=== PATIENT | male | born 1975 | race Caucasian/White ===

== ENCOUNTER 2017-01-27 07:01 | Emergency (ER) | payer BC ==
[~2017-01-27] VITALS: Ht 172.7 cm; Wt 94.9 kg
[2017-01-27 07:02] VITALS: Ht 172.7 cm; Wt 94.9 kg
--- NOTE | 2017-01-27 09:20 | ERD ---
ER Documentation Chief Complaint Chief Complaint suture removal on right foot HPI Patient is a 41-year-old male with hypertension and diabetes who presents for removal of sutures in his foot. The patient is also looking for a new doctor because he had cared at [facility] and they were not happy with the care. He had a biopsy done of the right second toe 2 weeks ago and had stitches placed. He is getting antibiotics through a PICC line currently. He does not currently have a primary doctor. He was unable to get an appointment with the line servicer who did the biopsy and therefore the patient came to the ER to have his sutures removed. ROS All systems reviewed and are negative except as per history of present illness. Allergies Allergies: Coded Allergies: No Known Allergy (Unverified , 01/27/17) PMhx/Soc Hx Miscellaneous Medical Probl: Yes (DM, osteomylitis) Hx Alcohol Use: No Hx Substance Use: No Hx Tobacco Use: No FmHx Family History: No diabetes Physical Exam Vitals Vital Signs Date Time Temp Pulse Resp B/P Pulse Ox O2 Delivery O2 Flow Rate FiO2 01/27/17 07:02 98.2 71 18 155/94 99 Physical Exam Const: No acute distress Head: Atraumatic Eyes: Normal Conjunctiva ENT: Normal External Ears, Nose and Mouth. Neck: Full range of motion..~ No meningismus. Resp: Clear to auscultation bilaterally Cardio: Regular rate and rhythm, no murmurs Abd: Soft, non tender, non distended. Normal bowel sounds Skin: Incision and sutures are clean, dry, and intact to the right second toe , there is scab formation around the area but no obvious signs of infection Back: No midline or flank tenderness Ext: No cyanosis, or edema Neur: Awake and alert Psych: Normal Mood and Affect Procedures/MDM Suture Removal by me: Sutures removed with tweezers and scissors without incident. Wound shows no evidence of infection, foreign body, neurologic injury, vascular injury, open joint or tendon laceration. Patient to follow up PRN. I also spoke with the wound care nursing team who came to the bedside to evaluate the patient. They are going to help him get plugged into the amputation prevention center so that he can get follow-up. I do not believe he requires admission to the hospital or further workup at this time. I believe outpatient management is appropriate. Departure Diagnosis: Primary Impression: Encounter for removal of sutures Condition: Fair Patient Instructions: Suture Removal, No Complication Referrals: [facility] Additional Instructions: SPECIALIST: YOU HAVE A MEDICAL CONDITION WHICH REQUIRES YOU TO SEE A SPECIALIST WITHIN THE NEXT 1-2 DAYS. PLEASE FOLLOW UP WITH YOUR PRIMARY PHYSICIAN FOR REFFERAL.IF YOU DO NOT HAVE A PRIMARY CARE PHYSICIAN AND/OR YOU CAN NOT AFFORD TO SEE A PHYSICIAN THE FOLLOWING RESOURCES HAVE BEEN SUPPLIED TO YOU. IT IS YOUR RESPONSIBILITY TO BE SEEN BY THE SPECIALIST WENDY MACARIO MD Jan 27, 2017 09:20
== END 2017-01-27 09:25 | disposition home or self-care (01) ==
LOC: E/R 07:01
DX: Z48.02 Encounter for removal of sutures (principal); I10 Essential (primary) hypertension; E11.9 Type 2 diabetes mellitus without complications
CPT/HCPCS: 99281

== ENCOUNTER 2017-03-28 06:28 | Emergency (ER) | END 2017-03-28 07:09 | disposition home or self-care (01) ==

== ENCOUNTER 2017-11-28 05:37 | Inpatient (IN) | END 2017-11-28 06:00 | disposition home or self-care (01) | DRG 951 ==

== ENCOUNTER 2018-04-19 14:57 | Inpatient (IN) | payer BC, OTHER ==
[~2018-04-19] VITALS: Ht 175.3 cm; Wt 100.2 kg
[2018-04-19] MEDS ORDERED: ACETAMINOPHEN 325 MG TAB PO STA (15:11)
[2018-04-19] MEDS ORDERED: CEFEPIME 2GM/50 ML (PMX) 50 ML IVPB STA (15:11)
[2018-04-19] MEDS ORDERED: SODIUM CHLORIDE 0.9% 1L BAG IV* STA (15:11)
[2018-04-19] MEDS ORDERED: KETOROLAC 15 MG INJ IV STA (15:17)
[2018-04-19] MEDS ORDERED: VANCOMYCIN 1 GM (PMX) 250 ML IVPB ONE (15:30)
--- NOTE | 2018-04-19 15:56 | ERD ---
ER Documentation Chief Complaint Chief Complaint Sent from clinic for eval fever HPI 43M hx of right ankle fusion, DM here with fever. Several days of flu like symptoms including body aches, myalgias and fevers with generalized malaise. Temperature of 103. No other symptoms including no rhinorrhea cough congestion. The patient has had some mild nausea but no diarrhea no abdominal pain. The patient does note some redness and swelling and discomfort to the right lower extremity where he had a ankle fusion fairly recently. Patient was seen by his fender finisher today and sent to the emergency room for further evaluation. ROS All systems reviewed and are negative except as per history of present illness. Allergies Allergies: Coded Allergies: No Known Allergy (Unverified , 01/27/17) PMhx/Soc Hx Miscellaneous Medical Probl: Yes (DM, osteomylitis) Hx Alcohol Use: No Hx Substance Use: No Hx Tobacco Use: No FmHx Family History: diabetes Physical Exam Vitals Vital Signs Date Temp Pulse Resp B/P (MAP) Pulse Ox O2 O2 Flow FiO2 Time Delivery Rate 04/19/18 98.4 78 13 123/80 98 Room Air 19:53 (94) 04/19/18 98.4 79 16 128/74 98 Room Air 18:50 (92) 04/19/18 92 18 126/82 97 Room Air 18:04 (97) 04/19/18 85 18 136/88 97 Room Air 17:20 (104) 04/19/18 90 18 130/85 97 Room Air 17:00 (100) 04/19/18 39.5 15:38 04/19/18 103.1 117 20 140/84 100 15:06 (102) Physical Exam General: Well developed, well nourished, no acute distress Head: Normocephalic, atraumatic. Eyes: Pupils equally reactive, EOM intact ENT: Moist mucous membranes Neck: Supple, no lymphadenopathy Respiratory: Lungs clear bilaterally, no distress Cardiovascular: RRR, no murmurs, rubs, or gallops Abdominal: Soft, non-tender, non-distended, no peritoneal signs : Deferred MSK: Right lower extremity with evidence of granuloma to the anterior christine that is draining, the ankle fusion of the lower extremity is significantly swollen warm and tender. No crepitus. Neurologic: Alert and oriented, moving all extremities, normal speech, no focal weakness, no cerebellar signs Skin: No rash Psych: Normal mood Result Diagram: 04/19/18 1519 04/19/18 1519 Results 24 hrs Laboratory Tests Test 04/19/18 15:19 04/19/18 15:21 04/19/18 17:34 04/19/18 19:53 White Blood Count 11.1 10^3/ul Red Blood Count 4.94 10^6/ul Hemoglobin 13.0 g/dl Hematocrit 39.2 % Mean Corpuscular 79.4 fl Volume Mean Corpuscular 26.3 pg Hemoglobin Mean Corpuscular 33.2 g/dl Hemoglobin Concent Red Cell Distribution 15.5 % Width Platelet Count 382 10^3/UL Mean Platelet Volume 9.4 fl Immature Granulocytes 0.500 % % Neutrophils % 77.6 % Lymphocytes % 13.6 % Monocytes % 7.6 % Eosinophils % 0.3 % Basophils % 0.4 % Nucleated Red Blood 0.0 /100WBC Cells % Immature Granulocytes 0.050 10^3/ul # Neutrophils # 8.6 10^3/ul Lymphocytes # 1.5 10^3/ul Monocytes # 0.8 10^3/ul Eosinophils # 0.0 10^3/ul Basophils # 0.0 10^3/ul Nucleated Red Blood 0.0 10^3/ul Cells # Erythrocyte 95 mm/Hr Sedimentation Rate Prothrombin Time 14.3 Sec Prothrombin Time Ratio 1.1 INR International 1.10 Normalized Ratio Activated 33.3 Sec Partial Thromboplast Time Sodium Level 137 mmol/L Potassium Level 4.3 mmol/L Chloride Level 101 mmol/L Carbon Dioxide Level 25 mmol/L Anion Gap 11 Blood Urea Nitrogen 13 mg/dl Creatinine 0.97 mg/dl Est Glomerular Filtrat > 60 mL/min Rate mL/min Glucose Level 176 mg/dl Calcium Level 9.2 mg/dl Total Bilirubin 0.4 mg/dl Direct Bilirubin 0.00 mg/dl Indirect Bilirubin 0.4 mg/dl Aspartate Amino 19 IU/L Transf (AST/SGOT) Alanine 8 IU/L Aminotransferase (ALT/ SGPT) Alkaline Phosphatase 150 IU/L Troponin I < 0.012 ng/ml C-Reactive Protein 25.1 mg/dl Total Protein 8.1 g/dl Albumin 3.8 g/dl Globulin 4.30 g/dl Albumin/Globulin Ratio 0.88 POC Venous Lactate 1.7 mmol/L 1.2 mmol/L Lactic Acid Level 0.8 mmol/L Current Medications Medications Dose Sig/Mara Start Time Status Last (Trade) Ordered Route PRN Stop Time Admin Dose Reason Admin Sodium 2,950 ml BOLUS OVER 2 04/19/18 DC 04/19/18 Chloride HOURS STAT 15:11 04/19/18 15:39 (NS) IV* 15:13 650 mg ONCE STAT 04/19/18 DC 04/19/18 Acetaminophen PO 15:11 04/19/18 15:38 (Tylenol 15:13 Tab) Cefepime HCl 50 ml @ ONCE STAT 04/19/18 DC 04/19/18 100 mls/hr IVPB 15:11 04/19/18 15:39 15:40 Vancomycin 250 ml @ ONCE ONCE 04/19/18 DC 04/19/18 HCl 125 mls/hr IVPB 15:30 04/19/18 17:08 17:29 Ketorolac 15 mg ONCE STAT 04/19/18 DC 04/19/18 Tromethamine IV 15:17 04/19/18 15:38 (Toradol) 15:19 Ondansetron 4 mg BRIDGE ORDER 04/19/18 HCl (Zofran PRN IV 20:30 04/20/18 Inj) NAUSEA/VOMITI 20:29 NG 650 mg ER BRIDGE 04/19/18 Acetaminophen PRN PO 20:30 04/20/18 (Tylenol .MILD PAIN 20:29 Tab) 1-3 OR TEMP IV Flush 3 ml PER 04/19/18 (NS 3 ml) PROTOCOL IV 20:30 Ondansetron 4 mg Q6H PRN 04/19/18 HCl (Zofran PO 20:30 Tab) NAUSEA/VOMITI NG 650 mg Q6H PRN 04/19/18 Acetaminophen PO .PAIN 1-3 20:30 (Tylenol OR TEMP Tab) 1 tab Q6H PRN 04/19/18 Acetaminophen PO .MOD PAIN 20:30 / 4-6 Hydrocodone Bitart ([place] (5/325)) Docusate 100 mg Q12H PRN 04/19/18 Sodium PO 20:30 (Colace) .CONSTIPATION Zolpidem 5 mg QHS PRN 04/19/18 Tartrate PO .INSOMNIA 20:30 (Ambien) Famotidine 20 mg Q12 PO 04/19/18 (Pepcid) 21:00 Heparin 5,000 unit Q12 SC 04/19/18 Sodium 21:00 (Porcine) (Heparin (5000 Units/1ml)) Vancomycin 1 ea NOTE XX 04/19/18 UNV HCl (Vanco 20:30 Iv Per Pharmacy) Metformin 850 mg BID PO 04/19/18 UNV HCl 21:00 (Glucophage) 40 mg QPM PO 04/19/18 UNV Atorvastatin 21:00 Calcium (Lipitor) Lisinopril 40 mg QAM PO 04/20/18 UNV (Zestril) 09:00 2,000 unit QAM PO 04/20/18 UNV Cholecalcifer 09:00 ol (Vitamin D) Procedures/MDM EKG, MONITORS, & DIAGNOSTIC IMAGING: EKG: I reviewed and interpreted a 12-lead EKG. Rhythm: Normal sinus rhythm ST Changes: No contiguous ST segment elevations T waves: No contiguous T wave inversions Impression: No evidence of acute cardiac ischemia Chest x-ray: I reviewed and interpreted a 1 view of the chest Mediastinum: No enlargement Cardiac silhouette: No cardiomegaly Airspace: Clear lung ortega bilaterally without evidence of pneumothorax Bones: No evidence of fracture X-ray right tib-fib: IMPRESSION: 1. Large soft tissue density in Kager's fat pad/ posterior ankle and leg, increase since the prior exams. This can be further evaluated with cross- sectional imaging. 2. Redemonstration of neuropathic changes in the ankle/hind foot/mid foot status post distal fibular resection and ankle fusion. 3. Diffuse soft tissue swelling in the leg. 4. Evidence of prior external fixation, with increased mature periosteal reaction about the proximal tibia screw tract may represent healing changes. 5. Additional findings as above. 6. Consider MRI or bone scan for further evaluation if there is persistent concern for osteomyelitis. RPTAT: BBDD X-ray right foot: IMPRESSION: Mild right lower lobe atelectatic changes. Low lung volumes. LAB INTERPRETATION: I reviewed the laboratory testing and it shows normal lactic acid, elevated ESR and CRP MEDICAL DECISION MAKING: Patient presents with fever, body aches and influenza-like illness but no focal source other than the right lower extremity. This is concerning for possible osteomyelitis. The patient surgery was in January, unlikely postoperative infection. Patient will benefit from alternative source screening including influenza but the patient has no evidence of pneumonia or acute intraabdominal process. No signs or symptoms concerning for meningitis. Code sepsis was in itiated and the patient was given broad-spectrum antibiotics ER COURSE: * 30/kg bolus of saline, antipyretics, blood cultures and broad-spectrum antibiotics provided. * The patient does not meet criteria for severe sepsis or septic shock. The patient's symptoms and vital signs have improved * No other clear source of infection CONSULTATION: Dr. Moreno, podiatry notified DISPOSITION PLAN: Accepting care team and consultations: I discussed the current laboratory data, diagnostic imaging and emergency care provided. Admitting team: Dr. Contreras, primary care physician sepsis Documentation: Patient's infectious symptoms have not stabilized and the patient is at risk of rapid decompensation. The patient will be admitted for careful hydration, antibiotic therapy, and infectious source control. SEVERE SEPSIS CRITERIA: Infectious source: Right lower extremity cellulitis versus osteomyelitis End organ damage indicated by: no endorgan dysfunction currently SEPSIS MANAGEMENT Time of recognition of sepsis: Upon MD assessment. Time of recognition of severe sepsis: No severe sepsis at this time. Time of recognition of septic shock: No septic shock at this time. 3 HOUR BUNDLE Blood cultures x 2 before broad-spectrum antibiotics: Yes 30 ml/kg NS bolus completed Initial lactate less than 2 Repeat lactate less than 2 SEPTIC SHOCK ASSESSMENT: No lactic acid > 4.0 No persistent hypotension (SBP < 90 or 40 mmHg drop, MAP < 65) despite 30 mL/kg IV fluid bolus VOLUME REASSESSMENT FOR SEPTIC SHOCK: The patient does not meet criteria for septic shock in the emergency department at this time PERSISTENT HYPOTENSION TREATMENT: Comfort care no Central line not Required Vasopressor started not required I considered further perfusion assessment with CVP measurement, SCVO2, bedside ultrasound volume assessment, passive leg raise, trial of further fluid bolus. And proceeded with 30 ml/kg fluid bolus of NSS, broad spectrum antibiotics, and admission. CRITICAL CARE Critical care time 30 minutes Emergent fluid management while maintaining close respiratory support. Provision of immediate and broad-spectrum antibiotic therapy. Simultaneous assessment for possible sources in order to direct targeted therapy. Consideration for invasive and chemical support to prevent cardiopulmonary collapse. Critical care time is independent of procedures performed. Admitting team indication: Insurance directed Departure Diagnosis: Primary Impression: Sepsis Sepsis type: sepsis due to unspecified organism Qualified Codes: A41.9 - Sepsis, unspecified organism Additional Impression: Cellulitis of right lower extremity Condition: Stable FREDERICK SOUTH MD Apr 19, 2018 15:56
[2018-04-19] MEDS ORDERED: ACETAMINOPHEN 325 MG TAB PO PRN ×2 (20:30)
[2018-04-19] MEDS ORDERED: ONDANSETRON 4 MG TAB PO PRN (20:30)
[2018-04-19] MEDS ORDERED: HYDROCODONE/APAP (5/325) TAB PO PRN (20:30)
[2018-04-19] MEDS ORDERED: DOCUSATE SODIUM 100 MG CAP PO PRN (20:30)
[2018-04-19] MEDS ORDERED: ONDANSETRON 4 MG INJ IV PRN (20:30)
[2018-04-19] MEDS ORDERED: VANCOMYCIN IV PER PHARMACY XX SCH (20:30)
[2018-04-19] MEDS ORDERED: ZOLPIDEM 5 MG TAB PO PRN (20:30)
[2018-04-19] MEDS ORDERED: NACL 0.9% 3 ML SYG IV SCH (20:30)
[2018-04-19] MEDS: ATORVASTATIN 40 MG TAB PO SCH (23:12)
[2018-04-19] MEDS: metFORMIN 850 MG TAB PO SCH (23:12)
[2018-04-19] MEDS: FAMOTIDINE 20 MG TAB PO SCH (23:13)
[2018-04-19] MEDS: HEPARIN 5,000 UNIT/1 ML VIAL SC SCH (23:14)
[2018-04-19] MEDS ORDERED: ATOR40TA68 PO (23:21)
[2018-04-19] MEDS ORDERED: ERGO2000 PO (23:21)
[2018-04-19] MEDS ORDERED: METF-480 PO (23:21)
[2018-04-19] MEDS ORDERED: LISI-471 PO (23:21)
[2018-04-19] MEDS ORDERED: SITA25TA3 PO (23:21)
[2018-04-19] MEDS ORDERED: DEXTROSE 50% 50 ML SYRINGE IV PRN ×2 (23:30)
[2018-04-19] MEDS ORDERED: GLUCOSE GEL 15 GRAM TUBE PO PRN ×2 (23:30)
[2018-04-19] MEDS ORDERED: GLUCOSE GEL 15 GRAM TUBE BUCCAL PRN (23:30)
[2018-04-19] MEDS ORDERED: GLUCAGON 1 MG INJ IM PRN (23:30)
[2018-04-19 23:48] VITALS: Ht 175.3 cm; Wt 100.2 kg
[2018-04-20] MEDS: VANCOMYCIN 1 GM 250 ML IVPB SCH ×3 (00:09→16:51)
[2018-04-20 00:29] VITALS: BP 140/73; PULSE 72; RESP 20
[2018-04-20 02:00] VITALS: BP 135/67; PULSE 74; RESP 18
[2018-04-20 08:02] VITALS: BP 159/87; PULSE 83; RESP 18
[2018-04-20] MEDS: metFORMIN 850 MG TAB PO SCH ×2 (08:50→20:40)
[2018-04-20] MEDS: LISINOPRIL 20 MG TAB PO SCH (08:51)
[2018-04-20] MEDS: CHOLECALCIFEROL 2,000 UNIT CAP PO SCH (08:51)
[2018-04-20] MEDS: FAMOTIDINE 20 MG TAB PO SCH ×2 (08:51→20:41)
[2018-04-20] MEDS: HEPARIN 5,000 UNIT/1 ML VIAL SC SCH ×2 (08:51→20:42)
--- NOTE | 2018-04-20 13:02 | HP ---
Date/Time of Note Date/Time of Note DATE: 04/20/18 TIME: 12:53 Assessment/Plan VTE Prophylaxis Risk score (from Ns)>0 risk: 2 SCD applied (from [facility] [place] No SCD contraindicated: other (Right lower extremity cellulitis) Pharmacological prophylaxis: heparin Lines/Catheters IV C[facility]ter Type (from [facility] Saline Lock Assessment/Plan Problems: (1) Cellulitis of right lower extremity Status: Acute Comment: Blood cultures already positive. Patient is on vancomycin which should cover the gram-positive cocci that are identified in the blood cultures. He also clinically is significantly improved both subjectively and objectively. Continue with current treatment. Plan for MRI scan of lower extremity tomorrow and a bit more of the swelling has decreased (2) Sepsis Status: Acute Comment: Responding to treatment fortunately. Qualifiers: Sepsis type: sepsis due to unspecified organism Qualified Codes: A41.9 - Sepsis, unspecified organism (3) Hyperlipidemia Status: Chronic Comment: Maintain statin therapy Qualifiers: Hyperlipidemia type: pure hypercholesterolemia Qualified Codes: E78.00 - Pure hypercholesterolemia, unspecified (4) Essential hypertension Status: Chronic Comment: Continue PACHECO inhibitor treatment (5) Diabetes mellitus type 2 in obese Status: Chronic Comment: Continue with treatment and follow the blood tests (6) Charcot's joint, right ankle and foot Status: Chronic Comment: Noted. Result Diagram: 04/20/18 0622 04/20/18 0622 Results 24hrs Laboratory Tests Test 04/19/18 15:19 04/19/18 15:21 04/19/18 17:34 04/19/18 19:53 White Blood Count 11.1 H Red Blood Count 4.94 Hemoglobin 13.0 L Hematocrit 39.2 L Mean Corpuscular Volume 79.4 L Mean Corpuscular 26.3 L Hemoglobin Mean Corpuscular 33.2 Hemoglobin Concent Red Cell Distribution 15.5 H Width Platelet Count 382 Mean Platelet Volume 9.4 Immature Granulocytes % 0.500 H Neutrophils % 77.6 H Lymphocytes % 13.6 L Monocytes % 7.6 Eosinophils % 0.3 Basophils % 0.4 Nucleated Red Blood 0.0 Cells % Immature Granulocytes # 0.050 H Neutrophils # 8.6 H Lymphocytes # 1.5 Monocytes # 0.8 Eosinophils # 0.0 Basophils # 0.0 Nucleated Red Blood 0.0 Cells # Erythrocyte 95 H Sedimentation Rate Prothrombin Time 14.3 Prothrombin Time Ratio 1.1 INR International 1.10 Normalized Ratio Activated 33.3 Partial Thromboplast Time Sodium Level 137 Potassium Level 4.3 Chloride Level 101 Carbon Dioxide Level 25 Anion Gap 11 Blood Urea Nitrogen 13 Creatinine 0.97 Est Glomerular Filtrat > 60 Rate mL/min Glucose Level 176 Calcium Level 9.2 Total Bilirubin 0.4 Direct Bilirubin 0.00 Indirect Bilirubin 0.4 Aspartate Amino 19 Transf (AST/SGOT) Alanine 8 L Aminotransferase (ALT/SG PT) Alkaline Phosphatase 150 H Troponin I < 0.012 C-Reactive Protein 25.1 H Total Protein 8.1 Albumin 3.8 Globulin 4.30 H Albumin/Globulin Ratio 0.88 POC Venous Lactate 1.7 1.2 Lactic Acid Level 0.8 Test 04/19/18 23:07 04/20/18 06:22 Bedside Glucose 154 White Blood Count 10.3 Red Blood Count 4.20 L Hemoglobin 11.0 L Hematocrit 33.8 L Mean Corpuscular Volume 80.5 L Mean Corpuscular 26.2 L Hemoglobin Mean Corpuscular 32.5 Hemoglobin Concent Red Cell Distribution 15.7 H Width Platelet Count 349 Mean Platelet Volume 10.1 Immature Granulocytes % 0.600 H Neutrophils % 77.8 H Lymphocytes % 12.9 L Monocytes % 7.2 Eosinophils % 1.2 Basophils % 0.3 Nucleated Red Blood 0.0 Cells % Immature Granulocytes # 0.060 H Neutrophils # 8.0 H Lymphocytes # 1.3 Monocytes # 0.7 Eosinophils # 0.1 Basophils # 0.0 Nucleated Red Blood 0.0 Cells # Erythrocyte 97 H Sedimentation Rate Sodium Level 139 Potassium Level 4.4 Chloride Level 107 Carbon Dioxide Level 24 Anion Gap 8 Blood Urea Nitrogen 12 Creatinine 0.75 Est Glomerular Filtrat > 60 Rate mL/min Glucose Level 139 Calcium Level 8.6 Total Bilirubin 0.3 Direct Bilirubin 0.00 Indirect Bilirubin 0.3 Aspartate Amino 17 Transf (AST/SGOT) Alanine 12 L Aminotransferase (ALT/SG PT) Alkaline Phosphatase 122 H Total Protein 6.7 # Albumin 3.1 L Globulin 3.60 H Albumin/Globulin Ratio 0.86 HPI/ROS Admit Date/Time Admit Date/Time Apr 19, 2018 at 20:08 Hx of Present Illness Pleasant 43-year-old gentleman with a history of a Charcot ankle status post rec onstruction several months ago. He did been in his usual state of health and recuperating nicely. Roughly 3-4 days ago he developed the onset of swelling tenderness redness and warmth at the ankle. He subsequently then developed fevers and ultimately was advised to be seen in the emergency room by the foot and ankle surgeon. In the emergency room he had temperature of 103.1 and evidence of cellulitis. He was cultured and placed on IV antibiotics specifically vancomycin admitted. His blood cultures are already positive ROS Constitutional: no complaints (He reports he is feeling better than he was yesterday with fever gone no further shaking chills) Eyes: no complaints ENT: no complaints Respiratory: no complaints Cardiovascular: no complaints Gastrointestinal: no complaints Genitourinary: no complaints Musculoskeletal: other (Right ankle pain swelling warmth) Neurologic: no complaints Endocrine: no complaints Psychological: no complaints, nl mood/affect PMH/Family/Social Past Medical History Medical History: diabetes (Type II), high cholesterol, hypertension, other (Alcohol consumption; childhood asthma; lactose intolerance; usual childhood diseases; history of varicella; right second toe osteomyelitis history; Charcot joint right ankle;) Medications Current Medications IV Flush (NS 3 ml) 3 ml PER PROTOCOL IV ; Start 04/19/18 at 20:30 Ondansetron HCl (Zofran Tab) 4 mg Q6H PRN PO NAUSEA/VOMITING; Start 04/19/18 at 20:30 Acetaminophen (Tylenol Tab) 650 mg Q6H PRN PO .PAIN 1-3 OR TEMP; Start 04/19/18 at 20:30 Acetaminophen/ Hydrocodone Bitart ([place] (5/325)) 1 tab Q6H PRN PO .MOD PAIN 4- 6; Start 04/19/18 at 20:30 Docusate Sodium (Colace) 100 mg Q12H PRN PO .CONSTIPATION; Start 04/19/18 at 20:30 Zolpidem Tartrate (Ambien) 5 mg QHS PRN PO .INSOMNIA; Start 04/19/18 at 20:30 Famotidine (Pepcid) 20 mg Q12 PO Last administered on 04/20/18at 08:51; Admin Dose 20 MG; Start 04/19/18 at 21:00 Heparin Sodium (Porcine) (Heparin (5000 Units/1ml)) 5,000 unit Q12 SC Last administered on 04/20/18at 08:51; Admin Dose 5,000 UNIT; Start 04/19/18 at 21:00 Vancomycin HCl (Vanco Iv Per Pharmacy) 1 ea NOTE XX ; Start 04/19/18 at 20:30 Metformin HCl (Glucophage) 850 mg BID PO Last administered on 04/20/18at 08:50; Admin Dose 850 MG; Start 04/19/18 at 21:00 Atorvastatin Calcium (Lipitor) 40 mg QPM PO Last administered on 04/19/18at 23:12; Admin Dose 40 MG; Start 04/19/18 at 21:00 Lisinopril (Zestril) 40 mg QAM PO Last administered on 04/20/18at 08:51; Admin Dose 40 MG; Start 04/20/18 at 09:00 Cholecalciferol (Vitamin D) 2,000 unit QAM PO Last administered on 04/20/18at 08:51; Admin Dose 2,000 UNIT; Start 04/20/18 at 09:00 Miscellaneous Information 1 ea NOTE XX ; Start 04/19/18 at 23:30 Glucose (Glutose) 15 gm Q15M PRN PO DECREASED GLUCOSE; Start 04/19/18 at 23:30 Glucose (Glutose) 22.5 gm Q15M PRN PO DECREASED GLUCOSE; Start 04/19/18 at 23:30 Dextrose (D50w Syringe) 25 ml Q15M PRN IV DECREASED GLUCOSE; Start 04/19/18 at 23:30 Dextrose (D50w Syringe) 50 ml Q15M PRN IV DECREASED GLUCOSE; Start 04/19/18 at 23:30 Glucagon (Glucagen) 1 mg Q15M PRN IM DECREASED GLUCOSE; Start 04/19/18 at 23:30 Glucose (Glutose) 15 gm Q15M PRN BUCCAL DECREASED GLUCOSE; Start 04/19/18 at 23:30 Vancomycin HCl 250 ml @ 125 mls/hr Q8H IVPB Last administered on 04/20/18at 08:50; Admin Dose 125 MLS/HR; Start 04/20/18 at 00:00 Miscellaneous Information (*Rx Drug Level Order Reminder*) VANCO TROUGH 04/20 @ 2,300 ONCE ONCE XX ; Start 04/20/18 at 23:00; Stop 04/20/18 at 23:01 Coded Allergies: No Known Allergy (Unverified , 04/19/18) Past Surgical History Past Surgical Hx: other (Right ankle arthrodesis) Family History Significant Family History: diabetes, hypertension, lung disease, other Social History Born in [place] and raised. No experience. lives with spouse Alcohol Use: other (Reports recently discontinued) Smoking Status: Never smoker Drug Use: none Exam/Review of Systems Vital Signs Vitals Vital Signs Date Temp Pulse Resp B/P (MAP) Pulse Ox O2 O2 Flow FiO2 Time Delivery Rate 04/20/18 97.7 83 18 159/87 94 Room Air 08:02 (111) Intake and Output 04/19/18 04/19/18 04/20/18 1515:00 23:00 07:00 IntakeIntake Total 3000 ml 500 ml OutputOutput Total 900 ml BalanceBalance 3000 ml -400 ml Exam Constitutional: alert, oriented Head: normocephalic, atraumatic Eyes: nl conjunctiva, EOMI, nl lids ENMT: nl external ears & nose, nl lips & teeth, nl nasal mucosa & septum Neck: supple, non-tender Respiratory: clear to auscultation, normal air movement Cardiovascular: regular rate and rhythm, nl pulses Gastrointestinal: soft, nl liver, spleen, non-tender Extremities: other (Right lower extremity markedly swollen erythematous red with a margination line which is lower than the ink manriquez at the ER and placed yesterday) Neurological: CUPOLA MELTER HELPER II-XII intact, nl mental status, nl speech, nl strength Skin: nl turgor Lymph: nl lymph nodes DEE AGUILAR MD Apr 20, 2018 13:01
[2018-04-20 14:00] VITALS: BP_SYST 101; BP_SYST 153; BP_DIAS 60; BP_DIAS 76; PULSE 62; RESP 18
[2018-04-20] MEDS: ACCU-CHEK XX SCH ×3 (14:00→20:44)
[2018-04-20 20:00] VITALS: BP 172/77; PULSE 77; RESP 19
[2018-04-20] MEDS: ATORVASTATIN 40 MG TAB PO SCH (20:41)
[2018-04-21] MEDS: VANCOMYCIN 1 GM 250 ML IVPB SCH ×4 (00:02→23:44)
[2018-04-21 02:00] VITALS: BP 161/86; PULSE 79; RESP 18
[2018-04-21 08:12] VITALS: BP 161/81; PULSE 78; RESP 18
[2018-04-21] MEDS: metFORMIN 850 MG TAB PO SCH ×2 (08:14→20:08)
[2018-04-21] MEDS: LISINOPRIL 20 MG TAB PO SCH ×2 (08:14→20:09)
[2018-04-21] MEDS: CHOLECALCIFEROL 2,000 UNIT CAP PO SCH (08:14)
[2018-04-21] MEDS: FAMOTIDINE 20 MG TAB PO SCH ×2 (08:14→20:07)
[2018-04-21] MEDS: ACCU-CHEK XX SCH ×6 (08:15→20:15)
[2018-04-21] MEDS: HEPARIN 5,000 UNIT/1 ML VIAL SC SCH ×2 (08:15→20:11)
--- NOTE | 2018-04-21 10:35 | CONS ---
Assessment/Plan Assessment/Plan Problems: (1) Right ankle effusion (2) Sepsis Status: Acute Qualifiers: Qualified Codes: A41.9 - Sepsis, unspecified organism (3) Cellulitis of right lower extremity Status: Acute (4) Diabetes mellitus type 2 in obese Status: Chronic (5) Charcot's joint, right ankle and foot Status: Chronic Assessment/Plan (Daily) Plan: Prognosis is guarded. Patient has possible infection of the right ankle joint. A CT of the right ankle will be ordered. May require incision and drainage. IV antibiotics to continue. Nonweightbearing on the right lower extremity. Patient will be followed in-house. Thank you very much for consultation. Consultation Date/Type/Reason Admit Date/Time Apr 19, 2018 at 20:08 Date of Consultation: Apr 20, 2018 Type of Consult Foot and ankle surgery Reason for Consultation Possible infection in the right lower extremity with bacteremia. Date/Time of Note DATE: 04/20/18 TIME: 17:26 Hx of Present Illness This is a pleasant 43-year-old male patient with history of Charcot ankle changes along with Charcot foot who has recently undergone right ankle fusion and removal of external fixation. He was seen in my clinic but for routine for routine postop checkup. Patient was sent to the emergency room to be admitted to the hospital for possible sepsis. Patient reports that about 3-4 days ago he developed swelling and tenderness at the right ankle. He has had on and off fevers. In the emergency room he had a temperature of 103.1 with swelling of the right ankle and increase in warmth. Patient was found to have positive blood cultures. He was placed on IV vancomycin and was admitted to the hospital. Constitutional: chills, febrile Eyes: no complaints ENT: no complaints Respiratory: no complaints Cardiovascular: no complaints Gastrointestinal: no complaints Past Medical History As per history of present illness. Medical History: diabetes, high cholesterol, hypertension, other Home Meds Reported Medications Sitagliptin* (Januvia*) Unknown Strength Tablet, PO DAILY, #30 TAB 04/19/18 Metformin* (Glucophage*) 850 Mg Tablet, 850 MG PO WITH BREAKFAST DINNE, #60 TAB 04/19/18 Lisinopril* (Lisinopril*) 20 Mg Tablet, 20 MG PO DAILY, #30 TAB 04/19/18 Ergocalciferol (Vitamin D2) (VITAMIN D2) 2,000 Unit Tablet, 2000 UNIT PO QAM, TAB 04/19/18 Atorvastatin* (Atorvastatin*) 40 Mg Tablet, 40 MG PO QHS, #30 TAB 04/19/18 Medications Current Medications IV Flush (NS 3 ml) 3 ml PER PROTOCOL IV ; Start 04/19/18 at 20:30 Ondansetron HCl (Zofran Tab) 4 mg Q6H PRN PO NAUSEA/VOMITING; Start 04/19/18 at 20:30 Acetaminophen (Tylenol Tab) 650 mg Q6H PRN PO .PAIN 1-3 OR TEMP; Start 04/19/18 at 20:30 Acetaminophen/ Hydrocodone Bitart ([place] (5/325)) 1 tab Q6H PRN PO .MOD PAIN 4- 6; Start 04/19/18 at 20:30 Docusate Sodium (Colace) 100 mg Q12H PRN PO .CONSTIPATION; Start 04/19/18 at 20:30 Zolpidem Tartrate (Ambien) 5 mg QHS PRN PO .INSOMNIA; Start 04/19/18 at 20:30 Famotidine (Pepcid) 20 mg Q12 PO Last administered on 04/21/18 08:14; Admin Dose 20 MG; Start 04/19/18 at 21:00 Heparin Sodium (Porcine) (Heparin (5000 Units/1ml)) 5,000 unit Q12 SC Last administered on 04/21/18 08:15; Admin Dose 5,000 UNIT; Start 04/19/18 at 21:00 Vancomycin HCl (Vanco Iv Per Pharmacy) 1 ea NOTE XX ; Start 04/19/18 at 20:30 Metformin HCl (Glucophage) 850 mg BID PO Last administered on 04/21/18 08:14; Admin Dose 850 MG; Start 04/19/18 at 21:00 Atorvastatin Calcium (Lipitor) 40 mg QPM PO Last administered on 04/20/18 20:41; Admin Dose 40 MG; Start 04/19/18 at 21:00 Lisinopril (Zestril) 40 mg QAM PO Last administered on 04/21/18 08:14; Admin Dose 40 MG; Start 04/20/18 at 09:00 Cholecalciferol (Vitamin D) 2,000 unit QAM PO Last administered on 3/6/19at 08:14; Admin Dose 2,000 UNIT; Start 04/20/18 at 09:00 Miscellaneous Information 1 ea NOTE XX ; Start 04/19/18 at 23:30 Glucose (Glutose) 15 gm Q15M PRN PO DECREASED GLUCOSE; Start 04/19/18 at 23:30 Glucose (Glutose) 22.5 gm Q15M PRN PO DECREASED GLUCOSE; Start 04/19/18 at 23:30 Dextrose (D50w Syringe) 25 ml Q15M PRN IV DECREASED GLUCOSE; Start 04/19/18 at 23:30 Dextrose (D50w Syringe) 50 ml Q15M PRN IV DECREASED GLUCOSE; Start 04/19/18 at 23:30 Glucagon (Glucagen) 1 mg Q15M PRN IM DECREASED GLUCOSE; Start 04/19/18 at 23:30 Glucose (Glutose) 15 gm Q15M PRN BUCCAL DECREASED GLUCOSE; Start 04/19/18 at 23:30 Vancomycin HCl 250 ml @ 125 mls/hr Q8H IVPB Last administered on 04/21/18at 08:15; Admin Dose 125 MLS/HR; Start 04/20/18 at 00:00 Diagnostic Test (Pha) (Accu-Chek) 1 ea AC MEALS XX Last administered on 04/21/18at 08:15; Admin Dose 1 EA; Start 04/20/18 at 17:35 Diagnostic Test (Pha) (Accu-Chek) 1 ea 2 HOURS AFTER MEALS XX Last administered on 04/21/18at 10:22; Admin Dose 1 EA; Start 04/20/18 at 14:00 Hydralazine HCl (Apresoline) 50 mg Q8 PRN PO ELEVATED BLOOD PRESSURE Last administered on 04/20/18at 22:35; Admin Dose 50 MG; Start 04/20/18 at 21:00 Allergies: Coded Allergies: No Known Allergy (Unverified , 04/19/18) Past Surgical History Patient has had realignment of right lower extremity with use of external fixation. Patient has undergone removal of external fixation and attempted fusion of the right ankle joint to correct the severe ankle Charcot deformity. Past Surgical Hx: other Social History Alcohol Use: none Smoking Status: Never smoker Drug Use: none Exam/Review of Systems Exam Vitals Vital Signs Date Temp Pulse Resp B/P (MAP) Pulse Ox O2 O2 Flow FiO2 Time Delivery Rate 04/21/18 98.4 78 18 161/81 96 08:12 (107) 04/20/18 Room Air 14:00 Intake and Output 04/20/18 04/20/18 04/21/18 1515:00 23:00 07:00 IntakeIntake Total 250 ml 1350 ml 850 ml OutputOutput Total 600 ml 2400 ml BalanceBalance 250 ml 750 ml -1550 ml Exam GENERAL: Patient is in no acute distress; patient is well-developed and well- nourished; laying supine in bed VASCULAR: Pedal pulses are weakly palpable bilaterally. There is edema of the right ankle with increase in temperature of skin. Capillary filling time is delayed on all toes. No varicose veins noted in the lower extremity. Lower leg hyperpigmentation present NEUROLOGICAL: Protective sensation is diminished to sharp, dull, vibratory and temperature stimuli bilaterally. Deep tendon reflexes are normal in the left; right side is status post ankle fusion SKIN: There is significant hyperpigmentation of skin noted around the lateral right ankle. I do not see much erythema today and there is no open wound MUSCULOSKELETAL: Status post ankle fusion right lower extremity with contracted toes Imaging reviewed. Labs reviewed. Results Result Diagram: 04/21/18 0545 04/21/18 0545 Results 24hrs Laboratory Tests Test 04/20/18 14:35 04/20/18 18:16 04/20/18 20:24 04/20/18 22:45 Bedside Glucose 134 142 124 Vancomycin Level Trough 12.3 Test 04/21/18 05:45 04/21/18 08:12 White Blood Count 9.2 Red Blood Count 4.24 L Hemoglobin 11.1 L Hematocrit 33.9 L Mean Corpuscular Volume 80.0 L Mean Corpuscular 26.2 L Hemoglobin Mean Corpuscular 32.7 Hemoglobin Concent Red Cell Distribution 15.5 H Width Platelet Count 360 Mean Platelet Volume 9.5 Immature Granulocytes % 0.500 H Neutrophils % 69.7 Lymphocytes % 18.9 Monocytes % 8.5 Eosinophils % 2.1 Basophils % 0.3 Nucleated Red Blood 0.0 Cells % Immature Granulocytes # 0.050 H Neutrophils # 6.4 Lymphocytes # 1.7 Monocytes # 0.8 Eosinophils # 0.2 Basophils # 0.0 Nucleated Red Blood 0.0 Cells # Sodium Level 140 Potassium Level 4.2 Chloride Level 105 Carbon Dioxide Level 28 Anion Gap 7 Blood Urea Nitrogen 10 Creatinine 0.88 Est Glomerular Filtrat > 60 Rate mL/min Glucose Level 129 Calcium Level 8.9 Total Bilirubin 0.1 L Direct Bilirubin 0.00 Indirect Bilirubin 0.1 Aspartate Amino 22 Transf (AST/SGOT) Alanine 14 Aminotransferase (ALT/SG PT) Alkaline Phosphatase 132 H Total Protein 6.9 Albumin 3.2 L Globulin 3.70 H Albumin/Globulin Ratio 0.86 Bedside Glucose 139 Medications Medication Current Medications IV Flush (NS 3 ml) 3 ml PER PROTOCOL IV ; Start 04/19/18 at 20:30 Ondansetron HCl (Zofran Tab) 4 mg Q6H PRN PO NAUSEA/VOMITING; Start 04/19/18 at 20:30 Acetaminophen (Tylenol Tab) 650 mg Q6H PRN PO .PAIN 1-3 OR TEMP; Start 04/19/18 at 20:30 Acetaminophen/ Hydrocodone Bitart ([place] (5/325)) 1 tab Q6H PRN PO .MOD PAIN 4- 6; Start 04/19/18 at 20:30 Docusate Sodium (Colace) 100 mg Q12H PRN PO .CONSTIPATION; Start 04/19/18 at 20:30 Zolpidem Tartrate (Ambien) 5 mg QHS PRN PO .INSOMNIA; Start 04/19/18 at 20:30 Famotidine (Pepcid) 20 mg Q12 PO Last administered on 04/21/18 08:14; Admin Dose 20 MG; Start 04/19/18 at 21:00 Heparin Sodium (Porcine) (Heparin (5000 Units/1ml)) 5,000 unit Q12 SC Last administered on 04/21/18 08:15; Admin Dose 5,000 UNIT; Start 04/19/18 at 21:00 Vancomycin HCl (Vanco Iv Per Pharmacy) 1 ea NOTE XX ; Start 04/19/18 at 20:30 Metformin HCl (Glucophage) 850 mg BID PO Last administered on 04/21/18 08:14; Admin Dose 850 MG; Start 04/19/18 at 21:00 Atorvastatin Calcium (Lipitor) 40 mg QPM PO Last administered on 04/20/18 20:41; Admin Dose 40 MG; Start 04/19/18 at 21:00 Lisinopril (Zestril) 40 mg QAM PO Last administered on 04/21/18 08:14; Admin Dose 40 MG; Start 04/20/18 at 09:00 Cholecalciferol (Vitamin D) 2,000 unit QAM PO Last administered on 04/21/18 08:14; Admin Dose 2,000 UNIT; Start 04/20/18 at 09:00 Miscellaneous Information 1 ea NOTE XX ; Start 04/19/18 at 23:30 Glucose (Glutose) 15 gm Q15M PRN PO DECREASED GLUCOSE; Start 04/19/18 at 23:30 Glucose (Glutose) 22.5 gm Q15M PRN PO DECREASED GLUCOSE; Start 04/19/18 at 23:30 Dextrose (D50w Syringe) 25 ml Q15M PRN IV DECREASED GLUCOSE; Start 04/19/18 at 23:30 Dextrose (D50w Syringe) 50 ml Q15M PRN IV DECREASED GLUCOSE; Start 04/19/18 at 23:30 Glucagon (Glucagen) 1 mg Q15M PRN IM DECREASED GLUCOSE; Start 04/19/18 at 23:30 Glucose (Glutose) 15 gm Q15M PRN BUCCAL DECREASED GLUCOSE; Start 04/19/18 at 23:30 Vancomycin HCl 250 ml @ 125 mls/hr Q8H IVPB Last administered on 04/21/18 08:15; Admin Dose 125 MLS/HR; Start 04/20/18 at 00:00 Diagnostic Test (Pha) (Accu-Chek) 1 ea AC MEALS XX Last administered on 04/21/18 08:15; Admin Dose 1 EA; Start 04/20/18 at 17:35 Diagnostic Test (Pha) (Accu-Chek) 1 ea 2 HOURS AFTER MEALS XX Last administered on 04/21/18 10:22; Admin Dose 1 EA; Start 04/20/18 at 14:00 Hydralazine HCl (Apresoline) 50 mg Q8 PRN PO ELEVATED BLOOD PRESSURE Last administered on 04/20/18 22:35; Admin Dose 50 MG; Start 04/20/18 at 21:00 LORI LOPEZ DPM Apr 21, 2018 10:35
[2018-04-21 14:40] VITALS: BP 160/96; PULSE 78; RESP 19
--- NOTE | 2018-04-21 17:36 | PN ---
Date/Time of Note Date/Time of Note DATE: 04/21/18 TIME: 17:34 Assessment/Plan VTE Prophylaxis Risk score (from Ns)>0 risk: 3 SCD applied (from Ns): No SCD contraindicated: other (Joint with a ) Pharmacological prophylaxis: heparin Lines/Catheters IV Catheter Type (from [facility] [place] Saline Lock Urinary Cath still in place: No Assessment/Plan Problems: (1) Cellulitis of right lower extremity Status: Acute Comment: Improving nicely with IV vancomycin therapy. Cultures still pending at this time. (2) Staphylococcus aureus bacteremia with sepsis Status: Acute Comment: On antibiotic therapy and improving nicely picture of sepsis has resolved (3) Charcot's joint, right ankle and foot Status: Chronic Comment: Pending imaging studies and input from Dr. Moreno after the imaging studies (4) Diabetes mellitus type 2 in obese Status: Chronic Comment: Excellent glycemic control despite the infection (5) Hyperlipidemia Status: Chronic Comment: Continue with statin therapy Qualifiers: Hyperlipidemia type: pure hypercholesterolemia Qualified Codes: E78.00 - Pure hypercholesterolemia, unspecified (6) Essential hypertension Status: Chronic Comment: Increase PACHECO inhibitor. Result Diagram: 04/21/18 0545 04/21/18 0545 Results 24hrs Laboratory Tests Test 04/20/18 18:16 04/20/18 20:24 04/20/18 22:45 04/21/18 05:45 Bedside Glucose 142 124 Vancomycin Level Trough 12.3 White Blood Count 9.2 Red Blood Count 4.24 L Hemoglobin 11.1 L Hematocrit 33.9 L Mean Corpuscular Volume 80.0 L Mean Corpuscular 26.2 L Hemoglobin Mean Corpuscular 32.7 Hemoglobin Concent Red Cell Distribution 15.5 H Width Platelet Count 360 Mean Platelet Volume 9.5 Immature Granulocytes % 0.500 H Neutrophils % 69.7 Lymphocytes % 18.9 Monocytes % 8.5 Eosinophils % 2.1 Basophils % 0.3 Nucleated Red Blood 0.0 Cells % Immature Granulocytes # 0.050 H Neutrophils # 6.4 Lymphocytes # 1.7 Monocytes # 0.8 Eosinophils # 0.2 Basophils # 0.0 Nucleated Red Blood 0.0 Cells # Sodium Level 140 Potassium Level 4.2 Chloride Level 105 Carbon Dioxide Level 28 Anion Gap 7 Blood Urea Nitrogen 10 Creatinine 0.88 Est Glomerular Filtrat > 60 Rate mL/min Glucose Level 129 Calcium Level 8.9 Total Bilirubin 0.1 L Direct Bilirubin 0.00 Indirect Bilirubin 0.1 Aspartate Amino 22 Transf (AST/SGOT) Alanine 14 Aminotransferase (ALT/SG PT) Alkaline Phosphatase 132 H Total Protein 6.9 Albumin 3.2 L Globulin 3.70 H Albumin/Globulin Ratio 0.86 Test 04/21/18 08:12 04/21/18 10:21 04/21/18 12:15 04/21/18 13:37 Bedside Glucose 139 174 129 164 Test 04/21/18 17:21 Bedside Glucose 143 Subjective 24 Hr Interval Summary Free Text/Dictation Ports that his pain is down and that he is overall feeling better. The swelling has also decreased. Constitutional: no complaints Eyes: no complaints Respiratory: no complaints Gastrointestinal: no complaints Genitourinary: no complaints Exam/Review of Systems Exam Vitals Vital Signs Date Temp Pulse Resp B/P (MAP) Pulse Ox O2 O2 Flow FiO2 Time Delivery Rate 04/21/18 98.9 78 19 160/96 96 14:40 (117) 04/20/18 Room Air 14:00 Intake and Output 04/20/18 04/20/18 04/21/18 1515:00 23:00 07:00 IntakeIntake Total 250 ml 1350 ml 850 ml OutputOutput Total 600 ml 2400 ml BalanceBalance 250 ml 750 ml -1550 ml Constitutional: alert, oriented Respiratory: clear to auscultation, normal air movement Cardiovascular: regular rate and rhythm, nl pulses Gastrointestinal: soft, nl liver, spleen, non-tender Extremities: other (Right ankle and foot still swollen but significantly improved. Less erythema less warmth) Results Results 24hrs Laboratory Tests Test 04/20/18 18:16 04/20/18 20:24 04/20/18 22:45 04/21/18 05:45 Bedside Glucose 142 124 Vancomycin Level Trough 12.3 White Blood Count 9.2 Red Blood Count 4.24 L Hemoglobin 11.1 L Hematocrit 33.9 L Mean Corpuscular Volume 80.0 L Mean Corpuscular 26.2 L Hemoglobin Mean Corpuscular 32.7 Hemoglobin Concent Red Cell Distribution 15.5 H Width Platelet Count 360 Mean Platelet Volume 9.5 Immature Granulocytes % 0.500 H Neutrophils % 69.7 Lymphocytes % 18.9 Monocytes % 8.5 Eosinophils % 2.1 Basophils % 0.3 Nucleated Red Blood 0.0 Cells % Immature Granulocytes # 0.050 H Neutrophils # 6.4 Lymphocytes # 1.7 Monocytes # 0.8 Eosinophils # 0.2 Basophils # 0.0 Nucleated Red Blood 0.0 Cells # Sodium Level 140 Potassium Level 4.2 Chloride Level 105 Carbon Dioxide Level 28 Anion Gap 7 Blood Urea Nitrogen 10 Creatinine 0.88 Est Glomerular Filtrat > 60 Rate mL/min Glucose Level 129 Calcium Level 8.9 Total Bilirubin 0.1 L Direct Bilirubin 0.00 Indirect Bilirubin 0.1 Aspartate Amino 22 Transf (AST/SGOT) Alanine 14 Aminotransferase (ALT/SG PT) Alkaline Phosphatase 132 H Total Protein 6.9 Albumin 3.2 L Globulin 3.70 H Albumin/Globulin Ratio 0.86 Test 04/21/18 08:12 04/21/18 10:21 04/21/18 12:15 04/21/18 13:37 Bedside Glucose 139 174 129 164 Test 04/21/18 17:21 Bedside Glucose 143 Medications Medication Current Medications IV Flush (NS 3 ml) 3 ml PER PROTOCOL IV ; Start 04/19/18 at 20:30 Ondansetron HCl (Zofran Tab) 4 mg Q6H PRN PO NAUSEA/VOMITING; Start 04/19/18 at 20:30 Acetaminophen (Tylenol Tab) 650 mg Q6H PRN PO .PAIN 1-3 OR TEMP; Start 04/19/18 at 20:30 Acetaminophen/ Hydrocodone Bitart ([place] (5/325)) 1 tab Q6H PRN PO .MOD PAIN 4- 6; Start 04/19/18 at 20:30 Docusate Sodium (Colace) 100 mg Q12H PRN PO .CONSTIPATION; Start 04/19/18 at 20:30 Zolpidem Tartrate (Ambien) 5 mg QHS PRN PO .INSOMNIA; Start 04/19/18 at 20:30 Famotidine (Pepcid) 20 mg Q12 PO Last administered on 04/21/18at 08:14; Admin Dose 20 MG; Start 04/19/18 at 21:00 Heparin Sodium (Porcine) (Heparin (5000 Units/1ml)) 5,000 unit Q12 SC Last administered on 04/21/18at 08:15; Admin Dose 5,000 UNIT; Start 04/19/18 at 21:00 Vancomycin HCl (Vanco Iv Per Pharmacy) 1 ea NOTE XX ; Start 04/19/18 at 20:30 Metformin HCl (Glucophage) 850 mg BID PO Last administered on 04/21/18 08:14; Admin Dose 850 MG; Start 04/19/18 at 21:00 Atorvastatin Calcium (Lipitor) 40 mg QPM PO Last administered on 04/20/18 20:41; Admin Dose 40 MG; Start 04/19/18 at 21:00 Cholecalciferol (Vitamin D) 2,000 unit QAM PO Last administered on 04/21/18 08:14; Admin Dose 2,000 UNIT; Start 04/20/18 at 09:00 Miscellaneous Information 1 ea NOTE XX ; Start 04/19/18 at 23:30 Glucose (Glutose) 15 gm Q15M PRN PO DECREASED GLUCOSE; Start 04/19/18 at 23:30 Glucose (Glutose) 22.5 gm Q15M PRN PO DECREASED GLUCOSE; Start 04/19/18 at 23:30 Dextrose (D50w Syringe) 25 ml Q15M PRN IV DECREASED GLUCOSE; Start 04/19/18 at 23:30 Dextrose (D50w Syringe) 50 ml Q15M PRN IV DECREASED GLUCOSE; Start 04/19/18 at 23:30 Glucagon (Glucagen) 1 mg Q15M PRN IM DECREASED GLUCOSE; Start 04/19/18 at 23:30 Glucose (Glutose) 15 gm Q15M PRN BUCCAL DECREASED GLUCOSE; Start 04/19/18 at 23:30 Vancomycin HCl 250 ml @ 125 mls/hr Q8H IVPB Last administered on 04/21/18 16:41; Admin Dose 125 MLS/HR; Start 04/20/18 at 00:00 Diagnostic Test (Pha) (Accu-Chek) 1 ea AC MEALS XX Last administered on 17:22; Admin Dose 1 EA; Start 04/20/18 at 17:35 Diagnostic Test (Pha) (Accu-Chek) 1 ea 2 HOURS AFTER MEALS XX Last administered on 04/21/18 14:00; Admin Dose 1 EA; Start 04/20/18 at 14:00 Hydralazine HCl (Apresoline) 50 mg Q8 PRN PO ELEVATED BLOOD PRESSURE Last administered on 04/20/18 22:35; Admin Dose 50 MG; Start 04/20/18 at 21:00 Lisinopril (Zestril) 40 mg BID PO ; Start 04/21/18 at 21:00 DEE AGUILAR MD Apr 21, 2018 17:36
[2018-04-21 20:00] VITALS: BP 155/89; PULSE 82; RESP 20
[2018-04-21] MEDS ORDERED: LISINOPRIL 20 MG TAB ONE (20:06)
[2018-04-21] MEDS ORDERED: TERBINAFINE 250 MG TAB ONE (20:06)
[2018-04-21] MEDS ORDERED: metFORMIN 850 MG TAB ONE (20:06)
[2018-04-21] MEDS: ATORVASTATIN 40 MG TAB PO SCH (20:07)
[2018-04-21] MEDS: TERBINAFINE 250 MG TAB PO SCH (20:08)
[2018-04-22 02:05] VITALS: BP 170/81; PULSE 83; RESP 19
[2018-04-22 03:09] VITALS: BP 136/84; PULSE 96
[2018-04-22] MEDS: ACCU-CHEK XX SCH ×6 (07:30→20:05)
[2018-04-22] MEDS: VANCOMYCIN 1 GM 250 ML IVPB SCH ×4 (08:08→23:43)
[2018-04-22] MEDS: metFORMIN 850 MG TAB PO SCH ×2 (08:13→21:18)
[2018-04-22 08:30] VITALS: BP 146/85; PULSE 80; RESP 18
[2018-04-22] MEDS: TERBINAFINE 250 MG TAB PO SCH ×2 (09:12→20:38)
[2018-04-22] MEDS: FAMOTIDINE 20 MG TAB PO SCH ×2 (09:12→20:37)
[2018-04-22] MEDS: CHOLECALCIFEROL 2,000 UNIT CAP PO SCH (09:12)
[2018-04-22] MEDS: LISINOPRIL 20 MG TAB PO SCH ×2 (09:13→20:38)
[2018-04-22] MEDS: HEPARIN 5,000 UNIT/1 ML VIAL SC SCH ×2 (09:15→20:47)
--- NOTE | 2018-04-22 13:45 | PN ---
Date/Time of Note Date/Time of Note DATE: 04/22/18 TIME: 13:27 Assessment/Plan VTE Prophylaxis Risk score (from Ns)>0 risk: 1 SCD applied (from [facility] [place]): No SCD contraindicated: other Pharmacological prophylaxis: heparin Lines/Catheters IV Catheter Type (from [facility]): Saline Lock Urinary Cath still in place: No Assessment/Plan Problems: (1) Abscess of bursa, right ankle and foot Status: Acute Comment: After informed consent the patient was prepped and draped and a 10 cc syringe with a 19-gauge needle was introduced into the fluctuant area skin withdrawing 10 cc of purulent fluid. Patient tolerated the procedure well. Visions on antibiotics but we still do not as of this moment have back the MRI scan to tell us the extent of the infection. This is going need to be cleaned up surgically as it is not going to respond simply to IV antibiotic therapy. (2) Staphylococcus aureus bacteremia with sepsis Status: Acute Comment: On antibiotics and the sepsis picture is resolved (3) Charcot's joint, right ankle and foot Status: Chronic Comment: Noted. Pending is this is the imaging scan using MRI i.e. the dictated report is a scan was done last night (4) Diabetes mellitus type 2 in obese Status: Chronic Comment: Adequate control at this time despite the infection (5) Hyperlipidemia Status: Chronic Comment: Good control Qualifiers: Hyperlipidemia type: pure hypercholesterolemia Qualified Codes: E78.00 - Pure hypercholesterolemia, unspecified (6) Essential hypertension Status: Chronic Comment: Adequate control (7) Cellulitis of right lower extremity Status: Acute Comment: Improved Result Diagram: 04/21/18 0545 04/21/18 0545 Results 24hrs Laboratory Tests Test 04/21/18 13:37 04/21/18 17:21 04/21/18 19:58 04/22/18 08:12 Bedside Glucose 164 143 147 155 Test 04/22/18 10:00 04/22/18 12:13 Bedside Glucose 193 144 Subjective 24 Hr Interval Summary Free Text/Dictation Patient reports no further fevers chills or sweats. He reports that in his right ankle there is an area that now feels like there is fluid underneath the skin. Constitutional: no complaints Respiratory: no complaints Cardiovascular: no complaints Gastrointestinal: no complaints Genitourinary: no complaints Exam/Review of Systems Exam Vitals Vital Signs Date Temp Pulse Resp B/P (MAP) Pulse Ox O2 O2 Flow FiO2 Time Delivery Rate 04/22/18 98.1 80 18 146/85 97 Room Air 08:30 (105) Intake and Output 04/21/18 04/21/18 04/22/18 1515:00 23:00 07:00 IntakeIntake Total 720 ml 490 ml 250 ml OutputOutput Total 600 ml 200 ml BalanceBalance 120 ml 290 ml 250 ml Constitutional: alert, oriented Respiratory: clear to auscultation, normal air movement Cardiovascular: regular rate and rhythm, nl pulses Gastrointestinal: soft, nl liver, spleen, non-tender Extremities: other (Right ankle medial aspect fluctuant area immediately underneath the skin.) Results Results 24hrs Laboratory Tests Test 04/21/18 13:37 04/21/18 17:21 04/21/18 19:58 04/22/18 08:12 Bedside Glucose 164 143 147 155 Test 04/22/18 10:00 04/22/18 12:13 Bedside Glucose 193 144 Medications Medication Current Medications IV Flush (NS 3 ml) 3 ml PER PROTOCOL IV ; Start 04/19/18 at 20:30 Ondansetron HCl (Zofran Tab) 4 mg Q6H PRN PO NAUSEA/VOMITING; Start 04/19/18 at 20:30 Acetaminophen (Tylenol Tab) 650 mg Q6H PRN PO .PAIN 1-3 OR TEMP; Start 04/19/18 at 20:30 Acetaminophen/ Hydrocodone Bitart ([place] (5/325)) 1 tab Q6H PRN PO .MOD PAIN 4- 6; Start 04/19/18 at 20:30 Docusate Sodium (Colace) 100 mg Q12H PRN PO .CONSTIPATION; Start 04/19/18 at 20:30 Zolpidem Tartrate (Ambien) 5 mg QHS PRN PO .INSOMNIA; Start 04/19/18 at 20:30 Famotidine (Pepcid) 20 mg Q12 PO Last administered on 04/22/18at 09:12; Admin Dose 20 MG; Start 04/19/18 at 21:00 Heparin Sodium (Porcine) (Heparin (5000 Units/1ml)) 5,000 unit Q12 SC Last administered on 04/22/18at 09:15; Admin Dose 5,000 UNIT; Start 04/19/18 at 21:00 Vancomycin HCl (Vanco Iv Per Pharmacy) 1 ea NOTE XX ; Start 04/19/18 at 20:30 Metformin HCl (Glucophage) 850 mg BID PO Last administered on 04/22/18 08:13; Admin Dose 850 MG; Start 04/19/18 at 21:00 Atorvastatin Calcium (Lipitor) 40 mg QPM PO Last administered on 04/21/18 20:07; Admin Dose 40 MG; Start 04/19/18 at 21:00 Cholecalciferol (Vitamin D) 2,000 unit QAM PO Last administered on 04/22/18 09:12; Admin Dose 2,000 UNIT; Start 04/20/18 at 09:00 Miscellaneous Information 1 ea NOTE XX ; Start 04/19/18 at 23:30 Glucose (Glutose) 15 gm Q15M PRN PO DECREASED GLUCOSE; Start 04/19/18 at 23:30 Glucose (Glutose) 22.5 gm Q15M PRN PO DECREASED GLUCOSE; Start 04/19/18 at 23:30 Dextrose (D50w Syringe) 25 ml Q15M PRN IV DECREASED GLUCOSE; Start 04/19/18 at 23:30 Dextrose (D50w Syringe) 50 ml Q15M PRN IV DECREASED GLUCOSE; Start 04/19/18 at 23:30 Glucagon (Glucagen) 1 mg Q15M PRN IM DECREASED GLUCOSE; Start 04/19/18 at 23:30 Glucose (Glutose) 15 gm Q15M PRN BUCCAL DECREASED GLUCOSE; Start 04/19/18 at 23:30 Vancomycin HCl 250 ml @ 125 mls/hr Q8H IVPB Last administered on 04/22/18 08:08; Admin Dose 125 MLS/HR; Start 04/20/18 at 00:00 Diagnostic Test (Pha) (Accu-Chek) 1 ea AC MEALS XX Last administered on 04/21/18 17:22; Admin Dose 1 EA; Start 04/20/18 at 17:35 Diagnostic Test (Pha) (Accu-Chek) 1 ea 2 HOURS AFTER MEALS XX Last administered on 04/21/18 20:15; Admin Dose 1 EA; Start 04/20/18 at 14:00 Hydralazine HCl (Apresoline) 50 mg Q8 PRN PO ELEVATED BLOOD PRESSURE Last administered on 3/7/19at 02:04; Admin Dose 50 MG; Start 04/20/18 at 21:00 Lisinopril (Zestril) 40 mg BID PO Last administered on 04/22/18at 09:13; Admin Dose 40 MG; Start 04/21/18 at 21:00 Terbinafine HCl (Lamisil) 250 mg BID PO Last administered on 04/22/18at 09:12; Admin Dose 250 MG; Start 04/21/18 at 21:00; Stop 04/28/18 at 20:59 DEE AGUILAR MD Apr 22, 2018 13:45
[2018-04-22 14:26] VITALS: BP 156/80; PULSE 76; RESP 18
[2018-04-22 20:00] VITALS: BP 154/91; PULSE 80; RESP 19
[2018-04-22] MEDS: ATORVASTATIN 40 MG TAB PO SCH (20:37)
--- NOTE | 2018-04-22 21:24 | PN ---
Date/Time of Note Date/Time of Note DATE: 04/22/18 TIME: 21:22 Assessment/Plan Lines/Catheters IV Catheter Type (from [facility]): Saline Lock Burnett in Place (from [facility]): No Assessment/Plan Problems: (1) Abscess of bursa, right ankle and foot Status: Acute (2) Sepsis Status: Acute Qualifiers: Sepsis type: sepsis due to unspecified organism Qualified Codes: A41.9 - Sepsis, unspecified organism (3) Cellulitis of right lower extremity Status: Acute (4) Diabetes mellitus type 2 in obese Status: Chronic (5) Charcot's joint, right ankle and foot Status: Chronic (6) Staphylococcus aureus bacteremia with sepsis Status: Acute (7) Right ankle effusion Assessment/Plan Patient will be scheduled for incision and drainage of right ankle abscess. Exam/Review of Systems Vital Signs Vitals Vital Signs Date Temp Pulse Resp B/P (MAP) Pulse Ox O2 O2 Flow FiO2 Time Delivery Rate 04/22/18 97.7 76 18 156/80 98 Room Air 14:26 (105) Intake and Output 04/21/18 04/21/18 04/22/18 1515:00 23:00 07:00 IntakeIntake Total 720 ml 490 ml 250 ml OutputOutput Total 600 ml 200 ml BalanceBalance 120 ml 290 ml 250 ml Results Result Diagram: 04/21/18 0545 04/21/18 0545 LORI LOPEZ DPM Apr 22, 2018 21:24
[2018-04-23] VITALS (22 sets, daily range): BP systolic 90–174; BP diastolic 52–100; PULSE 72–83; RESP 13–23
[2018-04-23] MEDS: ACCU-CHEK XX SCH ×6 (07:30→20:05)
[2018-04-23] MEDS: HEPARIN 5,000 UNIT/1 ML VIAL SC SCH ×2 (08:40→21:22)
[2018-04-23] MEDS: VANCOMYCIN 1 GM 250 ML IVPB SCH (08:42)
[2018-04-23] MEDS: metFORMIN 850 MG TAB PO SCH ×2 (08:45→21:16)
[2018-04-23] MEDS: FAMOTIDINE 20 MG TAB PO SCH ×2 (08:45→21:12)
[2018-04-23] MEDS: TERBINAFINE 250 MG TAB PO SCH ×2 (08:45→21:12)
[2018-04-23] MEDS: CHOLECALCIFEROL 2,000 UNIT CAP PO SCH (08:45)
[2018-04-23] MEDS: LISINOPRIL 20 MG TAB PO SCH ×2 (08:46→21:13)
--- NOTE | 2018-04-23 13:08 | PN ---
Date/Time of Note Date/Time of Note DATE: 04/23/18 TIME: 13:05 Assessment/Plan VTE Prophylaxis Risk score (from Ns)>0 risk: 4 SCD applied (from Ns): No SCD contraindicated: other (Right ankle abscess) Pharmacological prophylaxis: heparin Lines/Catheters IV Catheter Type (from [facility]): Saline Lock Urinary Cath still in place: No Assessment/Plan Problems: (1) Abscess of bursa, right ankle and foot Status: Acute Comment: As per podiatry notes for an incision and drainage today. I am strongly in favor of getting the purulent material cleaned out as quickly as possible (2) Staphylococcus aureus bacteremia with sepsis Status: Acute Comment: On antibiotics. Given the sensitivities we can transition over to high-dose cephalosporin therapy. (3) Charcot's joint, right ankle and foot Status: Chronic Comment: Noted. His hardware may be infected further information after podiatry sees a in the operating room (4) Diabetes mellitus type 2 in obese Status: Chronic Comment: Adequate glycemic control (5) Hyperlipidemia Status: Chronic Comment: Adequate control on statin therapy Qualifiers: Hyperlipidemia type: pure hypercholesterolemia Qualified Codes: E78.00 - Pure hypercholesterolemia, unspecified (6) Essential hypertension Status: Chronic Comment: Adequate control on statin therapy Result Diagram: 04/23/186 04/23/18 0446 Results 24hrs Laboratory Tests Test 04/22/18 13:55 04/22/18 17:26 04/22/18 20:21 04/22/18 21:17 Bedside Glucose 125 120 137 140 Test 04/23/18 04:46 04/23/18 08:43 04/23/18 10:11 04/23/18 11:57 White Blood Count 10.7 Red Blood Count 4.65 L Hemoglobin 12.0 L Hematocrit 36.4 L Mean Corpuscular Volume 78.3 L Mean Corpuscular 25.8 L Hemoglobin Mean Corpuscular 33.0 Hemoglobin Concent Red Cell Distribution 15.5 H Width Platelet Count 413 Mean Platelet Volume 9.3 Immature Granulocytes % 1.000 H Neutrophils % 69.8 Lymphocytes % 17.4 Monocytes % 8.3 Eosinophils % 3.1 Basophils % 0.4 Nucleated Red Blood 0.0 Cells % Immature Granulocytes # 0.110 H Neutrophils # 7.4 Lymphocytes # 1.9 Monocytes # 0.9 Eosinophils # 0.3 Basophils # 0.0 Nucleated Red Blood 0.0 Cells # Erythrocyte 120 H Sedimentation Rate Sodium Level 140 Potassium Level 4.4 Chloride Level 103 Carbon Dioxide Level 27 Anion Gap 10 Blood Urea Nitrogen 9 Creatinine 0.82 Est Glomerular Filtrat > 60 Rate mL/min Glucose Level 128 Calcium Level 9.1 Total Bilirubin 0.2 Direct Bilirubin 0.00 Indirect Bilirubin 0.2 Aspartate Amino 62 #H Transf (AST/SGOT) Alanine 52 Aminotransferase (ALT/SG PT) Alkaline Phosphatase 122 H Total Protein 7.3 Albumin 3.3 Globulin 4.00 H Albumin/Globulin Ratio 0.82 Bedside Glucose 174 174 124 Subjective 24 Hr Interval Summary Free Text/Dictation Patient, as usual is in generally positive spirits. Denies fevers chills or sweats. Reports his pain is under control. Constitutional: no complaints Respiratory: no complaints Cardiovascular: no complaints Gastrointestinal: no complaints Genitourinary: no complaints Musculoskeletal: other (Ankle pain) Exam/Review of Systems Exam Vitals Vital Signs Date Temp Pulse Resp B/P (MAP) Pulse Ox O2 O2 Flow FiO2 Time Delivery Rate 04/23/18 98.1 75 18 134/77 98 Room Air 08:28 (96) Intake and Output 04/22/18 04/22/18 04/23/18 1515:00 23:00 07:00 IntakeIntake Total 1030 ml 990 ml 250 ml OutputOutput Total 525 ml 200 ml BalanceBalance 505 ml 790 ml 250 ml Constitutional: alert, oriented Neck: supple, non-tender Respiratory: clear to auscultation, normal air movement Cardiovascular: regular rate and rhythm, nl pulses Gastrointestinal: soft, nl liver, spleen, non-tender Musculoskeletal: other (Right ankle is now dressed) Results Results 24hrs Laboratory Tests Test 04/22/18 13:55 04/22/18 17:26 04/22/18 20:21 04/22/18 21:17 Bedside Glucose 125 120 137 140 Test 04/23/18 04:46 04/23/18 08:43 04/23/18 10:11 04/23/18 11:57 White Blood Count 10.7 Red Blood Count 4.65 L Hemoglobin 12.0 L Hematocrit 36.4 L Mean Corpuscular Volume 78.3 L Mean Corpuscular 25.8 L Hemoglobin Mean Corpuscular 33.0 Hemoglobin Concent Red Cell Distribution 15.5 H Width Platelet Count 413 Mean Platelet Volume 9.3 Immature Granulocytes % 1.000 H Neutrophils % 69.8 Lymphocytes % 17.4 Monocytes % 8.3 Eosinophils % 3.1 Basophils % 0.4 Nucleated Red Blood 0.0 Cells % Immature Granulocytes # 0.110 H Neutrophils # 7.4 Lymphocytes # 1.9 Monocytes # 0.9 Eosinophils # 0.3 Basophils # 0.0 Nucleated Red Blood 0.0 Cells # Erythrocyte 120 H Sedimentation Rate Sodium Level 140 Potassium Level 4.4 Chloride Level 103 Carbon Dioxide Level 27 Anion Gap 10 Blood Urea Nitrogen 9 Creatinine 0.82 Est Glomerular Filtrat > 60 Rate mL/min Glucose Level 128 Calcium Level 9.1 Total Bilirubin 0.2 Direct Bilirubin 0.00 Indirect Bilirubin 0.2 Aspartate Amino 62 #H Transf (AST/SGOT) Alanine 52 Aminotransferase (ALT/SG PT) Alkaline Phosphatase 122 H Total Protein 7.3 Albumin 3.3 Globulin 4.00 H Albumin/Globulin Ratio 0.82 Bedside Glucose 174 174 124 Medications Medication Current Medications IV Flush (NS 3 ml) 3 ml PER PROTOCOL IV ; Start 04/19/18 at 20:30 Ondansetron HCl (Zofran Tab) 4 mg Q6H PRN PO NAUSEA/VOMITING; Start 04/19/18 at 20:30 Acetaminophen (Tylenol Tab) 650 mg Q6H PRN PO .PAIN 1-3 OR TEMP; Start 04/19/18 at 20:30 Acetaminophen/ Hydrocodone Bitart ([place] (5/325)) 1 tab Q6H PRN PO .MOD PAIN 4- 6; Start 04/19/18 at 20:30 Docusate Sodium (Colace) 100 mg Q12H PRN PO .CONSTIPATION; Start 04/19/18 at 20:30 Zolpidem Tartrate (Ambien) 5 mg QHS PRN PO .INSOMNIA; Start 04/19/18 at 20:30 Famotidine (Pepcid) 20 mg Q12 PO Last administered on 04/23/18at 08:45; Admin Dose 20 MG; Start 04/19/18 at 21:00 Heparin Sodium (Porcine) (Heparin (5000 Units/1ml)) 5,000 unit Q12 SC Last administered on 04/23/18at 08:40; Admin Dose 5,000 UNIT; Start 04/19/18 at 21:00 Vancomycin HCl (Vanco Iv Per Pharmacy) 1 ea NOTE XX ; Start 04/19/18 at 20:30 Metformin HCl (Glucophage) 850 mg BID PO Last administered on 04/23/18 08:45; Admin Dose 850 MG; Start 04/19/18 at 21:00 Atorvastatin Calcium (Lipitor) 40 mg QPM PO Last administered on 04/22/18 20:37; Admin Dose 40 MG; Start 04/19/18 at 21:00 Cholecalciferol (Vitamin D) 2,000 unit QAM PO Last administered on 04/23/18 08:45; Admin Dose 2,000 UNIT; Start 04/20/18 at 09:00 Miscellaneous Information 1 ea NOTE XX ; Start 04/19/18 at 23:30 Glucose (Glutose) 15 gm Q15M PRN PO DECREASED GLUCOSE; Start 04/19/18 at 23:30 Glucose (Glutose) 22.5 gm Q15M PRN PO DECREASED GLUCOSE; Start 04/19/18 at 23:30 Dextrose (D50w Syringe) 25 ml Q15M PRN IV DECREASED GLUCOSE; Start 04/19/18 at 23:30 Dextrose (D50w Syringe) 50 ml Q15M PRN IV DECREASED GLUCOSE; Start 04/19/18 at 23:30 Glucagon (Glucagen) 1 mg Q15M PRN IM DECREASED GLUCOSE; Start 04/19/18 at 23:30 Glucose (Glutose) 15 gm Q15M PRN BUCCAL DECREASED GLUCOSE; Start 04/19/18 at 23:30 Vancomycin HCl 250 ml @ 125 mls/hr Q8H IVPB Last administered on 04/23/18 08:42; Admin Dose 125 MLS/HR; Start 04/20/18 at 00:00 Diagnostic Test (Pha) (Accu-Chek) 1 ea AC MEALS XX Last administered on 04/23/18 11:58; Admin Dose 1 EA; Start 04/20/18 at 17:35 Diagnostic Test (Pha) (Accu-Chek) 1 ea 2 HOURS AFTER MEALS XX Last administered on 04/23/18 10:40; Admin Dose 1 EA; Start 04/20/18 at 14:00 Hydralazine HCl (Apresoline) 50 mg Q8 PRN PO ELEVATED BLOOD PRESSURE Last administered on 04/22/18 02:04; Admin Dose 50 MG; Start 04/20/18 at 21:00 Lisinopril (Zestril) 40 mg BID PO Last administered on 04/23/18at 08:46; Admin Dose 40 MG; Start 04/21/18 at 21:00 Terbinafine HCl (Lamisil) 250 mg BID PO Last administered on 04/23/18at 08:45; Admin Dose 250 MG; Start 04/21/18 at 21:00; Stop 04/28/18 at 20:59 Cefazolin Sodium/ Dextrose 50 ml @ 100 mls/hr Q8 IVPB ; Start 04/23/18 at 14:00; Stop 05/06/18 at 13:59 DEE AGUILAR MD Apr 23, 2018 13:07
--- NOTE | 2018-04-23 14:14 | RADRPT ---
Echocardiogram Report Patient Name: Marie WHITEHEAD ID: [id number] : 1975 (43y 1m)Study Date: 04/23/2018 1:30:13 PM Gender: Vladcession #: [id number] Tech: VT Location: Ref.Physician: DEE AGUILAR Height(Cm): BSA: Weight(Kg): Quality: AdequateAccount #: Procedures: Echocardiographic Report: Transthoracic echocardiogram with complete 2D, M-Mode, and doppler examination. Indications: Staph aureus septic joint. Measurements: 2D/M Mode Doppler Measurement Value Normal Range Measurement Value Normal Range LVIDd 2D 3.8 [ 4.2 - 5.8 ] cm AV Peak Melchor 1.5 [ 100.0 - 170.0 ] cm/sec LVIDs 2D 2.0 [ 2.5 - 4.0 ] cm AV Peak PG 8.0 [ 2.0 - 9.0 ] mmHg LVPWd 2D 1.3 [ 0.6 - 1.0 ] cm LVOT Peak Melchor 1.0 [ 70.0 - 110.0 ] cm/sec IVSd 2D 1.4 [ 0.6 - 1.0 ] cm LVOT Peak PG 4.0 [ 2.0 - 6.0 ] mmHg AoR Diam 2D 3.0 [ 2.6 - 3.4 ] cm MV E Peak Melchor 0.8 [ 60.0 - 130.0 ] cm/sec EDV 2D 62.3 [ 62.0 - 150.0 ] ml MV A Peak Melchor 0.6 [ 100.0 - 120.0 ] cm/sec ESV 2D 12.1 [ 21.0 - 61.0 ] ml MV E/A 1.2 [ 0.8 - 1.5 ] ratio EF 2D 80.6 [ 52.0 - 72.0 ] percent MV Decel Time 197 [ 104 - 258 ] msec LA Dimen 2D 2.8 [ 3.0 - 4.0 ] cm Lat E` Melchor 0.2 [ 10.0 - 15.0 ] cm/sec Lateral E/E` 4.7 [ 1.0 - 2.0 ] ratio MV E/A 1.2 [ 0.8 - 1.5 ] ratio TR Peak Melchor 2.1 [ 100.0 - 280.0 ] cm/sec TR Peak PG 18.0 mmHg RVSP 21.0 [ 10.0 - 36.0 ] mmHg RA Pressure 3.0 mmHg Findings: Left Ventricle: Normal left ventricular systolic function. Normal left ventricular cavity size. Mild concentric left ventricular hypertrophy. Ejection fraction is visually estimated at 65 %. Tissue Doppler/Mitral Doppler indices are within normal limits. Right Ventricle: Normal right ventricular size. Normal right ventricular systolic function. Left Atrium: The left atrium is normal in size. Right Atrium: The right atrium is normal in size. Mitral Valve: Normal appearance and function of the mitral valve with trace physiologic regurgitation. Aortic Valve: Normal appearance of the aortic valve. No significant aortic stenosis or insufficiency. Tricuspid Valve: Normal appearance of the tricuspid valve. Estimated peak PA systolic pressure 21 mmHg. There is trace tricuspid regurgitation. Pulmonic Valve: Normal pulmonic valve appearance. Pericardium: Normal pericardium with no significant pericardial effusion. Aorta: Normal aortic root. IVC: Normal size and normal respiratory collapse consistent with normal right atrial pressure. Conclusions: Normal left ventricular systolic function. Normal left ventricular cavity size. Mild concentric left ventricular hypertrophy. Ejection fraction is visually estimated at 65 %. Tissue Doppler/Mitral Doppler indices are within normal limits. Normal right ventricular size. Normal right ventricular systolic function. The left atrium is normal in size. The right atrium is normal in size. No significant valvular stenosis or regurgitation seen. Normal pericardium with no significant pericardial effusion. Electronically Signed By: Angelito Esparza 2018-04-23 14:13:32 PST
[2018-04-23] MEDS: CEFAZOLIN 2 GM/50 ML (PMX) 50 ML IVPB SCH ×2 (14:46→21:26)
--- NOTE | 2018-04-23 16:44 | PN ---
DATE: 04/23/2018 TYPE OF CONSULTATION: Infectious disease. REQUESTING PHYSICIAN: Milton Contreras MD Thank you Dr. Contreras for this consultation. HISTORY OF PRESENT ILLNESS: This is an obese, well-developed, middle-aged man with a past medical history significant for diabetes, obesity, left Charcot ankle status post right ankle fusion, removal of external fixation and placement of screws that was done back in 01/2018. The patient was admitted with sepsis, fever of 103.1, pulse 117, respirations 20, saturation of 100%. LABORATORY DATA: WBC is 11.1, H and H is 13 and 39.2, platelets 382, neutrophils 77.6. ESR 95. BUN 13, creatinine 0.97. Urinalysis was negative for nitrite and leukocyte esterase. DIAGNOSTIC DATA: Chest x-ray on admission revealed mild right lower lobe atelectatic changes. X-ray of the left tibia-fibula revealed diffuse soft tissue swelling in the leg. Please see complete reading in the chart. The patient had an MRI of the foot that revealed extensive bone marrow signal abnormality and erosive changes in the ankle and mid foot with associated mid foot collapse, questionable osteomyelitis, large fluid collection at the ankle which may communicate with the joint space or represent an abscess, diffuse soft tissue edema consistent with provided history of cellulitis. The patient had 2D echo that revealed no vegetations, normal left ventricular systolic function with ejection fraction of 65%. MICROBIOLOGY: Blood cultures are growing oxacillin-sensitive Staphylococcus aureus. The patient had a fluid aspiration from his ankle that is also growing oxacillin-sensitive Staphylococcus aureus. Urine culture is negative. Influenza swab is negative. ANTIMICROBIALS: 1. The patient was started on high dose Ancef 2 grams IV q.8 hours. 2. He is status post vancomycin. SOCIAL HISTORY: The patient came from home. Denies smoking, alcohol or illicits. PHYSICAL EXAMINATION: GENERAL: This is an obese, well-developed, middle-aged man who is alert, in no distress. HEENT: Head is atraumatic, normocephalic. Sclerae are anicteric. NECK: Supple. CHEST: Rise symmetrical. Breath sounds clear. HEART: S1, S2. ABDOMEN: Soft. Bowel tones are present. EXTREMITIES: Right foot dressing is intact. DIAGNOSTIC IMPRESSION: This is a 43-year-old man admitted with sepsis secondary to infected right foot with questionable osteomyelitis. The patient has likely infected hardware and possibly septic joint, he has bacteremia secondary to above. He is on appropriate antibiotics. A 2D echo revealed no vegetations. He is being followed by Dr. Lopez in podiatry consultation. Plan to do an I and D of right ankle abscess. We are going to repeat blood cultures tomorrow and if negative, consider placement of PICC line as patient will require long- term IV antibiotics. Above was discussed with the patient at the bedside. Above was discussed with Dr. Contreras. Dictated By: WENDY WALSH [employer] SUPERVISOR for VALDO MCNAMARA MD NI/NTS Conf#: [id number] DID#: [id number] CC: LORI LOPEZ DPM; MILTON CONTRERAS MD;*EndCC* MTDD
[2018-04-23] MEDS ORDERED: PROPOFOL 20 ML ONE (17:19)
[2018-04-23] MEDS ORDERED: LIDOCAINE 2% (SDV) 5 ML INJ ONE (17:19)
--- NOTE | 2018-04-23 17:42 | PREAC ---
Date/Time of Note Date/Time of Note DATE: 04/23/18 TIME: 17:42 Anesthesia Eval and Record Evaluation Time Pre-Procedure Interview DATE: 04/23/18 TIME: 17:42 Age 43 Sex male NPO: 8 hrs Preoperative diagnosis Right ankle abscess Planned procedure I & D Past Medical History Past Medical History: Includes Cardio: HTN, Dyslipidemia Endo: Diabetes GI: Obesity Surgery & Anesthesia Issues No known issue Meds Anticoagulation: No Beta Katarina within 24 hr: No Reason Beta Katarina not given: Pt. not on B-Katarina Reported Medications Sitagliptin* (Januvia*) Unknown Strength Tablet, PO DAILY, #30 TAB 04/19/18 Metformin* (Glucophage*) 850 Mg Tablet, 850 MG PO WITH BREAKFAST DINNE, #60 TAB 04/19/18 Lisinopril* (Lisinopril*) 20 Mg Tablet, 20 MG PO DAILY, #30 TAB 04/19/18 Ergocalciferol (Vitamin D2) (VITAMIN D2) 2,000 Unit Tablet, 2000 UNIT PO QAM, TAB 04/19/18 Atorvastatin* (Atorvastatin*) 40 Mg Tablet, 40 MG PO QHS, #30 TAB 04/19/18 Current Medications IV Flush (NS 3 ml) 3 ml PER PROTOCOL IV ; Start 04/19/18 at 20:30 Ondansetron HCl (Zofran Tab) 4 mg Q6H PRN PO NAUSEA/VOMITING; Start 04/19/18 at 20:30 Acetaminophen (Tylenol Tab) 650 mg Q6H PRN PO .PAIN 1-3 OR TEMP; Start 04/19/18 at 20:30 Acetaminophen/ Hydrocodone Bitart ([place] (5/325)) 1 tab Q6H PRN PO .MOD PAIN 4- 6; Start 04/19/18 at 20:30 Docusate Sodium (Colace) 100 mg Q12H PRN PO .CONSTIPATION; Start 04/19/18 at 20:30 Zolpidem Tartrate (Ambien) 5 mg QHS PRN PO .INSOMNIA; Start 04/19/18 at 20:30 Famotidine (Pepcid) 20 mg Q12 PO Last administered on 04/23/18at 08:45; Admin Dose 20 MG; Start 04/19/18 at 21:00 Heparin Sodium (Porcine) (Heparin (5000 Units/1ml)) 5,000 unit Q12 SC Last administered on 04/23/18 08:40; Admin Dose 5,000 UNIT; Start 04/19/18 at 21:00 Metformin HCl (Glucophage) 850 mg BID PO Last administered on 04/23/18 08:45; Admin Dose 850 MG; Start 04/19/18 at 21:00 Atorvastatin Calcium (Lipitor) 40 mg QPM PO Last administered on 04/22/18 20:37; Admin Dose 40 MG; Start 04/19/18 at 21:00 Cholecalciferol (Vitamin D) 2,000 unit QAM PO Last administered on 04/23/18 08:45; Admin Dose 2,000 UNIT; Start 04/20/18 at 09:00 Miscellaneous Information 1 ea NOTE XX ; Start 04/19/18 at 23:30 Glucose (Glutose) 15 gm Q15M PRN PO DECREASED GLUCOSE; Start 04/19/18 at 23:30 Glucose (Glutose) 22.5 gm Q15M PRN PO DECREASED GLUCOSE; Start 04/19/18 at 23:30 Dextrose (D50w Syringe) 25 ml Q15M PRN IV DECREASED GLUCOSE; Start 04/19/18 at 23:30 Dextrose (D50w Syringe) 50 ml Q15M PRN IV DECREASED GLUCOSE; Start 04/19/18 at 2 3:30 Glucagon (Glucagen) 1 mg Q15M PRN IM DECREASED GLUCOSE; Start 04/19/18 at 23:30 Glucose (Glutose) 15 gm Q15M PRN BUCCAL DECREASED GLUCOSE; Start 04/19/18 at 23:30 Diagnostic Test (Pha) (Accu-Chek) 1 ea AC MEALS XX Last administered on 04/23/18 11:58; Admin Dose 1 EA; Start 04/20/18 at 17:35 Diagnostic Test (Pha) (Accu-Chek) 1 ea 2 HOURS AFTER MEALS XX Last administered on 04/23/18 14:49; Admin Dose 1 EA; Start 04/20/18 at 14:00 Hydralazine HCl (Apresoline) 50 mg Q8 PRN PO ELEVATED BLOOD PRESSURE Last administered on 04/23/18 15:05; Admin Dose 50 MG; Start 04/20/18 at 21:00 Lisinopril (Zestril) 40 mg BID PO Last administered on 3/8/19at 08:46; Admin Dose 40 MG; Start 04/21/18 at 21:00 Terbinafine HCl (Lamisil) 250 mg BID PO Last administered on 04/23/18at 08:45; Admin Dose 250 MG; Start 04/21/18 at 21:00; Stop 04/28/18 at 20:59 Cefazolin Sodium/ Dextrose 50 ml @ 100 mls/hr Q8 IVPB Last administered on 04/23/18at 14:46; Admin Dose 100 MLS/HR; Start 04/23/18 at 14:00; Stop 05/06/18 at 13:59 Meds reviewed: Yes Allergies Coded Allergies: No Known Allergy (Unverified , 04/19/18) Allergies Reviewed: Yes Labs/Studies Labs Reviewed: Reviewed by anesthesiologist Result Diagram: 04/23/18 0446 04/23/18 0446 Laboratory Tests 04/23/18 04:46 test: N/A Pre-procedure Exam Last vitals Vital Signs Date Temp Pulse Resp B/P (MAP) Pulse Ox O2 O2 Flow FiO2 Time Delivery Rate 04/23/18 98.0 76 18 174/100 96 Room Air 14:57 (124) Airway: Adequate mouth opening Mallampati: Mallampati II Teeth: Normal Lung: Normal Heart: Normal ASA Physical Status ASA physical status: 3 Emergency: None Planned Anesthetic General/MAC: LMA Planned Pain Management Parenteral pain med Pre-operative Attestations Prior to commencing anesthesia and surgery, the patient was re-evaluated, there was verification of: *The patient's identity *The results of appropriate recent lab work and preoperative vital signs *The above evaluation not changing prior to induction *Anesthetic plan, risk benefits, alternative and complications discussed with patient/family; questions answered; patient/family understands, accepts and wishes to proceed. VALENTINA SALAZAR MD Apr 23, 2018 17:42
[2018-04-23] MEDS ORDERED: BUPIVACAINE 0.5% (SDV) 30 ML INJ ONE (17:50)
[2018-04-23] MEDS ORDERED: POLYMYXIN/BACITRACIN 1L IRRIG ONE (17:50)
[2018-04-23] MEDS ORDERED: HYDROmorphONE 1 MG/5 ML IV SYRINGE IV PRN ×3 (18:30)
[2018-04-23] MEDS ORDERED: EPHEDrine SULFATE 50 MG/5 ML SYG IV PRN (18:30)
[2018-04-23] MEDS ORDERED: METOCLOPRAMIDE 10 MG INJ IV PRN (18:30)
[2018-04-23] MEDS ORDERED: MEPERIDINE 25 MG INJ IV PRN (18:30)
[2018-04-23] MEDS ORDERED: FENTAnyl 50 MCG/ML VIAL IV PRN ×3 (18:30)
[2018-04-23] MEDS ORDERED: MIDAZOLAM 1 MG/ML 2 ML INJ IV PRN (18:30)
[2018-04-23] MEDS ORDERED: LABETALOL HCL 20MG INJ IV PRN (18:30)
[2018-04-23] MEDS ORDERED: OXYCODONE/ACETAMINOPHEN (5/325) TAB PO PRN ×2 (18:30)
[2018-04-23] MEDS ORDERED: ONDANSETRON 4 MG INJ IV PRN (18:30)
[2018-04-23] MEDS ORDERED: hydrALAzine 20 MG INJ IV PRN (18:30)
[2018-04-23] MEDS ORDERED: DIPHENHYDRAMINE 50 MG INJ IV PRN (18:30)
--- NOTE | 2018-04-23 18:31 | PN ---
Date/Time of Note Date/Time of Note DATE: 04/23/18 TIME: 18:30 Assessment/Plan Lines/Catheters IV Catheter Type (from Nrs): Saline Lock Burnett in Place (from Nrs): No Assessment/Plan Problems: (1) Abscess of bursa, right ankle and foot Status: Acute (2) Leg length discrepancy (3) Sepsis Status: Acute Qualifiers: Sepsis type: sepsis due to unspecified organism Qualified Codes: A41.9 - Sepsis, unspecified organism (4) Diabetes mellitus type 2 in obese Status: Chronic (5) Charcot's joint, right ankle and foot Status: Chronic (6) Staphylococcus aureus bacteremia with sepsis Status: Acute (7) Right ankle effusion Assessment/Plan Patient will be taken to the operating room for incision and drainage of the right ankle joint. Subjective 24 Hr Interval Summary Patient is scheduled for incision and drainage of right ankle abscess today. Reports no major change since yesterday and denies overnight adverse events. Constitutional: no complaints Pain Control: well controlled Exam/Review of Systems Vital Signs Vitals Vital Signs Date Temp Pulse Resp B/P (MAP) Pulse Ox O2 O2 Flow FiO2 Time Delivery Rate 04/23/18 98.0 76 18 174/100 96 Room Air 14:57 (124) Intake and Output 04/22/18 04/22/18 04/23/18 1515:00 23:00 07:00 IntakeIntake Total 1030 ml 990 ml 250 ml OutputOutput Total 525 ml 200 ml BalanceBalance 505 ml 790 ml 250 ml Exam Free Text/Dictation Patient has fluctuance around the ankle joint especially medially with edema. There is mild erythema noted. Status post fusion of the right ankle joint. No other changes noted. Labs reviewed. Results Result Diagram: 04/23/18 0446 04/23/18 0446 LORI LOPEZ DPM Apr 23, 2018 18:31
--- NOTE | 2018-04-23 18:35 | OPR ---
Date/Time of Note Date/Time of Note DATE: 04/23/18 TIME: 18:31 Operative Report Procedure Date: Apr 23, 2018 Preoperative Diagnosis Abscess of the right ankle Cellulitis of the right ankle Diabetes mellitus Status post ankle fusion Charcot changes of right ankle and foot Staph aureus sepsis Postoperative Diagnosis Abscess of the right ankle Cellulitis of the right ankle Diabetes mellitus Status post ankle fusion Charcot changes of right ankle and foot Staph aureus sepsis Operation/Procedure Performed Incision and drainage of right ankle abscess Surgeon see signature line Summer Babysitter None Anesthesia Type: general Estimated Blood Loss: minimal Transfusion none Specimen Culture from drainage from the abscess of the right ankle. Grafts/Implants none Complications none Pt Condition Post Procedure: stable Disposition: PACU Indications This is a pleasant 43-year-old male patient who has undergone multiple surgeries on the right lower extremity including realignment and stabilization of severe Charcot changes of the right ankle joint with external fixation followed by removal of external fixation and fusion of the ankle joint. He was seen in the clinic and was found to have increase in temperature and around the ankle joint along with edema. He was hospitalized and placed on IV antibiotics and was found to have staph aureus septicemia. He was found to have large collection of fluid in the ankle joint and decision was made to do an incision and drainage. Risks and complications of this type of surgery was discussed with patient in great detail. Risks and complications discussed include, but are not limited to, postoperative infection, postoperative pain, chronic pain and disability, hardware failure, malunion, nonunion, delayed union, failure of surgery to correct the problem, need for additional surgical procedures, deep venous thrombosis, gait disturbance, problems with shoegear, limitation of activities, limb loss and loss of life. Patient understands the discussion and agrees to the procedure. An informed consent was obtained, signed and placed in the chart. No guarantee or warrantee was given or implied as to the outcome of the procedure either in verbal or written form. Procedure Description The patient was seen in the preoperative unit. The proposed surgery was discussed with patient in great detail. Risks and complications of this type of surgery was discussed with patient in great detail. Opportunity was given to patient to ask questions and all questions were answered. The patient acknowledges understanding of the discussion. An informed consent was then obtained, signed and placed in the chart. Patient was taken to the operating room and was placed on the operating table in the supine position. All bony prominences were padded properly. A timeout was called by the circulating nurse. Everyone in the operating room was agreeable to the timeout. The patient was then placed under general anesthesia by the anesthesiologist. The right lower extremity was scrubbed,l prepped, and draped in the usual aseptic manner. Attention was directed to the medial aspect of the right ankle joint where a large fluctuant area was found. #10 blade was used to make an incision and immediately there was over 100 cc of purulent drainage that port right out. The drainage was cultured. Copious amounts of PB irrigation was used to irrigate the ankle joint. Next, the lateral ankle was also incised and again there was copious amounts of purulent drainage noted. After extensive irrigation of the ankle joint with PV irrigation, both wounds were packed with iodoform packing. Sterile dressing was applied. The patient tolerated procedure and anesthesia well. The patient was transferred to the recovery room with vital signs stable and vascular status intact to right lower extremity. The patient will be sent back to the floor after postoperative monitoring. Postoperative orders were written. Patient will be followed up in-house. Patient is at high risk for limb loss. LROI OLPEZ DPM Apr 23, 2018 18:35
--- NOTE | 2018-04-23 18:37 | HPN ---
Date/Time of Note Date/Time of Note DATE: 04/23/18 TIME: 18:37 Interval H&P Admission Note Pt. seen H&P reviewed: No system changes LORI LOPEZ DPM Apr 23, 2018 18:37
--- NOTE | 2018-04-23 19:23 | PAC ---
Date/Time of Note Date/Time of Note DATE: 04/23/18 TIME: 19:23 Post-Anesthesia Notes Post-Anesthesia Note Last documented vital signs Vital Signs Date Temp Pulse Resp B/P (MAP) Pulse Ox O2 O2 Flow FiO2 Time Delivery Rate 04/23/18 98.9 18:43 04/23/18 76 17 118/65 98 Nasal 2.0 18:36 (82) Cannula Activity: WNL Respiratory function: WNL Cardiovascular function: WNL Mental status: Baseline Pain reasonably controlled: Yes Hydration appropriate: Yes Nausea/Vomiting absent: Yes VALENTINA SALAZAR MD Apr 23, 2018 19:23
[2018-04-23] MEDS: ATORVASTATIN 40 MG TAB PO SCH (21:12)
[2018-04-24 02:00] VITALS: BP 122/74; PULSE 67; RESP 18
[2018-04-24] MEDS: CEFAZOLIN 2 GM/50 ML (PMX) 50 ML IVPB SCH ×3 (05:56→21:56)
[2018-04-24] MEDS: ACCU-CHEK XX SCH ×5 (07:30→16:56)
[2018-04-24] MEDS: HEPARIN 5,000 UNIT/1 ML VIAL SC SCH ×2 (08:07→20:25)
[2018-04-24] MEDS: FAMOTIDINE 20 MG TAB PO SCH ×2 (08:08→20:23)
[2018-04-24] MEDS: metFORMIN 850 MG TAB PO SCH ×2 (08:08→20:22)
[2018-04-24] MEDS: TERBINAFINE 250 MG TAB PO SCH ×2 (08:08→20:22)
[2018-04-24] MEDS: LISINOPRIL 20 MG TAB PO SCH ×2 (08:08→20:23)
[2018-04-24] MEDS: CHOLECALCIFEROL 2,000 UNIT CAP PO SCH (08:08)
[2018-04-24 08:27] VITALS: BP 148/80; PULSE 67; RESP 17
--- NOTE | 2018-04-24 14:31 | CONS ---
Assessment/Plan Assessment/Plan Hospital Course (Demo Recall) Patient is alert looks comfortable no fevers overnight. No labs today.ESR 120 this morning. Microbiology: Blood and wound culture growing oxacillin sensitive staph aureus Antimicrobials: Ancef PHYSICAL EXAMINATION: GENERAL: This is an obese, well-developed, middle-aged man who is alert, in no distress. HEENT: Head is atraumatic, normocephalic. Sclerae are anicteric. NECK: Supple. CHEST: Rise symmetrical. Breath sounds clear. HEART: S1, S2. ABDOMEN: Soft. Bowel tones are present. EXTREMITIES: Right foot dressing is intact. Assessment: 1. Sepsis with oxacillin sensitive staph aureus bacteremia secondary to #2 2. Left foot cellulitis/abscess, possible osteomyelitis, poss possible infected hardware 3. Diabetes 4. Left Charcot ankle status post right ankle fusion 5. Obesity Plan: Patient is scheduled for surgery today, he is on appropriate antibiotics, 2D echo revealed no vegetations. Patient will require long-term IV antibiotics, will repeat blood cultures tomorrow and if negative place PICC line Consultation Date/Type/Reason Admit Date/Time Apr 19, 2018 at 20:08 Initial Consult Date 04/20/18 Type of Consult id Date/Time of Note DATE: 04/24/18 TIME: 14:31 Exam/Review of Systems Exam Vitals Vital Signs Date Temp Pulse Resp B/P (MAP) Pulse Ox O2 O2 Flow FiO2 Time Delivery Rate 04/24/18 98.1 67 17 148/80 94 Room Air 08:27 (102) 04/23/18 2.0 19:11 Intake and Output 04/23/18 04/23/18 04/24/18 1515:00 23:00 07:00 IntakeIntake Total 250 ml 150 ml 530 ml OutputOutput Total 2450 ml 10 ml 1800 ml BalanceBalance -2200 ml 140 ml -1270 ml Results Result Diagram: 04/23/18 0446 04/23/18 0446 Results 24hrs Laboratory Tests Test 04/23/18 14:48 04/23/18 16:23 04/23/18 20:35 04/23/18 21:15 Bedside Glucose 114 134 121 132 Test 04/24/18 07:47 04/24/18 09:39 04/24/18 11:35 04/24/18 13:41 Bedside Glucose 144 149 122 143 Medications Medication Current Medications IV Flush (NS 3 ml) 3 ml PER PROTOCOL IV ; Start 04/19/18 at 20:30 Ondansetron HCl (Zofran Tab) 4 mg Q6H PRN PO NAUSEA/VOMITING; Start 04/19/18 at 20:30 Acetaminophen (Tylenol Tab) 650 mg Q6H PRN PO .PAIN 1-3 OR TEMP; Start 04/19/18 at 20:30 Acetaminophen/ Hydrocodone Bitart ([place] (5/325)) 1 tab Q6H PRN PO .MOD PAIN 4- 6; Start 04/19/18 at 20:30 Docusate Sodium (Colace) 100 mg Q12H PRN PO .CONSTIPATION; Start 04/19/18 at 20:30 Zolpidem Tartrate (Ambien) 5 mg QHS PRN PO .INSOMNIA; Start 04/19/18 at 20:30 Famotidine (Pepcid) 20 mg Q12 PO Last administered on 04/24/18at 08:08; Admin Do se 20 MG; Start 04/19/18 at 21:00 Heparin Sodium (Porcine) (Heparin (5000 Units/1ml)) 5,000 unit Q12 SC Last administered on 04/24/18 08:07; Admin Dose 5,000 UNIT; Start 04/19/18 at 21:00 Metformin HCl (Glucophage) 850 mg BID PO Last administered on 04/24/18 08:08; Admin Dose 850 MG; Start 04/19/18 at 21:00 Atorvastatin Calcium (Lipitor) 40 mg QPM PO Last administered on 04/23/18at 21:12; Admin Dose 40 MG; Start 04/19/18 at 21:00 Cholecalciferol (Vitamin D) 2,000 unit QAM PO Last administered on 04/24/18 08:08; Admin Dose 2,000 UNIT; Start 04/20/18 at 09:00 Miscellaneous Information 1 ea NOTE XX ; Start 04/19/18 at 23:30 Glucose (Glutose) 15 gm Q15M PRN PO DECREASED GLUCOSE; Start 04/19/18 at 23:30 Glucose (Glutose) 22.5 gm Q15M PRN PO DECREASED GLUCOSE; Start 04/19/18 at 23:30 Dextrose (D50w Syringe) 25 ml Q15M PRN IV DECREASED GLUCOSE; Start 04/19/18 at 23:30 Dextrose (D50w Syringe) 50 ml Q15M PRN IV DECREASED GLUCOSE; Start 04/19/18 at 23:30 Glucagon (Glucagen) 1 mg Q15M PRN IM DECREASED GLUCOSE; Start 04/19/18 at 23:30 Glucose (Glutose) 15 gm Q15M PRN BUCCAL DECREASED GLUCOSE; Start 04/19/18 at 23:30 Diagnostic Test (Pha) (Accu-Chek) 1 ea AC MEALS XX Last administered on 04/23/18 11:58; Admin Dose 1 EA; Start 04/20/18 at 17:35 Diagnostic Test (Pha) (Accu-Chek) 1 ea 2 HOURS AFTER MEALS XX Last administered on 04/23/18 14:49; Admin Dose 1 EA; Start 04/20/18 at 14:00 Hydralazine HCl (Apresoline) 50 mg Q8 PRN PO ELEVATED BLOOD PRESSURE Last administered on 04/23/18 15:05; Admin Dose 50 MG; Start 04/20/18 at 21:00 Lisinopril (Zestril) 40 mg BID PO Last administered on 04/24/18 08:08; Admin Dose 40 MG; Start 04/21/18 at 21:00 Terbinafine HCl (Lamisil) 250 mg BID PO Last administered on 04/24/18 08:08; Admin Dose 250 MG; Start 04/21/18 at 21:00; Stop 04/28/18 at 20:59 Cefazolin Sodium/ Dextrose 50 ml @ 100 mls/hr Q8 IVPB Last administered on 04/24/18 13:42; Admin Dose 100 MLS/HR; Start 04/23/18 at 14:00; Stop 05/06/18 at 13:59 WENDY WALSH NP Apr 24, 2018 14:31
--- NOTE | 2018-04-24 14:45 | PN ---
Date/Time of Note Date/Time of Note DATE: 04/24/18 TIME: 14:42 Assessment/Plan VTE Prophylaxis Risk score (from [facility] [place]0 risk: 4 SCD applied (from [facility] [place]): No SCD contraindicated: bilateral LE trauma Pharmacological prophylaxis: heparin Lines/Catheters [facility] [place] [facility] Urinary Cath still in place: No Assessment/Plan Problems: (1) Abscess of bursa, right ankle and foot Status: Acute Comment: He has now had incision and drainage of the ankle. He has packings in. He is going to require long-term IV antibiotic therapy however I do not have great hope that this is going to prevent is having to come back and revisit this with possible BKA. For now repeat the cultures and if the blood cultures are negative then we will place a PICC line set him up for IV antibiotics. If the blood cultures are still positive we will have to look at this more aggressively (2) Staphylococcus aureus bacteremia with sepsis Status: Acute Comment: As above (3) Diabetes mellitus type 2 in obese Status: Chronic Comment: Good diabetic control (4) Charcot's joint, right ankle and foot Status: Chronic Comment: As above (5) Hyperlipidemia Status: Chronic Comment: Continue with statin therapy Qualifiers: Hyperlipidemia type: pure hypercholesterolemia Qualified Codes: E78.00 - Pure hypercholesterolemia, unspecified (6) Essential hypertension Status: Chronic Comment: Good control Result Diagram: 04/23/186 04/23/18 0446 Results 24hrs Laboratory Tests Test 04/23/18 14:48 04/23/18 16:23 04/23/18 20:35 04/23/18 21:15 Bedside Glucose 114 134 121 132 Test 04/24/18 07:47 04/24/18 09:39 04/24/18 11:35 04/24/18 13:41 Bedside Glucose 144 149 122 143 Subjective 24 Hr Interval Summary Free Text/Dictation He reports he feels better after surgery. Constitutional: no complaints (No fevers chills or sweats) Respiratory: no complaints Cardiovascular: no complaints Gastrointestinal: no complaints Exam/Review of Systems Exam Vitals Vital Signs Date Temp Pulse Resp B/P (MAP) Pulse Ox O2 O2 Flow FiO2 Time Delivery Rate 04/24/18 98.1 67 17 148/80 94 Room Air 08:27 (102) 04/23/18 2.0 19:11 Intake and Output 04/23/18 04/23/18 04/24/18 1515:00 23:00 07:00 IntakeIntake Total 250 ml 150 ml 530 ml OutputOutput Total 2450 ml 10 ml 1800 ml BalanceBalance -2200 ml 140 ml -1270 ml Constitutional: alert, oriented Neck: supple, non-tender Respiratory: clear to auscultation, normal air movement Cardiovascular: regular rate and rhythm, nl pulses Gastrointestinal: soft, nl liver, spleen, non-tender Results Results 24hrs Laboratory Tests Test 04/23/18 14:48 04/23/18 16:23 04/23/18 20:35 04/23/18 21:15 Bedside Glucose 114 134 121 132 Test 04/24/18 07:47 04/24/18 09:39 04/24/18 11:35 04/24/18 13:41 Bedside Glucose 144 149 122 143 Medications Medication Current Medications IV Flush (NS 3 ml) 3 ml PER PROTOCOL IV ; Start 04/19/18 at 20:30 Ondansetron HCl (Zofran Tab) 4 mg Q6H PRN PO NAUSEA/VOMITING; Start 04/19/18 at 20:30 Acetaminophen (Tylenol Tab) 650 mg Q6H PRN PO .PAIN 1-3 OR TEMP; Start 04/19/18 at 20:30 Acetaminophen/ Hydrocodone Bitart ([place] (5/325)) 1 tab Q6H PRN PO .MOD PAIN 4- 6; Start 04/19/18 at 20:30 Docusate Sodium (Colace) 100 mg Q12H PRN PO .CONSTIPATION; Start 04/19/18 at 20:30 Zolpidem Tartrate (Ambien) 5 mg QHS PRN PO .INSOMNIA; Start 04/19/18 at 20:30 Famotidine (Pepcid) 20 mg Q12 PO Last administered on 04/24/18at 08:08; Admin Dose 20 MG; Start 04/19/18 at 21:00 Heparin Sodium (Porcine) (Heparin (5000 Units/1ml)) 5,000 unit Q12 SC Last administered on 04/24/18at 08:07; Admin Dose 5,000 UNIT; Start 04/19/18 at 21:00 Metformin HCl (Glucophage) 850 mg BID PO Last administered on 04/24/18 08:08; Admin Dose 850 MG; Start 04/19/18 at 21:00 Atorvastatin Calcium (Lipitor) 40 mg QPM PO Last administered on 04/23/18 21:12; Admin Dose 40 MG; Start 04/19/18 at 21:00 Cholecalciferol (Vitamin D) 2,000 unit QAM PO Last administered on 04/24/18 08:08; Admin Dose 2,000 UNIT; Start 04/20/18 at 09:00 Miscellaneous Information 1 ea NOTE XX ; Start 04/19/18 at 23:30 Glucose (Glutose) 15 gm Q15M PRN PO DECREASED GLUCOSE; Start 04/19/18 at 23:30 Glucose (Glutose) 22.5 gm Q15M PRN PO DECREASED GLUCOSE; Start 04/19/18 at 23:30 Dextrose (D50w Syringe) 25 ml Q15M PRN IV DECREASED GLUCOSE; Start 04/19/18 at 23:30 Dextrose (D50w Syringe) 50 ml Q15M PRN IV DECREASED GLUCOSE; Start 04/19/18 at 23:30 Glucagon (Glucagen) 1 mg Q15M PRN IM DECREASED GLUCOSE; Start 04/19/18 at 23:30 Glucose (Glutose) 15 gm Q15M PRN BUCCAL DECREASED GLUCOSE; Start 04/19/18 at 23:30 Diagnostic Test (Pha) (Accu-Chek) 1 ea AC MEALS XX Last administered on 04/23/18 11:58; Admin Dose 1 EA; Start 04/20/18 at 17:35 Diagnostic Test (Pha) (Accu-Chek) 1 ea 2 HOURS AFTER MEALS XX Last administered on 04/23/18 14:49; Admin Dose 1 EA; Start 04/20/18 at 14:00 Hydralazine HCl (Apresoline) 50 mg Q8 PRN PO ELEVATED BLOOD PRESSURE Last administered on 04/23/18 15:05; Admin Dose 50 MG; Start 04/20/18 at 21:00 Lisinopril (Zestril) 40 mg BID PO Last administered on 04/24/18 08:08; Admin Dose 40 MG; Start 04/21/18 at 21:00 Terbinafine HCl (Lamisil) 250 mg BID PO Last administered on 04/24/18 08:08; Admin Dose 250 MG; Start 04/21/18 at 21:00; Stop 04/28/18 at 20:59 Cefazolin Sodium/ Dextrose 50 ml @ 100 mls/hr Q8 IVPB Last administered on 04/24/18at 13:42; Admin Dose 100 MLS/HR; Start 04/23/18 at 14:00; Stop 05/06/18 at 13:59 DEE AGUILAR MD Apr 24, 2018 14:45
[2018-04-24 14:57] VITALS: BP 160/88; PULSE 76; RESP 18
[2018-04-24] MEDS ORDERED: metFORMIN 850 MG TAB ONE (19:51)
[2018-04-24 20:00] VITALS: BP 152/86; PULSE 72; RESP 18
[2018-04-24] MEDS: ATORVASTATIN 40 MG TAB PO SCH (20:22)
[2018-04-25 02:00] VITALS: BP 138/72; PULSE 75; RESP 18
[2018-04-25] MEDS: CEFAZOLIN 2 GM/50 ML (PMX) 50 ML IVPB SCH ×3 (05:35→22:13)
[2018-04-25] MEDS: ACCU-CHEK XX SCH ×3 (07:30→17:35)
[2018-04-25 07:56] VITALS: BP 153/86; PULSE 68; RESP 16
[2018-04-25] MEDS: metFORMIN 850 MG TAB PO SCH ×2 (07:58→17:17)
[2018-04-25] MEDS: TERBINAFINE 250 MG TAB PO SCH ×2 (08:50→21:03)
[2018-04-25] MEDS: HEPARIN 5,000 UNIT/1 ML VIAL SC SCH ×2 (08:50→21:06)
[2018-04-25] MEDS: CHOLECALCIFEROL 2,000 UNIT CAP PO SCH (08:50)
[2018-04-25] MEDS: FAMOTIDINE 20 MG TAB PO SCH ×2 (08:51→21:04)
[2018-04-25] MEDS: LISINOPRIL 20 MG TAB PO SCH ×2 (08:52→21:07)
--- NOTE | 2018-04-25 12:46 | CONS ---
Consultation Date/Type/Reason Admit Date/Time Apr 19, 2018 at 20:08 Initial Consult Date SUBJECTIVE: Patient is awake, alert looks comfortable. VS: stable T: 98.1 LABs: Reviewed. Microbiology: Blood and wound culture growing oxacillin sensitive staph aureus Antimicrobials: Ancef PHYSICAL EXAMINATION: GENERAL: This is an obese, well-developed, middle-aged man who is alert, in no distress. HEENT: Head is atraumatic, normocephalic. Sclerae are anicteric. NECK: Supple. CHEST: Rise symmetrical. Breath sounds clear. HEART: S1, S2. ABDOMEN: Soft. Bowel tones are present. EXTREMITIES: Right foot dressing is intact. Assessment: 1. Sepsis with oxacillin sensitive staph aureus bacteremia secondary to #2 2. Left foot cellulitis/abscess, possible osteomyelitis, poss possible infected hardware 3. Diabetes 4. Left Charcot ankle status post right ankle fusion 5. Obesity Plan: Patient is stable. S/P I&D of the ankle. Patient will require long-term IV antibiotics. Repeat blood cultures and if negative place PICC line. Continue current antbx treatment. Date/Time of Note DATE: 04/25/18 TIME: 12:41 Exam/Review of Systems Exam Vitals Vital Signs Date Temp Pulse Resp B/P (MAP) Pulse Ox O2 O2 Flow FiO2 Time Delivery Rate 04/25/18 98.1 68 16 153/86 96 07:56 (108) 04/24/18 Room Air 14:57 04/23/18 2.0 19:11 Intake and Output 04/24/18 04/24/18 04/25/18 1515:00 23:00 07:00 IntakeIntake Total 1070 ml 650 ml 530 ml OutputOutput Total 400 ml 2100 ml BalanceBalance 670 ml 650 ml -1570 ml Results Result Diagram: 04/23/18 0446 04/23/18 0446 Results 24hrs Laboratory Tests Test 04/24/18 13:41 04/24/18 16:55 04/24/18 20:21 04/25/18 07:55 Bedside Glucose 143 133 143 138 Test 04/25/18 12:21 Bedside Glucose 117 Medications Medication Current Medications IV Flush (NS 3 ml) 3 ml PER PROTOCOL IV ; Start 04/19/18 at 20:30 Ondansetron HCl (Zofran Tab) 4 mg Q6H PRN PO NAUSEA/VOMITING; Start 04/19/18 at 20:30 Acetaminophen (Tylenol Tab) 650 mg Q6H PRN PO .PAIN 1-3 OR TEMP; Start 04/19/18 at 20:30 Acetaminophen/ Hydrocodone Bitart ([place] (5/325)) 1 tab Q6H PRN PO .MOD PAIN 4- 6; Start 04/19/18 at 20:30 Docusate Sodium (Colace) 100 mg Q12H PRN PO .CONSTIPATION; Start 04/19/18 at 20:30 Zolpidem Tartrate (Ambien) 5 mg QHS PRN PO .INSOMNIA; Start 04/19/18 at 20:30 Famotidine (Pepcid) 20 mg Q12 PO Last administered on 04/25/18at 08:51; Admin Dose 20 MG; Start 04/19/18 at 21:00 Heparin Sodium (Porcine) (Heparin (5000 Units/1ml)) 5,000 unit Q12 SC Last administered on 04/25/18at 08:50; Admin Dose 5,000 UNIT; Start 04/19/18 at 21:00 Metformin HCl (Glucophage) 850 mg BID PO Last administered on 04/25/18at 07:58; Admin Dose 850 MG; Start 04/19/18 at 21:00 Atorvastatin Calcium (Lipitor) 40 mg QPM PO Last administered on 04/24/18at 20:22; Admin Dose 40 MG; Start 04/19/18 at 21:00 Cholecalciferol (Vitamin D) 2,000 unit QAM PO Last administered on 04/25/18 08:50; Admin Dose 2,000 UNIT; Start 04/20/18 at 09:00 Miscellaneous Information 1 ea NOTE XX ; Start 04/19/18 at 23:30 Glucose (Glutose) 15 gm Q15M PRN PO DECREASED GLUCOSE; Start 04/19/18 at 23:30 Glucose (Glutose) 22.5 gm Q15M PRN PO DECREASED GLUCOSE; Start 04/19/18 at 23:30 Dextrose (D50w Syringe) 25 ml Q15M PRN IV DECREASED GLUCOSE; Start 04/19/18 at 23:30 Dextrose (D50w Syringe) 50 ml Q15M PRN IV DECREASED GLUCOSE; Start 04/19/18 at 23:30 Glucagon (Glucagen) 1 mg Q15M PRN IM DECREASED GLUCOSE; Start 04/19/18 at 23:30 Glucose (Glutose) 15 gm Q15M PRN BUCCAL DECREASED GLUCOSE; Start 04/19/18 at 23:30 Diagnostic Test (Pha) (Accu-Chek) 1 ea AC MEALS XX Last administered on 04/24/18at 16:56; Admin Dose 1 EA; Start 04/20/18 at 17:35 Hydralazine HCl (Apresoline) 50 mg Q8 PRN PO ELEVATED BLOOD PRESSURE Last administered on 04/23/18at 15:05; Admin Dose 50 MG; Start 04/20/18 at 21:00 Lisinopril (Zestril) 40 mg BID PO Last administered on 04/25/18at 08:52; Admin Dose 40 MG; Start 04/21/18 at 21:00 Terbinafine HCl (Lamisil) 250 mg BID PO Last administered on 04/25/18at 08:50; Admin Dose 250 MG; Start 04/21/18 at 21:00; Stop 04/28/18 at 20:59 Cefazolin Sodium/ Dextrose 50 ml @ 100 mls/hr Q8 IVPB Last administered on 04/25/18at 05:35; Admin Dose 100 MLS/HR; Start 04/23/18 at 14:00; Stop 05/06/18 at 13:59 SOLEDAD DEMARCO Apr 25, 2018 12:46
[2018-04-25 13:50] VITALS: BP 158/88; PULSE 69; RESP 16
--- NOTE | 2018-04-25 13:56 | PN ---
Date/Time of Note Date/Time of Note DATE: 04/25/18 TIME: 13:54 Assessment/Plan VTE Prophylaxis Risk score (from Ns)>0 risk: 3 SCD applied (from Ns): No SCD contraindicated: bilateral LE trauma Pharmacological prophylaxis: heparin Lines/Catheters [facility]from [facility] Saline Lock Urinary Cath still in place: No Assessment/Plan Problems: (1) Abscess of bursa, right ankle and foot Status: Acute Comment: Arranging for PICC line placement tomorrow assuming that the blood cultures are negative. After that then we will make the arrangements for home IV antibiotic therapy at 8 weeks duration (2) Charcot's joint, right ankle and foot Status: Chronic Comment: Noted. If the hardware is infected the 8 weeks of antibiotics may not be what will be the ultimate solution here (3) Diabetes mellitus type 2 in obese Status: Chronic Comment: Adequate glycemic control (4) Hyperlipidemia Status: Chronic Comment: Continue with statin therapy Qualifiers: Hyperlipidemia type: pure hypercholesterolemia Qualified Codes: E78.00 - Pure hypercholesterolemia, unspecified (5) Essential hypertension Status: Chronic Comment: Adequate control (6) Staphylococcus aureus bacteremia with sepsis Status: Acute Comment: Present on admission. Continue to treat aggressively Result Diagram: 04/23/18 0446 04/23/186 Results 24hrs Laboratory Tests Test 04/24/18 16:55 04/24/18 20:21 04/25/18 07:55 04/25/18 12:21 Bedside Glucose 133 143 138 117 Subjective 24 Hr Interval Summary Free Text/Dictation She reports she is feeling relatively well. No specific significant pain from the right foot Constitutional: no complaints Respiratory: no complaints Cardiovascular: no complaints Gastrointestinal: no complaints Exam/Review of Systems Exam Vitals Vital Signs Date Temp Pulse Resp B/P (MAP) Pulse Ox O2 O2 Flow FiO2 Time Delivery Rate 04/25/18 98.2 69 16 158/88 98 13:50 (111) 04/24/18 Room Air 14:57 04/23/18 2.0 19:11 Intake and Output 04/24/18 04/24/18 04/25/18 1515:00 23:00 07:00 IntakeIntake Total 1070 ml 650 ml 530 ml OutputOutput Total 400 ml 2100 ml BalanceBalance 670 ml 650 ml -1570 ml Constitutional: alert, oriented Respiratory: clear to auscultation, normal air movement Cardiovascular: regular rate and rhythm, nl pulses Results Results 24hrs Laboratory Tests Test 04/24/18 16:55 04/24/18 20:21 04/25/18 07:55 04/25/18 12:21 Bedside Glucose 133 143 138 117 Medications Medication Current Medications IV Flush (NS 3 ml) 3 ml PER PROTOCOL IV ; Start 04/19/18 at 20:30 Ondansetron HCl (Zofran Tab) 4 mg Q6H PRN PO NAUSEA/VOMITING; Start 04/19/18 at 20:30 Acetaminophen (Tylenol Tab) 650 mg Q6H PRN PO .PAIN 1-3 OR TEMP; Start 04/19/18 at 20:30 Acetaminophen/ Hydrocodone Bitart ([place] (5/325)) 1 tab Q6H PRN PO .MOD PAIN 4- 6; Start 04/19/18 at 20:30 Docusate Sodium (Colace) 100 mg Q12H PRN PO .CONSTIPATION; Start 04/19/18 at 20:30 Zolpidem Tartrate (Ambien) 5 mg QHS PRN PO .INSOMNIA; Start 04/19/18 at 20:30 Famotidine (Pepcid) 20 mg Q12 PO Last administered on 04/25/18 08:51; Admin Dose 20 MG; Start 04/19/18 at 21:00 Heparin Sodium (Porcine) (Heparin (5000 Units/1ml)) 5,000 unit Q12 SC Last administered on 04/25/18 08:50; Admin Dose 5,000 UNIT; Start 04/19/18 at 21:00 Metformin HCl (Glucophage) 850 mg BID PO Last administered on 04/25/18at 07:58; Admin Dose 850 MG; Start 04/19/18 at 21:00 Atorvastatin Calcium (Lipitor) 40 mg QPM PO Last administered on 04/24/18 20:22; Admin Dose 40 MG; Start 04/19/18 at 21:00 Cholecalciferol (Vitamin D) 2,000 unit QAM PO Last administered on 04/25/18 08:50; Admin Dose 2,000 UNIT; Start 04/20/18 at 09:00 Miscellaneous Information 1 ea NOTE XX ; Start 04/19/18 at 23:30 Glucose (Glutose) 15 gm Q15M PRN PO DECREASED GLUCOSE; Start 04/19/18 at 23:30 Glucose (Glutose) 22.5 gm Q15M PRN PO DECREASED GLUCOSE; Start 04/19/18 at 23:30 Dextrose (D50w Syringe) 25 ml Q15M PRN IV DECREASED GLUCOSE; Start 04/19/18 at 23:30 Dextrose (D50w Syringe) 50 ml Q15M PRN IV DECREASED GLUCOSE; Start 04/19/18 at 23:30 Glucagon (Glucagen) 1 mg Q15M PRN IM DECREASED GLUCOSE; Start 04/19/18 at 23:30 Glucose (Glutose) 15 gm Q15M PRN BUCCAL DECREASED GLUCOSE; Start 04/19/18 at 23:30 Diagnostic Test (Pha) (Accu-Chek) 1 ea AC MEALS XX Last administered on 04/24/18at 16:56; Admin Dose 1 EA; Start 04/20/18 at 17:35 Hydralazine HCl (Apresoline) 50 mg Q8 PRN PO ELEVATED BLOOD PRESSURE Last administered on 04/23/18at 15:05; Admin Dose 50 MG; Start 04/20/18 at 21:00 Lisinopril (Zestril) 40 mg BID PO Last administered on 04/25/18at 08:52; Admin Dose 40 MG; Start 04/21/18 at 21:00 Terbinafine HCl (Lamisil) 250 mg BID PO Last administered on 04/25/18at 08:50; Admin Dose 250 MG; Start 04/21/18 at 21:00; Stop 04/28/18 at 20:59 Cefazolin Sodium/ Dextrose 50 ml @ 100 mls/hr Q8 IVPB Last administered on 04/25/18at 05:35; Admin Dose 100 MLS/HR; Start 04/23/18 at 14:00; Stop 05/06/18 at 13:59 DEE AGUILAR MD Apr 25, 2018 13:56
[2018-04-25] MEDS ORDERED: LIDOCAINE 1% (MPF) 5 ML VIAL SC ONE (14:00)
[2018-04-25] MEDS: ATORVASTATIN 40 MG TAB PO SCH (21:03)
[2018-04-25 21:45] VITALS: BP 159/95; PULSE 76; RESP 18
--- NOTE | 2018-04-25 22:28 | PN ---
Date/Time of Note Date/Time of Note DATE: 04/25/18 TIME: 22:26 Assessment/Plan Lines/Catheters IV Catheter Type (from Nrs): Saline Lock [place] in Place (from Nrs): No Assessment/Plan Problems: (1) Postop check (2) Abscess of bursa, right ankle and foot Status: Resolved (3) Cellulitis of right lower extremity Status: Resolved (4) Diabetes mellitus type 2 in obese Status: Chronic (5) Charcot's joint, right ankle and foot Status: Chronic (6) Right ankle effusion Status: Resolved Assessment/Plan Postop dressing was changed today; packing was removed; new sterile dressing was applied. Wound care orders: -- dry sterile dressing daily -- cleanse wounds with 1/4 strength Dakin's solution -- one layer compression with PACHECO bandage Weight bearing: NON weightbearing on the RIGHT lower extremity Patient has PICC line -- recommend six weeks of IVAbx MAY DC home and follow up at [facility] in one week Subjective 24 Hr Interval Summary POD 2 s/p right ankle incision and drainage of abscess with cellulitis. Patient reports doing well; denies pain and reports feeling better. Patient denies fever, chills, nausea, or vomiting and denies overnight adverse events. Constitutional: no complaints Pain Control: well controlled Exam/Review of Systems Vital Signs Vitals Vital Signs Date Temp Pulse Resp B/P (MAP) Pulse Ox O2 O2 Flow FiO2 Time Delivery Rate 04/25/18 98.3 76 18 159/95 98 21:45 (116) 04/24/18 Room Air 14:57 04/23/18 2.0 19:11 Intake and Output 04/24/18 04/24/18 04/25/18 1515:00 23:00 07:00 IntakeIntake Total 1070 ml 650 ml 530 ml OutputOutput Total 400 ml 2100 ml BalanceBalance 670 ml 650 ml -1570 ml Exam Free Text/Dictation Patient is s/p incision and drainage RIGHT ankle abscess with cellulitis Dressings: clean, dry and intact to the RIGHT lower extremity Surgical site: open incision medial ankle and lateral ankle with packing; packing removed and there is no pus and no active bleeding; there is no tenderness to exam and no malodor; the prior cellulitis is resolved and there is gokul temperature gradient to the RIGHT lower extremity Edema: minimal Pedal pulses: weakly palpable DP and PT Protective sensation: diminished to sharp, dull, vibratory and temperature stimuli Labs reviewed Imaging reviewed Results Result Diagram: 04/23/18 0446 04/23/18 0446 LORI LOPEZ DPM Apr 25, 2018 22:28
[2018-04-26 02:24] VITALS: BP 121/81; PULSE 69; RESP 18
[2018-04-26] MEDS: CEFAZOLIN 2 GM/50 ML (PMX) 50 ML IVPB SCH ×3 (05:30→21:29)
[2018-04-26 07:50] VITALS: BP 158/77; PULSE 61; RESP 16
[2018-04-26] MEDS: ACCU-CHEK XX SCH ×3 (08:03→17:21)
[2018-04-26] MEDS: TERBINAFINE 250 MG TAB PO SCH ×2 (08:04→21:07)
[2018-04-26] MEDS: metFORMIN 850 MG TAB PO SCH ×2 (08:04→21:09)
[2018-04-26] MEDS: FAMOTIDINE 20 MG TAB PO SCH ×2 (08:04→21:06)
[2018-04-26] MEDS: HEPARIN 5,000 UNIT/1 ML VIAL SC SCH ×2 (08:08→21:07)
[2018-04-26] MEDS: LISINOPRIL 20 MG TAB PO SCH ×2 (08:08→21:06)
[2018-04-26] MEDS: CHOLECALCIFEROL 2,000 UNIT CAP PO SCH (08:46)
[2018-04-26] MEDS: SODIUM HYPOCHLORITE (1/40) 1 APPLIC BTL IRR SCH ×2 (11:30→22:24)
--- NOTE | 2018-04-26 12:51 | CONS ---
Assessment/Plan Assessment/Plan Hospital Course (Demo Recall) Patient is alert and feels good, no fevers No Microbiology: Blood and wound culture growing oxacillin sensitive staph aureus Antimicrobials: Ancef PHYSICAL EXAMINATION: GENERAL: This is an obese, well-developed, middle-aged man who is alert, in no distress. HEENT: Head is atraumatic, normocephalic. Sclerae are anicteric. NECK: Supple. CHEST: Rise symmetrical. Breath sounds clear. HEART: S1, S2. ABDOMEN: Soft. Bowel tones are present. EXTREMITIES: Right foot dressing is intact. Assessment: 1. S/p sepsis with oxacillin sensitive staph aureus bacteremia secondary to #2 2. Left foot cellulitis/abscess, possible osteomyelitis, poss possible infected hardware, d/p i/d 3. Diabetes 4. Left Charcot ankle status post right ankle fusion 5. Obesity Plan: Stable, repeat bld cx neg, 2D echo revealed no vegetations. Pending dc home on IV abx for 6 weeks, f/u with podiatry at [facility] Consultation Date/Type/Reason Admit Date/Time Apr 19, 2018 at 20:08 Initial Consult Date 04/20/18 Type of Consult id Date/Time of Note DATE: 04/26/18 TIME: 12:49 Exam/Review of Systems Exam Vitals Vital Signs Date Temp Pulse Resp B/P (MAP) Pulse Ox O2 O2 Flow FiO2 Time Delivery Rate 04/26/18 97.9 61 16 158/77 95 Room Air 07:50 (104) 04/23/18 2.0 19:11 Intake and Output 04/25/18 04/25/18 04/26/18 1515:00 23:00 07:00 IntakeIntake Total 100 ml 50 ml OutputOutput Total 400 ml BalanceBalance -400 ml 100 ml 50 ml Results Result Diagram: 04/23/18 0446 04/23/18 0446 Results 24hrs Laboratory Tests Test 04/25/18 17:12 04/26/18 08:02 04/26/18 12:07 Bedside Glucose 113 153 176 Medications Medication Current Medications IV Flush (NS 3 ml) 3 ml PER PROTOCOL IV ; Start 04/19/18 at 20:30 Ondansetron HCl (Zofran Tab) 4 mg Q6H PRN PO NAUSEA/VOMITING; Start 04/19/18 at 20:30 Acetaminophen (Tylenol Tab) 650 mg Q6H PRN PO .PAIN 1-3 OR TEMP; Start 04/19/18 at 20:30 Acetaminophen/ Hydrocodone Bitart ([place] (5/325)) 1 tab Q6H PRN PO .MOD PAIN 4- 6; Start 04/19/18 at 20:30 Docusate Sodium (Colace) 100 mg Q12H PRN PO .CONSTIPATION; Start 04/19/18 at 20:30 Zolpidem Tartrate (Ambien) 5 mg QHS PRN PO .INSOMNIA; Start 04/19/18 at 20:30 Famotidine (Pepcid) 20 mg Q12 PO Last administered on 04/26/18at 08:04; Admin Dose 20 MG; Start 04/19/18 at 21:00 Heparin Sodium (Porcine) (Heparin (5000 Units/1ml)) 5,000 unit Q12 SC Last administered on 04/26/18at 08:08; Admin Dose 5,000 UNIT; Start 04/19/18 at 21:00 Metformin HCl (Glucophage) 850 mg BID PO Last administered on 04/26/18at 08:04; Admin Dose 850 MG; Start 04/19/18 at 21:00 Atorvastatin Calcium (Lipitor) 40 mg QPM PO Last administered on 04/25/18at 21:03; Admin Dose 40 MG; Start 04/19/18 at 21:00 Cholecalciferol (Vitamin D) 2,000 unit QAM PO Last administered on 04/26/18at 08:46; Admin Dose 2,000 UNIT; Start 04/20/18 at 09:00 Miscellaneous Information 1 ea NOTE XX ; Start 04/19/18 at 23:30 Glucose (Glutose) 15 gm Q15M PRN PO DECREASED GLUCOSE; Start 04/19/18 at 23:30 Glucose (Glutose) 22.5 gm Q15M PRN PO DECREASED GLUCOSE; Start 04/19/18 at 23:30 Dextrose (D50w Syringe) 25 ml Q15M PRN IV DECREASED GLUCOSE; Start 04/19/18 at 2 3:30 Dextrose (D50w Syringe) 50 ml Q15M PRN IV DECREASED GLUCOSE; Start 04/19/18 at 23:30 Glucagon (Glucagen) 1 mg Q15M PRN IM DECREASED GLUCOSE; Start 04/19/18 at 23:30 Glucose (Glutose) 15 gm Q15M PRN BUCCAL DECREASED GLUCOSE; Start 04/19/18 at 23:30 Diagnostic Test (Pha) (Accu-Chek) 1 ea AC MEALS XX Last administered on 04/26/18at 12:08; Admin Dose 1 EA; Start 04/20/18 at 17:35 Hydralazine HCl (Apresoline) 50 mg Q8 PRN PO ELEVATED BLOOD PRESSURE Last administered on 04/23/18at 15:05; Admin Dose 50 MG; Start 04/20/18 at 21:00 Lisinopril (Zestril) 40 mg BID PO Last administered on 04/26/18at 08:08; Admin Dose 40 MG; Start 04/21/18 at 21:00 Terbinafine HCl (Lamisil) 250 mg BID PO Last administered on 04/26/18at 08:04; Admin Dose 250 MG; Start 04/21/18 at 21:00; Stop 04/28/18 at 20:59 Cefazolin Sodium/ Dextrose 50 ml @ 100 mls/hr Q8 IVPB Last administered on 04/26/18at 05:30; Admin Dose 100 MLS/HR; Start 04/23/18 at 14:00; Stop 05/06/18 at 13:59 Sodium Hypochlorite (Dakin'S (Dilute )) 1 applic DAILY IRR ; Start 04/26/18 at 11:30 WENDY WALSH NP Apr 26, 2018 12:51
--- NOTE | 2018-04-26 13:46 | PN ---
Date/Time of Note Date/Time of Note DATE: 04/26/18 TIME: 13:43 Assessment/Plan VTE Prophylaxis Risk score (from Ns)>0 risk: 5 SCD applied [place] [facility] No SCD contraindicated: bilateral LE trauma Pharmacological prophylaxis: heparin Lines/Catheters IV [facility]ter Type (from [facility]): PICC Line Central line still needed: Yes Urinary Cath still in place: No Assessment/Plan Problems: (1) Abscess of bursa, right ankle and foot Status: Acute Comment: PICC line is seen in the patient's receiving antibiotic therapy. We will go with a full 8 weeks of antibiotic therapy using cefazolin and this is oxacillin sensitive staph aureus infection with negative echocardiogram. Regrettably I am not feeling terribly optimistic about the long-term outcome with his hardware in his foot. (2) Charcot's joint, right ankle and foot Status: Chronic Comment: As above (3) Diabetes mellitus type 2 in obese Status: Chronic Comment: Adequate glycemic control. Patient has been counseled to follow-up in my office a bit more frequently (4) Hyperlipidemia Status: Chronic Comment: Stable on treatment Qualifiers: Hyperlipidemia type: pure hypercholesterolemia Qualified Codes: E78.00 - Pure hypercholesterolemia, unspecified (5) Essential hypertension Status: Chronic Comment: Stable on treatment Result Diagram: 04/23/18 0446 04/23/18445 Results 24hrs Laboratory Tests Test 04/25/18 17:12 04/26/18 08:02 04/26/18 12:07 Bedside Glucose 113 153 176 CC: LORI LOPEZ DPM ; Subjective 24 Hr Interval Summary Free Text/Dictation She reports she is feeling much better and the swelling is down. Now has PICC line in place. Constitutional: no complaints Respiratory: no complaints Cardiovascular: no complaints Gastrointestinal: no complaints Exam/Review of Systems Exam Vitals Vital Signs Date Temp Pulse Resp B/P (MAP) Pulse Ox O2 O2 Flow FiO2 Time Delivery Rate 04/26/18 97.9 61 16 158/77 95 Room Air 07:50 (104) 04/23/18 2.0 19:11 Intake and Output 04/25/18 04/25/18 04/26/18 1414:59 22:59 06:59 IntakeIntake Total 100 ml 50 ml OutputOutput Total 400 ml BalanceBalance -400 ml 100 ml 50 ml Constitutional: alert, oriented Respiratory: clear to auscultation, normal air movement Cardiovascular: regular rate and rhythm, nl pulses Gastrointestinal: soft, nl liver, spleen, non-tender Results Results 24hrs Laboratory Tests Test 04/25/18 17:12 04/26/18 08:02 04/26/18 12:07 Bedside Glucose 113 153 176 Medications Medication Current Medications IV Flush (NS 3 ml) 3 ml PER PROTOCOL IV ; Start 04/19/18 at 20:30 Ondansetron HCl (Zofran Tab) 4 mg Q6H PRN PO NAUSEA/VOMITING; Start 04/19/18 at 20:30 Acetaminophen (Tylenol Tab) 650 mg Q6H PRN PO .PAIN 1-3 OR TEMP; Start 04/19/18 at 20:30 Acetaminophen/ Hydrocodone Bitart ([place] (5/325)) 1 tab Q6H PRN PO .MOD PAIN 4- 6; Start 04/19/18 at 20:30 Docusate Sodium (Colace) 100 mg Q12H PRN PO .CONSTIPATION; Start 04/19/18 at 20:30 Zolpidem Tartrate (Ambien) 5 mg QHS PRN PO .INSOMNIA; Start 04/19/18 at 20:30 Famotidine (Pepcid) 20 mg Q12 PO Last administered on 04/26/18at 08:04; Admin Dose 20 MG; Start 04/19/18 at 21:00 Heparin Sodium (Porcine) (Heparin (5000 Units/1ml)) 5,000 unit Q12 SC Last administered on 04/26/18 08:08; Admin Dose 5,000 UNIT; Start 04/19/18 at 21:00 Metformin HCl (Glucophage) 850 mg BID PO Last administered on 04/26/18 08:04; Admin Dose 850 MG; Start 04/19/18 at 21:00 Atorvastatin Calcium (Lipitor) 40 mg QPM PO Last administered on 04/25/18 21:03; Admin Dose 40 MG; Start 04/19/18 at 21:00 Cholecalciferol (Vitamin D) 2,000 unit QAM PO Last administered on 04/26/18 08:46; Admin Dose 2,000 UNIT; Start 04/20/18 at 09:00 Miscellaneous Information 1 ea NOTE XX ; Start 04/19/18 at 23:30 Glucose (Glutose) 15 gm Q15M PRN PO DECREASED GLUCOSE; Start 04/19/18 at 23:30 Glucose (Glutose) 22.5 gm Q15M PRN PO DECREASED GLUCOSE; Start 04/19/18 at 23:30 Dextrose (D50w Syringe) 25 ml Q15M PRN IV DECREASED GLUCOSE; Start 04/19/18 at 23:30 Dextrose (D50w Syringe) 50 ml Q15M PRN IV DECREASED GLUCOSE; Start 04/19/18 at 23:30 Glucagon (Glucagen) 1 mg Q15M PRN IM DECREASED GLUCOSE; Start 04/19/18 at 23:30 Glucose (Glutose) 15 gm Q15M PRN BUCCAL DECREASED GLUCOSE; Start 04/19/18 at 23:30 Diagnostic Test (Pha) (Accu-Chek) 1 ea AC MEALS XX Last administered on 04/26/18at 12:08; Admin Dose 1 EA; Start 04/20/18 at 17:35 Hydralazine HCl (Apresoline) 50 mg Q8 PRN PO ELEVATED BLOOD PRESSURE Last administered on 04/23/18at 15:05; Admin Dose 50 MG; Start 04/20/18 at 21:00 Lisinopril (Zestril) 40 mg BID PO Last administered on 04/26/18at 08:08; Admin Dose 40 MG; Start 04/21/18 at 21:00 Terbinafine HCl (Lamisil) 250 mg BID PO Last administered on 04/26/18at 08:04; Admin Dose 250 MG; Start 04/21/18 at 21:00; Stop 04/28/18 at 20:59 Cefazolin Sodium/ Dextrose 50 ml @ 100 mls/hr Q8 IVPB Last administered on 04/26/18at 05:30; Admin Dose 100 MLS/HR; Start 04/23/18 at 14:00; Stop 05/06/18 at 13:59 Sodium Hypochlorite (Dakin'S (Dilute 40)) 1 applic DAILY IRR ; Start 04/26/18 at 11:30 IV Flush (NS 10 ml) 10 ml PRN PRN IV FLUSH LINE; Start 04/26/18 at 13:00 DEE AGUILAR MD Apr 26, 2018 13:45
[2018-04-26 14:05] VITALS: BP 176/98; PULSE 73; RESP 18
[2018-04-26 15:00] VITALS: BP 152/74
[2018-04-26] MEDS: ATORVASTATIN 40 MG TAB PO SCH (21:06)
[2018-04-26 21:09] VITALS: BP 150/89; PULSE 65; RESP 20
[2018-04-27] MEDS: CEFAZOLIN 2 GM/50 ML (PMX) 50 ML IVPB SCH ×2 (05:45→13:35)
[2018-04-27 08:00] VITALS: BP 160/83; PULSE 59; RESP 18
[2018-04-27] MEDS: ACCU-CHEK XX SCH ×3 (08:06→17:49)
[2018-04-27] MEDS: metFORMIN 850 MG TAB PO SCH ×2 (08:07→20:58)
[2018-04-27] MEDS: CHOLECALCIFEROL 2,000 UNIT CAP PO SCH (08:07)
[2018-04-27] MEDS: LISINOPRIL 20 MG TAB PO SCH ×2 (08:07→20:59)
[2018-04-27] MEDS: TERBINAFINE 250 MG TAB PO SCH ×2 (08:07→20:58)
[2018-04-27] MEDS: FAMOTIDINE 20 MG TAB PO SCH ×2 (08:07→20:58)
[2018-04-27] MEDS: HEPARIN 5,000 UNIT/1 ML VIAL SC SCH ×2 (09:00→21:04)
[2018-04-27] MEDS: SODIUM HYPOCHLORITE (1/40) 1 APPLIC BTL IRR SCH (09:00)
--- NOTE | 2018-04-27 12:15 | DS ---
Date/Time of Note Date/Time of Note DATE: 04/27/18 TIME: 12:10 Discharge Summary Admission/Discharge Info Admit Date/Time Apr 19, 2018 at 20:08 Discharge Date/Time April 27, 2018 Discharge Diagnosis Right ankle septic joint with oxacillin sensitive staph aureus; Lulmeda-[id number]-Bwsgn with hardware in the right ankle; diabetes mellitus type 2; essential hypertension; hyperlipidemia; Patient Condition: Fair Consults [place] disease-Dr. Mendez; podiatry-Dr. Moreno Procedures PICC line incision drainage of bilateral ankle abscess Operative Report Procedure Date: Apr 23, 2018 Preoperative Diagnosis Abscess of the right ankle Cellulitis of the right ankle Diabetes mellitus Status post ankle fusion Charcot changes of right ankle and foot Staph aureus sepsis Postoperative Diagnosis Abscess of the right ankle Cellulitis of the right ankle Diabetes mellitus Status post ankle fusion Charcot changes of right ankle and foot Staph aureus sepsis Operation/Procedure Performed Incision and drainage of right ankle abscess ; MRI scan right ankle; echocardiogram Conclusions: Normal left ventricular systolic function. Normal left ventricular cavity size. Mild concentric left ventricular hypertrophy. Ejection fraction is visually estimated at 65 %. Tissue Doppler/Mitral Doppler indices are within normal limits. Normal right ventricular size. Normal right ventricular systolic function. The left atrium is normal in size. The right atrium is normal in size. No significant valvular stenosis or regurgitation seen. Normal pericardium with no significant pericardial effusion. Hx of Present Illness Pleasant 43-year-old gentleman with a history of a Charcot ankle status post reconstruction several months ago. He did been in his usual state of health and recuperating nicely. Roughly 3-4 days ago he developed the onset of swelling tenderness redness and warmth at the ankle. He subsequently then developed fevers and ultimately was advised to be seen in the emergency room by the foot and ankle surgeon. In the emergency room he had temperature of 103.1 and evidence of cellulitis. He was cultured and placed on IV antibiotics specifically vancomycin admitted. His blood cultures are already positive Hospital Course Nayla gentleman who was admitted with a right leg cellulitis and abscess. He was given antibiotics help get this cleaned up and then underwent incision and drainage. Dr. Moreno from podiatry is been following the patient. He is now stable for discharge home to receive IV antibiotics for a total of 8 weeks. With the infected hardware I am very concerned about the overall longevity of his right lower extremity. Followed up in the [facility] within 1 week. In my office in 3 weeks. Home Meds Reported Medications Sitagliptin* (Januvia*) Unknown Strength Tablet, PO DAILY, #30 TAB 04/19/18 Metformin* (Glucophage*) 850 Mg Tablet, 850 MG PO WITH BREAKFAST DINNE, #60 TAB 04/19/18 Lisinopril* (Lisinopril*) 20 Mg Tablet, 20 MG PO DAILY, #30 TAB 04/19/18 Ergocalciferol (Vitamin D2) (VITAMIN D2) 2,000 Unit Tablet, 2000 UNIT PO QAM, TAB 04/19/18 Atorvastatin* (Atorvastatin*) 40 Mg Tablet, 40 MG PO QHS, #30 TAB 04/19/18 Follow-up Plan [facility] in 1 week; my office in 3 weeks Primary Care Provider Dee Contreras MD Time spent on discharge: > 30 minutes Pending Labs Laboratory Tests Test 04/26/18 17:17 04/26/18 21:08 04/27/18 08:05 Bedside Glucose 179 mg/dL (70-220) 138 mg/dL (70-220) 121 mg/dL (70-220) DEE CONTRERAS MD Apr 27, 2018 12:15
--- NOTE | 2018-04-27 12:16 | PDOCDIS ---
Discharge Instructions DIAGNOSIS Discharge Diagnosis Right ankle septic joint with oxacillin sensitive staph aureus; Vunznue-Poeml-Vokcj with hardware in the right ankle; diabetes mellitus type 2; essential hypertension; hyperlipidemia; CONDITION [id number] Patient Condition: [id number] Fair HOME CARE INSTRUCTIONS: Paul Special Diet: [id number] Hepatic diet ACTIVITY: [id number] Activity Restrictions Comment: [id number] Nonweightbearing right leg FOLLOW UP/APPOINTMENTS Follow-up Plan [facility] in 1 week; my office in 3 weeks DEE AGUILAR MD Apr 27, 2018 12:16
--- NOTE | 2018-04-27 13:03 | CONS ---
Assessment/Plan Assessment/Plan Hospital Course (Demo Recall) No acute changes, looks comfortable, no fevers Microbiology: Blood and wound culture growing oxacillin sensitive staph aureus Antimicrobials: Ancef PHYSICAL EXAMINATION: GENERAL: This is an obese, well-developed, middle-aged man who is alert, in no distress. HEENT: Head is atraumatic, normocephalic. Sclerae are anicteric. NECK: Supple. CHEST: Rise symmetrical. Breath sounds clear. HEART: S1, S2. ABDOMEN: Soft. Bowel tones are present. EXTREMITIES: Right foot dressing is intact. Assessment: 1. S/p sepsis with oxacillin sensitive staph aureus bacteremia secondary to #2 2. Left foot cellulitis/abscess, possible osteomyelitis, poss possible infected hardware, s/p i/d 3. Diabetes 4. Left Charcot ankle status post right ankle fusion 5. Obesity Plan: Stable, repeat bld cx neg, 2D echo revealed no vegetations. Pending dc home on IV abx for 6 weeks Consultation Date/Type/Reason Admit Date/Time Apr 19, 2018 at 20:08 Initial Consult Date 04/20/18 Type of Consult id Date/Time of Note DATE: 04/27/18 TIME: 13:02 Exam/Review of Systems Exam Vitals Vital Signs Date Temp Pulse Resp B/P (MAP) Pulse Ox O2 O2 Flow FiO2 Time Delivery Rate 04/27/18 98.6 59 18 160/83 96 08:00 (108) 04/26/18 Room Air 21:09 04/23/18 2.0 19:11 Intake and Output 04/26/18 04/26/18 04/27/18 1515:00 23:00 07:00 IntakeIntake Total 1400 ml 350 ml 400 ml BalanceBalance 1400 ml 350 ml 400 ml Results Result Diagram: 04/23/18 0446 04/23/18 0446 Results 24hrs Laboratory Tests Test 04/26/18 17:17 04/26/18 21:08 04/27/18 08:05 04/27/18 12:41 Bedside Glucose 179 138 121 114 Medications Medication Current Medications IV Flush (NS 3 ml) 3 ml PER PROTOCOL IV ; Start 04/19/18 at 20:30 Ondansetron HCl (Zofran Tab) 4 mg Q6H PRN PO NAUSEA/VOMITING; Start 04/19/18 at 20:30 Acetaminophen (Tylenol Tab) 650 mg Q6H PRN PO .PAIN 1-3 OR TEMP; Start 04/19/18 at 20:30 Acetaminophen/ Hydrocodone Bitart ([place] (5/325)) 1 tab Q6H PRN PO .MOD PAIN 4- 6; Start 04/19/18 at 20:30 Docusate Sodium (Colace) 100 mg Q12H PRN PO .CONSTIPATION; Start 04/19/18 at 20:30 Zolpidem Tartrate (Ambien) 5 mg QHS PRN PO .INSOMNIA; Start 04/19/18 at 20:30 Famotidine (Pepcid) 20 mg Q12 PO Last administered on 04/27/18at 08:07; Admin Dose 20 MG; Start 04/19/18 at 21:00 Heparin Sodium (Porcine) (Heparin (5000 Units/1ml)) 5,000 unit Q12 SC Last administered on 04/26/18at 21:07; Admin Dose 5,000 UNIT; Start 04/19/18 at 21:00 Metformin HCl (Glucophage) 850 mg BID PO Last administered on 04/27/18at 08:07; Admin Dose 850 MG; Start 04/19/18 at 21:00 Atorvastatin Calcium (Lipitor) 40 mg QPM PO Last administered on 04/26/18at 21:06; Admin Dose 40 MG; Start 04/19/18 at 21:00 Cholecalciferol (Vitamin D) 2,000 unit QAM PO Last administered on 04/27/18at 08:07; Admin Dose 2,000 UNIT; Start 04/20/18 at 09:00 Miscellaneous Information 1 ea NOTE XX ; Start 04/19/18 at 23:30 Glucose (Glutose) 15 gm Q15M PRN PO DECREASED GLUCOSE; Start 04/19/18 at 23:30 Glucose (Glutose) 22.5 gm Q15M PRN PO DECREASED GLUCOSE; Start 04/19/18 at 23:30 Dextrose (D50w Syringe) 25 ml Q15M PRN IV DECREASED GLUCOSE; Start 04/19/18 at 23:30 Dextrose (D50w Syringe) 50 ml Q15M PRN IV DECREASED GLUCOSE; Start 04/19/18 at 23:30 Glucagon (Glucagen) 1 mg Q15M PRN IM DECREASED GLUCOSE; Start 04/19/18 at 23:30 Glucose (Glutose) 15 gm Q15M PRN BUCCAL DECREASED GLUCOSE; Start 04/19/18 at 23:30 Diagnostic Test (Pha) (Accu-Chek) 1 ea AC MEALS XX Last administered on 04/27/18at 12:29; Admin Dose 1 EA; Start 04/20/18 at 17:35 Hydralazine HCl (Apresoline) 50 mg Q8 PRN PO ELEVATED BLOOD PRESSURE Last administered on 04/23/18at 15:05; Admin Dose 50 MG; Start 04/20/18 at 21:00 Lisinopril (Zestril) 40 mg BID PO Last administered on 04/27/18 08:07; Admin Dose 40 MG; Start 04/21/18 at 21:00 Terbinafine HCl (Lamisil) 250 mg BID PO Last administered on 04/27/18 08:07; Admin Dose 250 MG; Start 04/21/18 at 21:00; Stop 04/28/18 at 20:59 Cefazolin Sodium/ Dextrose 50 ml @ 100 mls/hr Q8 IVPB Last administered on 04/27/18at 05:45; Admin Dose 100 MLS/HR; Start 04/23/18 at 14:00; Stop 05/06/18 at 13:59 Sodium Hypochlorite (Dakin'S (Dilute )) 1 applic DAILY IRR Last administered on 04/26/18at 22:24; Admin Dose 1 APPLIC; Start 04/26/18 at 11:30 IV Flush (NS 10 ml) 10 ml PRN PRN IV FLUSH LINE; Start 04/26/18 at 13:00 WENDY WALSH NP Apr 27, 2018 13:03
[2018-04-27 14:00] VITALS: BP 160/96; PULSE 66; RESP 18
[2018-04-27 20:00] VITALS: BP 165/91; PULSE 69; RESP 19
[2018-04-27] MEDS: ATORVASTATIN 40 MG TAB PO SCH (20:58)
[2018-04-27] MEDS ORDERED: CEFAZOLIN 2 GM/50 ML (PMX) 50 ML IVPB SCH (22:00)
== END 2018-04-27 22:06 | disposition home health service (06) | DRG 872 ==
LOC: E/R 14:57 → CANBEDREQ 18:57 → PP2 20:08
PROVIDERS: ADMIT Internal Medicine; ATTEND Internal Medicine
PROC: 0Y9K3ZX Drainage of Right Ankle Region, Percutaneous Approach, Diagnostic (ICD-10-PCS; 2018-04-22)
PROC: 0S9F0ZX Drainage of Right Ankle Joint, Open Approach, Diagnostic (ICD-10-PCS; principal; 2018-04-23 18:00)
PROC: 02HV33Z Insertion of Infusion Device into Superior Vena Cava, Percutaneous Approach (ICD-10-PCS; 2018-04-26)
DX: A41.01 Sepsis due to Methicillin susceptible Staphylococcus aureus (principal); M00.071 Staphylococcal arthritis, right ankle and foot; L03.115 Cellulitis of right lower limb; L02.415 Cutaneous abscess of right lower limb; I10 Essential (primary) hypertension; E78.5 Hyperlipidemia, unspecified; E11.610 Type 2 diabetes mellitus with diabetic neuropathic arthropathy; M71.071 Abscess of bursa, right ankle and foot; E66.9 Obesity, unspecified; Z68.32 Body mass index [BMI] 32.0-32.9, adult; M21.70 Unequal limb length (acquired), unspecified site
CPT/HCPCS: 36415; 36569; 71045; 73590; 73630; 73718; 76937; 80053; 80202; 81003; 82962; 83036; 83605; 84484; 85025; 85610; 85651; 85730; 86140; 87040; 87045; 87070; 87081; 87086; 87400; 93005; 93306; 96361; 96365; 96375; 97116; 97161; 97530; J0690; J0692; J1644; J1885; J3370; J7030

== ENCOUNTER 2018-05-05 12:57 | Emergency (ER) | payer BC ==
[~2018-05-05] VITALS: Ht 175.3 cm; Wt 97.7 kg
[~2018-05-05 12:57] MED LIST: ATOR40TA68 PO; ERGO2000 PO; LISI-471 PO; METF-480 PO; SITA25TA3 PO
[2018-05-05 13:35] VITALS: Ht 175.3 cm; Wt 97.7 kg
--- NOTE | 2018-05-05 16:55 | ERD ---
ER Documentation Chief Complaint Chief Complaint LEFT UPPER ARM PICC LINE CLOGGED HPI The patient is a 43-year-old male, presenting to the ER because of clock PICC line at the left upper extremity that was inserted 9 days ago for right ankle infection with IV antibiotic. He denies fever, chills, neck pain, chest pain, dyspnea, abdominal pain, vomiting, dysuria, diarrhea. Past medical history: Diabetes mellitus, hypertension, dyslipidemia, asthma Past surgical history: Right ankle fusion and Charcot reconstruction ROS All systems reviewed and are negative except as per history of present illness. Medications Home Meds Reported Medications Sitagliptin* (Januvia*) Unknown Strength Tablet, PO DAILY, #30 TAB 04/19/18 Metformin* (Glucophage*) 850 Mg Tablet, 850 MG PO WITH BREAKFAST DINNE, #60 TAB 04/19/18 Lisinopril* (Lisinopril*) 20 Mg Tablet, 20 MG PO DAILY, #30 TAB 04/19/18 Ergocalciferol (Vitamin D2) (VITAMIN D2) 2,000 Unit Tablet, 2000 UNIT PO QAM, TAB 04/19/18 Atorvastatin* (Atorvastatin*) 40 Mg Tablet, 40 MG PO QHS, #30 TAB 04/19/18 Allergies Allergies: Coded Allergies: No Known Allergy (Unverified , 04/19/18) PMhx/Soc History of Surgery: Yes (right ankle fusion jan 2018,foot surgery 2017) Anesthesia Reaction: No Hx Neurological Disorder: No Hx Respiratory Disorders: Yes (hx of asthma (childhood)) Hx Cardiac Disorders: Yes (htn) Hx Psychiatric Problems: No Hx Miscellaneous Medical Probl: No Hx Alcohol Use: Yes (used to drink beer 6 beers a day for 2 yrs, ) Hx Substance Use: No Hx Tobacco Use: No Physical Exam Vitals Vital Signs Date Temp Pulse Resp B/P (MAP) Pulse Ox O2 O2 Flow FiO2 Time Delivery Rate 05/05/18 63 13 172/105 100 Room Air 18:50 (127) 05/05/18 97.7 71 18 176/107 99 13:35 (130) Physical Exam Const: No acute distress. Head: Atraumatic. Eyes: Normal Conjunctiva. ENT: Normal External Ears, Nose and Mouth. Neck: Full range of motion. No meningismus. Resp: Clear to auscultation bilaterally. Cardio: Regular rate and rhythm. Abd: Soft, non distended, normal bowel sounds, non tender. Skin: No petechiae or rashes. Back: No midline or flank tenderness. Ext: No cyanosis, or edema. Left upper extremity with a PICC line Neur: Awake and alert. No focal deficit Psych: Normal Mood and Affect. Results 24 hrs Current Medications Medications Dose Sig/Mara Start Time Status Last (Trade) Ordered Route PRN Stop Time Admin Dose Reason Admin Alteplase, 2 mg MAY REPEAT 05/05/18 DC Recombinant X1 PRN 18:00 (Cathflo CATHETER IF 05/05/18 20:17 (Activase)) CATHETER REMAINS OCCULUDED Procedures/[place] [id number] Radiology Main Line: [phone] DIAGNOSTIC IMAGING REPORT Patient: STEVE WHITEHEAD : 1975 Age: 43 Sex: M MR #: [id number] DOS: 05/05/18 1709 Ordering MD: CONOR VARGAS MD Location: E/R Room/Bed: PROCEDURE: One view chest radiograph. CLINICAL INDICATION: PICC placement TECHNIQUE: An AP view of the chest was obtained. COMPARISON: 04/26/2018 FINDINGS: A PICC is present insert via the left upper extremity. The tip lies in the superior vena cava. Heart size: Normal Pulmonary vasculature: No visible engorgement. Lungs: Clear. Costophrenic sulci: Clear. Bony structures: Grossly unremarkable for age. IMPRESSION: 1. Left upper extremity PICC with the tip in the superior vena cava. 2. Otherwise unremarkable chest. RPTAT:AAJJ Physician Nick Date Time Electronically viewed and signed by Physician Nick on 05/05/2018 18:07 GW/ CC: CONOR VARGAS MD [id number] MEDICAL MAKING DECISION: The patient is a 43-year-old male, presenting with nonworking PICC line. The PICC line was flushed with Cathflo and unkinked. It is then working properly The differential diagnoses considered include but are not limited to dislodgment of PICC line, cellulitis, positional flow, clotted. Departure Diagnosis: Primary Impression: PICC (peripherally inserted central catheter) flush Condition: Good Comments I discussed the findings with the patient. I advised the patient to follow-up with the primary physician in about 2-3 days, sooner if needed and return if any concern. Disclaimer: Inadvertent spelling and grammatical errors are likely due to EHR/dictation software use and do not reflect on the overall quality of patient care. Also, please note that the electronic time recorded on this note does not necessarily reflect the actual time of the patient encounter. CONOR VARGAS MD May 05, 2018 16:55
[2018-05-05 18:50] VITALS: BP 172/105; PULSE 63; RESP 13
[2018-05-05] MEDS: ALTEPLASE (CATHFLO) 2 MG INJ CATHETER PRN ×2 (18:55→19:03)
== END 2018-05-05 19:36 | disposition home or self-care (01) ==
LOC: E/R 12:57
DX: Z45.2 Encounter for adjustment and management of vascular access device (principal); I10 Essential (primary) hypertension; J45.909 Unspecified asthma, uncomplicated; E11.9 Type 2 diabetes mellitus without complications; Z79.84 Long term (current) use of oral hypoglycemic drugs
CPT/HCPCS: 71045; 99283; J2997

== ENCOUNTER 2018-07-29 19:03 | Inpatient (IN) | payer BC, OTHER ==
[~2018-07-29] VITALS: Ht 175.3 cm; Wt 103.2 kg
[2018-07-29 19:07] VITALS: Ht 175.3 cm; Wt 103.2 kg
[2018-07-29] MEDS ORDERED: SODIUM CHLORIDE 0.9% 1L BAG IV* STA (19:09)
[2018-07-29] MEDS ORDERED: ACETAMINOPHEN 325 MG TAB PO STA (19:09)
[2018-07-29] MEDS ORDERED: PIPER-TAZO 3.375 GM IV (PMX) 100 ML IVPB ONE (19:30)
[2018-07-29] MEDS ORDERED: VANCOMYCIN 1 GM (PMX) 250 ML IVPB ONE (19:30)
[2018-07-29] MEDS ORDERED: NACL 0.9% 3 ML SYG IV SCH (20:00)
[2018-07-29] MEDS ORDERED: ONDANSETRON 4 MG INJ IV PRN (20:00)
[2018-07-29] MEDS ORDERED: ACETAMINOPHEN 325 MG TAB PO PRN ×2 (20:00)
[2018-07-29] MEDS ORDERED: NA PHOSPHATE/BIPHOS 133 ML ENEMA PR PRN (20:00)
[2018-07-29] MEDS ORDERED: ZOLPIDEM 5 MG TAB PO PRN (20:00)
[2018-07-29] MEDS ORDERED: ONDANSETRON 4 MG TAB PO PRN (20:00)
[2018-07-29] MEDS ORDERED: ACCU-CHEK XX SCH (20:00)
[2018-07-29] MEDS ORDERED: DOCUSATE SODIUM 100 MG CAP PO PRN (20:00)
[2018-07-29] MEDS ORDERED: VANCOMYCIN IV PER PHARMACY XX SCH (20:00)
[2018-07-29] MEDS ORDERED: DEXTROSE 50% 50 ML SYRINGE IV PRN ×2 (20:30)
[2018-07-29] MEDS ORDERED: GLUCAGON 1 MG INJ IM PRN (20:30)
[2018-07-29] MEDS ORDERED: GLUCOSE GEL 15 GRAM TUBE PO PRN ×2 (20:30)
[2018-07-29] MEDS ORDERED: GLUCOSE GEL 15 GRAM TUBE BUCCAL PRN (20:30)
[2018-07-29] MEDS ORDERED: ATORVASTATIN 40 MG TAB PO SCH (21:00)
[2018-07-29] MEDS: INSULIN ASPART [NOVOLOG] 3 ML PEN SC SCH (21:00)
[2018-07-29] MEDS: ACCU-CHEK XX SCH (21:00)
--- NOTE | 2018-07-29 21:18 | ERD ---
ER Documentation Chief Complaint Chief Complaint FEVER, CHILLS X1DAY HPI Patient is a 43-year-old male with diabetes and hypertension who presents with fever. The patient says that he has a right leg and foot infection which started 1.5 days ago. He has a history of surgery to this area and has been admitted before in the past. Upon review of old medical record the patient has multiple visits with admissions. His primary doctor is Dr. Contreras and his shirt marker is Dr. Moreno. ROS All systems reviewed and are negative except as per history of present illness. Medications Home Meds Reported Medications Sitagliptin* (Januvia*) Unknown Strength Tablet, PO DAILY, #30 TAB 04/19/18 Metformin* (Glucophage*) 850 Mg Tablet, 850 MG PO WITH BREAKFAST DINNE, #60 TAB 04/19/18 Lisinopril* (Lisinopril*) 20 Mg Tablet, 20 MG PO DAILY, #30 TAB 04/19/18 Ergocalciferol (Vitamin D2) (VITAMIN D2) 2,000 Unit Tablet, 2000 UNIT PO QAM, TAB 04/19/18 Atorvastatin* (Atorvastatin*) 40 Mg Tablet, 40 MG PO QHS, #30 TAB 04/19/18 Allergies Allergies: Coded Allergies: No Known Allergy (Unverified , 04/19/18) PMhx/Soc History of Surgery: Yes (right ankle fusion jan 2018,foot surgery 2017) Anesthesia Reaction: No Hx Neurological Disorder: No Hx Respiratory Disorders: Yes (hx of asthma (childhood)) Hx Cardiac Disorders: Yes (htn) Hx Psychiatric Problems: No Hx Miscellaneous Medical Probl: No Hx Alcohol Use: Yes (used to drink beer 6 beers a day for 2 yrs, ) Hx Substance Use: No Hx Tobacco Use: No Smoking Status: Never smoker FmHx Family History: No diabetes Physical Exam Vitals Vital Signs Date Temp Pulse Resp B/P (MAP) Pulse Ox O2 O2 Flow FiO2 Time Delivery Rate 07/29/18 98.2 114 24 146/76 96 Room Air 21:09 (99) 07/29/18 98.6 112 25 134/72 94 Room Air 20:36 (92) 07/29/18 103.4 134 18 186/101 100 19:07 (129) Physical Exam Const: No acute distress Head: Atraumatic Eyes: Normal Conjunctiva ENT: Normal External Ears, Nose and Mouth. Neck: Full range of motion. No meningismus. Resp: Clear to auscultation bilaterally Cardio: Tachycardic rate without murmur Abd: Soft, non tender, non distended. Normal bowel sounds Skin: Redness and erythema to the right foot and ankle without crepitus Back: No midline or flank tenderness Ext: No cyanosis, or edema Neur: Awake and alert Psych: Normal Mood and Affect Result Diagram: 07/29/18192307/29/181923 Results 24 hrs Laboratory Tests Test 07/29/18 19:24 07/29/18 19:25 White Blood Count 12.4 10^3/ul Red Blood Count 5.09 10^6/ul Hemoglobin 14.0 g/dl Hematocrit 42.0 % Mean Corpuscular Volume 82.5 fl Mean Corpuscular Hemoglobin 27.5 pg Mean Corpuscular Hemoglobin Concent 33.3 g/dl Red Cell Distribution Width 14.3 % Platelet Count 262 10^3/UL Mean Platelet Volume 10.5 fl Immature Granulocytes % 1.100 % Neutrophils % 83.7 % Lymphocytes % 8.7 % Monocytes % 6.1 % Eosinophils % 0.2 % Basophils % 0.2 % Nucleated Red Blood Cells % 0.0 /100WBC Immature Granulocytes # 0.140 10^3/ul Neutrophils # 10.4 10^3/ul Lymphocytes # 1.1 10^3/ul Monocytes # 0.8 10^3/ul Eosinophils # 0.0 10^3/ul Basophils # 0.0 10^3/ul Nucleated Red Blood Cells # 0.0 10^3/ul Prothrombin Time 13.2 Sec Prothrombin Time Ratio 1.0 INR International Normalized Ratio 0.99 Activated Partial Thromboplast Time 33.4 Sec Sodium Level 135 mmol/L Potassium Level 4.0 mmol/L Chloride Level 95 mmol/L Carbon Dioxide Level 28 mmol/L Anion Gap 12 Blood Urea Nitrogen 21 mg/dl Creatinine 1.08 mg/dl Est Glomerular Filtrat Rate mL/min > 60 mL/min Glucose Level 178 mg/dl Calcium Level 9.3 mg/dl Total Bilirubin 0.7 mg/dl Direct Bilirubin 0.00 mg/dl Indirect Bilirubin 0.7 mg/dl Aspartate Amino Transf (AST/SGOT) 23 IU/L Alanine Aminotransferase (ALT/SGPT) 18 IU/L Alkaline Phosphatase 106 IU/L Troponin I < 0.012 ng/ml Total Protein 8.3 g/dl Albumin 4.0 g/dl Globulin 4.30 g/dl Albumin/Globulin Ratio 0.93 POC Venous Lactate 1.7 mmol/L Current Medications Medications Dose Sig/Mara Start Time Status Last (Trade) Ordered Route PRN Stop Time Admin Dose Reason Admin Piperacillin 100 ml @ ONCE ONCE 07/29/18 DC 07/29/18 Sod/ 200 mls/hr IVPB 19:30 19:41 Tazobactam 07/29/18 19:59 Sod Vancomycin 250 ml @ ONCE ONCE 07/29/18 07/29/18 HCl 125 mls/hr IVPB 19:30 20:34 07/29/18 21:29 650 mg ONCE STAT 07/29/18 DC 07/29/18 Acetaminophen PO 19:09 19:24 (Tylenol 07/29/18 19:11 Tab) Sodium 2,050 ml BOLUS OVER 2 07/29/18 DC 07/29/18 Chloride HOURS STAT 19:09 19:24 (NS) IV* 07/29/18 19:11 Ondansetron 4 mg BRIDGE ORDER 07/29/18 DC HCl (Zofran PRN IV 20:00 Inj) NAUSEA/VOMITI 07/29/18 20:05 NG 650 mg ER BRIDGE 07/29/18 DC Acetaminophen PRN PO 20:00 (Tylenol .MILD PAIN 07/29/18 20:05 Tab) 1-3 OR TEMP IV Flush 3 ml PER 07/29/18 (NS 3 ml) PROTOCOL IV 20:00 Ondansetron 4 mg Q6H PRN 07/29/18 HCl (Zofran PO 20:00 Tab) NAUSEA/VOMITI NG 650 mg Q6H PRN 07/29/18 Acetaminophen PO .PAIN 1-3 20:00 (Tylenol OR TEMP Tab) 1 tab Q6H PRN 07/29/18 Acetaminophen PO .MOD PAIN 20:00 / 4-6 Hydrocodone Bitart ([place] (5/325)) Docusate 100 mg Q12H PRN 07/29/18 Sodium PO 20:00 (Colace) .CONSTIPATION Sodium 133 ml DAILY PRN 07/29/18 Biphosphate/ FL 20:00 Sodium .CONSTIPATION Phosphate (Fleet Enema) Zolpidem 5 mg QHS PRN 07/29/18 Tartrate PO .INSOMNIA 20:00 (Ambien) Famotidine 20 mg Q12 PO 07/29/18 (Pepcid) 21:00 Heparin 5,000 unit Q12 SC 07/29/18 Sodium 21:00 (Porcine) (Heparin (5000 Units/1ml)) Vancomycin 1 ea PER 07/29/18 HCl (Vanco PROTOCOL XX 20:00 Iv Per Pharmacy) 200 ml @ Q12 IVPB 07/29/18 Ciprofloxacin 200 mls/hr 21:00 / Dextrose 40 mg QHS PO 07/29/18 Atorvastatin 21:00 Calcium (Lipitor) Lisinopril 20 mg DAILY PO 07/30/18 (Zestril) 09:00 Metformin 850 mg WITH 07/30/18 HCl BREAKFAST 08:00 (Glucophage) DINNE PO Linagliptin 5 mg DAILY PO 07/30/18 (Tradjenta) 09:00 40 mg QHS PO 07/29/18 UNV Atorvastatin 21:00 Calcium (Lipitor) Lisinopril 20 mg DAILY PO 07/30/18 UNV (Zestril) 09:00 Metformin 850 mg WITH 07/30/18 UNV HCl BREAKFAST 08:00 (Glucophage) DINNE PO 2,000 units QAM PO 07/30/18 Ergocalcifero 09:00 l (Drisdol Liquid (Nicu)) Linagliptin 5 mg DAILY PO 07/30/18 UNV (Tradjenta) 09:00 Diagnostic 1 ea AC MEALS AND 07/29/18 Test (Pha) BEDTIME XX 21:00 (Accu-Chek) Diagnostic 1 ea AC MEALS 07/30/18 Test (Pha) XX 07:00 (Accu-Chek) Diagnostic 1 ea 2 HOURS 07/29/18 UNV Test (Pha) AFTER MEALS 20:00 (Accu-Chek) XX Diagnostic 1 ea 02 XX 07/30/18 Test (Pha) 02:00 (Accu-Chek) ONCE ONCE 07/29/18 DC Miscellaneous HYPOGLYCEMIA XX 20:00 PROTOCOL 07/29/18 20:08 Information w... (* Miscellaneous Pharmacy Order) Insulin NOVOLOG WITH MEALS 07/29/18 Aspart *MODERATE* BEDTIME SC 21:00 (Novolog ALGORITHM Insulin Pen) 1 ea NOTE XX 07/29/18 Miscellaneous 20:30 Information Glucose 15 gm Q15M PRN 07/29/18 (Glutose) PO DECREASED 20:30 GLUCOSE Glucose 22.5 gm Q15M PRN 07/29/18 (Glutose) PO DECREASED 20:30 GLUCOSE Dextrose 25 ml Q15M PRN 07/29/18 (D50w IV DECREASED 20:30 Syringe) GLUCOSE Dextrose 50 ml Q15M PRN 07/29/18 (D50w IV DECREASED 20:30 Syringe) GLUCOSE Glucagon 1 mg Q15M PRN 07/29/18 (Glucagen) IM DECREASED 20:30 GLUCOSE Glucose 15 gm Q15M PRN 07/29/18 (Glutose) BUCCAL 20:30 DECREASED GLUCOSE Vancomycin 250 ml @ Q8H IVPB 07/29/18 HCl 125 mls/hr 22:00 VANCO TR 2099 ONCE 07/30/18 Miscellaneous 14 AT 2099 XX 21:00 07/30/18 21:01 Information (*Rx Drug Level Order Reminder*) Procedures/MDM Chest x-ray read by radiology. Right foot x-ray read by radiology. EKG read by me: Rate/Rhythm: Sinus tachycardia Intervals: Normal Impression: Tachycardia without ischemia Sepsis Documentation: Patient's infectious symptoms have not stabilized and the patient is at risk of rapid decompensation. The patient will be admitted for careful hydration, antibiotic therapy, and infectious source control. SEVERE SEPSIS CRITERIA: Infectious source: Cellulitis End organ damage indicated by: No endorgan damage at this time SEPSIS MANAGEMENT Time of recognition of sepsis: 1923. Time of recognition of severe sepsis: No severe sepsis at this time. Time of recognition of septic shock: No septic shock at this time. 3 HOUR BUNDLE Blood cultures x 2 before broad-spectrum antibiotics: Yes 30 ml/kg NS bolus given but please note this was ideal body weight bolus as patient's BMI is greater than 30 Initial lactate 1.7 Repeat lactate pending SEPTIC SHOCK ASSESSMENT: No lactic acid > 4.0 No persistent hypotension (SBP < 90 or 40 mmHg drop, MAP < 65) despite 30 mL/kg IV fluid bolus VOLUME REASSESSMENT FOR SEPTIC SHOCK: No septic shock at this time PERSISTENT HYPOTENSION TREATMENT: Comfort care no Central line not Required Vasopressor started not required I considered further perfusion assessment with CVP measurement, SCVO2, bedside ultrasound volume assessment, passive leg raise, trial of further fluid bolus. And proceeded with 30 ml/kg ideal body weight fluid bolus of NSS, broad spectrum antibiotics, and admission. Patient is admitted to the care of Dr. Contreras. I have consulted Dr. Moreno from podiatry. CRITICAL CARE Critical care time 35 minutes Emergent fluid management while maintaining close respiratory support. Provision of immediate and broad-spectrum antibiotic therapy. Simultaneous assessment for possible sources in order to direct targeted therapy. Consideration for invasive and chemical support to prevent cardiopulmonary collapse. Critical care time is independent of procedures performed. Departure Diagnosis: Primary Impression: Sepsis Sepsis type: sepsis due to unspecified organism Qualified Codes: A41.9 - Sepsis, unspecified organism Condition: WENDY Nicholas MD Jul 29, 2018 21:18
[2018-07-29 21:45] VITALS: BP 134/75; PULSE 111; RESP 18
[2018-07-29 22:48] VITALS: PULSE 96
[2018-07-29] MEDS: ATORVASTATIN 40 MG TAB PO SCH (23:04)
[2018-07-29] MEDS: FAMOTIDINE 20 MG TAB PO SCH (23:04)
[2018-07-29] MEDS: HEPARIN 5,000 UNIT/1 ML VIAL SC SCH (23:10)
--- NOTE | 2018-07-29 23:39 | CONS ---
Assessment/Plan Assessment/Plan Problems: (1) Right ankle effusion Status: Acute (2) Charcot's joint, right ankle and foot Status: Chronic (3) Leg length discrepancy (4) Diabetes mellitus type 2 in obese Status: Chronic (5) Staphylococcus aureus bacteremia with sepsis Status: Acute Assessment/Plan (Daily) Xrays of the right ankle ordered; will review when available. Continue on IVAbx. Non weightbearing on the right foot. Patient will be followed in house. Thank you again for involving me in the care of this patient. If you have any questions regarding this case, please feel free to contact me at pager: [phone] or reach me at mobile: [phone]. Consultation Date/Type/Reason Admit Date/Time Jul 29, 2018 at 19:47 Date of Consultation: Jul 29, 2018 Type of Consult Foot and ankle surgery Reason for Consultation Evaluation for recurrent infection of the right ankle joint. Date/Time of Note DATE: 07/29/18 TIME: 23:38 Hx of Present Illness This is a pleasant 43-year-old male patient who is familiar to my practice and has recently undergone right ankle fusion with internal fixation who presents to the hospital with recurrent infection of his right ankle. Patient has had previous treatment with IV antibiotics via PICC line for 8 weeks. Patient was seen in my office about a week ago and was doing very well and had no signs of infection in his right ankle. He says that he started having signs and symptoms of infection in the past 4 to 5 days and admits to having fever and chills with night sweats. He came to the emergency room and was found to have sepsis. I was consulted for evaluation and treatment. Constitutional: no complaints Eyes: no complaints ENT: no complaints Respiratory: no complaints Cardiovascular: no complaints Gastrointestinal: no complaints Genitourinary: no complaints Past Medical History As per history of present illness. Home Meds Reported Medications Sitagliptin* (Januvia*) Unknown Strength Tablet, PO DAILY, #30 TAB 04/19/18 Metformin* (Glucophage*) 850 Mg Tablet, 850 MG PO WITH BREAKFAST DINNE, #60 TAB 04/19/18 Lisinopril* (Lisinopril*) 20 Mg Tablet, 20 MG PO DAILY, #30 TAB 04/19/18 Ergocalciferol (Vitamin D2) (VITAMIN D2) 2,000 Unit Tablet, 2000 UNIT PO QAM, TAB 04/19/18 Atorvastatin* (Atorvastatin*) 40 Mg Tablet, 40 MG PO QHS, #30 TAB 04/19/18 Medications Current Medications IV Flush (NS 3 ml) 3 ml PER PROTOCOL IV ; Start 07/29/18 at 20:00 Ondansetron HCl (Zofran Tab) 4 mg Q6H PRN PO NAUSEA/VOMITING; Start 07/29/18 at 20:00 Acetaminophen (Tylenol Tab) 650 mg Q6H PRN PO .PAIN 1-3 OR TEMP; Start 07/29/18 at 20:00 Acetaminophen/ Hydrocodone Bitart ([place] (5/325)) 1 tab Q6H PRN PO .MOD PAIN 4- 6; Start 07/29/18 at 20:00 Docusate Sodium (Colace) 100 mg Q12H PRN PO .CONSTIPATION; Start 07/29/18 at 20:00 Sodium Biphosphate/ Sodium Phosphate (Fleet Enema) 133 ml DAILY PRN MS .CONSTIPATION; Start 07/29/18 at 20:00 Zolpidem Tartrate (Ambien) 5 mg QHS PRN PO .INSOMNIA; Start 07/29/18 at 20:00 Famotidine (Pepcid) 20 mg Q12 PO Last administered on 07/29/18at 23:04; Admin Dose 20 MG; Start 07/29/18 at 21:00 Heparin Sodium (Porcine) (Heparin (5000 Units/1ml)) 5,000 unit Q12 SC Last administered on 07/29/18at 23:10; Admin Dose 5,000 UNIT; Start 07/29/18 at 21:00 Vancomycin HCl (Vanco Iv Per Pharmacy) 1 ea PER PROTOCOL XX ; Start 07/29/18 at 20:00 Ciprofloxacin/ Dextrose 200 ml @ 200 mls/hr Q12 IVPB ; Start 07/29/18 at 21:00 Atorvastatin Calcium (Lipitor) 40 mg QHS PO Last administered on 07/29/18at 23:04; Admin Dose 40 MG; Start 07/29/18 at 21:00 Lisinopril (Zestril) 20 mg DAILY PO ; Start 07/30/18 at 09:00 Metformin HCl (Glucophage) 850 mg WITH BREAKFAST DINNE PO ; Start 07/30/18 at 08:00 Linagliptin (Tradjenta) 5 mg DAILY PO ; Start 07/30/18 at 09:00 Diagnostic Test (Pha) (Accu-Chek) 1 ea AC MEALS AND BEDTIME XX ; Start 07/29/18 at 21:00 Diagnostic Test (Pha) (Accu-Chek) 1 ea AC MEALS XX ; Start 07/30/18 at 07:00 Diagnostic Test (Pha) (Accu-Chek) 1 ea 02 XX ; Start 07/30/18 at 02:00 Insulin Aspart (Novolog Insulin Pen) NOVOLOG *MODERATE* ALGORITHM WITH MEALS BEDTIME SC ; Start 07/29/18 at 21:00 Miscellaneous Information 1 ea NOTE XX ; Start 07/29/18 at 20:30 Glucose (Glutose) 15 gm Q15M PRN PO DECREASED GLUCOSE; Start 07/29/18 at 20:30 Glucose (Glutose) 22.5 gm Q15M PRN PO DECREASED GLUCOSE; Start 07/29/18 at 20:30 Dextrose (D50w Syringe) 25 ml Q15M PRN IV DECREASED GLUCOSE; Start 07/29/18 at 20:30 Dextrose (D50w Syringe) 50 ml Q15M PRN IV DECREASED GLUCOSE; Start 07/29/18 at 20:30 Glucagon (Glucagen) 1 mg Q15M PRN IM DECREASED GLUCOSE; Start 07/29/18 at 20:30 Glucose (Glutose) 15 gm Q15M PRN BUCCAL DECREASED GLUCOSE; Start 07/29/18 at 20:30 Vancomycin HCl 250 ml @ 125 mls/hr Q8H IVPB ; Start 07/29/18 at 22:00 Miscellaneous Information (*Rx Drug Level Order Reminder*) VANCO TR AT 2100 2100 ONCE XX ; Start 07/30/18 at 21:00; Stop 07/30/18 at 21:01 Ergocalciferol (Drisdol Liquid (Ped)) 2,000 units AM PO ; Start 07/30/18 at 09:00 Allergies: Coded Allergies: No Known Allergy (Unverified , 04/19/18) Past Surgical History As per history of present illness. Past Surgical Hx: other Social History Smoking Status: Never smoker Exam/Review of Systems Exam Vitals Vital Signs Date Temp Pulse Resp B/P (MAP) Pulse Ox O2 O2 Flow FiO2 Time Delivery Rate 07/29/18 98.9 96 22:48 07/29/18 18 134/75 95 21:45 (94) 07/29/18 Room Air 21:09 Exam General appearance: Patient is moderately obese; appears to be in no acute distress, laying supine in bed. No dressing noted on the right lower extremity Vascular exam: Pedal pulses: Weakly palpable bilateral feet; CFT: Delayed on all toes; TG: Decreased on the right lower extremity and normal on the left; Edema: Right ankle edema noted Neurological exam: Protective sensation is diminished to sharp, dull, vibratory and temperature stimuli bilaterally. Deep tendon reflexes are normal on the left; right ankle status post fusion Dermatological exam: No open wound noted bilateral feet. No erythema noted on lower extremity exam Musculoskeletal exam: Right ankle joint is status post fusion with edema and warmth to touch. Contracted toes noted on both feet. Planus foot type. No imaging studies for review Labs reviewed. Results Result Diagram: 07/29/18192307/29/181923 Results 24hrs Laboratory Tests Test 07/29/18 19:24 07/29/18 19:25 07/29/18 21:07 07/29/18 22:41 White Blood Count 12.4 H Red Blood Count 5.09 Hemoglobin 14.0 Hematocrit 42.0 Mean Corpuscular 82.5 Volume Mean Corpuscular 27.5 L Hemoglobin Mean Corpuscular 33.3 Hemoglobin Concent Red Cell 14.3 Distribution Width Platelet Count 262 # Mean Platelet Volume 10.5 H Immature 1.100 H Granulocytes % Neutrophils % 83.7 H Lymphocytes % 8.7 L Monocytes % 6.1 Eosinophils % 0.2 Basophils % 0.2 Nucleated Red Blood 0.0 Cells % Immature 0.140 H Granulocytes # Neutrophils # 10.4 H Lymphocytes # 1.1 Monocytes # 0.8 Eosinophils # 0.0 Basophils # 0.0 Nucleated Red Blood 0.0 Cells # Prothrombin Time 13.2 Prothrombin Time 1.0 Ratio INR International 0.99 Normalized Ratio Activated 33.4 Partial Thromboplast Time Sodium Level 135 Potassium Level 4.0 Chloride Level 95 L Carbon Dioxide Level 28 Anion Gap 12 Blood Urea Nitrogen 21 H Creatinine 1.08 Est Glomerular > 60 Filtrat Rate mL/min Glucose Level 178 Calcium Level 9.3 Total Bilirubin 0.7 Direct Bilirubin 0.00 Indirect Bilirubin 0.7 Aspartate Amino 23 Transf (AST/SGOT) Alanine 18 Aminotransferase (AL T/SGPT) Alkaline Phosphatase 106 Troponin I < 0.012 Total Protein 8.3 H Albumin 4.0 Globulin 4.30 H Albumin/Globulin 0.93 Ratio POC Venous Lactate 1.7 Lactic Acid Level 1.1 Bedside Glucose 158 Medications Medication Current Medications IV Flush (NS 3 ml) 3 ml PER PROTOCOL IV ; Start 07/29/18 at 20:00 Ondansetron HCl (Zofran Tab) 4 mg Q6H PRN PO NAUSEA/VOMITING; Start 07/29/18 at 20:00 Acetaminophen (Tylenol Tab) 650 mg Q6H PRN PO .PAIN 1-3 OR TEMP; Start 07/29/18 at 20:00 Acetaminophen/ Hydrocodone Bitart ([place] (5/325)) 1 tab Q6H PRN PO .MOD PAIN 4- 6; Start 07/29/18 at 20:00 Docusate Sodium (Colace) 100 mg Q12H PRN PO .CONSTIPATION; Start 07/29/18 at 20:00 Sodium Biphosphate/ Sodium Phosphate (Fleet Enema) 133 ml DAILY PRN MS .CONSTIPATION; Start 07/29/18 at 20:00 Zolpidem Tartrate (Ambien) 5 mg QHS PRN PO .INSOMNIA; Start 07/29/18 at 20:00 Famotidine (Pepcid) 20 mg Q12 PO Last administered on 07/29/18at 23:04; Admin Dose 20 MG; Start 07/29/18 at 21:00 Heparin Sodium (Porcine) (Heparin (5000 Units/1ml)) 5,000 unit Q12 SC Last administered on 07/29/18at 23:10; Admin Dose 5,000 UNIT; Start 07/29/18 at 21:00 Vancomycin HCl (Vanco Iv Per Pharmacy) 1 ea PER PROTOCOL XX ; Start 07/29/18 at 20:00 Ciprofloxacin/ Dextrose 200 ml @ 200 mls/hr Q12 IVPB ; Start 07/29/18 at 21:00 Atorvastatin Calcium (Lipitor) 40 mg QHS PO Last administered on 07/29/18at 23:04; Admin Dose 40 MG; Start 07/29/18 at 21:00 Lisinopril (Zestril) 20 mg DAILY PO ; Start 07/30/18 at 09:00 Metformin HCl (Glucophage) 850 mg WITH BREAKFAST DINNE PO ; Start 07/30/18 at 08:00 Linagliptin (Tradjenta) 5 mg DAILY PO ; Start 07/30/18 at 09:00 Diagnostic Test (Pha) (Accu-Chek) 1 ea AC MEALS AND BEDTIME XX ; Start 07/29/18 at 21:00 Diagnostic Test (Pha) (Accu-Chek) 1 ea AC MEALS XX ; Start 07/30/18 at 07:00 Diagnostic Test (Pha) (Accu-Chek) 1 ea 02 XX ; Start 07/30/18 at 02:00 Insulin Aspart (Novolog Insulin Pen) NOVOLOG *MODERATE* ALGORITHM WITH MEALS B EDTIME SC ; Start 07/29/18 at 21:00 Miscellaneous Information 1 ea NOTE XX ; Start 07/29/18 at 20:30 Glucose (Glutose) 15 gm Q15M PRN PO DECREASED GLUCOSE; Start 07/29/18 at 20:30 Glucose (Glutose) 22.5 gm Q15M PRN PO DECREASED GLUCOSE; Start 07/29/18 at 20:30 Dextrose (D50w Syringe) 25 ml Q15M PRN IV DECREASED GLUCOSE; Start 07/29/18 at 20:30 Dextrose (D50w Syringe) 50 ml Q15M PRN IV DECREASED GLUCOSE; Start 07/29/18 at 20:30 Glucagon (Glucagen) 1 mg Q15M PRN IM DECREASED GLUCOSE; Start 07/29/18 at 20:30 Glucose (Glutose) 15 gm Q15M PRN BUCCAL DECREASED GLUCOSE; Start 07/29/18 at 20:30 Vancomycin HCl 250 ml @ 125 mls/hr Q8H IVPB ; Start 07/29/18 at 22:00 Miscellaneous Information (*Rx Drug Level Order Reminder*) VANCO TR AT 2100 2100 ONCE XX ; Start 07/30/18 at 21:00; Stop 07/30/18 at 21:01 Ergocalciferol (Drisdol Liquid (Ped)) 2,000 units AM PO ; Start 07/30/18 at 09:00 LORI LOPEZ DPM Jul 29, 2018 23:39
[2018-07-29] MEDS: CIPROFLOXACIN 400MG/D5W 200 ML IVPB SCH (23:46)
[2018-07-30] MEDS: ACCU-CHEK XX SCH ×8 (02:00→21:00)
[2018-07-30 02:13] VITALS: BP 122/69; PULSE 89; RESP 16
[2018-07-30] MEDS: VANCOMYCIN 1 GM in 250 ML IVPB SCH ×4 (02:15→22:52)
[2018-07-30] MEDS ORDERED: metFORMIN 850 MG TAB PO SCH (08:00)
[2018-07-30 08:12] VITALS: BP 117/58; PULSE 92; RESP 17
[2018-07-30] MEDS: FAMOTIDINE 20 MG TAB PO SCH ×2 (08:19→20:24)
[2018-07-30] MEDS: metFORMIN 850 MG TAB PO SCH ×2 (08:20→17:36)
[2018-07-30] MEDS: CIPROFLOXACIN 400MG/D5W 200 ML IVPB SCH ×2 (08:20→20:24)
[2018-07-30] MEDS: LISINOPRIL 20 MG TAB PO SCH (08:20)
[2018-07-30] MEDS: LINAGLIPTIN 5 MG TABLET PO SCH (08:20)
[2018-07-30] MEDS: INSULIN ASPART [NOVOLOG] 3 ML PEN SC SCH ×4 (08:22→20:34)
[2018-07-30] MEDS: HEPARIN 5,000 UNIT/1 ML VIAL SC SCH ×2 (08:23→20:25)
[2018-07-30] MEDS ORDERED: LINAGLIPTIN 5 MG TABLET PO SCH (09:00)
[2018-07-30] MEDS ORDERED: ERGOCALCIFEROL (8000 UNITS/ML PO SYG) PO SCH (09:00)
[2018-07-30] MEDS ORDERED: LISINOPRIL 20 MG TAB PO SCH (09:00)
[2018-07-30] MEDS: ERGOCALCIFEROL (8000 UNITS/ML PO SYG) PO SCH (12:39)
--- NOTE | 2018-07-30 13:30 | HP ---
Date/Time of Note Date/Time of Note DATE: 07/30/18 TIME: 13:20 Assessment/Plan VTE Prophylaxis Risk score (from [facility])>0 risk: 3 SCD applied (from [facility]): No SCD contraindicated: bilateral LE trauma Pharmacological prophylaxis: heparin Lines/Catheters IV Catheter Type [facility]from [facility] Saline Lock Assessment/Plan Problems: (1) Sepsis Status: Acute Comment: Mimi is somewhat difficult situation and that this is recurred after a very appropriate long-term course of IV antibiotics. As such he is again need lifelong antibiotic therapy versus surgical resection. Dr. Lopez of podiatry and Dr. Mcnamara on board to review this. The sepsis syndrome itself appears to be coming along nicely and the patient is defervesced with IV antibiotic therapy already Qualifiers: Sepsis type: sepsis due to unspecified organism Qualified Codes: A41.9 - Sepsis, unspecified organism (2) Charcot's joint, right ankle and foot Status: Chronic Comment: Noted and infected. Initial cultures look to be staph. (3) Diabetes mellitus type 2 in obese Status: Chronic Comment: Excellent glycemic control in spite of the infection (4) Hyperlipidemia Status: Chronic Comment: Continue with statin therapy Qualifiers: Hyperlipidemia type: pure hypercholesterolemia Qualified Codes: E78.00 - Pure hypercholesterolemia, unspecified (5) Essential hypertension Status: Chronic Comment: Adequate control with PACHECO inhibitor (6) Right ankle effusion Status: Chronic Comment: Noted and likely infected Result Diagram: 07/30/187 07/30/187 Results 24hrs Laboratory Tests Test 07/29/18 19:24 07/29/18 19:25 07/29/18 21:07 07/29/18 22:41 White Blood Count 12.4 H Red Blood Count 5.09 Hemoglobin 14.0 Hematocrit 42.0 Mean Corpuscular 82.5 Volume Mean Corpuscular 27.5 L Hemoglobin Mean Corpuscular 33.3 Hemoglobin Concent Red Cell 14.3 Distribution Width Platelet Count 262 # Mean Platelet Volume 10.5 H Immature 1.100 H Granulocytes % Neutrophils % 83.7 H Lymphocytes % 8.7 L Monocytes % 6.1 Eosinophils % 0.2 Basophils % 0.2 Nucleated Red Blood 0.0 Cells % Immature 0.140 H Granulocytes # Neutrophils # 10.4 H Lymphocytes # 1.1 Monocytes # 0.8 Eosinophils # 0.0 Basophils # 0.0 Nucleated Red Blood 0.0 Cells # Prothrombin Time 13.2 Prothrombin Time 1.0 Ratio INR International 0.99 Normalized Ratio Activated 33.4 Partial Thromboplast Time Sodium Level 135 Potassium Level 4.0 Chloride Level 95 L Carbon Dioxide Level 28 Anion Gap 12 Blood Urea Nitrogen 21 H Creatinine 1.08 Est Glomerular > 60 Filtrat Rate mL/min Glucose Level 178 Calcium Level 9.3 Total Bilirubin 0.7 Direct Bilirubin 0.00 Indirect Bilirubin 0.7 Aspartate Amino 23 Transf (AST/SGOT) Alanine 18 Aminotransferase (AL T/SGPT) Alkaline Phosphatase 106 Troponin I < 0.012 Total Protein 8.3 H Albumin 4.0 Globulin 4.30 H Albumin/Globulin 0.93 Ratio POC Venous Lactate 1.7 Lactic Acid Level 1.1 Bedside Glucose 158 Test 07/29/18 23:24 07/30/18 04:47 07/30/18 07:51 07/30/18 12:38 Lactic Acid Level 1.1 White Blood Count 13.3 H Red Blood Count 4.40 L Hemoglobin 11.9 L Hematocrit 36.4 L Mean Corpuscular 82.7 Volume Mean Corpuscular 27.0 L Hemoglobin Mean Corpuscular 32.7 Hemoglobin Concent Red Cell 14.7 H Distribution Width Platelet Count 235 Mean Platelet Volume 11.1 H Immature 0.500 H Granulocytes % Neutrophils % 83.1 H Segmented 51 Neutrophils % (Manual) Band Neutrophils % 29 H (Manual) Lymphocytes % 7.9 L Lymphocytes % 8 L (Manual) Reactive Lymphocytes 3 H % (Manual) Monocytes % 8.1 Monocytes % (Manual) 8 Eosinophils % 0.2 Basophils % 0.2 Basophils % (Manual) 1 Nucleated Red Blood 0.0 Cells % Immature 0.060 H Granulocytes # Neutrophils # 11.0 H Neutrophils # 7.3 (Manual) Band Neutrophils # 3.8 H Lymphocytes (Manual) 1.0 Lymphocytes # 1.1 Reactive Lymphocytes 0.3 H # Monocytes # 1.1 H Monocytes # (Manual) 1.0 H Eosinophils # 0.0 Basophils # 0.0 Basophils # (Manual) 0.1 H Nucleated Red Blood 0.0 Cells # Platelet Estimate NORMAL Giant Platelets 1 H Polychromasia 1+ Poikilocytosis 1+ Anisocytosis 1+ Spherocytes 1+ Sodium Level 138 Potassium Level 4.1 Chloride Level 105 # Carbon Dioxide Level 27 Anion Gap 6 Blood Urea Nitrogen 13 Creatinine 0.88 Est Glomerular > 60 Filtrat Rate mL/min Glucose Level 176 Hemoglobin A1c 6.5 H Calcium Level 8.7 Total Bilirubin 0.6 Direct Bilirubin 0.00 Indirect Bilirubin 0.6 Aspartate Amino 36 # Transf (AST/SGOT) Alanine 39 Aminotransferase (AL T/SGPT) Alkaline Phosphatase 95 Total Protein 6.6 # Albumin 3.2 L Globulin 3.40 H Albumin/Globulin 0.94 Ratio Bedside Glucose 161 135 CC: VALDO MCNAMARA MD; LORI LOPEZ DPM ; HPI/ROS Admit Date/Time Admit Date/Time Jul 29, 2018 at 19:47 Hx of Present Illness 43-year-old gentleman who was admitted roughly 100 days ago to this facility. That time he had an infection at the site of a prior Charcot foot repair with infected hardware. Treated with IV antibiotics via PICC line for a total of 8 weeks. He had been doing relatively well but then had recurrence of signs and symptoms of infection in the last 4 to 5 days which included fever chills sweats swelling warmth pain. Presented to the emergency room where he is found to have sepsis, at the end signs and symptoms at the prior site consistent with recurrent infection. He is admitted to hospital for IV antibiotic therapy and formulation of the definitive treatment plan. ROS Constitutional: chills, diaphoresis, febrile Eyes: no complaints ENT: no complaints Respiratory: no complaints Cardiovascular: no complaints Gastrointestinal: no complaints Genitourinary: no complaints Musculoskeletal: other (Right ankle pain and swelling) Skin: no complaints Neurologic: no complaints Endocrine: no complaints Lymphatic: no complaints PMH/Family/Social Past Medical History Medical History: diabetes (Diabetes mellitus type 2 with Charcot joint, peripheral neuropathy,), high cholesterol, hypertension, other (Right ankle abscess in prosthetic materials with staph aureus April 2018) Medications Current Medications IV Flush (NS 3 ml) 3 ml PER PROTOCOL IV ; Start 07/29/18 at 20:00 Ondansetron HCl (Zofran Tab) 4 mg Q6H PRN PO NAUSEA/VOMITING Last administered on 07/30/18at 05:57; Admin Dose 4 MG; Start 07/29/18 at 20:00 Acetaminophen (Tylenol Tab) 650 mg Q6H PRN PO .PAIN 1-3 OR TEMP; Start 07/29/18 at 20:00 Acetaminophen/ Hydrocodone Bitart ([place] (5/325)) 1 tab Q6H PRN PO .MOD PAIN 4- 6; Start 07/29/18 at 20:00 Docusate Sodium (Colace) 100 mg Q12H PRN PO .CONSTIPATION; Start 07/29/18 at 2 0:00 Sodium Biphosphate/ Sodium Phosphate (Fleet Enema) 133 ml DAILY PRN MS .CONSTIPATION; Start 07/29/18 at 20:00 Zolpidem Tartrate (Ambien) 5 mg QHS PRN PO .INSOMNIA; Start 07/29/18 at 20:00 Famotidine (Pepcid) 20 mg Q12 PO Last administered on 07/30/18 08:19; Admin Dose 20 MG; Start 07/29/18 at 21:00 Heparin Sodium (Porcine) (Heparin (5000 Units/1ml)) 5,000 unit Q12 SC Last administered on 07/30/18 08:23; Admin Dose 5,000 UNIT; Start 07/29/18 at 21:00 Vancomycin HCl (Vanco Iv Per Pharmacy) 1 ea PER PROTOCOL XX ; Start 07/29/18 at 20:00 Ciprofloxacin/ Dextrose 200 ml @ 200 mls/hr Q12 IVPB Last administered on 07/30/18 08:20; Admin Dose 200 MLS/HR; Start 07/29/18 at 21:00 Atorvastatin Calcium (Lipitor) 40 mg QHS PO Last administered on 07/29/18at 23:04; Admin Dose 40 MG; Start 07/29/18 at 21:00 Lisinopril (Zestril) 20 mg DAILY PO Last administered on 07/30/18 08:20; Admin Dose 20 MG; Start 07/30/18 at 09:00 Metformin HCl (Glucophage) 850 mg WITH BREAKFAST DINNE PO Last administered on 07/30/18 08:20; Admin Dose 850 MG; Start 07/30/18 at 08:00 Linagliptin (Tradjenta) 5 mg DAILY PO Last administered on 07/30/18 08:20; Admin Dose 5 MG; Start 07/30/18 at 09:00 Diagnostic Test (Pha) (Accu-Chek) 1 ea AC MEALS AND BEDTIME XX ; Start 07/29/18 at 21:00 Diagnostic Test (Pha) (Accu-Chek) 1 ea AC MEALS XX ; Start 07/30/18 at 07:00 Diagnostic Test (Pha) (Accu-Chek) 1 ea 02 XX ; Start 07/30/18 at 02:00 Insulin Aspart (Novolog Insulin Pen) NOVOLOG *MODERATE* ALGORITHM WITH MEALS BEDTIME SC Last administered on 07/30/18at 08:22; Admin Dose 2 UNIT; Start 07/29/18 at 21:00 Miscellaneous Information 1 ea NOTE XX ; Start 07/29/18 at 20:30 Glucose (Glutose) 15 gm Q15M PRN PO DECREASED GLUCOSE; Start 07/29/18 at 20:30 Glucose (Glutose) 22.5 gm Q15M PRN PO DECREASED GLUCOSE; Start 07/29/18 at 20:30 Dextrose (D50w Syringe) 25 ml Q15M PRN IV DECREASED GLUCOSE; Start 07/29/18 at 20:30 Dextrose (D50w Syringe) 50 ml Q15M PRN IV DECREASED GLUCOSE; Start 07/29/18 at 20:30 Glucagon (Glucagen) 1 mg Q15M PRN IM DECREASED GLUCOSE; Start 07/29/18 at 20:30 Glucose (Glutose) 15 gm Q15M PRN BUCCAL DECREASED GLUCOSE; Start 07/29/18 at 20:30 Vancomycin HCl 250 ml @ 125 mls/hr Q8H IVPB Last administered on 07/30/18at 05:54; Admin Dose 125 MLS/HR; Start 07/29/18 at 22:00 Miscellaneous Information (*Rx Drug Level Order Reminder*) VANCO TR AT 2100 2100 ONCE XX ; Start 07/30/18 at 21:00; Stop 07/30/18 at 21:01 Ergocalciferol (Drisdol Liquid (Ped)) 2,000 units AM PO Last administered on 07/30/18at 12:39; Admin Dose 2,000 UNITS; Start 07/30/18 at 09:00 Coded Allergies: No Known Allergy (Unverified , 04/19/18) Past Surgical History Past Surgical Hx: other (Status post right ankle Charcot joint ORIF) Family History Significant Family History: diabetes, hypertension, lung disease, other Social History Alcohol Use: none Smoking Status: Never smoker Drug Use: none Exam/Review of Systems Vital Signs Vitals Vital Signs Date Temp Pulse Resp B/P (MAP) Pulse Ox O2 O2 Flow FiO2 Time Delivery Rate 07/30/18 97.9 92 17 117/58 96 Room Air 08:12 (77) Intake and Output 07/29/18 07/29/18 07/30/18 1515:00 23:00 07:00 IntakeIntake Total 100 ml 1025 ml OutputOutput Total 650 ml BalanceBalance 100 ml 375 ml Exam Constitutional: alert, oriented Psych: anxiety Head: normocephalic, atraumatic Eyes: nl conjunctiva, EOMI, nl lids Neck: supple, non-tender Respiratory: clear to auscultation, normal air movement Cardiovascular: regular rate and rhythm, nl pulses Gastrointestinal: soft, nl liver, spleen, non-tender Musculoskeletal: other (Right ankle red warm swollen) Neurological: INFORMATION SECURITY ARCHITECT II-XII intact, nl mental status, nl speech, other (Peripheral neuropathy) DEE AGUILAR MD Jul 30, 2018 13:30
[2018-07-30 14:22] VITALS: BP 144/73; PULSE 88; RESP 18
[2018-07-30 20:00] VITALS: BP 148/72; PULSE 90; RESP 18
[2018-07-30] MEDS: ATORVASTATIN 40 MG TAB PO SCH (20:24)
[2018-07-31] MEDS: ACCU-CHEK XX SCH ×8 (02:00→20:48)
--- NOTE | 2018-07-31 04:03 | CONS ---
DATE OF ADMISSION: 07/29/2018 DATE OF CONSULTATION: 07/30/2018 TYPE OF CONSULTATION: Infectious disease. REASON FOR CONSULTATION: Antibiotic management. HISTORY OF PRESENT ILLNESS: Dyaln Guillaume is a 43-year-old male who comes in with fever and chil ls of 1 day duration. The patient has a history of diabetes and hypertension. He states that his ri ght leg and foot infection started about 1-1/2 days ago. He has a history of surgery to this area an d has been admitted in the past. His primary doctor is Dr. Contreras. ELECTRICAL CHECKOUT MECHANIC: Dr. Moreno. PAST MEDICAL HISTORY: He had right ankle fusion 01/2018 and foot surgery 2017. Has a history of chi ldhood asthma. Has a history of hypertension. FAMILY HISTORY: Noncontributory. SOCIAL HISTORY: He drank 6 beers a day for 2 years. He still drinks occasionally. Does not smoke o r abuse drugs. ALLERGIES: None to penicillin, sulfa or foods. MEDICATIONS: Per chart. REVIEW OF SYSTEMS: As per HPI. HOSPITAL COURSE: The patient was admitted with a temperature of 103.4. Vital signs were stable. Hi s blood pressure was up to 186/101. SKIN: Without generalized rash. HEENT: Within normal limits. NECK: Supple. LYMPH NODES: None palpable. CHEST: Decreased breath sounds at the bases. HEART: Without murmur or gallop, tachycardic. ABDOMEN: Soft, nontender, without organosplenomegaly or masses. EXTREMITIES: Without cyanosis, clubbing, or edema, has redness and erythema to the right foot and an kle without crepitus. RECTAL AND GENITAL: Deferred. NEUROLOGIC: No focal neurological abnormality. ANCILLARY LABORATORY DATA: White count was 12.4, H and H 14 and 42, platelet count 262,000. BUN and creatinine 21/1.08 with 84% neutrophils. The patient was seen in consultation by Dr. Moreno on the . The patient is on vancomycin and I believe Cipro. MICROBIOLOGY: The patient is growing gram-positive cocci in pairs and clusters, in 2 sets. He is cu rrently on vancomycin and Cipro as noted. He was seen by Dr. Contreras. He has recurrent problem. He m ay need lifelong antibiotic therapy versus surgical resection. The patient, as noted, has positive b lood cultures. He has a Charcot joint, right ankle and foot. Will await Dr. Moreno's decision and t he patient's decision on further therapy. I will dictate my findings to Dr. Contreras and Dr. Moreno. I t should be noted that he had infection about 3 months ago at the site of a prior Charcot foot repair with infected hardware. He was treated with IV antibiotics via PICC line for 8 weeks and was doing well until 4 or 5 days prior to admission. His x-ray of the foot shows severe arthrosis of the mid f oot and ankle with associated mid foot collapse. 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 Superimposed infection is difficult to exclude. Chest x-ray is negative, no acute disease. W e will continue him on vancomycin and Cipro for the time being. As noted, I will dictate my findings to Dr. Contreras and Dr. Moreno. Dictated By: VALDO MCNAMARA MD HAIM/NTS Conf#: [id number] DID#: [id number] CC: DEE CONTRERAS MD;*End*
[2018-07-31] MEDS: VANCOMYCIN HCL 1.25 GM in SOD CHLORIDE 0.9% 250 ML IVPB SCH ×3 (05:39→22:53)
[2018-07-31 07:25] VITALS: BP 160/85; PULSE 89; RESP 16
[2018-07-31] MEDS: FAMOTIDINE 20 MG TAB PO SCH ×2 (08:02→20:42)
[2018-07-31] MEDS: LISINOPRIL 20 MG TAB PO SCH (08:02)
[2018-07-31] MEDS: LINAGLIPTIN 5 MG TABLET PO SCH (08:03)
[2018-07-31] MEDS: metFORMIN 850 MG TAB PO SCH ×2 (08:03→17:29)
[2018-07-31] MEDS: INSULIN ASPART [NOVOLOG] 3 ML PEN SC SCH ×4 (08:04→20:42)
[2018-07-31] MEDS: HEPARIN 5,000 UNIT/1 ML VIAL SC SCH ×2 (08:18→20:43)
[2018-07-31] MEDS: ERGOCALCIFEROL (8000 UNITS/ML PO SYG) PO SCH (09:28)
[2018-07-31] MEDS: CIPROFLOXACIN 400MG/D5W 200 ML IVPB SCH ×2 (10:41→20:42)
[2018-07-31 14:15] VITALS: BP 141/75; PULSE 80; RESP 16
--- NOTE | 2018-07-31 16:02 | PN ---
Date/Time of Note Date/Time of Note DATE: 07/31/18 TIME: 15:57 Assessment/Plan VTE Prophylaxis Risk score (from Ns)>0 risk: 3 SCD applied (from Ns): No SCD contraindicated: other Pharmacological prophylaxis: heparin Lines/Catheters IV Catheter Type (from [facility]): Saline Lock Urinary Cath still in place: No Assessment/Plan Hospital Course Charcot foot -continue ciprofloxacin and vancomycin -f/u with podiatry Sepsis -gram positive cluster in blood culture -continue vancomycin and ciprofloxacin -definitive treatment to be decided HLD -continue atorvastatin HTN -continue lisinopril DM2 -FS at goal -continue current regimen of tradjenta, metformin and novolog sliding scale AC and HS -A1c 6.5 Result Diagram: 07/30/1844607/30/18446 Results 24hrs Laboratory Tests Test 07/30/18 17:20 07/30/18 20:20 07/30/18 21:22 07/31/18 08:00 Bedside Glucose 148 152 149 Vancomycin Level 9.9 L Trough Test 07/31/18 12:15 Bedside Glucose 131 Subjective 24 Hr Interval Summary Free Text/Dictation Patient seen and examined at bedside. He complains of occasional nausea with vancomycin. Denied pain in right lower extremity Exam/Review of Systems Exam Vitals Vital Signs Date Temp Pulse Resp B/P (MAP) Pulse Ox O2 O2 Flow FiO2 Time Delivery Rate 07/31/18 99.6 80 16 141/75 97 Room Air 14:15 (97) Intake and Output 07/30/18 07/30/18 07/31/18 1515:00 23:00 07:00 IntakeIntake Total 1125 ml 850 ml 250 ml OutputOutput Total 300 ml 1530 ml BalanceBalance 1125 ml 550 ml -1280 ml Exam General: Comfortable in appearance, not in acute distress. Skin appropriate for ethnicity Eye: Extraocular movements are intact, Normal conjunctiva. HENT: Normocephalic, atraumatic. Respiratory: Respirations are non-labored, Breath sounds are equal, Symmetrical chest wall expansion. Cardiovascular: S1, S2. No murmur. Gastrointestinal: Soft, Non-tender, Non-distended, Normal bowel sounds. Integumentary: Warm to touch. Right Charcot foot with ankle effusion and warm to touch with lower extremity edema Neurologic: Alert, Oriented. Cognition and Speech: Speech clear and coherent, Functional cognition intact. Psychiatric: Cooperative, Appropriate mood & affect. Results Results 24hrs Laboratory Tests Test 07/30/18 17:20 07/30/18 20:20 07/30/18 21:22 07/31/18 08:00 Bedside Glucose 148 152 149 Vancomycin Level 9.9 L Trough Test 07/31/18 12:15 Bedside Glucose 131 Medications Medication Current Medications IV Flush (NS 3 ml) 3 ml PER PROTOCOL IV ; Start 07/29/18 at 20:00 Ondansetron HCl (Zofran Tab) 4 mg Q6H PRN PO NAUSEA/VOMITING Last administered on 07/30/18at 05:57; Admin Dose 4 MG; Start 07/29/18 at 20:00 Acetaminophen (Tylenol Tab) 650 mg Q6H PRN PO .PAIN 1-3 OR TEMP Last administered on 07/30/18at 20:24; Admin Dose 650 MG; Start 07/29/18 at 20:00 Acetaminophen/ Hydrocodone Bitart ([place] (5/325)) 1 tab Q6H PRN PO .MOD PAIN 4- 6; Start 07/29/18 at 20:00 Docusate Sodium (Colace) 100 mg Q12H PRN PO .CONSTIPATION; Start 07/29/18 at 20:00 Sodium Biphosphate/ Sodium Phosphate (Fleet Enema) 133 ml DAILY PRN [place] .CONSTIPATION; Start 07/29/18 at 20:00 Zolpidem Tartrate (Ambien) 5 mg QHS PRN PO .INSOMNIA; Start 07/29/18 at 20:00 Famotidine (Pepcid) 20 mg Q12 PO Last administered on 07/31/18at 08:02; Admin Dose 20 MG; Start 07/29/18 at 21:00 Heparin Sodium (Porcine) (Heparin (5000 Units/1ml)) 5,000 unit Q12 SC Last administered on 07/31/18 08:18; Admin Dose 5,000 UNIT; Start 07/29/18 at 21:00 Vancomycin HCl (Vanco Iv Per Pharmacy) 1 ea PER PROTOCOL XX ; Start 07/29/18 at 20:00 Ciprofloxacin/ Dextrose 200 ml @ 200 mls/hr Q12 IVPB Last administered on at 10:41; Admin Dose 200 MLS/HR; Start 07/29/18 at 21:00 Atorvastatin Calcium (Lipitor) 40 mg QHS PO Last administered on 07/30/18at 20:24; Admin Dose 40 MG; Start 07/29/18 at 21:00 Lisinopril (Zestril) 20 mg DAILY PO Last administered on 07/31/18at 08:02; Admin Dose 20 MG; Start 07/30/18 at 09:00 Metformin HCl (Glucophage) 850 mg WITH BREAKFAST DINNE PO Last administered on 07/31/18at 08:03; Admin Dose 850 MG; Start 07/30/18 at 08:00 Linagliptin (Tradjenta) 5 mg DAILY PO Last administered on 07/31/18at 08:03; Admin Dose 5 MG; Start 07/30/18 at 09:00 Diagnostic Test (Pha) (Accu-Chek) 1 ea AC MEALS AND BEDTIME XX ; Start 07/29/18 at 21:00 Diagnostic Test (Pha) (Accu-Chek) 1 ea AC MEALS XX ; Start 07/30/18 at 07:00 Diagnostic Test (Pha) (Accu-Chek) 1 ea 02 XX ; Start 07/30/18 at 02:00 Insulin Aspart (Novolog Insulin Pen) NOVOLOG *MODERATE* ALGORITHM WITH MEALS BEDTIME SC Last administered on 07/31/18at 08:04; Admin Dose 2 UNIT; Start 07/29/18 at 21:00 Miscellaneous Information 1 ea NOTE XX ; Start 07/29/18 at 20:30 Glucose (Glutose) 15 gm Q15M PRN PO DECREASED GLUCOSE; Start 07/29/18 at 20:30 Glucose (Glutose) 22.5 gm Q15M PRN PO DECREASED GLUCOSE; Start 07/29/18 at 20:30 Dextrose (D50w Syringe) 25 ml Q15M PRN IV DECREASED GLUCOSE; Start 07/29/18 at 20:30 Dextrose (D50w Syringe) 50 ml Q15M PRN IV DECREASED GLUCOSE; Start 07/29/18 at 20:30 Glucagon (Glucagen) 1 mg Q15M PRN IM DECREASED GLUCOSE; Start 07/29/18 at 20:30 Glucose (Glutose) 15 gm Q15M PRN BUCCAL DECREASED GLUCOSE; Start 07/29/18 at 20:30 Ergocalciferol (Drisdol Liquid (Ped)) 2,000 units AM PO Last administered on 07/31/18at 09:28; Admin Dose 2,000 UNITS; Start 07/30/18 at 09:00 Vancomycin HCl 1.25 gm/Sodium Chloride 250 ml @ 83.333 mls/ hr Q8H IVPB Last administered on 07/31/18at 14:32; Admin Dose 83.333 MLS/HR; Start 07/31/18 at 06:00 Miscellaneous Information (*Rx Drug Level Order Reminder*) VANCOMYCIN TROUGH AT 1300 1300 ONCE XX ; Start 08/01/18 at 13:00; Stop 08/01/18 at 13:01 MI TORRE MD Jul 31, 2018 16:02
[2018-07-31 20:00] VITALS: BP 160/81; PULSE 75; RESP 18
[2018-07-31] MEDS: ATORVASTATIN 40 MG TAB PO SCH (20:42)
[2018-08-01] VITALS (7 sets, daily range): BP systolic 143–163; BP diastolic 76–89; PULSE 73–82; RESP 16–18
[2018-08-01] MEDS: ACCU-CHEK XX SCH ×8 (02:00→20:51)
[2018-08-01] MEDS: VANCOMYCIN HCL 1.25 GM in SOD CHLORIDE 0.9% 250 ML IVPB SCH ×3 (06:07→22:15)
[2018-08-01] MEDS: FAMOTIDINE 20 MG TAB PO SCH ×2 (08:00→20:44)
[2018-08-01] MEDS: LINAGLIPTIN 5 MG TABLET PO SCH (08:00)
[2018-08-01] MEDS: INSULIN ASPART [NOVOLOG] 3 ML PEN SC SCH ×4 (08:00→20:44)
[2018-08-01] MEDS: metFORMIN 850 MG TAB PO SCH ×2 (08:00→17:21)
[2018-08-01] MEDS: ERGOCALCIFEROL (8000 UNITS/ML PO SYG) PO SCH (08:00)
[2018-08-01] MEDS: LISINOPRIL 20 MG TAB PO SCH ×3 (08:01→22:45)
[2018-08-01] MEDS: HEPARIN 5,000 UNIT/1 ML VIAL SC SCH ×2 (08:02→20:48)
[2018-08-01] MEDS: CIPROFLOXACIN 400MG/D5W 200 ML IVPB SCH ×2 (09:00→20:43)
--- NOTE | 2018-08-01 13:40 | PN ---
Date/Time of Note Date/Time of Note DATE: 08/01/18 TIME: 13:39 Assessment/Plan VTE Prophylaxis Risk score (from Ns)>0 risk: 3 [place] [facility] [place] contraindicated: other Pharmacological prophylaxis: heparin Lines/Catheters IV Catheter Type (from [place]): Saline Lock Urinary Cath still in place: No Assessment/Plan Hospital Course Charcot foot -continue ciprofloxacin and vancomycin -f/u with podiatry Sepsis -Staph aureus in blood culture (sensitive to both vancomycin and ciprofloxacin) -continue vancomycin and ciprofloxacin -definitive treatment to be decided HLD -continue atorvastatin HTN -BP elevated -agree with increasing lisinopril from 20mg po daily to 20mg po BID DM2 -FS at goal -continue current regimen of tradjenta, metformin and novolog sliding scale AC and HS -check FS AC and HS -will monitor FS and adjust regimen accordingly Result Diagram: 07/30/187 07/30/18446 Results 24hrs Laboratory Tests Test 07/31/18 17:24 07/31/18 20:40 08/01/18 07:54 08/01/18 11:55 Bedside Glucose 133 132 130 127 Subjective 24 Hr Interval Summary Free Text/Dictation Patient seen and examined at bedside. He reported resolution of nausea with v ancomycin. He reports improvement in right lower extremity swelling. Exam/Review of Systems Exam Vitals Vital Signs Date Temp Pulse Resp B/P (MAP) Pulse Ox O2 O2 Flow FiO2 Time Delivery Rate 08/01/18 98.6 78 18 143/89 98 Room Air 10:20 (107) Intake and Output 07/31/18 07/31/18 08/01/18 1515:00 23:00 07:00 IntakeIntake Total 700 ml 450 ml 250 ml OutputOutput Total 600 ml 1000 ml BalanceBalance 700 ml -150 ml -750 ml Exam General: Comfortable in appearance, not in acute distress. Skin appropriate for ethnicity Eye: Extraocular movements are intact, Normal conjunctiva. HENT: Normocephalic, atraumatic. Respiratory: Respirations are non-labored, Breath sounds are equal, Symmetrical chest wall expansion. Cardiovascular: S1, S2. No murmur. Gastrointestinal: Soft, Non-tender, Non-distended, Normal bowel sounds. Integumentary: Warm to touch. Right Charcot foot with ankle effusion and warm to touch with lower extremity edema Neurologic: Alert, Oriented. Cognition and Speech: Speech clear and coherent, Functional cognition intact. Psychiatric: Cooperative, Appropriate mood & affect. Results Results 24hrs Laboratory Tests Test 07/31/18 17:24 07/31/18 20:40 08/01/18 07:54 08/01/18 11:55 Bedside Glucose 133 132 130 127 Medications Medication Current Medications IV Flush (NS 3 ml) 3 ml PER PROTOCOL IV ; Start 07/29/18 at 20:00 Ondansetron HCl (Zofran Tab) 4 mg Q6H PRN PO NAUSEA/VOMITING Last administered on 07/30/18 05:57; Admin Dose 4 MG; Start 07/29/18 at 20:00 Acetaminophen (Tylenol Tab) 650 mg Q6H PRN PO .PAIN 1-3 OR TEMP Last administered on 07/30/18at 20:24; Admin Dose 650 MG; Start 07/29/18 at 20:00 Acetaminophen/ Hydrocodone Bitart ([place] (5/325)) 1 tab Q6H PRN PO .MOD PAIN 4- 6; Start 07/29/18 at 20:00 Docusate Sodium (Colace) 100 mg Q12H PRN PO .CONSTIPATION; Start 07/29/18 at 20:00 Sodium Biphosphate/ Sodium Phosphate (Fleet Enema) 133 ml DAILY PRN OR .CONSTIPATION; Start 07/29/18 at 20:00 Zolpidem Tartrate (Ambien) 5 mg QHS PRN PO .INSOMNIA; Start 07/29/18 at 20:00 Famotidine (Pepcid) 20 mg Q12 PO Last administered on 08/01/18at 08:00; Admin Dose 20 MG; Start 07/29/18 at 21:00 Heparin Sodium (Porcine) (Heparin (5000 Units/1ml)) 5,000 unit Q12 SC Last administered on 08/01/18 08:02; Admin Dose 5,000 UNIT; Start 07/29/18 at 21:00 Vancomycin HCl (Vanco Iv Per Pharmacy) 1 ea PER PROTOCOL XX ; Start 07/29/18 at 20:00 Ciprofloxacin/ Dextrose 200 ml @ 200 mls/hr Q12 IVPB Last administered on 08/01/18at 09:00; Admin Dose 200 MLS/HR; Start 07/29/18 at 21:00 Atorvastatin Calcium (Lipitor) 40 mg QHS PO Last administered on 07/31/18at 20:42; Admin Dose 40 MG; Start 07/29/18 at 21:00 Metformin HCl (Glucophage) 850 mg WITH BREAKFAST DINNE PO Last administered on 08/01/18at 08:00; Admin Dose 850 MG; Start 07/30/18 at 08:00 Linagliptin (Tradjenta) 5 mg DAILY PO Last administered on 08/01/18at 08:00; Admin Dose 5 MG; Start 07/30/18 at 09:00 Diagnostic Test (Pha) (Accu-Chek) 1 ea AC MEALS AND BEDTIME XX Last administered on 07/31/18at 20:48; Admin Dose 1 EA; Start 07/29/18 at 21:00 Diagnostic Test (Pha) (Accu-Chek) 1 ea AC MEALS XX ; Start 07/30/18 at 07:00 Diagnostic Test (Pha) (Accu-Chek) 1 ea 02 XX ; Start 07/30/18 at 02:00 Insulin Aspart (Novolog Insulin Pen) NOVOLOG *MODERATE* ALGORITHM WITH MEALS BEDTIME SC Last administered on 07/31/18 08:04; Admin Dose 2 UNIT; Start 07/29/18 at 21:00 Miscellaneous Information 1 ea NOTE XX ; Start 07/29/18 at 20:30 Glucose (Glutose) 15 gm Q15M PRN PO DECREASED GLUCOSE; Start 07/29/18 at 20:30 Glucose (Glutose) 22.5 gm Q15M PRN PO DECREASED GLUCOSE; Start 07/29/18 at 20:30 Dextrose (D50w Syringe) 25 ml Q15M PRN IV DECREASED GLUCOSE; Start 07/29/18 at 20:30 Dextrose (D50w Syringe) 50 ml Q15M PRN IV DECREASED GLUCOSE; Start 07/29/18 at 20:30 Glucagon (Glucagen) 1 mg Q15M PRN IM DECREASED GLUCOSE; Start 07/29/18 at 20:30 Glucose (Glutose) 15 gm Q15M PRN BUCCAL DECREASED GLUCOSE; Start 07/29/18 at 20:30 Ergocalciferol (Drisdol Liquid (Ped)) 2,000 units AM PO Last administered on 08/01/18at 08:00; Admin Dose 2,000 UNITS; Start 07/30/18 at 09:00 Vancomycin HCl 1.25 gm/Sodium Chloride 250 ml @ 83.333 mls/ hr Q8H IVPB Last administered on 08/01/18at 06:07; Admin Dose 83.333 MLS/HR; Start 07/31/18 at 06:00 Lisinopril (Zestril) 20 mg BID PO ; Start 08/01/18 at 21:00 MI TORRE MD Aug 01, 2018 13:40
--- NOTE | 2018-08-01 13:44 | CONS ---
Assessment/Plan Assessment/Plan Hospital Course (Demo Recall) Patient is alert feels good looks comfortable he is afebrile, right lower extremity swelling better. No fevers. Blood culture growing oxacillin sensitive staph aureus X-ray of the right foot revealed severe arthrosis of the midfoot and ankle with associated midfoot collapse Antimicrobials: Patient is on IV vancomycin and Cipro PHYSICAL EXAMINATION: GENERAL: This is an obese, well-developed, middle-aged man who is alert, in no distress. HEENT: Head is atraumatic, normocephalic. Sclerae are anicteric. NECK: Supple. CHEST: Rise symmetrical. Breath sounds clear. HEART: S1, S2. ABDOMEN: Soft. Bowel tones are present. EXTREMITIES: Right lower extremity with edema and erythema, foot is deformed with an evidence of Charcot Assessment: 1. Persistent oxacillin sensitive staph aureus bacteremia secondary to #2 2. Left foot cellulitis, possible osteomyelitis, poss possible infected hardware 3. Diabetes 4. Right Charcot ankle status post right ankle fusion 5. Obesity Plan: Stable, continue antibiotics, await for podiatry evaluation, repeat 2D echo. Recommend hardware removal if possible Consultation Date/Type/Reason Admit Date/Time Jul 29, 2018 at 19:47 Initial Consult Date 07/29/18 Type of Consult id Date/Time of Note DATE: 08/01/18 TIME: 13:40 Exam/Review of Systems Exam Vitals Vital Signs Date Temp Pulse Resp B/P (MAP) Pulse Ox O2 O2 Flow FiO2 Time Delivery Rate 08/01/18 98.6 78 18 143/89 98 Room Air 10:20 (107) Intake and Output 07/31/18 07/31/18 08/01/18 1515:00 23:00 07:00 IntakeIntake Total 700 ml 450 ml 250 ml OutputOutput Total 600 ml 1000 ml BalanceBalance 700 ml -150 ml -750 ml Results Result Diagram: 07/30/18 0447 07/30/18 044 Results 24hrs Laboratory Tests Test 07/31/18 17:24 07/31/18 20:40 08/01/18 07:54 08/01/18 11:55 Bedside Glucose 133 132 130 127 Medications Medication Current Medications IV Flush (NS 3 ml) 3 ml PER PROTOCOL IV ; Start 07/29/18 at 20:00 Ondansetron HCl (Zofran Tab) 4 mg Q6H PRN PO NAUSEA/VOMITING Last administered on 07/30/18 05:57; Admin Dose 4 MG; Start 07/29/18 at 20:00 Acetaminophen (Tylenol Tab) 650 mg Q6H PRN PO .PAIN 1-3 OR TEMP Last administered on 07/30/18 20:24; Admin Dose 650 MG; Start 07/29/18 at 20:00 Acetaminophen/ Hydrocodone Bitart ([place] (5/325)) 1 tab Q6H PRN PO .MOD PAIN 4- 6; Start 07/29/18 at 20:00 Docusate Sodium (Colace) 100 mg Q12H PRN PO .CONSTIPATION; Start 07/29/18 at 20:00 Sodium Biphosphate/ Sodium Phosphate (Fleet Enema) 133 ml DAILY PRN [place] .CONSTIP ATION; Start 07/29/18 at 20:00 Zolpidem Tartrate (Ambien) 5 mg QHS PRN PO .INSOMNIA; Start 07/29/18 at 20:00 Famotidine (Pepcid) 20 mg Q12 PO Last administered on 08/01/18 08:00; Admin Dose 20 MG; Start 07/29/18 at 21:00 Heparin Sodium (Porcine) (Heparin (5000 Units/1ml)) 5,000 unit Q12 SC Last administered on 08/01/18 08:02; Admin Dose 5,000 UNIT; Start 07/29/18 at 21:00 Vancomycin HCl (Vanco Iv Per Pharmacy) 1 ea PER PROTOCOL XX ; Start 07/29/18 at 20:00 Ciprofloxacin/ Dextrose 200 ml @ 200 mls/hr Q12 IVPB Last administered on 08/01/18 09:00; Admin Dose 200 MLS/HR; Start 07/29/18 at 21:00 Atorvastatin Calcium (Lipitor) 40 mg QHS PO Last administered on 07/31/18 20:42; Admin Dose 40 MG; Start 07/29/18 at 21:00 Metformin HCl (Glucophage) 850 mg WITH BREAKFAST DINNE PO Last administered on 08/01/18 08:00; Admin Dose 850 MG; Start 07/30/18 at 08:00 Linagliptin (Tradjenta) 5 mg DAILY PO Last administered on 08/01/18 08:00; Admin Dose 5 MG; Start 07/30/18 at 09:00 Diagnostic Test (Pha) (Accu-Chek) 1 ea AC MEALS AND BEDTIME XX Last administered on 07/31/18at 20:48; Admin Dose 1 EA; Start 07/29/18 at 21:00 Diagnostic Test (Pha) (Accu-Chek) 1 ea AC MEALS XX ; Start 07/30/18 at 07:00 Diagnostic Test (Pha) (Accu-Chek) 1 ea 02 XX ; Start 07/30/18 at 02:00 Insulin Aspart (Novolog Insulin Pen) NOVOLOG *MODERATE* ALGORITHM WITH MEALS BEDTIME SC Last administered on 07/31/18at 08:04; Admin Dose 2 UNIT; Start 07/29/18 at 21:00 Miscellaneous Information 1 ea NOTE XX ; Start 07/29/18 at 20:30 Glucose (Glutose) 15 gm Q15M PRN PO DECREASED GLUCOSE; Start 07/29/18 at 20:30 Glucose (Glutose) 22.5 gm Q15M PRN PO DECREASED GLUCOSE; Start 07/29/18 at 20:30 Dextrose (D50w Syringe) 25 ml Q15M PRN IV DECREASED GLUCOSE; Start 07/29/18 at 20:30 Dextrose (D50w Syringe) 50 ml Q15M PRN IV DECREASED GLUCOSE; Start 07/29/18 at 20:30 Glucagon (Glucagen) 1 mg Q15M PRN IM DECREASED GLUCOSE; Start 07/29/18 at 20:30 Glucose (Glutose) 15 gm Q15M PRN BUCCAL DECREASED GLUCOSE; Start 07/29/18 at 20:30 Ergocalciferol (Drisdol Liquid (Ped)) 2,000 units AM PO Last administered on 08/01/18at 08:00; Admin Dose 2,000 UNITS; Start 07/30/18 at 09:00 Vancomycin HCl 1.25 gm/Sodium Chloride 250 ml @ 83.333 mls/ hr Q8H IVPB Last administered on 08/01/18at 06:07; Admin Dose 83.333 MLS/HR; Start 07/31/18 at 06:00 Lisinopril (Zestril) 20 mg BID PO ; Start 08/01/18 at 21:00 WENDY WALSH NP Aug 01, 2018 13:44
[2018-08-01] MEDS: ATORVASTATIN 40 MG TAB PO SCH (20:43)
[2018-08-01] MEDS ORDERED: LISINOPRIL 20 MG TAB PO SCH (21:00)
[2018-08-01] MEDS ORDERED: LIDOCAINE 1% (MPF) 30 ML INJ INJ PRN (22:00)
--- NOTE | 2018-08-01 22:51 | PN ---
Date/Time of Note Date/Time of Note DATE: 08/01/18 TIME: 22:48 Assessment/Plan Lines/Catheters IV Catheter Type (from Nrs): Peripheral IV Burnett in Place (from Nrsg): No Assessment/Plan Problems: (1) Abscess of bursa, right ankle and foot Status: Acute Comment: Bedside incision and drainage was done today using aseptic technique. There was significant lucy pus noted both on the medial and lateral ankle. Both the medial and lateral ankle incisions were packed with iodoform packing. Formal incision and drainage in the operating room will be scheduled. Patient remains at risk for limb loss. (2) Right ankle effusion Status: Acute (3) Charcot's joint, right ankle and foot Status: Chronic (4) Staphylococcus aureus bacteremia with sepsis Status: Acute (5) Essential hypertension Status: Chronic (6) Diabetes mellitus type 2 in obese Status: Chronic Subjective 24 Hr Interval Summary Patient was seen at bedside. Patient is in no acute distress. Patient reports no new adverse events. Patient denies fever, chills, nausea or vomiting. Patient denies pain. Patient denies recent trauma. Patient reports bandages are being changed as directed. Patient reports significant swelling in his right ankle. Constitutional: no complaints Pain Control: well controlled Exam/Review of Systems Vital Signs Vitals Vital Signs Date Temp Pulse Resp B/P (MAP) Pulse Ox O2 O2 Flow FiO2 Time Delivery Rate 08/01/18 98.4 78 18 148/77 94 20:00 (100) 08/01/18 Room Air 14:10 Intake and Output 07/31/18 07/31/18 08/01/18 1515:00 23:00 07:00 IntakeIntake Total 700 ml 450 ml 250 ml OutputOutput Total 600 ml 1000 ml BalanceBalance 700 ml -150 ml -750 ml Exam Free Text/Dictation Right ankle is edematous and there is fluctuance both on the medial lateral aspect. Temperature gradient is significantly decreased in the right ankle and foot is warm to touch. There is no erythema no streaking proximally. Patient is status post right ankle fusion. Labs reviewed. Imaging reviewed. Results Result Diagram: 07/30/18 0447 07/30/18 0447 LORI LOPEZ DPM Aug 01, 2018 22:51
--- NOTE | 2018-08-01 23:04 | OPR ---
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 Risks and complications of this type of surgery was discussed with patient in great detail including but not limited to worsening of the condition, need for additional surgical procedures, limb loss, DVT, loss of life. Patient understands and agrees to the procedure. An informed consent was obtained, signed and placed in the chart. No guarantee or warranty was given or implied as to the outcome of the procedure either verbal written form. Procedure Description Right ankle was injected with 10 cc of 2% lidocaine plain using aseptic technique. Next, the right foot and ankle was scrubbed, prepped and draped in usual aseptic manner. A #10 blade was used to make a small incision on the medial aspect of the ankle just over the fluctuance. Immediately there was lucy purulence to port out of the area about 100 cc. This drainage was cultured. The wound was flushed with 1 L of sterile normal saline and 20% Betadine solution. Next, the wound was packed with iodoform packing. Attention was then directed to the lateral right ankle where similar fluctuance was found. A #10 blade was used to make an incision on the lateral right ankle and again there was purulent drainage noted to come out. Again the wound was flushed with a liter of sterile normal saline and 20% Betadine solution and was packed with iodoform packing. Sterile dressing was applied along with compression bandaging. The patient tolerated procedure and anesthesia well. The patient will be scheduled for formal incision and drainage. He will remain nonweightbearing on the right lower extremity at this time. LORI LOPEZ DPM Aug 01, 2018 23:04
[2018-08-02 02:00] VITALS: BP 142/50; PULSE 84; RESP 17
[2018-08-02] MEDS: ACCU-CHEK XX SCH ×8 (02:00→21:00)
[2018-08-02] MEDS: VANCOMYCIN HCL 1.25 GM in SOD CHLORIDE 0.9% 250 ML IVPB SCH ×2 (05:12→14:46)
[2018-08-02 08:35] VITALS: BP 161/84; PULSE 76; RESP 17
[2018-08-02] MEDS: CIPROFLOXACIN 400MG/D5W 200 ML IVPB SCH ×2 (08:49→21:56)
[2018-08-02] MEDS: ERGOCALCIFEROL (8000 UNITS/ML PO SYG) PO SCH (08:49)
[2018-08-02] MEDS: INSULIN ASPART [NOVOLOG] 3 ML PEN SC SCH ×4 (08:50→21:00)
[2018-08-02] MEDS: HEPARIN 5,000 UNIT/1 ML VIAL SC SCH ×2 (08:51→22:00)
[2018-08-02] MEDS: LINAGLIPTIN 5 MG TABLET PO SCH (08:51)
[2018-08-02] MEDS: metFORMIN 850 MG TAB PO SCH ×2 (08:51→17:17)
[2018-08-02] MEDS: LISINOPRIL 20 MG TAB PO SCH ×2 (08:52→21:57)
[2018-08-02] MEDS: FAMOTIDINE 20 MG TAB PO SCH ×2 (08:52→21:56)
--- NOTE | 2018-08-02 09:58 | PN ---
Date/Time of Note Date/Time of Note DATE: 08/02/18 TIME: 09:55 Assessment/Plan VTE Prophylaxis Risk score (from Ns)>0 risk: 2 SCD applied (from [facility] [place]): No SCD contraindicated: bilateral LE trauma Pharmacological prophylaxis: heparin Lines/Catheters IV C[facility]ter Type [facility]from [facility] [place] Lock Urinary Cath still in place: No Assessment/Plan Problems: (1) Staphylococcus aureus bacteremia with sepsis Status: Acute Comment: On appropriate antibiotic therapy and being followed by infectious disease consultants. The sources of hardware in the ankle and we are going to figure out some type of definitive treatment versus lifelong antibiotics (2) Abscess of bursa, right ankle and foot Status: Acute Comment: He has had an initial phase cleanup of the ankle performed and will be getting an operating room cleaned up in the near future (3) Charcot's joint, right ankle and foot Status: Chronic Comment: As above. (4) Diabetes mellitus type 2 in obese Status: Chronic Comment: Good glycemic control (5) Hyperlipidemia Status: Chronic Comment: Stable on statin therapy Qualifiers: Hyperlipidemia type: pure hypercholesterolemia Qualified Codes: E78.00 - Pure hypercholesterolemia, unspecified (6) Essential hypertension Status: Chronic Comment: Increase PACHECO inhibitor's Result Diagram: 07/30/18 0447 08/02/18 0515 Results 24hrs Laboratory Tests Test 08/01/18 11:55 08/01/18 13:27 08/01/18 17:20 08/01/18 20:42 Bedside Glucose 127 143 136 Vancomycin Level 13.3 Trough Test 08/02/18 05:15 08/02/18 07:54 Blood Urea Nitrogen 10 Creatinine 0.90 Bedside Glucose 157 CC: VALDO MCNAMARA MD; LORI LOPEZ DPM ; Subjective 24 Hr Interval Summary Free Text/Dictation Patient reports that he is doing relatively okay but he is nervous about what her ultimate recommendations are going to be Constitutional: no complaints (No fevers chills or sweats) Respiratory: no complaints Cardiovascular: no complaints Gastrointestinal: no complaints Genitourinary: no complaints Musculoskeletal: other (Ankle pain) Exam/Review of Systems Exam Vitals Vital Signs Date Temp Pulse Resp B/P (MAP) Pulse Ox O2 O2 Flow FiO2 Time Delivery Rate 08/02/18 98.6 76 17 161/84 96 Room Air 08:35 (109) Intake and Output 08/01/18 08/01/18 08/02/18 1515:00 23:00 07:00 IntakeIntake Total 1210 ml 810 ml 250 ml OutputOutput Total 550 ml 450 ml 700 ml BalanceBalance 660 ml 360 ml -450 ml Constitutional: alert, oriented Neck: supple, non-tender Respiratory: clear to auscultation, normal air movement Cardiovascular: regular rate and rhythm, nl pulses Gastrointestinal: soft, nl liver, spleen, non-tender Results Results 24hrs Laboratory Tests Test 08/01/18 11:55 08/01/18 13:27 08/01/18 17:20 08/01/18 20:42 Bedside Glucose 127 143 136 Vancomycin Level 13.3 Trough Test 08/02/18 05:15 08/02/18 07:54 Blood Urea Nitrogen 10 Creatinine 0.90 Bedside Glucose 157 Medications Medication Current Medications IV Flush (NS 3 ml) 3 ml PER PROTOCOL IV ; Start 07/29/18 at 20:00 Ondansetron HCl (Zofran Tab) 4 mg Q6H PRN PO NAUSEA/VOMITING Last administered on 07/30/18at 05:57; Admin Dose 4 MG; Start 07/29/18 at 20:00 Acetaminophen (Tylenol Tab) 650 mg Q6H PRN PO .PAIN 1-3 OR TEMP Last administered on 07/30/18at 20:24; Admin Dose 650 MG; Start 07/29/18 at 20:00 Acetaminophen/ Hydrocodone Bitart ([place] (5/325)) 1 tab Q6H PRN PO .MOD PAIN 4- 6; Start 07/29/18 at 20:00 Docusate Sodium (Colace) 100 mg Q12H PRN PO .CONSTIPATION; Start 07/29/18 at 20:00 Sodium Biphosphate/ Sodium Phosphate (Fleet Enema) 133 ml DAILY PRN RI .CONSTIPATION; Start 07/29/18 at 20:00 Zolpidem Tartrate (Ambien) 5 mg QHS PRN PO .INSOMNIA; Start 07/29/18 at 20:00 Famotidine (Pepcid) 20 mg Q12 PO Last administered on 08/02/18at 08:52; Admin Dose 20 MG; Start 07/29/18 at 21:00 Heparin Sodium (Porcine) (Heparin (5000 Units/1ml)) 5,000 unit Q12 SC Last administered on 08/02/18 08:51; Admin Dose 5,000 UNIT; Start 07/29/18 at 21:00 Vancomycin HCl (Vanco Iv Per Pharmacy) 1 ea PER PROTOCOL XX ; Start 07/29/18 at 20:00 Ciprofloxacin/ Dextrose 200 ml @ 200 mls/hr Q12 IVPB Last administered on 08/02/18 08:49; Admin Dose 200 MLS/HR; Start 07/29/18 at 21:00 Atorvastatin Calcium (Lipitor) 40 mg QHS PO Last administered on 08/01/18at 20:43; Admin Dose 40 MG; Start 07/29/18 at 21:00 Metformin HCl (Glucophage) 850 mg WITH BREAKFAST DINNE PO Last administered on 08/02/18 08:51; Admin Dose 850 MG; Start 07/30/18 at 08:00 Linagliptin (Tradjenta) 5 mg DAILY PO Last administered on 08/02/18 08:51; Admin Dose 5 MG; Start 07/30/18 at 09:00 Diagnostic Test (Pha) (Accu-Chek) 1 ea AC MEALS AND BEDTIME XX Last administered on 08/01/18at 20:51; Admin Dose 1 EA; Start 07/29/18 at 21:00 Diagnostic Test (Pha) (Accu-Chek) 1 ea AC MEALS XX ; Start 07/30/18 at 07:00 Diagnostic Test (Pha) (Accu-Chek) 1 ea 02 XX ; Start 07/30/18 at 02:00 Insulin Aspart (Novolog Insulin Pen) NOVOLOG *MODERATE* ALGORITHM WITH MEALS BEDTIME SC Last administered on 08/02/18at 08:50; Admin Dose 2 UNIT; Start 07/29/18 at 21:00 Miscellaneous Information 1 ea NOTE XX ; Start 07/29/18 at 20:30 Glucose (Glutose) 15 gm Q15M PRN PO DECREASED GLUCOSE; Start 07/29/18 at 20:30 Glucose (Glutose) 22.5 gm Q15M PRN PO DECREASED GLUCOSE; Start 07/29/18 at 20:30 Dextrose (D50w Syringe) 25 ml Q15M PRN IV DECREASED GLUCOSE; Start 07/29/18 at 20:30 Dextrose (D50w Syringe) 50 ml Q15M PRN IV DECREASED GLUCOSE; Start 07/29/18 at 20:30 Glucagon (Glucagen) 1 mg Q15M PRN IM DECREASED GLUCOSE; Start 07/29/18 at 20:30 Glucose (Glutose) 15 gm Q15M PRN BUCCAL DECREASED GLUCOSE; Start 07/29/18 at 20:30 Ergocalciferol (Drisdol Liquid (Ped)) 2,000 units AM PO Last administered on 08/02/18at 08:49; Admin Dose 2,000 UNITS; Start 07/30/18 at 09:00 Vancomycin HCl 1.25 gm/Sodium Chloride 250 ml @ 83.333 mls/ hr Q8H IVPB Last administered on 08/02/18at 05:12; Admin Dose 83.333 MLS/HR; Start 07/31/18 at 06:00 Lisinopril (Zestril) 20 mg BID PO Last administered on 08/02/18at 08:52; Admin Dose 20 MG; Start 08/01/18 at 15:03 DEE AGUILAR MD Aug 02, 2018 09:58
[2018-08-02] MEDS ORDERED: LISINOPRIL 20 MG TAB PO ONE (10:00)
[2018-08-02 14:35] VITALS: BP 145/81; PULSE 74; RESP 18
--- NOTE | 2018-08-02 15:44 | CONS ---
Assessment/Plan Assessment/Plan Hospital Course (Demo Recall) Patient is alert feels good looks comfortable he is afebrile, right lower extremity swelling better. No fevers. Blood culture growing oxacillin sensitive staph aureus Antimicrobials: Patient is on IV vancomycin and Cipro PHYSICAL EXAMINATION: GENERAL: This is an obese, well-developed, middle-aged man who is alert, in no distress. HEENT: Head is atraumatic, normocephalic. Sclerae are anicteric. NECK: Supple. CHEST: Rise symmetrical. Breath sounds clear. HEART: S1, S2. ABDOMEN: Soft. Bowel tones are present. EXTREMITIES: Right lower extremity Leo wrapped Assessment: 1. Persistent oxacillin sensitive staph aureus bacteremia secondary to #2 2. Right ankle abscess status post I&D at bedside 3. Diabetes 4. Right Charcot ankle status post right ankle fusion 5. Obesity Plan: Stable, change vancomycin to Rocephin, await for repeat 2D echo, repeat blood cultures, R foot MRI, consider PICC line as patient will require long- term IV antibiotics Consultation Date/Type/Reason Admit Date/Time Jul 29, 2018 at 19:47 Initial Consult Date 07/29/18 Type of Consult id Date/Time of Note DATE: 08/02/18 TIME: 15:42 Exam/Review of Systems Exam Vitals Vital Signs Date Temp Pulse Resp B/P (MAP) Pulse Ox O2 O2 Flow FiO2 Time Delivery Rate 08/02/18 98.1 74 18 145/81 97 Room Air 14:35 (102) Intake and Output 08/01/18 08/01/18 08/02/18 1414:59 22:59 06:59 IntakeIntake Total 1210 ml 810 ml 250 ml OutputOutput Total 550 ml 450 ml 700 ml BalanceBalance 660 ml 360 ml -450 ml Results Result Diagram: 07/30/18 0447 08/02/18 0515 Results 24hrs Laboratory Tests Test 08/01/18 17:20 08/01/18 20:42 08/02/18 05:15 08/02/18 07:54 Bedside Glucose 143 136 157 Blood Urea Nitrogen 10 Creatinine 0.90 Test 08/02/18 12:11 Bedside Glucose 123 Medications Medication Current Medications IV Flush (NS 3 ml) 3 ml PER PROTOCOL IV ; Start 07/29/18 at 20:00 Ondansetron HCl (Zofran Tab) 4 mg Q6H PRN PO NAUSEA/VOMITING Last administered on 07/30/18 05:57; Admin Dose 4 MG; Start 07/29/18 at 20:00 Acetaminophen (Tylenol Tab) 650 mg Q6H PRN PO .PAIN 1-3 OR TEMP Last administered on 07/30/18 20:24; Admin Dose 650 MG; Start 07/29/18 at 20:00 Acetaminophen/ Hydrocodone Bitart ([place] (5/325)) 1 tab Q6H PRN PO .MOD PAIN 4- 6; Start 07/29/18 at 20:00 Docusate Sodium (Colace) 100 mg Q12H PRN PO .CONSTIPATION; Start 07/29/18 at 20:00 Sodium Biphosphate/ Sodium Phosphate (Fleet Enema) 133 ml DAILY PRN ME .CONSTIPATION; Start 07/29/18 at 20:00 Zolpidem Tartrate (Ambien) 5 mg QHS PRN PO .INSOMNIA; Start 07/29/18 at 20:00 Famotidine (Pepcid) 20 mg Q12 PO Last administered on 08/02/18 08:52; Admin Dose 20 MG; Start 07/29/18 at 21:00 Heparin Sodium (Porcine) (Heparin (5000 Units/1ml)) 5,000 unit Q12 SC Last administered on 08/02/18 08:51; Admin Dose 5,000 UNIT; Start 07/29/18 at 21:00 Vancomycin HCl (Vanco Iv Per Pharmacy) 1 ea PER PROTOCOL XX ; Start 07/29/18 at 20:00 Ciprofloxacin/ Dextrose 200 ml @ 200 mls/hr Q12 IVPB Last administered on 08/02/18 08:49; Admin Dose 200 MLS/HR; Start 07/29/18 at 21:00 Atorvastatin Calcium (Lipitor) 40 mg QHS PO Last administered on 08/01/18 20:43; Admin Dose 40 MG; Start 07/29/18 at 21:00 Metformin HCl (Glucophage) 850 mg WITH BREAKFAST DINNE PO Last administered on 08/02/18 08:51; Admin Dose 850 MG; Start 07/30/18 at 08:00 Linagliptin (Tradjenta) 5 mg DAILY PO Last administered on 08/02/18 08:51; Admin Dose 5 MG; Start 07/30/18 at 09:00 Diagnostic Test (Pha) (Accu-Chek) 1 ea AC MEALS AND BEDTIME XX Last administered on 08/01/18at 20:51; Admin Dose 1 EA; Start 07/29/18 at 21:00 Diagnostic Test (Pha) (Accu-Chek) 1 ea AC MEALS XX ; Start 07/30/18 at 07:00 Diagnostic Test (Pha) (Accu-Chek) 1 ea 02 XX ; Start 07/30/18 at 02:00 Insulin Aspart (Novolog Insulin Pen) NOVOLOG *MODERATE* ALGORITHM WITH MEALS BEDTIME SC Last administered on 08/02/18at 08:50; Admin Dose 2 UNIT; Start at 21:00 Miscellaneous Information 1 ea NOTE XX ; Start 07/29/18 at 20:30 Glucose (Glutose) 15 gm Q15M PRN PO DECREASED GLUCOSE; Start 07/29/18 at 20:30 Glucose (Glutose) 22.5 gm Q15M PRN PO DECREASED GLUCOSE; Start 07/29/18 at 20:30 Dextrose (D50w Syringe) 25 ml Q15M PRN IV DECREASED GLUCOSE; Start 07/29/18 at 20:30 Dextrose (D50w Syringe) 50 ml Q15M PRN IV DECREASED GLUCOSE; Start 07/29/18 at 20:30 Glucagon (Glucagen) 1 mg Q15M PRN IM DECREASED GLUCOSE; Start 07/29/18 at 20:30 Glucose (Glutose) 15 gm Q15M PRN BUCCAL DECREASED GLUCOSE; Start 07/29/18 at 20:30 Ergocalciferol (Drisdol Liquid (Ped)) 2,000 units AM PO Last administered on 08/02/18at 08:49; Admin Dose 2,000 UNITS; Start 07/30/18 at 09:00 Vancomycin HCl 1.25 gm/Sodium Chloride 250 ml @ 83.333 mls/ hr Q8H IVPB Last administered on 08/02/18at 14:46; Admin Dose 83.333 MLS/HR; Start 07/31/18 at 06:00 Lisinopril (Zestril) 40 mg BID PO ; Start 08/02/18 at 21:00 WENDY WALSH NP Aug 02, 2018 15:44
[2018-08-02] MEDS: CEFTRIAXONE 1 GM/50 ML (PMX) 50 ML IVPB SCH (17:08)
[2018-08-02 19:47] VITALS: BP 148/75; PULSE 74; RESP 17
--- NOTE | 2018-08-02 20:41 | RADRPT ---
Echocardiogram Report Patient Name: Marie WHITEHEAD ID: [id number] : 1975 (43y 5m)Study Date: 08/02/2018 9:25:44 AM Gender: MAccession #: [id number] Tech: Hernesto Suárez RUST Location: 2248[address] Ref.Physician: WENDY WALSH Height(Cm): BSA: Weight(Kg): Quality: AdequateOrder Physician: WENDY WALSH Account #: Procedures: Echocardiographic Report: Transthoracic echocardiogram examination. Indications: R/o Vegetation. Measurements: 2D/M Mode Doppler Measurement Value Normal Range Measurement Value Normal Range LVIDd 2D 4.2 [ 4.2 - 5.8 ] cm RA Pressure 15.0 mmHg LVIDs 2D 2.9 [ 2.5 - 4.0 ] cm IVSd 2D 1.6 [ 0.6 - 1.0 ] cm AoR Diam 2D 2.5 [ 2.6 - 3.4 ] cm LA Dimen 2D 3.2 [ 3.0 - 4.0 ] cm Findings: Left Ventricle: Normal left ventricular cavity size. Normal left ventricular systolic function. Sigmoid septum. No evidence of vegetations. The left ventricular ejection fraction is visually estimated at 60 %. Left Atrium: The left atrium is normal in size and appearance. Mitral Valve: Mild mitral annular calcification. Calcified Leaflets Mitral valve leaflet appear mildly clacified. Trivial mitral regurgitation. Aortic Valve: Aortic cusps appear mildly calcified. Tricuspid Valve: Normal appearance of the tricuspid valve. There is trivial tricuspid regurgitation. Pericardium: Normal pericardium with no significant pericardial effusion. IVC: Dilated inferior vena cava with poor respiratory collapse. Conclusions: Normal left ventricular cavity size. Normal left ventricular systolic function. Sigmoid septum. No evidence of vegetations. The left ventricular ejection fraction is visually estimated at 60 %. Mild mitral annular calcification. Calcified Leaflets Mitral valve leaflet appear mildly clacified. Trivial mitral regurgitation. Normal appearance of the tricuspid valve. There is trivial tricuspid regurgitation. Electronically Signed By: Khoa Mckenzie 2018-08-02 20:40:19 PDT
[2018-08-02] MEDS: ATORVASTATIN 40 MG TAB PO SCH (21:56)
[2018-08-03] MEDS: ACCU-CHEK XX SCH ×8 (00:41→21:00)
[2018-08-03 02:57] VITALS: BP 142/74; PULSE 65; RESP 16
[2018-08-03 07:50] VITALS: BP 148/81; PULSE 69; RESP 18
[2018-08-03] MEDS: INSULIN ASPART [NOVOLOG] 3 ML PEN SC SCH ×4 (08:00→21:00)
[2018-08-03] MEDS: metFORMIN 850 MG TAB PO SCH ×2 (09:06→17:30)
[2018-08-03] MEDS: CIPROFLOXACIN 400MG/D5W 200 ML IVPB SCH ×2 (09:06→21:15)
[2018-08-03] MEDS: LINAGLIPTIN 5 MG TABLET PO SCH (09:07)
[2018-08-03] MEDS: FAMOTIDINE 20 MG TAB PO SCH ×2 (09:07→21:16)
[2018-08-03] MEDS: LISINOPRIL 20 MG TAB PO SCH ×2 (09:08→21:16)
[2018-08-03] MEDS: HEPARIN 5,000 UNIT/1 ML VIAL SC SCH ×2 (09:09→21:23)
[2018-08-03] MEDS: ERGOCALCIFEROL (8000 UNITS/ML PO SYG) PO SCH (09:37)
--- NOTE | 2018-08-03 12:19 | CONS ---
Assessment/Plan Assessment/Plan Hospital Course (Demo Recall) No events over night, looks comfortable, no fevers Blood culture and wound cx growing MSSA Antimicrobials: Janeth Huertas PHYSICAL EXAMINATION: GENERAL: This is an obese, well-developed, middle-aged man who is alert, in no distress. HEENT: Head is atraumatic, normocephalic. Sclerae are anicteric. NECK: Supple. CHEST: Rise symmetrical. Breath sounds clear. HEART: S1, S2. ABDOMEN: Soft. Bowel tones are present. EXTREMITIES: Right lower extremity Leo wrapped Assessment: 1. Persistent oxacillin sensitive staph aureus bacteremia secondary to #2 ECHO neg vegetations 2. Right ankle abscess status post I&D at bedside 3. R foot OM, poss infected hardware 3. Diabetes 4. Right Charcot ankle status post right ankle fusion 5. 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 with PO abx after that life long Consultation Date/Type/Reason Admit Date/Time Jul 29, 2018 at 19:47 Initial Consult Date 07/29/18 Type of Consult id Date/Time of Note DATE: 08/03/18 TIME: 12:14 Exam/Review of Systems Exam Vitals Vital Signs Date Temp Pulse Resp B/P (MAP) Pulse Ox O2 O2 Flow FiO2 Time Delivery Rate 08/03/18 98.3 69 18 148/81 98 Room Air 07:50 (103) Intake and Output 08/02/18 08/02/18 08/03/18 1515:00 23:00 07:00 IntakeIntake Total 845 ml 1260 ml OutputOutput Total 1520 ml 200 ml BalanceBalance 845 ml -260 ml -200 ml Results Result Diagram: 08/03/18 0607 08/03/18 0607 Results 24hrs Laboratory Tests Test 08/02/18 17:12 08/02/18 21:55 08/03/18 06:07 08/03/18 08:48 Bedside Glucose 171 109 125 White Blood Count 8.8 # Red Blood Count 4.48 L Hemoglobin 12.2 L Hematocrit 37.4 L Mean Corpuscular 83.5 Volume Mean Corpuscular 27.2 L Hemoglobin Mean Corpuscular 32.6 Hemoglobin Concent Red Cell 14.2 Distribution Width Platelet Count 385 # Mean Platelet Volume 9.4 Immature 4.700 H Granulocytes % Neutrophils % 60.6 Lymphocytes % 21.3 Monocytes % 9.1 Eosinophils % 3.2 Basophils % 1.1 Nucleated Red Blood 0.0 Cells % Immature 0.410 H Granulocytes # Neutrophils # 5.3 Lymphocytes # 1.9 Monocytes # 0.8 Eosinophils # 0.3 Basophils # 0.1 Nucleated Red Blood 0.0 Cells # Erythrocyte 102 H Sedimentation Rate Prothrombin Time 12.8 Prothrombin Time 1.0 Ratio INR International 0.95 Normalized Ratio Activated 34.8 Partial Thromboplast Time Sodium Level 139 Potassium Level 4.5 Chloride Level 101 Carbon Dioxide Level 29 Anion Gap 9 Blood Urea Nitrogen 14 Creatinine 0.88 Est Glomerular > 60 Filtrat Rate mL/min Glucose Level 138 Calcium Level 9.0 Magnesium Level 2.3 Total Bilirubin 0.3 Direct Bilirubin 0.00 Indirect Bilirubin 0.3 Aspartate Amino 65 H Transf (AST/SGOT) Alanine 87 H Aminotransferase (AL T/SGPT) Alkaline Phosphatase 137 H Total Protein 7.6 Albumin 3.4 Globulin 4.20 H Albumin/Globulin 0.80 Ratio Medications Medication Current Medications IV Flush (NS 3 ml) 3 ml PER PROTOCOL IV ; Start 07/29/18 at 20:00 Ondansetron HCl (Zofran Tab) 4 mg Q6H PRN PO NAUSEA/VOMITING Last administered on 07/30/18at 05:57; Admin Dose 4 MG; Start 07/29/18 at 20:00 Acetaminophen (Tylenol Tab) 650 mg Q6H PRN PO .PAIN 1-3 OR TEMP Last administered on 07/30/18at 20:24; Admin Dose 650 MG; Start 07/29/18 at 20:00 Acetaminophen/ Hydrocodone Bitart ([place] (5/325)) 1 tab Q6H PRN PO .MOD PAIN 4- 6; Start 07/29/18 at 20:00 Docusate Sodium (Colace) 100 mg Q12H PRN PO .CONSTIPATION; Start 07/29/18 at 20:00 Sodium Biphosphate/ Sodium Phosphate (Fleet Enema) 133 ml DAILY PRN SD .CONSTIPATION; Start 07/29/18 at 20:00 Zolpidem Tartrate (Ambien) 5 mg QHS PRN PO .INSOMNIA; Start 07/29/18 at 20:00 Famotidine (Pepcid) 20 mg Q12 PO Last administered on 08/03/18 09:07; Admin Dose 20 MG; Start 07/29/18 at 21:00 Heparin Sodium (Porcine) (Heparin (5000 Units/1ml)) 5,000 unit Q12 SC Last administered on 08/03/18 09:09; Admin Dose 5,000 UNIT; Start 07/29/18 at 21:00 Ciprofloxacin/ Dextrose 200 ml @ 200 mls/hr Q12 IVPB Last administered on 08/03/18 09:06; Admin Dose 200 MLS/HR; Start 07/29/18 at 21:00 Atorvastatin Calcium (Lipitor) 40 mg QHS PO Last administered on 08/02/18 21:56; Admin Dose 40 MG; Start 07/29/18 at 21:00 Metformin HCl (Glucophage) 850 mg WITH BREAKFAST DINNE PO Last administered on 08/03/18 09:06; Admin Dose 850 MG; Start 07/30/18 at 08:00 Linagliptin (Tradjenta) 5 mg DAILY PO Last administered on 08/03/18 09:07; Admin Dose 5 MG; Start 07/30/18 at 09:00 Diagnostic Test (Pha) (Accu-Chek) 1 ea AC MEALS AND BEDTIME XX Last administered on 08/01/18at 20:51; Admin Dose 1 EA; Start 07/29/18 at 21:00 Diagnostic Test (Pha) (Accu-Chek) 1 ea AC MEALS XX ; Start 07/30/18 at 07:00 Diagnostic Test (Pha) (Accu-Chek) 1 ea 02 XX ; Start 07/30/18 at 02:00 Insulin Aspart (Novolog Insulin Pen) NOVOLOG *MODERATE* ALGORITHM WITH MEALS BEDTIME SC Last administered on 08/02/18 17:14; Admin Dose 2 UNIT; Start 07/29/18 at 21:00 Miscellaneous Information 1 ea NOTE XX ; Start 07/29/18 at 20:30 Glucose (Glutose) 15 gm Q15M PRN PO DECREASED GLUCOSE; Start 07/29/18 at 20:30 Glucose (Glutose) 22.5 gm Q15M PRN PO DECREASED GLUCOSE; Start 07/29/18 at 20:30 Dextrose (D50w Syringe) 25 ml Q15M PRN IV DECREASED GLUCOSE; Start 07/29/18 at 20:30 Dextrose (D50w Syringe) 50 ml Q15M PRN IV DECREASED GLUCOSE; Start 07/29/18 at 20:30 Glucagon (Glucagen) 1 mg Q15M PRN IM DECREASED GLUCOSE; Start 07/29/18 at 20:30 Glucose (Glutose) 15 gm Q15M PRN BUCCAL DECREASED GLUCOSE; Start 07/29/18 at 20:30 Ergocalciferol (Drisdol Liquid (Ped)) 2,000 units AM PO Last administered on 08/03/18at 09:37; Admin Dose 2,000 UNITS; Start 07/30/18 at 09:00 Lisinopril (Zestril) 40 mg BID PO Last administered on 08/03/18at 09:08; Admin Dose 40 MG; Start 08/02/18 at 21:00 Ceftriaxone Sodium 50 ml @ 100 mls/hr Q24H IVPB Last administered on 08/02/18at 17:08; Admin Dose 100 MLS/HR; Start 08/02/18 at 16:00 WENDY WALSH NP Aug 03, 2018 12:19
--- NOTE | 2018-08-03 13:25 | PN ---
Date/Time of Note Date/Time of Note DATE: 08/03/18 TIME: 13:10 Assessment/Plan VTE [place] [facility] [place]: 3 [place] [facility] [place] SCD contraindicated: bilateral LE trauma Pharmacological prophylaxis: heparin Lines/Catheters IV Catheter Type (from [facility]): Saline Lock Urinary Cath still in place: No Assessment/Plan Problems: (1) Staphylococcus aureus bacteremia with sepsis Status: Acute Comment: Remains on antibiotics. In discussion with the patient and Dr. Moreno, see below (2) Charcot's joint, right ankle and foot Status: Chronic Comment: Hardware in the right ankle is infected and he has failed multiple attempts to save this. At this time Dr. Moreno is of the opinion which I agree with that the best possible option will be below-knee amputation. The patient actually indicates he is prepared for that right proceed forward however his needs to have some questions answered. I will meet with tomorrow to lay this out. In the meantime we will have Dr. Cheung was seen the patient in the remote past consult for the possibility of the surgical procedure. This may be done either at this admission or if upcoming admission depending upon how we move forward (3) Essential hypertension Status: Chronic Comment: Adequate control (4) Hyperlipidemia Status: Chronic Comment: On full dose therapy Qualifiers: Hyperlipidemia type: pure hypercholesterolemia Qualified Codes: E78.00 - Pure hypercholesterolemia, unspecified (5) Diabetes mellitus type 2 in obese Status: Chronic Comment: Adequate glycemic control Result Diagram: 08/03/18 0607 08/03/18 0607 Results 24hrs Laboratory Tests Test 08/02/18 17:12 08/02/18 21:55 08/03/18 06:07 08/03/18 08:48 Bedside Glucose 171 109 125 White Blood Count 8.8 # Red Blood Count 4.48 L Hemoglobin 12.2 L Hematocrit 37.4 L Mean Corpuscular 83.5 Volume Mean Corpuscular 27.2 L Hemoglobin Mean Corpuscular 32.6 Hemoglobin Concent Red Cell 14.2 Distribution Width Platelet Count 385 # Mean Platelet Volume 9.4 Immature 4.700 H Granulocytes % Neutrophils % 60.6 Lymphocytes % 21.3 Monocytes % 9.1 Eosinophils % 3.2 Basophils % 1.1 Nucleated Red Blood 0.0 Cells % Immature 0.410 H Granulocytes # Neutrophils # 5.3 Lymphocytes # 1.9 Monocytes # 0.8 Eosinophils # 0.3 Basophils # 0.1 Nucleated Red Blood 0.0 Cells # Erythrocyte 102 H Sedimentation Rate Prothrombin Time 12.8 Prothrombin Time 1.0 Ratio INR International 0.95 Normalized Ratio Activated 34.8 Partial Thromboplast Time Sodium Level 139 Potassium Level 4.5 Chloride Level 101 Carbon Dioxide Level 29 Anion Gap 9 Blood Urea Nitrogen 14 Creatinine 0.88 Est Glomerular > 60 Filtrat Rate mL/min Glucose Level 138 Calcium Level 9.0 Magnesium Level 2.3 Total Bilirubin 0.3 Direct Bilirubin 0.00 Indirect Bilirubin 0.3 Aspartate Amino 65 H Transf (AST/SGOT) Alanine 87 H Aminotransferase (AL T/SGPT) Alkaline Phosphatase 137 H Total Protein 7.6 Albumin 3.4 Globulin 4.20 H Albumin/Globulin 0.80 Ratio Test 08/03/18 12:30 Bedside Glucose 182 Subjective 24 Hr Interval Summary Constitutional: no complaints Gastrointestinal: no complaints Genitourinary: no complaints Musculoskeletal: no complaints Exam/Review of Systems Exam Vitals Vital Signs Date Temp Pulse Resp B/P (MAP) Pulse Ox O2 O2 Flow FiO2 Time Delivery Rate 08/03/18 98.3 69 18 148/81 98 Room Air 07:50 (103) Intake and Output 08/02/18 08/02/18 08/03/18 1515:00 23:00 07:00 IntakeIntake Total 845 ml 1260 ml OutputOutput Total 1520 ml 200 ml BalanceBalance 845 ml -260 ml -200 ml Constitutional: alert, oriented Respiratory: clear to auscultation, normal air movement Cardiovascular: regular rate and rhythm, nl pulses Gastrointestinal: soft, nl liver, spleen, non-tender Results Results 24hrs Laboratory Tests Test 08/02/18 17:12 08/02/18 21:55 08/03/18 06:07 08/03/18 08:48 Bedside Glucose 171 109 125 White Blood Count 8.8 # Red Blood Count 4.48 L Hemoglobin 12.2 L Hematocrit 37.4 L Mean Corpuscular 83.5 Volume Mean Corpuscular 27.2 L Hemoglobin Mean Corpuscular 32.6 Hemoglobin Concent Red Cell 14.2 Distribution Width Platelet Count 385 # Mean Platelet Volume 9.4 Immature 4.700 H Granulocytes % Neutrophils % 60.6 Lymphocytes % 21.3 Monocytes % 9.1 Eosinophils % 3.2 Basophils % 1.1 Nucleated Red Blood 0.0 Cells % Immature 0.410 H Granulocytes # Neutrophils # 5.3 Lymphocytes # 1.9 Monocytes # 0.8 Eosinophils # 0.3 Basophils # 0.1 Nucleated Red Blood 0.0 Cells # Erythrocyte 102 H Sedimentation Rate Prothrombin Time 12.8 Prothrombin Time 1.0 Ratio INR International 0.95 Normalized Ratio Activated 34.8 Partial Thromboplast Time Sodium Level 139 Potassium Level 4.5 Chloride Level 101 Carbon Dioxide Level 29 Anion Gap 9 Blood Urea Nitrogen 14 Creatinine 0.88 Est Glomerular > 60 Filtrat Rate mL/min Glucose Level 138 Calcium Level 9.0 Magnesium Level 2.3 Total Bilirubin 0.3 Direct Bilirubin 0.00 Indirect Bilirubin 0.3 Aspartate Amino 65 H Transf (AST/SGOT) Alanine 87 H Aminotransferase (AL T/SGPT) Alkaline Phosphatase 137 H Total Protein 7.6 Albumin 3.4 Globulin 4.20 H Albumin/Globulin 0.80 Ratio Test 08/03/18 12:30 Bedside Glucose 182 Medications Medication Current Medications IV Flush (NS 3 ml) 3 ml PER PROTOCOL IV ; Start 07/29/18 at 20:00 Ondansetron HCl (Zofran Tab) 4 mg Q6H PRN PO NAUSEA/VOMITING Last administered on 07/30/18at 05:57; Admin Dose 4 MG; Start 07/29/18 at 20:00 Acetaminophen (Tylenol Tab) 650 mg Q6H PRN PO .PAIN 1-3 OR TEMP Last administered on 07/30/18at 20:24; Admin Dose 650 MG; Start 07/29/18 at 20:00 Acetaminophen/ Hydrocodone Bitart ([place] (5/325)) 1 tab Q6H PRN PO .MOD PAIN 4- 6; Start 07/29/18 at 20:00 Docusate Sodium (Colace) 100 mg Q12H PRN PO .CONSTIPATION; Start 07/29/18 at 20:00 Sodium Biphosphate/ Sodium Phosphate (Fleet Enema) 133 ml DAILY PRN [place] .CONSTIPATION; Start 07/29/18 at 20:00 Zolpidem Tartrate (Ambien) 5 mg QHS PRN PO .INSOMNIA; Start 07/29/18 at 20:00 Famotidine (Pepcid) 20 mg Q12 PO Last administered on 08/03/18at 09:07; Admin Dose 20 MG; Start 07/29/18 at 21:00 Heparin Sodium (Porcine) (Heparin (5000 Units/1ml)) 5,000 unit Q12 SC Last administered on 08/03/18 09:09; Admin Dose 5,000 UNIT; Start 07/29/18 at 21:00 Ciprofloxacin/ Dextrose 200 ml @ 200 mls/hr Q12 IVPB Last administered on 08/03/18 09:06; Admin Dose 200 MLS/HR; Start 07/29/18 at 21:00 Atorvastatin Calcium (Lipitor) 40 mg QHS PO Last administered on 08/02/18 21:56; Admin Dose 40 MG; Start 07/29/18 at 21:00 Metformin HCl (Glucophage) 850 mg WITH BREAKFAST DINNE PO Last administered on 08/03/18 09:06; Admin Dose 850 MG; Start 07/30/18 at 08:00 Linagliptin (Tradjenta) 5 mg DAILY PO Last administered on 08/03/18 09:07; Admin Dose 5 MG; Start 07/30/18 at 09:00 Diagnostic Test (Pha) (Accu-Chek) 1 ea AC MEALS AND BEDTIME XX Last administered on 08/01/18at 20:51; Admin Dose 1 EA; Start 07/29/18 at 21:00 Diagnostic Test (Pha) (Accu-Chek) 1 ea AC MEALS XX ; Start 07/30/18 at 07:00 Diagnostic Test (Pha) (Accu-Chek) 1 ea 02 XX ; Start 07/30/18 at 02:00 Insulin Aspart (Novolog Insulin Pen) NOVOLOG *MODERATE* ALGORITHM WITH MEALS BEDTIME SC Last administered on 08/03/18at 12:36; Admin Dose 4 UNIT; Start 07/29/18 at 21:00 Miscellaneous Information 1 ea NOTE XX ; Start 07/29/18 at 20:30 Glucose (Glutose) 15 gm Q15M PRN PO DECREASED GLUCOSE; Start 07/29/18 at 20:30 Glucose (Glutose) 22.5 gm Q15M PRN PO DECREASED GLUCOSE; Start 07/29/18 at 20:30 Dextrose (D50w Syringe) 25 ml Q15M PRN IV DECREASED GLUCOSE; Start 07/29/18 at 20:30 Dextrose (D50w Syringe) 50 ml Q15M PRN IV DECREASED GLUCOSE; Start 07/29/18 at 20:30 Glucagon (Glucagen) 1 mg Q15M PRN IM DECREASED GLUCOSE; Start 07/29/18 at 20:30 Glucose (Glutose) 15 gm Q15M PRN BUCCAL DECREASED GLUCOSE; Start 07/29/18 at 20:30 Ergocalciferol (Drisdol Liquid (Ped)) 2,000 units AM PO Last administered on 08/03/18at 09:37; Admin Dose 2,000 UNITS; Start 07/30/18 at 09:00 Lisinopril (Zestril) 40 mg BID PO Last administered on 08/03/18at 09:08; Admin Dose 40 MG; Start 08/02/18 at 21:00 Ceftriaxone Sodium 50 ml @ 100 mls/hr Q24H IVPB Last administered on 08/02/18at 17:08; Admin Dose 100 MLS/HR; Start 08/02/18 at 16:00 DEE AGUILAR MD Aug 03, 2018 13:25
[2018-08-03 14:00] VITALS: BP_SYST 149; BP_SYST 162; BP_DIAS 66; BP_DIAS 96; PULSE 68; PULSE 82; RESP 18
[2018-08-03] MEDS: CEFTRIAXONE 1 GM/50 ML (PMX) 50 ML IVPB SCH (17:30)
[2018-08-03 20:00] VITALS: BP 142/90; PULSE 90; RESP 18
[2018-08-03] MEDS: ATORVASTATIN 40 MG TAB PO SCH (21:15)
--- NOTE | 2018-08-03 23:49 | PN ---
Date/Time of Note Date/Time of Note DATE: 08/03/18 TIME: 23:49 Assessment/Plan Lines/Catheters IV Catheter Type (from [facility] Saline Lock [place] in Place (from [facility]): No Assessment/Plan Problems: (1) Osteomyelitis of ankle, right, acute (2) Failed hardware (3) Failure of joint fusion (4) Right ankle effusion Status: Acute (5) Abscess of bursa, right ankle and foot Status: Acute (6) Charcot's joint, right ankle and foot Status: Chronic (7) Sepsis Status: Acute Qualifiers: Sepsis type: sepsis due to unspecified organism Qualified Codes: A41.9 - Sepsis, unspecified organism (8) Staphylococcus aureus bacteremia with sepsis Status: Acute (9) Diabetes mellitus type 2 in obese Status: Chronic (10) Essential hypertension Status: Chronic (11) Leg length discrepancy Assessment/Plan I had a detailed discussion and counseling session with the patient regarding hi s current condition. Patient has had multiple surgical procedures in the past year including application of external fixation to the right lower extremity and attempted fusion of the ankle joint which apparently has at this point failed with infected hardware and infected ankle joint. Patient has been hospitalized on multiple occasions and has had a similar problem in the past with recent admission and recent incision and drainage. Patient condition has not improved. At this time, he has extensive infection in the ankle joint involving the ankle, rear foot and midfoot as well as loose hardware. The ankle fusion is incomplete and there is motion on examination. At this point, we have exhausted all attempts for limb salvage. My recommendation for the patient is a below- knee amputation. Dr. Contreras was present during the discussion and he also agrees with my recommendation. Patient states that he would like to speak to his and discuss this with her as well prior to making a decision. He says that he would like all attempts made in order to prevent the infection to go any further than the ankle joint. I have had this discussion with the patient in the past as well and patient is well aware that if all attempts to salvage his right foot or ankle fails, then he most likely will require a below-knee amputation. He acknowledges that he understands the above discussion and states that he recalls the previous discussions regarding possible need for below-knee amputation. Opportunity was given to the patient to ask questions and all questions were answered. I advised him to contact me if he has any further questions. Patient will be followed in-house. Patient will also be referred to vascular surgery for evaluation for amputation of the right lower extremity. Subjective 24 Hr Interval Summary Patient was seen at bedside. Patient is in no acute distress. Denies overnight adverse events. Denies fever, chills, nausea or vomiting. Denies recent trauma. Dr. Contreras also was present. Patient is s/p bedside incision and drain age of the right ankle. Patient denies walking and weightbearing on the right lower extremity. Constitutional: no complaints Pain Control: well controlled Exam/Review of Systems Vital Signs Vitals Vital Signs Date Temp Pulse Resp B/P (MAP) Pulse Ox O2 O2 Flow FiO2 Time Delivery Rate 08/08/18 98.1 61 17 120/73 98 Room Air 08:06 (89) Intake and Output 08/07/18 08/07/18 08/08/18 1515:00 23:00 07:00 IntakeIntake Total 480 ml 290 ml 200 ml OutputOutput Total 600 ml 870 ml 500 ml BalanceBalance -120 ml -580 ml -300 ml Exam Free Text/Dictation Patient is laying supine in bed in no acute distress. The bandages were removed from the right foot and ankle. There was packing present which was removed from both the medial lateral incisions. There was significant reduction in edema of the right ankle and right foot. There is also significant reduction in erythema. There is no malodor present. Patient has weakly palpable posterior tibial pulse and nonpalpable dorsalis pedis pulse on the right lower extremity. Patient has weakly palpable pedal pulses on the left lower extremity. Patient has a shorter right lower extremity in the left secondary to significant Charcot changes. Patient is status post attempted fusion of the right ankle with planus foot type and contracted toes. There is motion at the ankle joint noted on examination indicating failed fusion. Protective sensation is significantly decreased with the right side worse than the left. Labs reviewed. Imaging reviewed: Loose hardware present with large plantar screw protruding plantarly. Results Result Diagram: 08/08/18 0445 08/08/18 0445 LORI LOPEZ DPM Aug 03, 2018 23:49
[2018-08-04 02:00] VITALS: BP 138/74; PULSE 79; RESP 19
[2018-08-04] MEDS: ACCU-CHEK XX SCH ×8 (02:00→21:00)
[2018-08-04 07:44] VITALS: BP 162/82; PULSE 69; RESP 16
[2018-08-04] MEDS: INSULIN ASPART [NOVOLOG] 3 ML PEN SC SCH ×4 (08:00→21:00)
[2018-08-04] MEDS: CIPROFLOXACIN 400MG/D5W 200 ML IVPB SCH ×2 (08:11→21:08)
[2018-08-04] MEDS: FAMOTIDINE 20 MG TAB PO SCH ×2 (08:15→21:08)
[2018-08-04] MEDS: metFORMIN 850 MG TAB PO SCH ×2 (08:15→17:00)
[2018-08-04] MEDS: LISINOPRIL 20 MG TAB PO SCH ×2 (08:16→21:08)
[2018-08-04] MEDS: ERGOCALCIFEROL (8000 UNITS/ML PO SYG) PO SCH (08:17)
[2018-08-04] MEDS: HEPARIN 5,000 UNIT/1 ML VIAL SC SCH ×2 (08:18→21:09)
[2018-08-04] MEDS: LINAGLIPTIN 5 MG TABLET PO SCH (08:25)
[2018-08-04 10:00] VITALS: BP 154/91; PULSE 76
--- NOTE | 2018-08-04 10:58 | CONS ---
Assessment/Plan Assessment/Plan Hospital Course (Demo Recall) No events over night, looks comfortable, no fevers. Blood culture and wound cx growing MSSA. Repeat bld cx 08/02 neg Antimicrobials: Rocephin, Cipro PHYSICAL EXAMINATION: GENERAL: This is an obese, well-developed, middle-aged man who is alert, in no distress. HEENT: Head is atraumatic, normocephalic. Sclerae are anicteric. NECK: Supple. CHEST: Rise symmetrical. Breath sounds clear. HEART: S1, S2. ABDOMEN: Soft. Bowel tones are present. EXTREMITIES: Right lower extremity Leo wrapped Assessment: 1. Recurrent oxacillin sensitive staph aureus bacteremia secondary to #2 ECHO neg vegetations 2. Right ankle abscess status post I&D at bedside 3. R foot OM, poss infected hardware 3. Diabetes 4. Right Charcot ankle status post right ankle fusion 5. Obesity Plan: Stable, continue abx, per dw Dr Moreno pt will need another debridement in OR. Consider PICC as he will be on IV abx for 6+ weeks and after that on PO abx lifelong if hardware not removed Consultation Date/Type/Reason Admit Date/Time Jul 29, 2018 at 19:47 Initial Consult Date 07/29/18 Type of Consult id Date/Time of Note DATE: 08/04/18 TIME: 10:56 Exam/Review of Systems Exam Vitals Vital Signs Date Temp Pulse Resp B/P (MAP) Pulse Ox O2 O2 Flow FiO2 Time Delivery Rate 08/04/18 76 154/91 10:00 (112) 08/04/18 98.1 16 98 07:44 08/03/18 Room Air 14:00 Intake and Output 08/03/18 08/03/18 08/04/18 1515:00 23:00 07:00 IntakeIntake Total 900 ml 450 ml 640 ml OutputOutput Total 1300 ml BalanceBalance -400 ml 450 ml 640 ml Results Result Diagram: 08/03/18 0608/03/18 06 Results 24hrs Laboratory Tests Test 08/03/18 12:30 08/03/18 17:28 08/03/18 21:21 08/04/18 08:06 Bedside Glucose 182 107 142 132 Medications Medication Current Medications IV Flush (NS 3 ml) 3 ml PER PROTOCOL IV ; Start 07/29/18 at 20:00 Ondansetron HCl (Zofran Tab) 4 mg Q6H PRN PO NAUSEA/VOMITING Last administered on 07/30/18 05:57; Admin Dose 4 MG; Start 07/29/18 at 20:00 Acetaminophen (Tylenol Tab) 650 mg Q6H PRN PO .PAIN 1-3 OR TEMP Last administered on 07/30/18 20:24; Admin Dose 650 MG; Start 07/29/18 at 20:00 Acetaminophen/ Hydrocodone Bitart ([place] (5/325)) 1 tab Q6H PRN PO .MOD PAIN 4- 6; Start 07/29/18 at 20:00 Docusate Sodium (Colace) 100 mg Q12H PRN PO .CONSTIPATION; Start 07/29/18 at 20:00 Sodium Biphosphate/ Sodium Phosphate (Fleet Enema) 133 ml DAILY PRN [place] .CONSTIPATION; Start 07/29/18 at 20:00 Zolpidem Tartrate (Ambien) 5 mg QHS PRN PO .INSOMNIA; Start 07/29/18 at 20:00 Famotidine (Pepcid) 20 mg Q12 PO Last administered on 08/04/18 08:15; Admin Dose 20 MG; Start 07/29/18 at 21:00 Heparin Sodium (Porcine) (Heparin (5000 Units/1ml)) 5,000 unit Q12 SC Last administered on 08/04/18 08:18; Admin Dose 5,000 UNIT; Start 07/29/18 at 21:00 Ciprofloxacin/ Dextrose 200 ml @ 200 mls/hr Q12 IVPB Last administered on 08/04/18 08:11; Admin Dose 200 MLS/HR; Start 07/29/18 at 21:00 Atorvastatin Calcium (Lipitor) 40 mg QHS PO Last administered on 08/03/18 21:15; Admin Dose 40 MG; Start 07/29/18 at 21:00 Metformin HCl (Glucophage) 850 mg WITH BREAKFAST DINNE PO Last administered on 08/04/18 08:15; Admin Dose 850 MG; Start 07/30/18 at 08:00 Linagliptin (Tradjenta) 5 mg DAILY PO Last administered on 08/04/18 08:25; Admin Dose 5 MG; Start 07/30/18 at 09:00 Diagnostic Test (Pha) (Accu-Chek) 1 ea AC MEALS AND BEDTIME XX Last admini stered on 08/01/18at 20:51; Admin Dose 1 EA; Start 07/29/18 at 21:00 Diagnostic Test (Pha) (Accu-Chek) 1 ea AC MEALS XX ; Start 07/30/18 at 07:00 Diagnostic Test (Pha) (Accu-Chek) 1 ea 02 XX ; Start 07/30/18 at 02:00 Insulin Aspart (Novolog Insulin Pen) NOVOLOG *MODERATE* ALGORITHM WITH MEALS BEDTIME SC Last administered on 08/03/18at 12:36; Admin Dose 4 UNIT; Start 07/29/18 at 21:00 Miscellaneous Information 1 ea NOTE XX ; Start 07/29/18 at 20:30 Glucose (Glutose) 15 gm Q15M PRN PO DECREASED GLUCOSE; Start 07/29/18 at 20:30 Glucose (Glutose) 22.5 gm Q15M PRN PO DECREASED GLUCOSE; Start 07/29/18 at 20:30 Dextrose (D50w Syringe) 25 ml Q15M PRN IV DECREASED GLUCOSE; Start 07/29/18 at 20:30 Dextrose (D50w Syringe) 50 ml Q15M PRN IV DECREASED GLUCOSE; Start 07/29/18 at 20:30 Glucagon (Glucagen) 1 mg Q15M PRN IM DECREASED GLUCOSE; Start 07/29/18 at 20:30 Glucose (Glutose) 15 gm Q15M PRN BUCCAL DECREASED GLUCOSE; Start 07/29/18 at 20:30 Ergocalciferol (Drisdol Liquid (Ped)) 2,000 units AM PO Last administered on 08/04/18at 08:17; Admin Dose 2,000 UNITS; Start 07/30/18 at 09:00 Lisinopril (Zestril) 40 mg BID PO Last administered on 08/04/18at 08:16; Admin Dose 40 MG; Start 08/02/18 at 21:00 Ceftriaxone Sodium 50 ml @ 100 mls/hr Q24H IVPB Last administered on 08/03/18at 17:30; Admin Dose 100 MLS/HR; Start 08/02/18 at 16:00 WENDY WALSH NP Aug 04, 2018 10:58
[2018-08-04] MEDS ORDERED: LIDOCAINE 1% (MPF) 5 ML VIAL SC ONE (11:00)
[2018-08-04 14:18] VITALS: BP 137/83; PULSE 80; RESP 16
[2018-08-04] MEDS: CEFTRIAXONE 1 GM/50 ML (PMX) 50 ML IVPB SCH (16:55)
--- NOTE | 2018-08-04 17:24 | PN ---
Date/Time of Note Date/Time of Note DATE: 08/04/18 TIME: 17:22 Assessment/Plan VTE Prophylaxis Risk score (from [facility])>0 risk: 6 [place]CD applied [place] [facility] [place] SCD contraindicated: bilateral LE trauma Pharmacological prophylaxis: heparin Lines/Catheters [facility] Saline Lock Urinary Cath still in place: No Assessment/Plan Problems: (1) Charcot's joint, right ankle and foot Status: Chronic Comment: With the infected hardware in the degeneration of the bones salvage is not a reasonable option. The patient, Dr. Lopez, and Dr. Knox are in agreement that below-knee amputation will be the patient's best option here. I may actually hold off on putting in the PICC line until after the surgery (2) Abscess of bursa, right ankle and foot Status: Acute Comment: If the patient's can be having a BKA and need infectious disease to readdress about whether or not they wish for us to do the full 6 weeks of IV antibiotic therapy post BKA (3) Staphylococcus aureus bacteremia with sepsis Status: Acute Comment: On appropriate treatment (4) Diabetes mellitus type 2 in obese Status: Chronic Comment: Adequate control at this time (5) Hyperlipidemia Status: Chronic Comment: Stable on statin therapy Qualifiers: Hyperlipidemia type: pure hypercholesterolemia Qualified Codes: E78.00 - Pure hypercholesterolemia, unspecified (6) Essential hypertension Status: Chronic Comment: Adequate blood pressure control Result Diagram: 08/03/18 0607 08/03/18 0607 Results 24hrs Laboratory Tests Test 08/03/18 17:28 08/03/18 21:21 08/04/18 08:06 08/04/18 11:59 Bedside Glucose 107 142 132 138 Test 08/04/18 16:59 Bedside Glucose 118 CC: PAUL KNOX MD; VALDO MCNAMARA MD; WENDY WALSH [employer]; LORI LOPEZ DPAlexa ; Subjective 24 Hr Interval Summary Free Text/Dictation Patient reports he is reconciled to the idea of the below-knee amputation and ready to proceed now. Constitutional: no complaints Respiratory: no complaints Cardiovascular: no complaints Gastrointestinal: no complaints Exam/Review of Systems Exam Vitals Vital Signs Date Temp Pulse Resp B/P (MAP) Pulse Ox O2 O2 Flow FiO2 Time Delivery Rate 08/04/18 97.2 80 16 137/83 98 14:18 (101) 08/03/18 Room Air 14:00 Intake and Output 08/03/18 08/03/18 08/04/18 1515:00 23:00 07:00 IntakeIntake Total 900 ml 450 ml 640 ml OutputOutput Total 1300 ml BalanceBalance -400 ml 450 ml 640 ml Constitutional: alert, oriented Neck: supple, non-tender Respiratory: clear to auscultation, normal air movement Cardiovascular: regular rate and rhythm, nl pulses Gastrointestinal: soft, nl liver, spleen, non-tender Extremities: other (No changes) Results Results 24hrs Laboratory Tests Test 08/03/18 17:28 08/03/18 21:21 08/04/18 08:06 08/04/18 11:59 Bedside Glucose 107 142 132 138 Test 08/04/18 16:59 Bedside Glucose 118 Medications Medication Current Medications IV Flush (NS 3 ml) 3 ml PER PROTOCOL IV ; Start 07/29/18 at 20:00 Ondansetron HCl (Zofran Tab) 4 mg Q6H PRN PO NAUSEA/VOMITING Last administered on 07/30/18at 05:57; Admin Dose 4 MG; Start 07/29/18 at 20:00 Acetaminophen (Tylenol Tab) 650 mg Q6H PRN PO .PAIN 1-3 OR TEMP Last administered on 07/30/18at 20:24; Admin Dose 650 MG; Start 07/29/18 at 20:00 Acetaminophen/ Hydrocodone Bitart ([place] (5/325)) 1 tab Q6H PRN PO .MOD PAIN 4- 6; Start 07/29/18 at 20:00 Docusate Sodium (Colace) 100 mg Q12H PRN PO .CONSTIPATION; Start 07/29/18 at 20:00 Sodium Biphosphate/ Sodium Phosphate (Fleet Enema) 133 ml DAILY PRN [place] .CONSTI PATION; Start 07/29/18 at 20:00 Zolpidem Tartrate (Ambien) 5 mg QHS PRN PO .INSOMNIA; Start 07/29/18 at 20:00 Famotidine (Pepcid) 20 mg Q12 PO Last administered on 08/04/18at 08:15; Admin Dose 20 MG; Start 07/29/18 at 21:00 Heparin Sodium (Porcine) (Heparin (5000 Units/1ml)) 5,000 unit Q12 SC Last administered on 08/04/18at 08:18; Admin Dose 5,000 UNIT; Start 07/29/18 at 21:00 Ciprofloxacin/ Dextrose 200 ml @ 200 mls/hr Q12 IVPB Last administered on 08/04/18at 08:11; Admin Dose 200 MLS/HR; Start 07/29/18 at 21:00 Atorvastatin Calcium (Lipitor) 40 mg QHS PO Last administered on 08/03/18at 21 :15; Admin Dose 40 MG; Start 07/29/18 at 21:00 Metformin HCl (Glucophage) 850 mg WITH BREAKFAST DINNE PO Last administered on 08/04/18 17:00; Admin Dose 850 MG; Start 07/30/18 at 08:00 Linagliptin (Tradjenta) 5 mg DAILY PO Last administered on 08/04/18 08:25; Admin Dose 5 MG; Start 07/30/18 at 09:00 Diagnostic Test (Pha) (Accu-Chek) 1 ea AC MEALS AND BEDTIME XX Last administered on 08/01/18at 20:51; Admin Dose 1 EA; Start 07/29/18 at 21:00 Diagnostic Test (Pha) (Accu-Chek) 1 ea AC MEALS XX ; Start 07/30/18 at 07:00 Diagnostic Test (Pha) (Accu-Chek) 1 ea 02 XX ; Start 07/30/18 at 02:00 Insulin Aspart (Novolog Insulin Pen) NOVOLOG *MODERATE* ALGORITHM WITH MEALS BEDTIME SC Last administered on 08/03/18at 12:36; Admin Dose 4 UNIT; Start 07/29/18 at 21:00 Miscellaneous Information 1 ea NOTE XX ; Start 07/29/18 at 20:30 Glucose (Glutose) 15 gm Q15M PRN PO DECREASED GLUCOSE; Start 07/29/18 at 20:30 Glucose (Glutose) 22.5 gm Q15M PRN PO DECREASED GLUCOSE; Start 07/29/18 at 20:30 Dextrose (D50w Syringe) 25 ml Q15M PRN IV DECREASED GLUCOSE; Start 07/29/18 at 20:30 Dextrose (D50w Syringe) 50 ml Q15M PRN IV DECREASED GLUCOSE; Start 07/29/18 at 20:30 Glucagon (Glucagen) 1 mg Q15M PRN IM DECREASED GLUCOSE; Start 07/29/18 at 20:30 Glucose (Glutose) 15 gm Q15M PRN BUCCAL DECREASED GLUCOSE; Start 07/29/18 at 20:30 Ergocalciferol (Drisdol Liquid (Ped)) 2,000 units AM PO Last administered on 08/04/18at 08:17; Admin Dose 2,000 UNITS; Start 07/30/18 at 09:00 Lisinopril (Zestril) 40 mg BID PO Last administered on 08/04/18at 08:16; Admin Dose 40 MG; Start 08/02/18 at 21:00 Ceftriaxone Sodium 50 ml @ 100 mls/hr Q24H IVPB Last administered on 08/04/18at 16:55; Admin Dose 100 MLS/HR; Start 08/02/18 at 16:00 DEE AGUILAR MD Aug 04, 2018 17:24
[2018-08-04 20:00] VITALS: BP 143/78; PULSE 70; RESP 18
[2018-08-04] MEDS: ATORVASTATIN 40 MG TAB PO SCH (21:08)
[2018-08-05 02:00] VITALS: BP 135/80; PULSE 67; RESP 18
[2018-08-05] MEDS: ACCU-CHEK XX SCH ×8 (02:00→20:44)
--- NOTE | 2018-08-05 02:10 | CONS ---
DATE OF ADMISSION: 07/29/2018 DATE OF CONSULTATION: 08/04/2018 REFERRING PHYSICIAN: Dr. Milton Contreras. REASON FOR CONSULTATION: Evaluate for possible right below knee amputation. HISTORY OF PRESENT ILLNESS: This is a 43-year-old gentleman. He has been diabetic for many years. He has a chronic osteomyelitis in the right ankle. He has had a Charcot deformity and has been having recurrent infections in the ankle for more than a year. He had an ankle fusion with Dr. Lopez about 6 months ago, was admitted with basically infection of the hardware and abscess of the ankle. Dr. Lopez took him to the OR and drained the abscess. I think Dr. Lopez has run out of options to try and salvage the foot and he and Dr. Contreras had been speaking to Mr. Fountain about possible below knee amputation and I was asked to come by and discuss with him and see what I thought. PAST MEDICAL HISTORY: Significant for diabetes, Charcot joint. He has hypercholesterolemia, hypertension, has osteomyelitis of the right ankle. MEDICATIONS: Currently consist of: 1. Zestril. 2. Ceftriaxone. 3. Tradjenta. 4. Vitamin D. 5. Metformin. 6. Pepcid. 7. Subcutaneous heparin. 8. Cipro. 9. Lipitor. 10. Insulin. 11. Zofran. ALLERGIES: HE HAS NO KNOWN DRUG ALLERGIES. SOCIAL HISTORY: He is a nonsmoker, never smoked. He used to be a heavy drinker, but he has not been drinking in about a year. He has been watching his diet and trying to eat well over the last year as well. PAST SURGICAL HISTORY: Just the right ankle ORIF for Charcot deformity. FAMILY HISTORY: Significant for diabetes and hypertension. REVIEW OF SYSTEMS: He currently has no specific complaints, no chest pain, no shortness of breath. No fevers, no chills, no recent weight gain or weight loss. No abdominal or back pain. PHYSICAL EXAMINATION GENERAL: He is a middle-aged gentleman. He speaks [place] fluently. VITAL SIGNS: He has been afebrile. His blood pressure is 137/83, heart rate 80, respiratory rate 16, 98% sat on room air. NECK: He has 2+ radial, brachial, and carotid pulses bilaterally. LUNGS: Clear. HEART: Regular rate and rhythm. ABDOMEN: Soft, nontender, nondistended. EXTREMITIES: He has 2+ femoral and popliteal pulses bilaterally. He has got no pedal pulses on the left. The right is all wrapped up. I did not address it. Again his MRI done just 2 days ago showed an abscess and there is basically infected hardware in the ankle. LABORATORY DATA: His white count has come down to 8.8, platelet count is 385. Creatinine is normal. Other labs looked normal. IMPRESSION: Infected hardware, right ankle with chronic osteomyelitis. He has good perfusion to the calf and ankle region. No signs of ischemia. There is no sign of infection in the calf muscles either. I think he would be a good candidate for below-knee amputation. I had a long discussion with him. He has been on antibiotics off and on now for several years. He has had several surgeries and the hardware is infected. The bones infected. I think he would do well with a below knee amputation. He is young and otherwise is in good shape. At this point, he really wants to go ahead with it and I am going to go ahead and try and get him scheduled on this admission. He does want to go home and think about it and come back. He is going to talk to his and Dr. Contreras about it as well. I am going to try and get him scheduled by Thursday next week and I will stop by again and talk to him about it again tomorrow to make sure he is still of the same mind. I discussed with Dr. Contreras as well. Dr. Lopez apparently is at a meeting; I will talk to him when he gets back. Dictated By: PAUL BORJAS/LEOBARDO Conf#: [id number] DID#: [id number] CC: LORI LOPEZ DPM; MILTON CONTRERAS MD;*EndCC* MTDD
[2018-08-05] MEDS: CIPROFLOXACIN 400MG/D5W 200 ML IVPB SCH ×2 (08:06→20:41)
[2018-08-05] MEDS: metFORMIN 850 MG TAB PO SCH ×2 (08:12→18:01)
[2018-08-05] MEDS: LISINOPRIL 20 MG TAB PO SCH ×2 (08:12→20:41)
[2018-08-05] MEDS: LINAGLIPTIN 5 MG TABLET PO SCH (08:12)
[2018-08-05] MEDS: FAMOTIDINE 20 MG TAB PO SCH ×2 (08:14→20:41)
[2018-08-05] MEDS: INSULIN ASPART [NOVOLOG] 3 ML PEN SC SCH ×4 (08:15→20:43)
[2018-08-05] MEDS: HEPARIN 5,000 UNIT/1 ML VIAL SC SCH ×2 (08:16→20:43)
[2018-08-05] MEDS: ERGOCALCIFEROL (8000 UNITS/ML PO SYG) PO SCH (08:16)
[2018-08-05 08:31] VITALS: BP 129/82; PULSE 84; RESP 18
--- NOTE | 2018-08-05 13:41 | QN ---
Documentation Comment No c/o. He wants to proceed with R BKA after d/w and Dr. Contreras. AFVSS R foot wrapped, some serous drainage, skin looks healthy down to the ankle WBC 8 - R BKA scheduled for Thursday AM PAUL KNOX MD Aug 05, 2018 13:41
--- NOTE | 2018-08-05 14:03 | CONS ---
Assessment/Plan Assessment/Plan Hospital Course (Demo Recall) No events over night, looks comfortable, no fevers. Blood culture and wound cx growing MSSA. Repeat bld cx 08/02 neg Antimicrobials: Rocephin, Cipro PHYSICAL EXAMINATION: GENERAL: This is an obese, well-developed, middle-aged man who is alert, in no distress. HEENT: Head is atraumatic, normocephalic. Sclerae are anicteric. NECK: Supple. CHEST: Rise symmetrical. Breath sounds clear. HEART: S1, S2. ABDOMEN: Soft. Bowel tones are present. EXTREMITIES: Right lower extremity Leo wrapped Assessment: 1. Recurrent oxacillin sensitive staph aureus bacteremia secondary to #2 ECHO neg vegetations 2. Right ankle abscess status post I&D at bedside 3. R foot OM, poss infected hardware 3. Diabetes 4. Right Charcot ankle status post right ankle fusion 5. Obesity Plan: Stable, repeat bld cx neg, plan for R BKA next week Consultation Date/Type/Reason Admit Date/Time Jul 29, 2018 at 19:47 Initial Consult Date 07/29/18 Type of Consult id Date/Time of Note DATE: 08/05/18 TIME: 14:02 Exam/Review of Systems Exam Vitals Vital Signs Date Temp Pulse Resp B/P (MAP) Pulse Ox O2 O2 Flow FiO2 Time Delivery Rate 08/05/18 98.2 84 18 129/82 99 08:31 (98) 08/03/18 Room Air 14:00 Intake and Output 08/04/18 08/04/18 08/05/18 1515:00 23:00 07:00 IntakeIntake Total 1200 ml 600 ml 300 ml OutputOutput Total 300 ml 800 ml 1500 ml BalanceBalance 900 ml -200 ml -1200 ml Results Result Diagram: 08/03/18 0607 08/03/18 0607 Results 24hrs Laboratory Tests Test 08/04/18 16:59 08/04/18 21:06 08/05/18 08:05 08/05/18 12:18 Bedside Glucose 118 152 147 115 Medications Medication Current Medications IV Flush (NS 3 ml) 3 ml PER PROTOCOL IV ; Start 07/29/18 at 20:00 Ondansetron HCl (Zofran Tab) 4 mg Q6H PRN PO NAUSEA/VOMITING Last administered on 07/30/18at 05:57; Admin Dose 4 MG; Start 07/29/18 at 20:00 Acetaminophen (Tylenol Tab) 650 mg Q6H PRN PO .PAIN 1-3 OR TEMP Last administered on 07/30/18 20:24; Admin Dose 650 MG; Start 07/29/18 at 20:00 Acetaminophen/ Hydrocodone Bitart ([place] (5/325)) 1 tab Q6H PRN PO .MOD PAIN 4- 6; Start 07/29/18 at 20:00 Docusate Sodium (Colace) 100 mg Q12H PRN PO .CONSTIPATION; Start 07/29/18 at 20:00 Sodium Biphosphate/ Sodium Phosphate (Fleet Enema) 133 ml DAILY PRN [place] .CONSTIPATION; Start 07/29/18 at 20:00 Zolpidem Tartrate (Ambien) 5 mg QHS PRN PO .INSOMNIA; Start 07/29/18 at 20:00 Famotidine (Pepcid) 20 mg Q12 PO Last administered on 08/05/18 08:14; Admin Dose 20 MG; Start 07/29/18 at 21:00 Heparin Sodium (Porcine) (Heparin (5000 Units/1ml)) 5,000 unit Q12 SC Last administered on 08/05/18 08:16; Admin Dose 5,000 UNIT; Start 07/29/18 at 21:00 Ciprofloxacin/ Dextrose 200 ml @ 200 mls/hr Q12 IVPB Last administered on 08/05/18 08:06; Admin Dose 200 MLS/HR; Start 07/29/18 at 21:00 Atorvastatin Calcium (Lipitor) 40 mg QHS PO Last administered on 08/04/18 21:08; Admin Dose 40 MG; Start 07/29/18 at 21:00 Metformin HCl (Glucophage) 850 mg WITH BREAKFAST DINNE PO Last administered on 08/05/18 08:12; Admin Dose 850 MG; Start 07/30/18 at 08:00 Linagliptin (Tradjenta) 5 mg DAILY PO Last administered on 08/05/18 08:12; Admin Dose 5 MG; Start 07/30/18 at 09:00 Diagnostic Test (Pha) (Accu-Chek) 1 ea AC MEALS AND BEDTIME XX Last administered on 08/01/18 20:51; Admin Dose 1 EA; Start 07/29/18 at 21:00 Diagnostic Test (Pha) (Accu-Chek) 1 ea AC MEALS XX ; Start 07/30/18 at 07:00 Diagnostic Test (Pha) (Accu-Chek) 1 ea 02 XX ; Start 07/30/18 at 02:00 Insulin Aspart (Novolog Insulin Pen) NOVOLOG *MODERATE* ALGORITHM WITH MEALS BEDTIME SC Last administered on 08/05/18 08:15; Admin Dose 2 UNIT; Start 07/29/18 at 21:00 Miscellaneous Information 1 ea NOTE XX ; Start 07/29/18 at 20:30 Glucose (Glutose) 15 gm Q15M PRN PO DECREASED GLUCOSE; Start 07/29/18 at 20:30 Glucose (Glutose) 22.5 gm Q15M PRN PO DECREASED GLUCOSE; Start 07/29/18 at 20:30 Dextrose (D50w Syringe) 25 ml Q15M PRN IV DECREASED GLUCOSE; Start 07/29/18 at 20:30 Dextrose (D50w Syringe) 50 ml Q15M PRN IV DECREASED GLUCOSE; Start 07/29/18 at 20:30 Glucagon (Glucagen) 1 mg Q15M PRN IM DECREASED GLUCOSE; Start 07/29/18 at 20:30 Glucose (Glutose) 15 gm Q15M PRN BUCCAL DECREASED GLUCOSE; Start 07/29/18 at 20:30 Ergocalciferol (Drisdol Liquid (Ped)) 2,000 units AM PO Last administered on 08/05/18at 08:16; Admin Dose 2,000 UNITS; Start 07/30/18 at 09:00 Lisinopril (Zestril) 40 mg BID PO Last administered on 08/05/18at 08:12; Admin Dose 40 MG; Start 08/02/18 at 21:00 Ceftriaxone Sodium 50 ml @ 100 mls/hr Q24H IVPB Last administered on 08/04/18at 16:55; Admin Dose 100 MLS/HR; Start 08/02/18 at 16:00 WENDY WALSH NP Aug 05, 2018 14:03
[2018-08-05 15:21] VITALS: BP 145/79; PULSE 71; RESP 16
[2018-08-05] MEDS: CEFTRIAXONE 1 GM/50 ML (PMX) 50 ML IVPB SCH (16:03)
--- NOTE | 2018-08-05 18:52 | PN ---
Date/Time of Note Date/Time of Note DATE: 08/05/18 TIME: 18:50 Assessment/Plan VTE Prophylaxis Risk score (from Ns)>0 risk: 6 SCD applied (from Ns): No SCD contraindicated: bilateral LE trauma Pharmacological prophylaxis: heparin Lines/Catheters IV [facility]from [facility] Saline Lock Urinary Cath still in place: No Assessment/Plan Problems: (1) Charcot's joint, right ankle and foot Status: Chronic Comment: Patient is in agreement with the plan for the medical team which is proceed with right below-knee amputation. Dr. Cheung is agreed to this and is apparently scheduling this for the morning of 09 August (2) Abscess of bursa, right ankle and foot Status: Acute Comment: Continue antibiotics and continue the antibiotics for full 2-week cour se of therapy with a negative blood cultures which would mean August 15 (3) Staphylococcus aureus bacteremia with sepsis Status: Acute Comment: Under treatment (4) Diabetes mellitus type 2 in obese Status: Chronic Comment: Adequate glycemic control (5) Hyperlipidemia Status: Chronic Comment: On full dose statin therapy Qualifiers: Hyperlipidemia type: pure hypercholesterolemia Qualified Codes: E78.00 - Pure hypercholesterolemia, unspecified (6) Essential hypertension Status: Chronic Comment: Good blood pressure control Result Diagram: 08/03/18 0607 08/03/18 0607 Results 24hrs Laboratory Tests Test 08/04/18 21:06 08/05/18 08:05 08/05/18 12:18 08/05/18 17:20 Bedside Glucose 152 147 115 97 Subjective 24 Hr Interval Summary Free Text/Dictation Patient reports that he is prepared to proceed forward. Constitutional: no complaints Respiratory: no complaints Cardiovascular: no complaints Gastrointestinal: no complaints Genitourinary: no complaints Musculoskeletal: no complaints Exam/Review of Systems Exam Vitals Vital Signs Date Temp Pulse Resp B/P (MAP) Pulse Ox O2 O2 Flow FiO2 Time Delivery Rate 08/05/18 98.2 71 16 145/79 97 15:21 (101) 08/03/18 Room Air 14:00 Intake and Output 08/04/18 08/04/18 08/05/18 1515:00 23:00 07:00 IntakeIntake Total 1200 ml 600 ml 300 ml OutputOutput Total 300 ml 800 ml 1500 ml BalanceBalance 900 ml -200 ml -1200 ml Constitutional: alert, oriented Neck: supple, non-tender Respiratory: clear to auscultation, normal air movement Cardiovascular: regular rate and rhythm, nl pulses Results Results 24hrs Laboratory Tests Test 08/04/18 21:06 08/05/18 08:05 08/05/18 12:18 08/05/18 17:20 Bedside Glucose 152 147 115 97 Medications Medication Current Medications IV Flush (NS 3 ml) 3 ml PER PROTOCOL IV ; Start 07/29/18 at 20:00 Ondansetron HCl (Zofran Tab) 4 mg Q6H PRN PO NAUSEA/VOMITING Last administered on 07/30/18 05:57; Admin Dose 4 MG; Start 07/29/18 at 20:00 Acetaminophen (Tylenol Tab) 650 mg Q6H PRN PO .PAIN 1-3 OR TEMP Last administered on 07/30/18at 20:24; Admin Dose 650 MG; Start 07/29/18 at 20:00 Acetaminophen/ Hydrocodone Bitart ([place] (5/325)) 1 tab Q6H PRN PO .MOD PAIN 4- 6; Start 07/29/18 at 20:00 Docusate Sodium (Colace) 100 mg Q12H PRN PO .CONSTIPATION; Start 07/29/18 at 2 0:00 Sodium Biphosphate/ Sodium Phosphate (Fleet Enema) 133 ml DAILY PRN [place] .CONSTIPATION; Start 07/29/18 at 20:00 Zolpidem Tartrate (Ambien) 5 mg QHS PRN PO .INSOMNIA; Start 07/29/18 at 20:00 Famotidine (Pepcid) 20 mg Q12 PO Last administered on 08/05/18at 08:14; Admin Dose 20 MG; Start 07/29/18 at 21:00 Heparin Sodium (Porcine) (Heparin (5000 Units/1ml)) 5,000 unit Q12 SC Last administered on 08/05/18at 08:16; Admin Dose 5,000 UNIT; Start 07/29/18 at 21:00 Ciprofloxacin/ Dextrose 200 ml @ 200 mls/hr Q12 IVPB Last administered on 08/05/18at 08:06; Admin Dose 200 MLS/HR; Start 07/29/18 at 21:00 Atorvastatin Calcium (Lipitor) 40 mg QHS PO Last administered on 08/04/18at 21:08; Admin Dose 40 MG; Start 07/29/18 at 21:00 Metformin HCl (Glucophage) 850 mg WITH BREAKFAST DINNE PO Last administered on 08/05/18at 18:01; Admin Dose 850 MG; Start 07/30/18 at 08:00 Linagliptin (Tradjenta) 5 mg DAILY PO Last administered on 08/05/18at 08:12; Admin Dose 5 MG; Start 07/30/18 at 09:00 Diagnostic Test (Pha) (Accu-Chek) 1 ea AC MEALS AND BEDTIME XX Last administered on 08/01/18at 20:51; Admin Dose 1 EA; Start 07/29/18 at 21:00 Diagnostic Test (Pha) (Accu-Chek) 1 ea AC MEALS XX ; Start 07/30/18 at 07:00 Diagnostic Test (Pha) (Accu-Chek) 1 ea 02 XX ; Start 07/30/18 at 02:00 Insulin Aspart (Novolog Insulin Pen) NOVOLOG *MODERATE* ALGORITHM WITH MEALS BEDTIME SC Last administered on 08/05/18at 08:15; Admin Dose 2 UNIT; Start 07/29/18 at 21:00 Miscellaneous Information 1 ea NOTE XX ; Start 07/29/18 at 20:30 Glucose (Glutose) 15 gm Q15M PRN PO DECREASED GLUCOSE; Start 07/29/18 at 20:30 Glucose (Glutose) 22.5 gm Q15M PRN PO DECREASED GLUCOSE; Start 07/29/18 at 20:30 Dextrose (D50w Syringe) 25 ml Q15M PRN IV DECREASED GLUCOSE; Start 07/29/18 at 20:30 Dextrose (D50w Syringe) 50 ml Q15M PRN IV DECREASED GLUCOSE; Start 07/29/18 at 20:30 Glucagon (Glucagen) 1 mg Q15M PRN IM DECREASED GLUCOSE; Start 07/29/18 at 20:30 Glucose (Glutose) 15 gm Q15M PRN BUCCAL DECREASED GLUCOSE; Start 07/29/18 at 20:30 Ergocalciferol (Drisdol Liquid (Ped)) 2,000 units AM PO Last administered on 08/05/18at 08:16; Admin Dose 2,000 UNITS; Start 07/30/18 at 09:00 Lisinopril (Zestril) 40 mg BID PO Last administered on 08/05/18at 08:12; Admin Dose 40 MG; Start 08/02/18 at 21:00 Ceftriaxone Sodium 50 ml @ 100 mls/hr Q24H IVPB Last administered on 08/05/18at 16:03; Admin Dose 100 MLS/HR; Start 08/02/18 at 16:00 DEE AGUILAR MD Aug 05, 2018 18:52
[2018-08-05 20:23] VITALS: BP 126/80; PULSE 67; RESP 18
[2018-08-05] MEDS: ATORVASTATIN 40 MG TAB PO SCH (20:41)
[2018-08-06] MEDS: ACCU-CHEK XX SCH ×8 (01:01→20:53)
[2018-08-06 02:16] VITALS: BP 123/70; PULSE 71; RESP 18
[2018-08-06 08:00] VITALS: BP 132/72; PULSE 60; RESP 18
[2018-08-06] MEDS: INSULIN ASPART [NOVOLOG] 3 ML PEN SC SCH ×4 (08:04→20:48)
[2018-08-06] MEDS: LISINOPRIL 20 MG TAB PO SCH ×2 (08:05→20:51)
[2018-08-06] MEDS: metFORMIN 850 MG TAB PO SCH ×2 (08:05→17:10)
[2018-08-06] MEDS: HEPARIN 5,000 UNIT/1 ML VIAL SC SCH ×2 (08:06→20:51)
[2018-08-06] MEDS: FAMOTIDINE 20 MG TAB PO SCH ×2 (08:06→20:51)
[2018-08-06] MEDS: LINAGLIPTIN 5 MG TABLET PO SCH (08:06)
[2018-08-06] MEDS: CIPROFLOXACIN 400MG/D5W 200 ML IVPB SCH (08:12)
[2018-08-06] MEDS: ERGOCALCIFEROL (8000 UNITS/ML PO SYG) PO SCH (08:12)
--- NOTE | 2018-08-06 11:25 | CONS ---
Assessment/Plan Assessment/Plan Hospital Course (Demo Recall) No events over night, looks comfortable, no fevers. Blood culture and wound cx growing MSSA. Repeat bld cx 08/02 neg Antimicrobials: Rocephin, Cipro PHYSICAL EXAMINATION: GENERAL: This is an obese, well-developed, middle-aged man who is alert, in no distress. HEENT: Head is atraumatic, normocephalic. Sclerae are anicteric. NECK: Supple. CHEST: Rise symmetrical. Breath sounds clear. HEART: S1, S2. ABDOMEN: Soft. Bowel tones are present. EXTREMITIES: Right lower extremity Leo wrapped Assessment: 1. Recurrent oxacillin sensitive staph aureus bacteremia secondary to #2 ECHO neg vegetations 2. Right ankle abscess status post I&D at bedside 3. R foot OM, poss infected hardware 3. Diabetes 4. Right Charcot ankle status post right ankle fusion 5. Obesity Plan: Stable, repeat bld cx neg, plan for R BKA next week, pt will need to complete 2 weeks of abx for bacteremia, dc Cipro Consultation Date/Type/Reason Admit Date/Time Jul 29, 2018 at 19:47 Initial Consult Date 07/29/18 Type of Consult id Date/Time of Note DATE: 08/06/18 TIME: 11:24 Exam/Review of Systems Exam Vitals Vital Signs Date Temp Pulse Resp B/P (MAP) Pulse Ox O2 O2 Flow FiO2 Time Delivery Rate 08/06/18 98.1 60 18 132/72 97 Room Air 08:00 (92) Intake and Output 08/05/18 08/05/18 08/06/18 1515:00 23:00 07:00 IntakeIntake Total 1080 ml 490 ml 720 ml OutputOutput Total 800 ml BalanceBalance 280 ml 490 ml 720 ml Results Result Diagram: 08/03/18 0607 08/03/18 0607 Results 24hrs Laboratory Tests Test 08/05/18 12:18 08/05/18 17:20 08/05/18 20:40 08/06/18 07:56 Bedside Glucose 115 97 136 152 Medications Medication Current Medications IV Flush (NS 3 ml) 3 ml PER PROTOCOL IV ; Start 07/29/18 at 20:00 Ondansetron HCl (Zofran Tab) 4 mg Q6H PRN PO NAUSEA/VOMITING Last administered on 07/30/18at 05:57; Admin Dose 4 MG; Start 07/29/18 at 20:00 Acetaminophen (Tylenol Tab) 650 mg Q6H PRN PO .PAIN 1-3 OR TEMP Last administered on 07/30/18 20:24; Admin Dose 650 MG; Start 07/29/18 at 20:00 Acetaminophen/ Hydrocodone Bitart ([place] (5/325)) 1 tab Q6H PRN PO .MOD PAIN 4- 6; Start 07/29/18 at 20:00 Docusate Sodium (Colace) 100 mg Q12H PRN PO .CONSTIPATION; Start 07/29/18 at 20:00 Sodium Biphosphate/ Sodium Phosphate (Fleet Enema) 133 ml DAILY PRN [place] .CONSTIPATION; Start 07/29/18 at 20:00 Zolpidem Tartrate (Ambien) 5 mg QHS PRN PO .INSOMNIA; Start 07/29/18 at 20:00 Famotidine (Pepcid) 20 mg Q12 PO Last administered on 08/06/18 08:06; Admin Dose 20 MG; Start 07/29/18 at 21:00 Heparin Sodium (Porcine) (Heparin (5000 Units/1ml)) 5,000 unit Q12 SC Last a dministered on 08/06/18 08:06; Admin Dose 5,000 UNIT; Start 07/29/18 at 21:00 Ciprofloxacin/ Dextrose 200 ml @ 200 mls/hr Q12 IVPB Last administered on 08/06/18 08:12; Admin Dose 200 MLS/HR; Start 07/29/18 at 21:00 Atorvastatin Calcium (Lipitor) 40 mg QHS PO Last administered on 08/05/18 20:41; Admin Dose 40 MG; Start 07/29/18 at 21:00 Metformin HCl (Glucophage) 850 mg WITH BREAKFAST DINNE PO Last administered on 08/06/18 08:05; Admin Dose 850 MG; Start 07/30/18 at 08:00 Linagliptin (Tradjenta) 5 mg DAILY PO Last administered on 08/06/18 08:06; Admin Dose 5 MG; Start 07/30/18 at 09:00 Diagnostic Test (Pha) (Accu-Chek) 1 ea AC MEALS AND BEDTIME XX Last administered on 08/01/18 20:51; Admin Dose 1 EA; Start 07/29/18 at 21:00 Diagnostic Test (Pha) (Accu-Chek) 1 ea AC MEALS XX ; Start 07/30/18 at 07:00 Diagnostic Test (Pha) (Accu-Chek) 1 ea 02 XX ; Start 07/30/18 at 02:00 Insulin Aspart (Novolog Insulin Pen) NOVOLOG *MODERATE* ALGORITHM WITH MEALS BEDTIME SC Last administered on 08/06/18at 08:04; Admin Dose 2 UNIT; Start 07/29/18 at 21:00 Miscellaneous Information 1 ea NOTE XX ; Start 07/29/18 at 20:30 Glucose (Glutose) 15 gm Q15M PRN PO DECREASED GLUCOSE; Start 07/29/18 at 20:30 Glucose (Glutose) 22.5 gm Q15M PRN PO DECREASED GLUCOSE; Start 07/29/18 at 20:30 Dextrose (D50w Syringe) 25 ml Q15M PRN IV DECREASED GLUCOSE; Start 07/29/18 at 20:30 Dextrose (D50w Syringe) 50 ml Q15M PRN IV DECREASED GLUCOSE; Start 07/29/18 at 20:30 Glucagon (Glucagen) 1 mg Q15M PRN IM DECREASED GLUCOSE; Start 07/29/18 at 20:30 Glucose (Glutose) 15 gm Q15M PRN BUCCAL DECREASED GLUCOSE; Start 07/29/18 at 20:30 Ergocalciferol (Drisdol Liquid (Ped)) 2,000 units AM PO Last administered on 08/06/18at 08:12; Admin Dose 2,000 UNITS; Start 07/30/18 at 09:00 Lisinopril (Zestril) 40 mg BID PO Last administered on 08/06/18at 08:05; Admin Dose 40 MG; Start 08/02/18 at 21:00 Ceftriaxone Sodium 50 ml @ 100 mls/hr Q24H IVPB Last administered on 08/05/18at 16:03; Admin Dose 100 MLS/HR; Start 08/02/18 at 16:00 WENDY WALSH NP Aug 06, 2018 11:25
[2018-08-06 14:00] VITALS: BP 132/80; PULSE 75; RESP 19
[2018-08-06] MEDS: CEFTRIAXONE 1 GM/50 ML (PMX) 50 ML IVPB SCH (15:50)
--- NOTE | 2018-08-06 16:57 | PN ---
Date/Time of Note Date/Time of Note DATE: 08/06/18 TIME: 16:36 Assessment/Plan VTE Prophylaxis Risk score (from Ns)>0 risk: 2 SCD applied (from Ns): No SCD contraindicated: bilateral LE trauma Pharmacological prophylaxis: heparin Lines/Catheters IV [facility] Saline Lock Urinary Cath still in place: No Assessment/Plan Problems: (1) Staphylococcus aureus bacteremia with sepsis Status: Acute Comment: Remains on antibiotics. Continue same (2) Abscess of bursa, right ankle and foot Status: Acute Comment: For surgery on the . Please note this patient is medically appropriate and stable for the surgical intervention (3) Charcot's joint, right ankle and foot Status: Chronic Comment: Preop. Please note this patient is medically stable and appropriate to proceed with surgical intervention (4) Diabetes mellitus type 2 in obese Status: Chronic Comment: Adequate control (5) Hyperlipidemia Status: Chronic Comment: Stable on treatment Qualifiers: Hyperlipidemia type: pure hypercholesterolemia Qualified Codes: E78.00 - Pure hypercholesterolemia, unspecified (6) Essential hypertension Status: Chronic Comment: Adequate control Result Diagram: 08/03/18 0607 08/03/18 0607 Results 24hrs Laboratory Tests Test 08/05/18 17:20 08/05/18 20:40 08/06/18 07:56 08/06/18 12:10 Bedside Glucose 97 136 152 146 Subjective 24 Hr Interval Summary Free Text/Dictation Patient without new complaints Exam/Review of Systems Exam Vitals Vital Signs Date Temp Pulse Resp B/P (MAP) Pulse Ox O2 O2 Flow FiO2 Time Delivery Rate 08/06/18 98.2 75 19 132/80 97 Room Air 14:00 (97) Intake and Output 08/05/18 08/05/18 08/06/18 1515:00 23:00 07:00 IntakeIntake Total 1080 ml 490 ml 720 ml OutputOutput Total 800 ml BalanceBalance 280 ml 490 ml 720 ml Constitutional: alert, oriented Respiratory: clear to auscultation, normal air movement Cardiovascular: regular rate and rhythm, nl pulses Results Results 24hrs Laboratory Tests Test 08/05/18 17:20 08/05/18 20:40 08/06/18 07:56 08/06/18 12:10 Bedside Glucose 97 136 152 146 Medications Medication Current Medications IV Flush (NS 3 ml) 3 ml PER PROTOCOL IV ; Start 6/13/19 at 20:00 Ondansetron HCl (Zofran Tab) 4 mg Q6H PRN PO NAUSEA/VOMITING Last administered on 07/30/18 05:57; Admin Dose 4 MG; Start 07/29/18 at 20:00 Acetaminophen (Tylenol Tab) 650 mg Q6H PRN PO .PAIN 1-3 OR TEMP Last adminis tered on 07/30/18 20:24; Admin Dose 650 MG; Start 07/29/18 at 20:00 Acetaminophen/ Hydrocodone Bitart ([place] (5/325)) 1 tab Q6H PRN PO .MOD PAIN 4- 6; Start 07/29/18 at 20:00 Docusate Sodium (Colace) 100 mg Q12H PRN PO .CONSTIPATION; Start 07/29/18 at 20:00 Sodium Biphosphate/ Sodium Phosphate (Fleet Enema) 133 ml DAILY PRN [place] .CONSTIPATION; Start 07/29/18 at 20:00 Zolpidem Tartrate (Ambien) 5 mg QHS PRN PO .INSOMNIA; Start 07/29/18 at 20:00 Famotidine (Pepcid) 20 mg Q12 PO Last administered on 08/06/18 08:06; Admin Dose 20 MG; Start 07/29/18 at 21:00 Heparin Sodium (Porcine) (Heparin (5000 Units/1ml)) 5,000 unit Q12 SC Last administered on 08/06/18 08:06; Admin Dose 5,000 UNIT; Start 07/29/18 at 21:00 Atorvastatin Calcium (Lipitor) 40 mg QHS PO Last administered on 08/05/18 20: 41; Admin Dose 40 MG; Start 07/29/18 at 21:00 Metformin HCl (Glucophage) 850 mg WITH BREAKFAST DINNE PO Last administered on 08/06/18 08:05; Admin Dose 850 MG; Start 07/30/18 at 08:00 Linagliptin (Tradjenta) 5 mg DAILY PO Last administered on 08/06/18 08:06; Admin Dose 5 MG; Start 07/30/18 at 09:00 Diagnostic Test (Pha) (Accu-Chek) 1 ea AC MEALS AND BEDTIME XX Last administered on 08/01/18 20:51; Admin Dose 1 EA; Start 07/29/18 at 21:00 Diagnostic Test (Pha) (Accu-Chek) 1 ea AC MEALS XX ; Start 07/30/18 at 07:00 Diagnostic Test (Pha) (Accu-Chek) 1 ea 02 XX ; Start 07/30/18 at 02:00 Insulin Aspart (Novolog Insulin Pen) NOVOLOG *MODERATE* ALGORITHM WITH MEALS BEDTIME SC Last administered on 08/06/18at 12:11; Admin Dose 2 UNIT; Start 07/29/18 at 21:00 Miscellaneous Information 1 ea NOTE XX ; Start 07/29/18 at 20:30 Glucose (Glutose) 15 gm Q15M PRN PO DECREASED GLUCOSE; Start 07/29/18 at 20:30 Glucose (Glutose) 22.5 gm Q15M PRN PO DECREASED GLUCOSE; Start 07/29/18 at 20:30 Dextrose (D50w Syringe) 25 ml Q15M PRN IV DECREASED GLUCOSE; Start 07/29/18 at 20:30 Dextrose (D50w Syringe) 50 ml Q15M PRN IV DECREASED GLUCOSE; Start 07/29/18 at 20:30 Glucagon (Glucagen) 1 mg Q15M PRN IM DECREASED GLUCOSE; Start 07/29/18 at 20:30 Glucose (Glutose) 15 gm Q15M PRN BUCCAL DECREASED GLUCOSE; Start 07/29/18 at 20:30 Ergocalciferol (Drisdol Liquid (Ped)) 2,000 units AM PO Last administered on 08/06/18at 08:12; Admin Dose 2,000 UNITS; Start 07/30/18 at 09:00 Lisinopril (Zestril) 40 mg BID PO Last administered on 08/06/18at 08:05; Admin Dose 40 MG; Start 08/02/18 at 21:00 Ceftriaxone Sodium 50 ml @ 100 mls/hr Q24H IVPB Last administered on 08/06/18at 15:50; Admin Dose 100 MLS/HR; Start 08/02/18 at 16:00 DEE AGUILAR MD Aug 06, 2018 16:57
[2018-08-06 20:19] VITALS: BP 138/85; PULSE 71; RESP 18
[2018-08-06] MEDS: ATORVASTATIN 40 MG TAB PO SCH (20:51)
[2018-08-07] MEDS: ACCU-CHEK XX SCH ×8 (01:06→21:00)
[2018-08-07 02:00] VITALS: BP 110/66; PULSE 65; RESP 18
[2018-08-07] MEDS: INSULIN ASPART [NOVOLOG] 3 ML PEN SC SCH ×4 (08:00→20:28)
[2018-08-07 08:13] VITALS: BP 125/72; PULSE 61; RESP 18
[2018-08-07] MEDS: LINAGLIPTIN 5 MG TABLET PO SCH (08:22)
[2018-08-07] MEDS: LISINOPRIL 20 MG TAB PO SCH ×2 (08:22→20:19)
[2018-08-07] MEDS: FAMOTIDINE 20 MG TAB PO SCH ×2 (08:23→20:19)
[2018-08-07] MEDS: metFORMIN 850 MG TAB PO SCH ×2 (08:23→17:17)
[2018-08-07] MEDS: HEPARIN 5,000 UNIT/1 ML VIAL SC SCH ×2 (08:24→20:21)
[2018-08-07] MEDS: ERGOCALCIFEROL (8000 UNITS/ML PO SYG) PO SCH (08:27)
--- NOTE | 2018-08-07 12:20 | PN ---
Date/Time of Note Date/Time of Note DATE: 08/07/18 TIME: 12:16 Assessment/Plan VTE Prophylaxis Risk score (from [facility])>0 risk: 3 SCD applied (from [facility] [place]): No SCD contraindicated: low risk/ambulating Pharmacological prophylaxis: heparin Lines/Catheters IV [facility]from [facility] Urinary Cath still in place: No Assessment/Plan Problems: (1) Essential hypertension Status: Chronic Comment: Good control. Cont. lisinopril daily (2) Hyperlipidemia Status: Chronic Comment: Cont. statin Qualifiers: Hyperlipidemia type: pure hypercholesterolemia Qualified Codes: E78.00 - Pure hypercholesterolemia, unspecified (3) Diabetes mellitus type 2 in obese Status: Chronic Comment: Good control. Cont. metformin and linagliptin (4) Staphylococcus aureus bacteremia with sepsis Status: Acute Comment: On ceftriaxone. Planning R BKA in 2 days (5) Sepsis Status: Acute Comment: On ceftriaxone. Planning R BKA in 2 days. Qualifiers: Sepsis type: sepsis due to unspecified organism Qualified Codes: A41.9 - Sepsis, unspecified organism (6) Charcot's joint, right ankle and foot Status: Chronic Comment: R BKA in 2 days (7) Right ankle effusion Status: Acute Comment: R BKA in 2 days (8) Abscess of bursa, right ankle and foot Status: Acute Comment: On ceftriaxone; R BKA in 2 days Result Diagram: 08/03/18 0607 08/03/18 0607 Results 24hrs Laboratory Tests Test 08/06/18 17:07 08/06/18 20:47 08/07/18 08:21 08/07/18 11:52 Bedside Glucose 180 129 124 110 Subjective 24 Hr Interval Summary Constitutional: no complaints, improved Respiratory: no complaints Cardiovascular: no complaints Gastrointestinal: no complaints Genitourinary: no complaints Musculoskeletal: no complaints (planning amputation RLE in 2 days) Neurologic: no complaints Exam/Review of Systems Exam Vitals VS - Last 72 Hours, by Label Date Temp Pulse Resp B/P (MAP) Pulse Ox O2 O2 Flow FiO2 Time Delivery Rate 08/07/18 98.1 61 18 125/72 98 08:13 (89) 08/07/18 97.8 65 18 110/66 97 Room Air 02:00 (81) 08/06/18 97.9 71 18 138/85 100 20:19 (102) 08/06/18 98.2 75 19 132/80 97 Room Air 14:00 (97) 08/06/18 98.1 60 18 132/72 97 Room Air 08:00 (92) 08/06/18 98.0 71 18 123/70 99 02:16 (87) 08/05/18 98.2 67 18 126/80 99 20:23 (95) 08/05/18 98.2 71 16 145/79 97 15:21 (101) 08/05/18 98.2 84 18 129/82 99 08:31 (98) 08/05/18 97.9 67 18 135/80 98 02:00 (98) 08/04/18 98.3 70 18 143/78 98 20:00 (99) 08/04/18 97.2 80 16 137/83 98 14:18 (101) Vital Signs Date Temp Pulse Resp B/P (MAP) Pulse Ox O2 O2 Flow FiO2 Time Delivery Rate 08/07/18 98.1 61 18 125/72 98 08:13 (89) 08/07/18 Room Air 02:00 Intake and Output 08/06/18 08/06/18 08/07/18 1515:00 23:00 07:00 IntakeIntake Total 600 ml 850 ml OutputOutput Total 300 ml 1100 ml BalanceBalance 300 ml -250 ml Constitutional: alert, oriented, obese Respiratory: clear to auscultation, normal air movement Cardiovascular: regular rate and rhythm; No edema, No murmurs/extra sounds, No rub Gastrointestinal: soft, nl liver, spleen, non-tender, bowel sounds; No mass, No rebound or guarding Musculoskeletal: No nl extremities to inspection (RLE wrapped w/ Charcot foot visible) Extremities: No cyanosis, No clubbing, No edema Neurological: NURSING COORDINATOR II-XII intact, nl mental status, nl speech, nl strength Additional Comments Bedside Glucose - 72 Hours Test 08/04/18 16:59 08/04/18 21:06 08/05/18 08:05 08/05/18 12:18 Bedside 118 152 147 115 Glucose mg/dL (70-220) mg/dL (70-220) mg/dL (70-220) mg/dL (70-220) Test 08/05/18 17:20 08/05/18 20:40 08/06/18 07:56 08/06/18 12:10 Bedside 97 136 152 146 Glucose mg/dL (70-220) mg/dL (70-220) mg/dL (70-220) mg/dL (70-220) Test 08/06/18 17:07 08/06/18 20:47 08/07/18 08:21 08/07/18 11:52 Bedside 180 129 124 110 Glucose mg/dL (70-220) mg/dL (70-220) mg/dL (70-220) mg/dL (70-220) Results Results 24hrs Laboratory Tests Test 08/06/18 17:07 08/06/18 20:47 08/07/18 08:21 08/07/18 11:52 Bedside Glucose 180 129 124 110 Medications Medication Current Medications IV Flush (NS 3 ml) 3 ml PER PROTOCOL IV ; Start 07/29/18 at 20:00 Ondansetron HCl (Zofran Tab) 4 mg Q6H PRN PO NAUSEA/VOMITING Last administered on 07/30/18at 05:57; Admin Dose 4 MG; Start 07/29/18 at 20:00 Acetaminophen (Tylenol Tab) 650 mg Q6H PRN PO .PAIN 1-3 OR TEMP Last administered on 07/30/18at 20:24; Admin Dose 650 MG; Start 07/29/18 at 20:00 Acetaminophen/ Hydrocodone Bitart ([place] (5/325)) 1 tab Q6H PRN PO .MOD PAIN 4- 6; Start 07/29/18 at 20:00 Docusate Sodium (Colace) 100 mg Q12H PRN PO .CONSTIPATION; Start 07/29/18 at 20:00 Sodium Biphosphate/ Sodium Phosphate (Fleet Enema) 133 ml DAILY PRN [place] .CONSTIPATION; Start 07/29/18 at 20:00 Zolpidem Tartrate (Ambien) 5 mg QHS PRN PO .INSOMNIA; Start 07/29/18 at 20:00 Famotidine (Pepcid) 20 mg Q12 PO Last administered on 08/07/18at 08:23; Admin Dose 20 MG; Start 07/29/18 at 21:00 Heparin Sodium (Porcine) (Heparin (5000 Units/1ml)) 5,000 unit Q12 SC Last a dministered on 08/07/18at 08:24; Admin Dose 5,000 UNIT; Start 07/29/18 at 21:00 Atorvastatin Calcium (Lipitor) 40 mg QHS PO Last administered on 08/06/18 20:51; Admin Dose 40 MG; Start 07/29/18 at 21:00 Metformin HCl (Glucophage) 850 mg WITH BREAKFAST DINNE PO Last administered on 08/07/18 08:23; Admin Dose 850 MG; Start 07/30/18 at 08:00 Linagliptin (Tradjenta) 5 mg DAILY PO Last administered on 08/07/18 08:22; Admin Dose 5 MG; Start 07/30/18 at 09:00 Diagnostic Test (Pha) (Accu-Chek) 1 ea AC MEALS AND BEDTIME XX Last administered on 08/01/18 20:51; Admin Dose 1 EA; Start 07/29/18 at 21:00 Diagnostic Test (Pha) (Accu-Chek) 1 ea AC MEALS XX ; Start 07/30/18 at 07:00 Diagnostic Test (Pha) (Accu-Chek) 1 ea 02 XX ; Start 07/30/18 at 02:00 Insulin Aspart (Novolog Insulin Pen) NOVOLOG *MODERATE* ALGORITHM WITH MEALS BEDTIME SC Last administered on 08/06/18 17:09; Admin Dose 2 UNIT; Start 07/29/18 at 21:00 Miscellaneous Information 1 ea NOTE XX ; Start 07/29/18 at 20:30 Glucose (Glutose) 15 gm Q15M PRN PO DECREASED GLUCOSE; Start 07/29/18 at 20:30 Glucose (Glutose) 22.5 gm Q15M PRN PO DECREASED GLUCOSE; Start 07/29/18 at 20:30 Dextrose (D50w Syringe) 25 ml Q15M PRN IV DECREASED GLUCOSE; Start 07/29/18 at 20:30 Dextrose (D50w Syringe) 50 ml Q15M PRN IV DECREASED GLUCOSE; Start 07/29/18 at 20:30 Glucagon (Glucagen) 1 mg Q15M PRN IM DECREASED GLUCOSE; Start 07/29/18 at 20:30 Glucose (Glutose) 15 gm Q15M PRN BUCCAL DECREASED GLUCOSE; Start 07/29/18 at 20:30 Ergocalciferol (Drisdol Liquid (Ped)) 2,000 units AM PO Last administered on 6/22/19at 08:27; Admin Dose 2,000 UNITS; Start 07/30/18 at 09:00 Lisinopril (Zestril) 40 mg BID PO Last administered on 08/07/18at 08:22; Admin Dose 40 MG; Start 08/02/18 at 21:00 Ceftriaxone Sodium 50 ml @ 100 mls/hr Q24H IVPB Last administered on 08/06/18at 15:50; Admin Dose 100 MLS/HR; Start 08/02/18 at 16:00 CONOR MUELLER MD Aug 07, 2018 12:20
--- NOTE | 2018-08-07 13:31 | CONS ---
Assessment/Plan Assessment/Plan Hospital Course (Demo Recall) ID PROGRESS NOTE CURRENT ABX: DAY # =>Ceftriaxone 24H INTERVAL SUMMARY * A/A/O -- multiple family members visiting, VSS, NAD, no fevers -- pleasant and polite, denies new sxs, no complaints * Blood culture and wound cx growing MSSA. Repeat bld cx 08/02 neg DIAGNOSTIC IMAGING * 08/05/18 CXR: PHYSICAL EXAMINATION: GENERAL: VSS, NAD HEENT: AT, NC, NECK: Supple, CHEST: Rise symmetrical HEART: Pulse RRR ABDOMEN: Benign EXTREMITIES: Warm, dry Right lower extremity Leo wrapped SKIN: No rash, no diaphoresis ID ASSESSMENT 43 yo M admit with: 1. Recurrent oxacillin sensitive staph aureus bacteremia secondary to #2 * 2D ECHO neg vegetations 2. Right ankle abscess status post I&D at bedside 3. R foot OM, poss infected hardware 4. Right Charcot ankle status post right ankle fusion 5. Diabetes w/complications of peripheral neuropathy 6. Obesity ABX ALLERGIES: KNDA INVASIVES: PIV CURRENT ABX: DAY # Ceftriaxone ID RECOMMENDATIONS/PLAN: 1. Continue Ceftriaxone 2. Per notes: plan for R BKA next week, pt will need to complete 2 weeks of abx for bacteremia . Consultation Date/Type/Reason Admit Date/Time Jul 29, 2018 at 19:47 Initial Consult Date 07/29/18 Date/Time of Note DATE: 08/07/18 TIME: 13:31 Exam/Review of Systems Exam Vitals Vital Signs Date Temp Pulse Resp B/P (MAP) Pulse Ox O2 O2 Flow FiO2 Time Delivery Rate 08/07/18 98.1 61 18 125/72 98 08:13 (89) 08/07/18 Room Air 02:00 Intake and Output 08/06/18 08/06/18 08/07/18 1515:00 23:00 07:00 IntakeIntake Total 600 ml 850 ml OutputOutput Total 300 ml 1100 ml BalanceBalance 300 ml -250 ml Results Result Diagram: 08/03/18 0607 08/03/18 0607 Results 24hrs Laboratory Tests Test 08/06/18 17:07 08/06/18 20:47 08/07/18 08:21 08/07/18 11:52 Bedside Glucose 180 129 124 110 Medications Medication Current Medications IV Flush (NS 3 ml) 3 ml PER PROTOCOL IV ; Start 07/29/18 at 20:00 Ondansetron HCl (Zofran Tab) 4 mg Q6H PRN PO NAUSEA/VOMITING Last administered on 07/30/18 05:57; Admin Dose 4 MG; Start 07/29/18 at 20:00 Acetaminophen (Tylenol Tab) 650 mg Q6H PRN PO .PAIN 1-3 OR TEMP Last administered on 07/30/18 20:24; Admin Dose 650 MG; Start 07/29/18 at 20:00 Acetaminophen/ Hydrocodone Bitart ([place] (5/325)) 1 tab Q6H PRN PO .MOD PAIN 4- 6; Start 07/29/18 at 20:00 Docusate Sodium (Colace) 100 mg Q12H PRN PO .CONSTIPATION; Start 07/29/18 at 20:00 Sodium Biphosphate/ Sodium Phosphate (Fleet Enema) 133 ml DAILY PRN [place] .CONSTIPATION; Start 07/29/18 at 20:00 Zolpidem Tartrate (Ambien) 5 mg QHS PRN PO .INSOMNIA; Start 07/29/18 at 20:00 Famotidine (Pepcid) 20 mg Q12 PO Last administered on 08/07/18 08:23; Admin Dose 20 MG; Start 07/29/18 at 21:00 Heparin Sodium (Porcine) (Heparin (5000 Units/1ml)) 5,000 unit Q12 SC Last administered on 08/07/18 08:24; Admin Dose 5,000 UNIT; Start 07/29/18 at 21:00 Atorvastatin Calcium (Lipitor) 40 mg QHS PO Last administered on 08/06/18 20:51; Admin Dose 40 MG; Start 07/29/18 at 21:00 Metformin HCl (Glucophage) 850 mg WITH BREAKFAST DINNE PO Last administered on 08/07/18 08:23; Admin Dose 850 MG; Start 07/30/18 at 08:00 Linagliptin (Tradjenta) 5 mg DAILY PO Last administered on 08/07/18 08:22; Admin Dose 5 MG; Start 07/30/18 at 09:00 Diagnostic Test (Pha) (Accu-Chek) 1 ea AC MEALS AND BEDTIME XX Last administered on 08/01/18 20:51; Admin Dose 1 EA; Start 07/29/18 at 21:00 Diagnostic Test (Pha) (Accu-Chek) 1 ea AC MEALS XX ; Start 07/30/18 at 07:00 Diagnostic Test (Pha) (Accu-Chek) 1 ea 02 XX ; Start 07/30/18 at 02:00 Insulin Aspart (Novolog Insulin Pen) NOVOLOG *MODERATE* ALGORITHM WITH MEALS BEDTIME SC Last administered on 08/06/18 17:09; Admin Dose 2 UNIT; Start 07/29/18 at 21:00 Miscellaneous Information 1 ea NOTE XX ; Start 07/29/18 at 20:30 Glucose (Glutose) 15 gm Q15M PRN PO DECREASED GLUCOSE; Start 07/29/18 at 20:30 Glucose (Glutose) 22.5 gm Q15M PRN PO DECREASED GLUCOSE; Start 07/29/18 at 20:30 Dextrose (D50w Syringe) 25 ml Q15M PRN IV DECREASED GLUCOSE; Start 07/29/18 at 20:30 Dextrose (D50w Syringe) 50 ml Q15M PRN IV DECREASED GLUCOSE; Start 07/29/18 at 20:30 Glucagon (Glucagen) 1 mg Q15M PRN IM DECREASED GLUCOSE; Start 07/29/18 at 20:30 Glucose (Glutose) 15 gm Q15M PRN BUCCAL DECREASED GLUCOSE; Start 07/29/18 at 20:30 Ergocalciferol (Drisdol Liquid (Ped)) 2,000 units AM PO Last administered on 08/07/18at 08:27; Admin Dose 2,000 UNITS; Start 07/30/18 at 09:00 Lisinopril (Zestril) 40 mg BID PO Last administered on 08/07/18at 08:22; Admin Dose 40 MG; Start 08/02/18 at 21:00 Ceftriaxone Sodium 50 ml @ 100 mls/hr Q24H IVPB Last administered on 08/06/18at 15:50; Admin Dose 100 MLS/HR; Start 08/02/18 at 16:00 BRAYAN CROCKER NP Aug 07, 2018 13:31
[2018-08-07 15:24] VITALS: BP 121/77; PULSE 78; RESP 18
[2018-08-07] MEDS: CEFTRIAXONE 1 GM/50 ML (PMX) 50 ML IVPB SCH (16:18)
[2018-08-07 20:00] VITALS: BP 145/78; PULSE 66; RESP 19
[2018-08-07] MEDS: ATORVASTATIN 40 MG TAB PO SCH (20:19)
[2018-08-08 02:00] VITALS: BP 110/65; PULSE 61; RESP 19
[2018-08-08] MEDS: ACCU-CHEK XX SCH ×8 (02:00→20:45)
[2018-08-08] MEDS: INSULIN ASPART [NOVOLOG] 3 ML PEN SC SCH ×4 (08:00→21:00)
[2018-08-08 08:06] VITALS: BP 120/73; PULSE 61; RESP 17
[2018-08-08] MEDS: metFORMIN 850 MG TAB PO SCH ×2 (08:59→17:04)
[2018-08-08] MEDS: HEPARIN 5,000 UNIT/1 ML VIAL SC SCH ×2 (09:00→20:41)
[2018-08-08] MEDS: FAMOTIDINE 20 MG TAB PO SCH ×2 (09:00→20:30)
[2018-08-08] MEDS: LINAGLIPTIN 5 MG TABLET PO SCH (09:01)
[2018-08-08] MEDS: LISINOPRIL 20 MG TAB PO SCH ×2 (09:02→20:30)
[2018-08-08] MEDS: ERGOCALCIFEROL (8000 UNITS/ML PO SYG) PO SCH (09:06)
--- NOTE | 2018-08-08 10:38 | PN ---
Date/Time of Note Date/Time of Note DATE: 08/08/18 TIME: 10:35 Assessment/Plan VTE [place]axis [place] [facility] [place]: 3 [place] [facility] [place] Yes Pharmacological prophylaxis: heparin Lines/Catheters IV Catheter Type (from [facility]): Saline Lock Urinary Cath still in place: No Assessment/Plan Problems: (1) Osteomyelitis of ankle, right, acute Status: Chronic Comment: Cont. ceftriaxone. BKA tomorrow. (2) Staphylococcus aureus bacteremia with sepsis Status: Acute Comment: Cont. ceftriaxone (3) Sepsis Status: Acute Comment: Cont. ceftriaxone Qualifiers: Sepsis type: sepsis due to unspecified organism Qualified Codes: A41.9 - Sepsis, unspecified organism (4) Charcot's joint, right ankle and foot Status: Chronic Comment: BKA tomorrow (5) Right ankle effusion Status: Acute Comment: Cont. ceftriaxone; BKA tomorrow (6) Abscess of bursa, right ankle and foot Status: Acute Comment: Cont. ceftriaxone; BKA tomorrow. (7) Essential hypertension Status: Chronic Comment: Good BP control. Cont. current regimen (8) Hyperlipidemia Status: Chronic Comment: Cont. statin Qualifiers: Hyperlipidemia type: pure hypercholesterolemia Qualified Codes: E78.00 - Pure hypercholesterolemia, unspecified (9) Diabetes mellitus type 2 in obese Status: Chronic Comment: Excellent glycemic control; cont. current metformin and linagliptin regimen Result Diagram: 08/08/1844408/08/18444 Results 24hrs Laboratory Tests Test 08/07/18 11:52 08/07/18 17:18 08/07/18 20:16 08/08/18 04:45 Bedside Glucose 110 115 144 White Blood Count 8.0 Red Blood Count 4.66 L Hemoglobin 12.7 L Hematocrit 39.1 L Mean Corpuscular 83.9 Volume Mean Corpuscular 27.3 L Hemoglobin Mean Corpuscular 32.5 Hemoglobin Concent Red Cell 14.2 Distribution Width Platelet Count 444 H Mean Platelet Volume 9.6 Immature 1.000 H Granulocytes % Neutrophils % 60.7 Lymphocytes % 29.8 Monocytes % 5.7 Eosinophils % 2.2 Basophils % 0.6 Nucleated Red Blood 0.0 Cells % Immature 0.080 H Granulocytes # Neutrophils # 4.9 Lymphocytes # 2.4 Monocytes # 0.5 Eosinophils # 0.2 Basophils # 0.1 Nucleated Red Blood 0.0 Cells # Erythrocyte 86 H Sedimentation Rate Prothrombin Time 12.9 Prothrombin Time 1.0 Ratio INR International 0.96 Normalized Ratio Activated 32.6 Partial Thromboplast Time Sodium Level 139 Potassium Level 4.5 Chloride Level 105 Carbon Dioxide Level 26 Anion Gap 8 Blood Urea Nitrogen 22 H Creatinine 0.92 Est Glomerular > 60 Filtrat Rate mL/min Glucose Level 117 Calcium Level 9.1 Total Bilirubin 0.3 Direct Bilirubin 0.00 Indirect Bilirubin 0.3 Aspartate Amino 37 Transf (AST/SGOT) Alanine 81 H Aminotransferase (AL T/SGPT) Alkaline Phosphatase 124 H Total Protein 7.8 Albumin 3.5 Globulin 4.30 H Albumin/Globulin 0.81 Ratio Test 08/08/18 08:47 Bedside Glucose 128 Subjective 24 Hr Interval Summary Constitutional: no complaints, improved (feels stronger) Respiratory: no complaints Cardiovascular: no complaints Gastrointestinal: no complaints Genitourinary: no complaints Musculoskeletal: no complaints Neurologic: no complaints Exam/Review of Systems Exam Vitals VS - Last 72 Hours, by Label Date Temp Pulse Resp B/P (MAP) Pulse Ox O2 O2 Flow FiO2 Time Delivery Rate 08/08/18 98.1 61 17 120/73 98 Room Air 08:06 (89) 08/08/18 98.4 61 19 110/65 99 02:00 (80) 08/07/18 98.2 66 19 145/78 96 20:00 (100) 08/07/18 98.3 78 18 121/77 95 15:24 (92) 08/07/18 98.1 61 18 125/72 98 08:13 (89) 08/07/18 97.8 65 18 110/66 97 Room Air 02:00 (81) 08/06/18 97.9 71 18 138/85 100 20:19 (102) 08/06/18 98.2 75 19 132/80 97 Room Air 14:00 (97) 08/06/18 98.1 60 18 132/72 97 Room Air 08:00 (92) 08/06/18 98.0 71 18 123/70 99 02:16 (87) 08/05/18 98.2 67 18 126/80 99 20:23 (95) 08/05/18 98.2 71 16 145/79 97 15:21 (101) Vital Signs Date Temp Pulse Resp B/P (MAP) Pulse Ox O2 O2 Flow FiO2 Time Delivery Rate 08/08/18 98.1 61 17 120/73 98 Room Air 08:06 (89) Intake and Output 08/07/18 08/07/18 08/08/18 1515:00 23:00 07:00 IntakeIntake Total 480 ml 290 ml 200 ml OutputOutput Total 600 ml 870 ml 500 ml BalanceBalance -120 ml -580 ml -300 ml Constitutional: alert, oriented, obese Psych: no complaints, nl mood/affect Respiratory: clear to auscultation, normal air movement Cardiovascular: regular rate and rhythm, nl pulses; No edema, No murmurs/extra sounds, No rub Gastrointestinal: soft, nl liver, spleen, non-tender, bowel sounds; No mass, No rebound or guarding Musculoskeletal: No nl extremities to inspection (RLE wrapped) Extremities: No cyanosis, No clubbing, No edema Neurological: VICE PRESIDENT OF BUSINESS 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 II-XII intact, nl mental status, nl speech, nl strength Additional Comments Bedside Glucose - 72 Hours Test 08/05/18 12:18 08/05/18 17:20 08/05/18 20:40 08/06/18 07:56 Bedside 115 97 136 152 Glucose mg/dL (70-220) mg/dL (70-220) mg/dL (70-220) mg/dL (70-220) Test 08/06/18 12:10 08/06/18 17:07 08/06/18 20:47 08/07/18 08:21 Bedside 146 180 129 124 Glucose mg/dL (70-220) mg/dL (70-220) mg/dL (70-220) mg/dL (70-220) Test 08/07/18 11:52 08/07/18 17:18 08/07/18 20:16 08/08/18 08:47 Bedside 110 115 144 128 Glucose mg/dL (70-220) mg/dL (70-220) mg/dL (70-220) mg/dL (70-220) Results Results 24hrs Laboratory Tests Test 08/07/18 11:52 08/07/18 17:18 08/07/18 20:16 08/08/18 04:45 Bedside Glucose 110 115 144 White Blood Count 8.0 Red Blood Count 4.66 L Hemoglobin 12.7 L Hematocrit 39.1 L Mean Corpuscular 83.9 Volume Mean Corpuscular 27.3 L Hemoglobin Mean Corpuscular 32.5 Hemoglobin Concent Red Cell 14.2 Distribution Width Platelet Count 444 H Mean Platelet Volume 9.6 Immature 1.000 H Granulocytes % Neutrophils % 60.7 Lymphocytes % 29.8 Monocytes % 5.7 Eosinophils % 2.2 Basophils % 0.6 Nucleated Red Blood 0.0 Cells % Immature 0.080 H Granulocytes # Neutrophils # 4.9 Lymphocytes # 2.4 Monocytes # 0.5 Eosinophils # 0.2 Basophils # 0.1 Nucleated Red Blood 0.0 Cells # Erythrocyte 86 H Sedimentation Rate Prothrombin Time 12.9 Prothrombin Time 1.0 Ratio INR International 0.96 Normalized Ratio Activated 32.6 Partial Thromboplast Time Sodium Level 139 Potassium Level 4.5 Chloride Level 105 Carbon Dioxide Level 26 Anion Gap 8 Blood Urea Nitrogen 22 H Creatinine 0.92 Est Glomerular > 60 Filtrat Rate mL/min Glucose Level 117 Calcium Level 9.1 Total Bilirubin 0.3 Direct Bilirubin 0.00 Indirect Bilirubin 0.3 Aspartate Amino 37 Transf (AST/SGOT) Alanine 81 H Aminotransferase (AL T/SGPT) Alkaline Phosphatase 124 H Total Protein 7.8 Albumin 3.5 Globulin 4.30 H Albumin/Globulin 0.81 Ratio Test 08/08/18 08:47 Bedside Glucose 128 Medications Medication Current Medications IV Flush (NS 3 ml) 3 ml PER PROTOCOL IV ; Start 07/29/18 at 20:00 Ondansetron HCl (Zofran Tab) 4 mg Q6H PRN PO NAUSEA/VOMITING Last administered on 07/30/18at 05:57; Admin Dose 4 MG; Start 07/29/18 at 20:00 Acetaminophen (Tylenol Tab) 650 mg Q6H PRN PO .PAIN 1-3 OR TEMP Last administered on 07/30/18at 20:24; Admin Dose 650 MG; Start 07/29/18 at 20:00 Acetaminophen/ Hydrocodone Bitart ([place] (5/325)) 1 tab Q6H PRN PO .MOD PAIN 4- 6; Start 07/29/18 at 20:00 Docusate Sodium (Colace) 100 mg Q12H PRN PO .CONSTIPATION; Start 07/29/18 at 20:00 Sodium Biphosphate/ Sodium Phosphate (Fleet Enema) 133 ml DAILY PRN [place] .CONSTIPATION; Start 07/29/18 at 20:00 Zolpidem Tartrate (Ambien) 5 mg QHS PRN PO .INSOMNIA; Start 07/29/18 at 20:00 Famotidine (Pepcid) 20 mg Q12 PO Last administered on 08/08/18 09:00; Admin Dose 20 MG; Start 07/29/18 at 21:00 Heparin Sodium (Porcine) (Heparin (5000 Units/1ml)) 5,000 unit Q12 SC Last administered on 08/08/18 09:00; Admin Dose 5,000 UNIT; Start 07/29/18 at 21:00 Atorvastatin Calcium (Lipitor) 40 mg QHS PO Last administered on 08/07/18 20:19; Admin Dose 40 MG; Start 07/29/18 at 21:00 Metformin HCl (Glucophage) 850 mg WITH BREAKFAST DINNE PO Last administered on 08/08/18 08:59; Admin Dose 850 MG; Start 07/30/18 at 08:00 Linagliptin (Tradjenta) 5 mg DAILY PO Last administered on 08/08/18 09:01; Admin Dose 5 MG; Start 07/30/18 at 09:00 Diagnostic Test (Pha) (Accu-Chek) 1 ea AC MEALS AND BEDTIME XX Last administered on 08/01/18at 20:51; Admin Dose 1 EA; Start 07/29/18 at 21:00 Diagnostic Test (Pha) (Accu-Chek) 1 ea AC MEALS XX ; Start 07/30/18 at 07:00 Diagnostic Test (Pha) (Accu-Chek) 1 ea 02 XX ; Start 07/30/18 at 02:00 Insulin Aspart (Novolog Insulin Pen) NOVOLOG *MODERATE* ALGORITHM WITH MEALS BEDTIME SC Last administered on 08/06/18 17:09; Admin Dose 2 UNIT; Start 07/29/18 at 21:00 Miscellaneous Information 1 ea NOTE XX ; Start 07/29/18 at 20:30 Glucose (Glutose) 15 gm Q15M PRN PO DECREASED GLUCOSE; Start 07/29/18 at 20:30 Glucose (Glutose) 22.5 gm Q15M PRN PO DECREASED GLUCOSE; Start 07/29/18 at 20:30 Dextrose (D50w Syringe) 25 ml Q15M PRN IV DECREASED GLUCOSE; Start 07/29/18 at 20:30 Dextrose (D50w Syringe) 50 ml Q15M PRN IV DECREASED GLUCOSE; Start 07/29/18 at 20:30 Glucagon (Glucagen) 1 mg Q15M PRN IM DECREASED GLUCOSE; Start 07/29/18 at 20:30 Glucose (Glutose) 15 gm Q15M PRN BUCCAL DECREASED GLUCOSE; Start 07/29/18 at 20:30 Ergocalciferol (Drisdol Liquid (Ped)) 2,000 units AM PO Last administered on 08/08/18at 09:06; Admin Dose 2,000 UNITS; Start 07/30/18 at 09:00 Lisinopril (Zestril) 40 mg BID PO Last administered on 08/08/18at 09:02; Admin Dose 40 MG; Start 08/02/18 at 21:00 Ceftriaxone Sodium 50 ml @ 100 mls/hr Q24H IVPB Last administered on 08/07/18at 16:18; Admin Dose 100 MLS/HR; Start 08/02/18 at 16:00 CONOR MUELLER MD Aug 08, 2018 10:38
[2018-08-08 14:12] VITALS: BP 128/84; PULSE 70; RESP 17
--- NOTE | 2018-08-08 15:07 | CONS ---
Assessment/Plan Assessment/Plan Hospital Course (Demo Recall) ID PROGRESS NOTE CURRENT ABX: DAY # =>Ceftriaxone 24H INTERVAL SUMMARY * CLINICALLY STATUS QUO -- NO COMPLAINTS * A/A/O -- multiple family members visiting, VSS, NAD, no fevers -- pleasant and polite, denies new sxs * Blood culture and wound cx growing MSSA. Repeat bld cx 08/02 neg DIAGNOSTIC IMAGING * 08/05/18 CXR: PHYSICAL EXAMINATION: GENERAL: VSS, NAD HEENT: AT, NC, NECK: Supple, CHEST: Rise symmetrical HEART: Pulse RRR ABDOMEN: Benign EXTREMITIES: Warm, dry Right lower extremity Leo wrapped SKIN: No rash, no diaphoresis ID ASSESSMENT 43 yo M admit with: 1. Recurrent oxacillin sensitive staph aureus bacteremia secondary to #2 * 2D ECHO neg vegetations 2. Right ankle abscess status post I&D at bedside 3. R foot OM, poss infected hardware 4. Right Charcot ankle status post right ankle fusion 5. Diabetes w/complications of peripheral neuropathy 6. Obesity ABX ALLERGIES: KNDA INVASIVES: PIV CURRENT ABX: DAY # Ceftriaxone ID RECOMMENDATIONS/PLAN: 1. Continue Ceftriaxone 2. Per notes: plan for R BKA next week, pt will need to complete 2 weeks of abx for bacteremia . Consultation Date/Type/Reason Admit Date/Time Jul 29, 2018 at 19:47 Initial Consult Date 07/29/18 Date/Time of Note DATE: 08/08/18 TIME: 15:07 Exam/Review of Systems Exam Vitals Vital Signs Date Temp Pulse Resp B/P (MAP) Pulse Ox O2 O2 Flow FiO2 Time Delivery Rate 08/08/18 98.1 61 17 120/73 98 Room Air 08:06 (89) Intake and Output 08/07/18 08/07/18 08/08/18 1515:00 23:00 07:00 IntakeIntake Total 480 ml 290 ml 200 ml OutputOutput Total 600 ml 870 ml 500 ml BalanceBalance -120 ml -580 ml -300 ml Results Result Diagram: 08/08/18 0445 08/08/18 0445 Results 24hrs Laboratory Tests Test 08/07/18 17:18 08/07/18 20:16 08/08/18 04:45 08/08/18 08:47 Bedside Glucose 115 144 128 White Blood Count 8.0 Red Blood Count 4.66 L Hemoglobin 12.7 L Hematocrit 39.1 L Mean Corpuscular 83.9 Volume Mean Corpuscular 27.3 L Hemoglobin Mean Corpuscular 32.5 Hemoglobin Concent Red Cell 14.2 Distribution Width Platelet Count 444 H Mean Platelet Volume 9.6 Immature 1.000 H Granulocytes % Neutrophils % 60.7 Lymphocytes % 29.8 Monocytes % 5.7 Eosinophils % 2.2 Basophils % 0.6 Nucleated Red Blood 0.0 Cells % Immature 0.080 H Granulocytes # Neutrophils # 4.9 Lymphocytes # 2.4 Monocytes # 0.5 Eosinophils # 0.2 Basophils # 0.1 Nucleated Red Blood 0.0 Cells # Erythrocyte 86 H Sedimentation Rate Prothrombin Time 12.9 Prothrombin Time 1.0 Ratio INR International 0.96 Normalized Ratio Activated 32.6 Partial Thromboplast Time Sodium Level 139 Potassium Level 4.5 Chloride Level 105 Carbon Dioxide Level 26 Anion Gap 8 Blood Urea Nitrogen 22 H Creatinine 0.92 Est Glomerular > 60 Filtrat Rate mL/min Glucose Level 117 Calcium Level 9.1 Total Bilirubin 0.3 Direct Bilirubin 0.00 Indirect Bilirubin 0.3 Aspartate Amino 37 Transf (AST/SGOT) Alanine 81 H Aminotransferase (AL T/SGPT) Alkaline Phosphatase 124 H Total Protein 7.8 Albumin 3.5 Globulin 4.30 H Albumin/Globulin 0.81 Ratio Medications Medication Current Medications IV Flush (NS 3 ml) 3 ml PER PROTOCOL IV ; Start 07/29/18 at 20:00 Ondansetron HCl (Zofran Tab) 4 mg Q6H PRN PO NAUSEA/VOMITING Last administered on 07/30/18at 05:57; Admin Dose 4 MG; Start 07/29/18 at 20:00 Acetaminophen (Tylenol Tab) 650 mg Q6H PRN PO .PAIN 1-3 OR TEMP Last administered on 07/30/18at 20:24; Admin Dose 650 MG; Start 07/29/18 at 20:00 Acetaminophen/ Hydrocodone Bitart ([place] (5/325)) 1 tab Q6H PRN PO .MOD PAIN 4- 6; Start 07/29/18 at 20:00 Docusate Sodium (Colace) 100 mg Q12H PRN PO .CONSTIPATION; Start 07/29/18 at 20:00 Sodium Biphosphate/ Sodium Phosphate (Fleet Enema) 133 ml DAILY PRN [place] .CONSTIPATION; Start 07/29/18 at 20:00 Zolpidem Tartrate (Ambien) 5 mg QHS PRN PO .INSOMNIA; Start 07/29/18 at 20:00 Famotidine (Pepcid) 20 mg Q12 PO Last administered on 08/08/18 09:00; Admin Dose 20 MG; Start 07/29/18 at 21:00 Heparin Sodium (Porcine) (Heparin (5000 Units/1ml)) 5,000 unit Q12 SC Last administered on 08/08/18 09:00; Admin Dose 5,000 UNIT; Start 07/29/18 at 21:00 Atorvastatin Calcium (Lipitor) 40 mg QHS PO Last administered on 08/07/18 20:19; Admin Dose 40 MG; Start 07/29/18 at 21:00 Metformin HCl (Glucophage) 850 mg WITH BREAKFAST DINNE PO Last administered on 08/08/18 08:59; Admin Dose 850 MG; Start 07/30/18 at 08:00 Linagliptin (Tradjenta) 5 mg DAILY PO Last administered on 08/08/18 09:01; Admin Dose 5 MG; Start 07/30/18 at 09:00 Diagnostic Test (Pha) (Accu-Chek) 1 ea AC MEALS AND BEDTIME XX Last administered on 08/01/18at 20:51; Admin Dose 1 EA; Start 07/29/18 at 21:00 Diagnostic Test (Pha) (Accu-Chek) 1 ea AC MEALS XX ; Start 07/30/18 at 07:00 Diagnostic Test (Pha) (Accu-Chek) 1 ea 02 XX ; Start 07/30/18 at 02:00 Insulin Aspart (Novolog Insulin Pen) NOVOLOG *MODERATE* ALGORITHM WITH MEALS BEDTIME SC Last administered on 08/06/18 17:09; Admin Dose 2 UNIT; Start 07/29/18 at 21:00 Miscellaneous Information 1 ea NOTE XX ; Start 07/29/18 at 20:30 Glucose (Glutose) 15 gm Q15M PRN PO DECREASED GLUCOSE; Start 07/29/18 at 20:30 Glucose (Glutose) 22.5 gm Q15M PRN PO DECREASED GLUCOSE; Start 07/29/18 at 2 0:30 Dextrose (D50w Syringe) 25 ml Q15M PRN IV DECREASED GLUCOSE; Start 07/29/18 at 20:30 Dextrose (D50w Syringe) 50 ml Q15M PRN IV DECREASED GLUCOSE; Start 07/29/18 at 20:30 Glucagon (Glucagen) 1 mg Q15M PRN IM DECREASED GLUCOSE; Start 07/29/18 at 20:30 Glucose (Glutose) 15 gm Q15M PRN BUCCAL DECREASED GLUCOSE; Start 07/29/18 at 20:30 Ergocalciferol (Drisdol Liquid (Ped)) 2,000 units AM PO Last administered on 08/08/18 09:06; Admin Dose 2,000 UNITS; Start 07/30/18 at 09:00 Lisinopril (Zestril) 40 mg BID PO Last administered on 08/08/18 09:02; Admin Dose 40 MG; Start 08/02/18 at 21:00 Ceftriaxone Sodium 50 ml @ 100 mls/hr Q24H IVPB Last administered on 08/07/18 16:18; Admin Dose 100 MLS/HR; Start 08/02/18 at 16:00 BRAYAN CROCKER NP Aug 08, 2018 15:07
[2018-08-08] MEDS: CEFTRIAXONE 1 GM/50 ML (PMX) 50 ML IVPB SCH (16:52)
[2018-08-08 20:01] VITALS: BP 124/71; PULSE 65; RESP 18
[2018-08-08] MEDS: ATORVASTATIN 40 MG TAB PO SCH (20:30)
[2018-08-09] VITALS (12 sets, daily range): BP systolic 116–160; BP diastolic 68–83; PULSE 61–95; RESP 14–22
[2018-08-09] MEDS: INSULIN ASPART [NOVOLOG] 3 ML PEN SC SCH ×5 (01:00→21:00)
[2018-08-09] MEDS: ACCU-CHEK XX SCH ×8 (02:00→21:00)
[2018-08-09] MEDS: metFORMIN 850 MG TAB PO SCH ×2 (07:45→17:08)
[2018-08-09] MEDS: LINAGLIPTIN 5 MG TABLET PO SCH (08:23)
[2018-08-09] MEDS: HEPARIN 5,000 UNIT/1 ML VIAL SC SCH ×2 (08:23→21:11)
[2018-08-09] MEDS: LISINOPRIL 20 MG TAB PO SCH ×2 (08:23→21:06)
[2018-08-09] MEDS: FAMOTIDINE 20 MG TAB PO SCH ×2 (08:23→21:05)
[2018-08-09] MEDS: ERGOCALCIFEROL (8000 UNITS/ML PO SYG) PO SCH (08:23)
--- NOTE | 2018-08-09 08:40 | HPN ---
Date/Time of Note Date/Time of Note DATE: 08/09/18 TIME: 08:40 Interval H&P Admission Note Pt. seen H&P reviewed: No system changes PAUL KNOX MD Aug 09, 2018 08:40
--- NOTE | 2018-08-09 10:36 | PREAC ---
Date/Time of Note Date/Time of Note DATE: 08/09/18 TIME: 10:34 Anesthesia Eval and Record Evaluation Time Pre-Procedure Interview DATE: 08/09/18 TIME: 10:34 Age 43 Sex male NPO: 8 hrs Preoperative diagnosis Ischemic foot Planned procedure Blow Knee Amputation R. Past Medical History Past Medical History: Includes Cardio: HTN, Dyslipidemia Endo: Diabetes GI: Obesity Surgery & Anesthesia Issues No known issue Meds Anticoagulation: No Beta Katarina within 24 hr: No Reason Beta Katarina not given: Pt. not on B-Katarina Reported Medications Sitagliptin* (Januvia*) Unknown Strength Tablet, PO DAILY, #30 TAB 04/19/18 Metformin* (Glucophage*) 850 Mg Tablet, 850 MG PO WITH BREAKFAST DINNE, #60 TAB 04/19/18 Lisinopril* (Lisinopril*) 20 Mg Tablet, 20 MG PO DAILY, #30 TAB 04/19/18 Ergocalciferol (Vitamin D2) (VITAMIN D2) 2,000 Unit Tablet, 2000 UNIT PO QAM, TAB 04/19/18 Atorvastatin* (Atorvastatin*) 40 Mg Tablet, 40 MG PO QHS, #30 TAB 04/19/18 Current Medications IV Flush (NS 3 ml) 3 ml PER PROTOCOL IV ; Start 07/29/18 at 20:00 Ondansetron HCl (Zofran Tab) 4 mg Q6H PRN PO NAUSEA/VOMITING Last administered on 07/30/18at 05:57; Admin Dose 4 MG; Start 07/29/18 at 20:00 Acetaminophen (Tylenol Tab) 650 mg Q6H PRN PO .PAIN 1-3 OR TEMP Last administered on 07/30/18at 20:24; Admin Dose 650 MG; Start 07/29/18 at 20:00 Acetaminophen/ Hydrocodone Bitart ([place] (5/325)) 1 tab Q6H PRN PO .MOD PAIN 4- 6; Start 07/29/18 at 20:00 Docusate Sodium (Colace) 100 mg Q12H PRN PO .CONSTIPATION; Start 07/29/18 at 20:00 Sodium Biphosphate/ Sodium Phosphate (Fleet Enema) 133 ml DAILY PRN [place] .CONSTIPATION; Start 07/29/18 at 20:00 Zolpidem Tartrate (Ambien) 5 mg QHS PRN PO .INSOMNIA; Start 07/29/18 at 20:00 Famotidine (Pepcid) 20 mg Q12 PO Last administered on 08/08/18 20:30; Admin Dose 20 MG; Start 07/29/18 at 21:00 Heparin Sodium (Porcine) (Heparin (5000 Units/1ml)) 5,000 unit Q12 SC Last ad ministered on 08/08/18 09:00; Admin Dose 5,000 UNIT; Start 07/29/18 at 21:00 Atorvastatin Calcium (Lipitor) 40 mg QHS PO Last administered on 08/08/18 20:30; Admin Dose 40 MG; Start 07/29/18 at 21:00 Metformin HCl (Glucophage) 850 mg WITH BREAKFAST DINNE PO Last administered on 08/08/18 17:04; Admin Dose 850 MG; Start 07/30/18 at 08:00 Linagliptin (Tradjenta) 5 mg DAILY PO Last administered on 08/08/18 09:01; Admin Dose 5 MG; Start 07/30/18 at 09:00 Diagnostic Test (Pha) (Accu-Chek) 1 ea AC MEALS AND BEDTIME XX Last administered on 08/01/18at 20:51; Admin Dose 1 EA; Start 07/29/18 at 21:00 Diagnostic Test (Pha) (Accu-Chek) 1 ea AC MEALS XX ; Start 07/30/18 at 07:00 Diagnostic Test (Pha) (Accu-Chek) 1 ea 02 XX ; Start 07/30/18 at 02:00 Miscellaneous Information 1 ea NOTE XX ; Start 07/29/18 at 20:30 Glucose (Glutose) 15 gm Q15M PRN PO DECREASED GLUCOSE; Start 07/29/18 at 20:30 Glucose (Glutose) 22.5 gm Q15M PRN PO DECREASED GLUCOSE; Start 07/29/18 at 20:30 Dextrose (D50w Syringe) 25 ml Q15M PRN IV DECREASED GLUCOSE; Start 07/29/18 at 20:30 Dextrose (D50w Syringe) 50 ml Q15M PRN IV DECREASED GLUCOSE; Start 07/29/18 at 20:30 Glucagon (Glucagen) 1 mg Q15M PRN IM DECREASED GLUCOSE; Start 07/29/18 at 20:30 Glucose (Glutose) 15 gm Q15M PRN BUCCAL DECREASED GLUCOSE; Start 07/29/18 at 20:30 Ergocalciferol (Drisdol Liquid (Ped)) 2,000 units AM PO Last administered on 08/08/18at 09:06; Admin Dose 2,000 UNITS; Start 07/30/18 at 09:00 Lisinopril (Zestril) 40 mg BID PO Last administered on 08/08/18at 20:30; Admin Dose 40 MG; Start 08/02/18 at 21:00 Ceftriaxone Sodium 50 ml @ 100 mls/hr Q24H IVPB Last administered on 08/08/18at 16:52; Admin Dose 100 MLS/HR; Start 08/02/18 at 16:00 Insulin Aspart (Novolog Insulin Pen) NOVOLOG *MODERATE* ALGORI... Q4 SC ; Start 08/08/18 at 21:00 Meds reviewed: Yes Allergies Coded Allergies: No Known Allergy (Unverified , 04/19/18) Allergies Reviewed: Yes Labs/Studies Labs Reviewed: Reviewed by anesthesiologist Result Diagram: 08/08/1844408/08/18444 test: N/A Pre-procedure Exam Last vitals Vital Signs Date Temp Pulse Resp B/P (MAP) Pulse Ox O2 O2 Flow FiO2 Time Delivery Rate 08/09/18 98.1 63 17 134/79 99 Room Air 07:53 (97) Airway: Adequate mouth opening Mallampati: Mallampati III Teeth: Normal Lung: Normal Heart: Normal ASA Physical Status ASA physical status: 3 Emergency: None Planned Anesthetic General/MAC: LMA Pre-operative Attestations Prior to commencing anesthesia and surgery, the patient was re-evaluated, there was verification of: *The patient's identity *The results of appropriate recent lab work and preoperative vital signs *The above evaluation not changing prior to induction *Anesthetic plan, risk benefits, alternative and complications discussed with patient/family; questions answered; patient/family understands, accepts and wishes to proceed. AI HAMMONDS MD Aug 09, 2018 10:36
[2018-08-09] MEDS ORDERED: POLYMYXIN/BACITRACIN 1L IRRIG ONE (10:42)
[2018-08-09] MEDS ORDERED: PROPOFOL 20 ML ONE (10:43)
[2018-08-09] MEDS ORDERED: ONDANSETRON 4 MG INJ ONE (10:44)
[2018-08-09] MEDS ORDERED: MIDAZOLAM 1 MG/ML 2 ML INJ ONE (10:44)
[2018-08-09] MEDS ORDERED: CEFAZOLIN 1 GM INJ ONE (10:51)
[2018-08-09] MEDS ORDERED: ONDANSETRON 4 MG INJ IV PRN (11:00)
[2018-08-09] MEDS ORDERED: HYDROmorphONE 1 MG/5 ML IV SYRINGE IV PRN ×2 (11:00)
[2018-08-09] MEDS ORDERED: POLYMYXIN/BACITRACIN 1L IRRIG IRR ONE (11:37)
[2018-08-09] MEDS ORDERED: FENTAnyl 50 MCG/ML VIAL ONE (12:14)
--- NOTE | 2018-08-09 12:25 | PAC ---
Date/Time of Note Date/Time of Note DATE: 08/09/18 TIME: 12:24 Post-Anesthesia Notes Post-Anesthesia Note Last documented vital signs Vital Signs Date Temp Pulse Resp B/P (MAP) Pulse Ox O2 O2 Flow FiO2 Time Delivery Rate 08/09/18 98.1 63 17 134/79 99 Room Air 07:53 (97) Activity: WNL Respiratory function: WNL Cardiovascular function: WNL Mental status: Baseline Pain reasonably controlled: Yes Hydration appropriate: Yes Nausea/Vomiting absent: Yes AI HAMMONDS MD Aug 09, 2018 12:25
--- NOTE | 2018-08-09 12:33 | SIPON ---
Date/Time of Note Date/Time of Note DATE: 08/09/18 TIME: 12:32 Operative Report Preoperative Diagnosis R ankle osteomyelitis Postoperative Diagnosis same Operation/Procedure Performed R BKA Surgeon see signature line learning support assistant none Anesthesia: general Estimated blood loss: 50 - 100 ml's Transfusion Required none Specimen R lower leg Grafts/Implants none Complications none PAUL KNOX MD Aug 09, 2018 12:32
[2018-08-09] MEDS: FENTAnyl 50 MCG/ML VIAL IV PRN ×4 (12:50→13:13)
--- NOTE | 2018-08-09 12:58 | OPR ---
DATE OF OPERATION: 08/09/2018 PREOPERATIVE DIAGNOSIS: Right ankle chronic osteomyelitis. POSTOPERATIVE DIAGNOSIS: Right ankle chronic osteomyelitis. PROCEDURE PERFORMED: Right below-knee amputation. SURGEON: Paul Cheung MD ANESTHESIA: General endotracheal anesthesia. ESTIMATED BLOOD LOSS: About 50 to 100 mL. COMPLICATIONS: There were no intraprocedural complications. INDICATIONS: A 43-year-old diabetic gentleman with a Charcot deformity of the right ankle. He had a previous fusion that became infected. The hardware is infected. There was an abscess at the ankle that was drained recently by Dr. Lopez. I have recommended below knee amputation. He is agreeable and wanted to proceed. He has good arterial circulation. DESCRIPTION OF PROCEDURE: Patient was brought to the operating room and placed on the table in supine position. Right leg was prepped and draped in the usual sterile fashion. I began by marking below knee amputation flaps on the right leg. The anterior flap I made about 11 cm long, posterior flap 13 cm long. I then marked the flaps midway down each side of the leg. I then incised the skin and used electrocautery to divide all the subcutaneous tissue. I divided the calf muscles anteriorly, until I had the tibia and fibula exposed, I then used periosteal elevator to elevate the soft tissue away from the tibia and fibula. I then proceeded to transect the tibia and fibula using the bone cutter, the power saw. I cut the fibula about 2 cm higher than the tibia. I beveled the anterior surface of the tibia, so there was no sharp edge using the power saw. I then jackknifed the leg and used the long amputation knife to cut the soft tissue off the backside of the tibia and fibula until I reached the end of the posterior flap and I transected it sharply there. I then got hemostasis. I had already ligated the anterior tibial neurovascular bundle as I was coming across it with 2-0 silk ties and divided it. Now that I transected and removed the specimen, I saw bleeding from the posterior tibial and peroneal arteries. I controlled these with 2-0 Vicryl suture ligatures and there was then good hemostasis. The tissue is all healthy. There was good bleeding from all the muscles. They were all healthy. They were a little bit fibrotic, but muscles all healthy and well perfused. No sign of infection. I then irrigated with antibiotic saline and then reapproximated the anterior and posterior flap fascia using multiple interrupted 2-0 Vicryl sutures. I then closed the skin with surgical casey. Sterile dressing was then applied and an Leo wrap was applied. Then a knee immobilizer was applied. The patient was extubated in the operating room and transferred to the recovery room in stable condition. He tolerated the procedure well without any complications. Dictated By: PAUL BORJAS/LEOBARDO Conf#: [id number] DID#: [id number] CC: DEE AGUILAR MD; LORI LOPEZ DPM; VALDO MCNAMARA MD;*EndCC* MTDD
--- NOTE | 2018-08-09 15:22 | CONS ---
Assessment/Plan Assessment/Plan Hospital Course (Demo Recall) No events over night, no fevers. Blood culture and wound cx growing MSSA. Repeat bld cx 08/02 neg Antimicrobials: Rocephin PHYSICAL EXAMINATION: GENERAL: This is an obese, well-developed, middle-aged man who is alert, in no distress. HEENT: Head is atraumatic, normocephalic. Sclerae are anicteric. NECK: Supple. CHEST: Rise symmetrical. Breath sounds clear. HEART: S1, S2. ABDOMEN: Soft. Bowel tones are present. EXTREMITIES: Right lower extremity Leo wrapped Assessment: 1. Recurrent oxacillin sensitive staph aureus bacteremia secondary to #2 ECHO neg vegetations 2. Right ankle abscess status post I&D at bedside 3. R foot OM, poss infected hardware 3. Diabetes 4. Right Charcot ankle status post right ankle fusion 5. Obesity Plan: Stable, pending R BKA Consultation Date/Type/Reason Admit Date/Time Jul 29, 2018 at 19:47 Initial Consult Date 07/29/18 Type of Consult id Date/Time of Note DATE: 08/09/18 TIME: 15:22 Exam/Review of Systems Exam Vitals Vital Signs Date Temp Pulse Resp B/P (MAP) Pulse Ox O2 O2 Flow FiO2 Time Delivery Rate 08/09/18 97.6 90 18 143/83 93 Room Air 14:37 (103) Intake and Output 08/08/18 08/08/18 08/09/18 1515:00 23:00 07:00 IntakeIntake Total 300 ml OutputOutput Total 450 ml 550 ml BalanceBalance -150 ml -550 ml Results Result Diagram: 08/08/18 0445 08/08/18 0445 Results 24hrs Laboratory Tests Test 08/08/18 17:02 08/08/18 20:19 08/09/18 01:05 08/09/18 05:12 Bedside Glucose 125 99 105 124 Test 08/09/18 08:47 08/09/18 13:12 08/09/18 13:35 Bedside Glucose 115 143 122 Medications Medication Current Medications IV Flush (NS 3 ml) 3 ml PER PROTOCOL IV ; Start 07/29/18 at 20:00 Ondansetron HCl (Zofran Tab) 4 mg Q6H PRN PO NAUSEA/VOMITING Last administered on 07/30/18at 05:57; Admin Dose 4 MG; Start 07/29/18 at 20:00 Acetaminophen (Tylenol Tab) 650 mg Q6H PRN PO .PAIN 1-3 OR TEMP Last administered on 07/30/18 20:24; Admin Dose 650 MG; Start 07/29/18 at 20:00 Acetaminophen/ Hydrocodone Bitart ([place] (5/325)) 1 tab Q6H PRN PO .MOD PAIN 4- 6; Start 07/29/18 at 20:00 Docusate Sodium (Colace) 100 mg Q12H PRN PO .CONSTIPATION; Start 07/29/18 at 20:00 Sodium Biphosphate/ Sodium Phosphate (Fleet Enema) 133 ml DAILY PRN [place] .CONSTIPATION; Start 07/29/18 at 20:00 Zolpidem Tartrate (Ambien) 5 mg QHS PRN PO .INSOMNIA; Start 07/29/18 at 20:00 Famotidine (Pepcid) 20 mg Q12 PO Last administered on 08/08/18 20:30; Admin Dose 20 MG; Start 07/29/18 at 21:00 Heparin Sodium (Porcine) (Heparin (5000 Units/1ml)) 5,000 unit Q12 SC Last administered on 08/08/18 09:00; Admin Dose 5,000 UNIT; Start 07/29/18 at 21:00 Atorvastatin Calcium (Lipitor) 40 mg QHS PO Last administered on 08/08/18 20:30; Admin Dose 40 MG; Start 07/29/18 at 21:00 Metformin HCl (Glucophage) 850 mg WITH BREAKFAST DINNE PO Last administered on 08/08/18 17:04; Admin Dose 850 MG; Start 07/30/18 at 08:00 Linagliptin (Tradjenta) 5 mg DAILY PO Last administered on 08/08/18 09:01; Admin Dose 5 MG; Start 07/30/18 at 09:00 Diagnostic Test (Pha) (Accu-Chek) 1 ea AC MEALS AND BEDTIME XX Last administe red on 08/01/18at 20:51; Admin Dose 1 EA; Start 07/29/18 at 21:00 Diagnostic Test (Pha) (Accu-Chek) 1 ea AC MEALS XX ; Start 07/30/18 at 07:00 Diagnostic Test (Pha) (Accu-Chek) 1 ea 02 XX ; Start 07/30/18 at 02:00 Miscellaneous Information 1 ea NOTE XX ; Start 07/29/18 at 20:30 Glucose (Glutose) 15 gm Q15M PRN PO DECREASED GLUCOSE; Start 07/29/18 at 20:30 Glucose (Glutose) 22.5 gm Q15M PRN PO DECREASED GLUCOSE; Start 07/29/18 at 20:30 Dextrose (D50w Syringe) 25 ml Q15M PRN IV DECREASED GLUCOSE; Start 07/29/18 at 20:30 Dextrose (D50w Syringe) 50 ml Q15M PRN IV DECREASED GLUCOSE; Start 07/29/18 at 20:30 Glucagon (Glucagen) 1 mg Q15M PRN IM DECREASED GLUCOSE; Start 07/29/18 at 20:30 Glucose (Glutose) 15 gm Q15M PRN BUCCAL DECREASED GLUCOSE; Start 07/29/18 at 20:30 Ergocalciferol (Drisdol Liquid (Ped)) 2,000 units AM PO Last administered on 08/08/18at 09:06; Admin Dose 2,000 UNITS; Start 07/30/18 at 09:00 Lisinopril (Zestril) 40 mg BID PO Last administered on 08/08/18at 20:30; Admin Dose 40 MG; Start 08/02/18 at 21:00 Ceftriaxone Sodium 50 ml @ 100 mls/hr Q24H IVPB Last administered on 08/08/18at 16:52; Admin Dose 100 MLS/HR; Start 08/02/18 at 16:00 Hydromorphone HCl (Dilaudid) 0.4 mg PACU PRN IV MOD PAIN 4-6 Last administered on 08/09/18at 12:38; Admin Dose 0.4 MG; Start 08/09/18 at 11:00; Stop 08/09/18 at 17:00 Hydromorphone HCl (Dilaudid) 0.6 mg PACU PRN IV SEVERE PAIN 7-10 Last administered on 08/09/18at 12:31; Admin Dose 0.6 MG; Start 08/09/18 at 11:00; Stop 08/09/18 at 17:00 Fentanyl (Sublimaze) 25 mcg PACU ORDER PRN IV MILD PAIN 1-3 Last administered on 08/09/18at 13:13; Admin Dose 25 MCG; Start 08/09/18 at 11:00; Stop 08/09/18 at 17:00 Ondansetron HCl (Zofran Inj) 4 mg PACU ORDER PRN IV NAUSEA/VOMITING; Start 08/09/18 at 11:00; Stop 08/09/18 at 17:00 Insulin Aspart (Novolog Insulin Pen) NOVOLOG *MODERATE* ALGORITHM WITH MEALS BEDTIME SC ; Start 08/09/18 at 18:05 WENDY WALSH NP Aug 09, 2018 15:22
[2018-08-09] MEDS: CEFTRIAXONE 1 GM/50 ML (PMX) 50 ML IVPB SCH (15:29)
[2018-08-09] MEDS: HYDROCODONE/APAP (5/325) TAB PO PRN ×2 (17:04→23:19)
--- NOTE | 2018-08-09 19:32 | PN ---
Date/Time of Note Date/Time of Note DATE: 08/09/18 TIME: 19:30 Assessment/Plan VTE Prophylaxis Risk score (from Ns)>0 risk: 3 SCD applied (from Ns): Yes SCD contraindicated: bilateral LE trauma Pharmacological prophylaxis: heparin Lines/Catheters IV Catheter Type (from Nrs): Peripheral IV Urinary Cath still in place: No Assessment/Plan Problems: (1) Status post below knee amputation of right lower extremity Onset Date: ~ 08/09/2018 Status: Acute Comment: Stable postoperative. Continue with rehabilitation, and getting everything in line for outpatient evaluations for prosthesis (2) Essential hypertension Status: Chronic Comment: Adequate control (3) Hyperlipidemia Status: Chronic Comment: Adequate control Qualifiers: Hyperlipidemia type: pure hypercholesterolemia Qualified Codes: E78.00 - Pure hypercholesterolemia, unspecified (4) Diabetes mellitus type 2 in obese Status: Chronic Comment: Good blood sugar control (5) Staphylococcus aureus bacteremia with sepsis Status: Acute Comment: Continue antibiotics for August 15 Result Diagram: 08/08/18 0445 08/08/18 0445 Results 24hrs Laboratory Tests Test 08/08/18 20:19 08/09/18 01:05 08/09/18 05:12 08/09/18 08:47 Bedside Glucose 99 105 124 115 Test 08/09/18 13:12 08/09/18 13:35 08/09/18 17:07 Bedside Glucose 143 122 101 Subjective 24 Hr Interval Summary Free Text/Dictation Patient reports he is feeling well postoperative and has adequate pain control with oral medications Constitutional: no complaints Respiratory: no complaints Cardiovascular: no complaints Gastrointestinal: no complaints Exam/Review of Systems Exam Vitals Vital Signs Date Temp Pulse Resp B/P (MAP) Pulse Ox O2 O2 Flow FiO2 Time Delivery Rate 08/09/18 97.6 90 18 143/83 93 Room Air 14:37 (103) Intake and Output 08/08/18 08/08/18 08/09/18 1515:00 23:00 07:00 IntakeIntake Total 300 ml OutputOutput Total 450 ml 550 ml BalanceBalance -150 ml -550 ml Constitutional: alert, oriented Respiratory: clear to auscultation, normal air movement Cardiovascular: regular rate and rhythm, nl pulses Gastrointestinal: soft, nl liver, spleen, non-tender Results Results 24hrs Laboratory Tests Test 08/08/18 20:19 08/09/18 01:05 08/09/18 05:12 08/09/18 08:47 Bedside Glucose 99 105 124 115 Test 08/09/18 13:12 08/09/18 13:35 08/09/18 17:07 Bedside Glucose 143 122 101 Medications Medication Current Medications IV Flush (NS 3 ml) 3 ml PER PROTOCOL IV ; Start 07/29/18 at 20:00 Ondansetron HCl (Zofran Tab) 4 mg Q6H PRN PO NAUSEA/VOMITING Last administered on 07/30/18 05:57; Admin Dose 4 MG; Start 07/29/18 at 20:00 Acetaminophen (Tylenol Tab) 650 mg Q6H PRN PO .PAIN 1-3 OR TEMP Last administered on 07/30/18 20:24; Admin Dose 650 MG; Start 07/29/18 at 20:00 Acetaminophen/ Hydrocodone Bitart ([place] (5/325)) 1 tab Q6H PRN PO .MOD PAIN 4- 6 Last administered on 08/09/18 17:04; Admin Dose 1 TAB; Start 07/29/18 at 20:00 Docusate Sodium (Colace) 100 mg Q12H PRN PO .CONSTIPATION; Start 07/29/18 at 20:00 Sodium Biphosphate/ Sodium Phosphate (Fleet Enema) 133 ml DAILY PRN [place] .CONSTIPATION; Start 07/29/18 at 20:00 Zolpidem Tartrate (Ambien) 5 mg QHS PRN PO .INSOMNIA; Start 07/29/18 at 20:00 Famotidine (Pepcid) 20 mg Q12 PO Last administered on 08/08/18 20:30; Admin Dose 20 MG; Start 07/29/18 at 21:00 Heparin Sodium (Porcine) (Heparin (5000 Units/1ml)) 5,000 unit Q12 SC Last administered on 08/08/18 09:00; Admin Dose 5,000 UNIT; Start 07/29/18 at 21:00 Atorvastatin Calcium (Lipitor) 40 mg QHS PO Last administered on 08/08/18 20:30; Admin Dose 40 MG; Start 07/29/18 at 21:00 Metformin HCl (Glucophage) 850 mg WITH BREAKFAST DINNE PO Last administered on 08/09/18 17:08; Admin Dose 850 MG; Start 07/30/18 at 08:00 Linagliptin (Tradjenta) 5 mg DAILY PO Last administered on 08/08/18at 09:01; Admin Dose 5 MG; Start 07/30/18 at 09:00 Diagnostic Test (Pha) (Accu-Chek) 1 ea AC MEALS AND BEDTIME XX Last administ ered on 08/01/18at 20:51; Admin Dose 1 EA; Start 07/29/18 at 21:00 Diagnostic Test (Pha) (Accu-Chek) 1 ea AC MEALS XX ; Start 07/30/18 at 07:00 Diagnostic Test (Pha) (Accu-Chek) 1 ea 02 XX ; Start 07/30/18 at 02:00 Miscellaneous Information 1 ea NOTE XX ; Start 07/29/18 at 20:30 Glucose (Glutose) 15 gm Q15M PRN PO DECREASED GLUCOSE; Start 07/29/18 at 20:30 Glucose (Glutose) 22.5 gm Q15M PRN PO DECREASED GLUCOSE; Start 07/29/18 at 20:30 Dextrose (D50w Syringe) 25 ml Q15M PRN IV DECREASED GLUCOSE; Start 07/29/18 at 20:30 Dextrose (D50w Syringe) 50 ml Q15M PRN IV DECREASED GLUCOSE; Start 07/29/18 at 20:30 Glucagon (Glucagen) 1 mg Q15M PRN IM DECREASED GLUCOSE; Start 07/29/18 at 20:30 Glucose (Glutose) 15 gm Q15M PRN BUCCAL DECREASED GLUCOSE; Start 07/29/18 at 20:30 Ergocalciferol (Drisdol Liquid (Ped)) 2,000 units AM PO Last administered on 08/08/18at 09:06; Admin Dose 2,000 UNITS; Start 07/30/18 at 09:00 Lisinopril (Zestril) 40 mg BID PO Last administered on 08/08/18at 20:30; Admin Dose 40 MG; Start 08/02/18 at 21:00 Ceftriaxone Sodium 50 ml @ 100 mls/hr Q24H IVPB Last administered on 08/09/18at 15:29; Admin Dose 100 MLS/HR; Start 08/02/18 at 16:00 Insulin Aspart (Novolog Insulin Pen) NOVOLOG *MODERATE* ALGORITHM WITH MEALS BEDTIME SC ; Start 08/09/18 at 18:05 DEE AGUILAR MD Aug 09, 2018 19:32
[2018-08-09] MEDS: ATORVASTATIN 40 MG TAB PO SCH (21:05)
[2018-08-10] MEDS: ACCU-CHEK XX SCH ×8 (02:00→20:58)
[2018-08-10 02:37] VITALS: BP 113/69; PULSE 64; RESP 18
[2018-08-10] MEDS: HYDROCODONE/APAP (5/325) TAB PO PRN ×3 (06:47→20:59)
[2018-08-10] MEDS: INSULIN ASPART [NOVOLOG] 3 ML PEN SC SCH ×4 (08:00→20:55)
[2018-08-10] MEDS: LISINOPRIL 20 MG TAB PO SCH ×3 (08:37→20:58)
[2018-08-10] MEDS: FAMOTIDINE 20 MG TAB PO SCH ×2 (08:41→20:58)
[2018-08-10] MEDS: LINAGLIPTIN 5 MG TABLET PO SCH (08:42)
[2018-08-10] MEDS: metFORMIN 850 MG TAB PO SCH ×2 (08:48→17:37)
[2018-08-10 08:49] VITALS: BP 120/69; PULSE 73; RESP 16
[2018-08-10] MEDS: HEPARIN 5,000 UNIT/1 ML VIAL SC SCH ×2 (08:54→20:55)
[2018-08-10] MEDS: ERGOCALCIFEROL (8000 UNITS/ML PO SYG) PO SCH (12:20)
--- NOTE | 2018-08-10 14:36 | PN ---
Date/Time of Note Date/Time of Note DATE: 08/10/18 TIME: 14:34 Assessment/Plan Lines/Catheters IV Catheter Type (from Nrsg): Saline Lock Burnett in Place (from Nrsg): No Assessment/Plan Assessment/Plan POD#1 s/p RLE BKA by Dr. Cheung, doing well Plan: -Appreciate medical management -Cont RLE stump protector -Ok to get out of bed and work with PT -Please keep RLE dressings on for 1 week post-op unless gets saturated -Ok for discharge from surgical standpoint and when ok w/ Dr Contreras/ internal medicine team Pt should follow up w/ Dr. Cheung in 7days for monitoring/further evaluation Subjective 24 Hr Interval Summary s/p RLE BKA by Dr. Cheung, doing well, pain controlled, just received RLE stump protector Exam/Review of Systems Vital Signs Vitals Vital Signs Date Temp Pulse Resp B/P (MAP) Pulse Ox O2 O2 Flow FiO2 Time Delivery Rate 08/10/18 98.1 73 16 120/69 96 08:49 (86) 08/09/18 Room Air 14:37 Intake and Output 08/09/18 08/09/18 08/10/18 1515:00 23:00 07:00 IntakeIntake Total 800 ml 50 ml OutputOutput Total 300 ml 800 ml BalanceBalance 500 ml 50 ml -800 ml Exam Free Text/Dictation Gen: AAOx3, NAD Extr: RLE dressings c/d/i, in stump protector, appropriately tender Results Result Diagram: 08/08/18 0445 08/08/18 0445 RAYMON BOURNE MD Aug 10, 2018 14:36
[2018-08-10 15:04] VITALS: BP 118/67; PULSE 79; RESP 18
--- NOTE | 2018-08-10 16:01 | CONS ---
Assessment/Plan Assessment/Plan Hospital Course (Demo Recall) Alert, feels good Blood culture and wound cx growing MSSA. Repeat bld cx 08/02 neg Antimicrobials: Rocephin PHYSICAL EXAMINATION: GENERAL: This is an obese, well-developed, middle-aged man who is alert, in no distress. HEENT: Head is atraumatic, normocephalic. Sclerae are anicteric. NECK: Supple. CHEST: Rise symmetrical. Breath sounds clear. HEART: S1, S2. ABDOMEN: Soft. Bowel tones are present. EXTREMITIES: Right lower extremity Leo wrapped Assessment: 1. Recurrent oxacillin sensitive staph aureus bacteremia secondary to #2 ECHO neg vegetations 2. Right ankle abscess status post I&D at bedside 3. R foot OM/infected hardware s/p BKA 3. Diabetes 4. Right Charcot ankle status post right ankle fusion 5. Obesity Plan: Stable, s// R BKA 08/09/18, will complete abx for bacteremia==> last dose 08/16/18 Consultation Date/Type/Reason Admit Date/Time Jul 29, 2018 at 19:47 Initial Consult Date 07/29/18 Type of Consult id Date/Time of Note DATE: 08/10/18 TIME: 16:00 Exam/Review of Systems Exam Vitals Vital Signs Date Temp Pulse Resp B/P (MAP) Pulse Ox O2 O2 Flow FiO2 Time Delivery Rate 08/10/18 98.7 79 18 118/67 94 15:04 (84) 08/09/18 Room Air 14:37 Intake and Output 08/09/18 08/09/18 08/10/18 1515:00 23:00 07:00 IntakeIntake Total 800 ml 50 ml OutputOutput Total 300 ml 800 ml BalanceBalance 500 ml 50 ml -800 ml Results Result Diagram: 08/08/18 0445 08/08/18 0445 Results 24hrs Laboratory Tests Test 08/09/18 17:07 08/09/18 21:03 08/10/18 08:04 08/10/18 12:10 Bedside Glucose 101 109 112 106 Medications Medication Current Medications IV Flush (NS 3 ml) 3 ml PER PROTOCOL IV ; Start 07/29/18 at 20:00 Ondansetron HCl (Zofran Tab) 4 mg Q6H PRN PO NAUSEA/VOMITING Last administered on 07/30/18at 05:57; Admin Dose 4 MG; Start 07/29/18 at 20:00 Acetaminophen (Tylenol Tab) 650 mg Q6H PRN PO .PAIN 1-3 OR TEMP Last adm inistered on 07/30/18 20:24; Admin Dose 650 MG; Start 07/29/18 at 20:00 Acetaminophen/ Hydrocodone Bitart ([place] (5/325)) 1 tab Q6H PRN PO .MOD PAIN 4- 6 Last administered on 08/10/18 13:20; Admin Dose 1 TAB; Start 07/29/18 at 20:00 Docusate Sodium (Colace) 100 mg Q12H PRN PO .CONSTIPATION; Start 07/29/18 at 20:00 Sodium Biphosphate/ Sodium Phosphate (Fleet Enema) 133 ml DAILY PRN [place] .CONSTIPATION; Start 07/29/18 at 20:00 Zolpidem Tartrate (Ambien) 5 mg QHS PRN PO .INSOMNIA; Start 07/29/18 at 20:00 Famotidine (Pepcid) 20 mg Q12 PO Last administered on 08/10/18 08:41; Admin Dose 20 MG; Start 07/29/18 at 21:00 Heparin Sodium (Porcine) (Heparin (5000 Units/1ml)) 5,000 unit Q12 SC Last administered on 08/10/18 08:54; Admin Dose 5,000 UNIT; Start 07/29/18 at 21:00 Atorvastatin Calcium (Lipitor) 40 mg QHS PO Last administered on 08/09/18 21:05; Admin Dose 40 MG; Start 07/29/18 at 21:00 Metformin HCl (Glucophage) 850 mg WITH BREAKFAST DINNE PO Last administered on 08/10/18 08:48; Admin Dose 850 MG; Start 07/30/18 at 08:00 Linagliptin (Tradjenta) 5 mg DAILY PO Last administered on 08/10/18 08:42; Admin Dose 5 MG; Start 07/30/18 at 09:00 Diagnostic Test (Pha) (Accu-Chek) 1 ea AC MEALS AND BEDTIME XX Last administered on 08/10/18 12:15; Admin Dose 1 EA; Start 07/29/18 at 21:00 Diagnostic Test (Pha) (Accu-Chek) 1 ea AC MEALS XX Last administered on 6/25/19at 12:15; Admin Dose 1 EA; Start 07/30/18 at 07:00 Diagnostic Test (Pha) (Accu-Chek) 1 ea 02 XX ; Start 07/30/18 at 02:00 Miscellaneous Information 1 ea NOTE XX ; Start 07/29/18 at 20:30 Glucose (Glutose) 15 gm Q15M PRN PO DECREASED GLUCOSE; Start 07/29/18 at 20:30 Glucose (Glutose) 22.5 gm Q15M PRN PO DECREASED GLUCOSE; Start 07/29/18 at 20:30 Dextrose (D50w Syringe) 25 ml Q15M PRN IV DECREASED GLUCOSE; Start 07/29/18 at 20:30 Dextrose (D50w Syringe) 50 ml Q15M PRN IV DECREASED GLUCOSE; Start 07/29/18 at 20:30 Glucagon (Glucagen) 1 mg Q15M PRN IM DECREASED GLUCOSE; Start 07/29/18 at 20:30 Glucose (Glutose) 15 gm Q15M PRN BUCCAL DECREASED GLUCOSE; Start 07/29/18 at 20:30 Ergocalciferol (Drisdol Liquid (Ped)) 2,000 units AM PO Last administered on 08/10/18at 12:20; Admin Dose 2,000 UNITS; Start 07/30/18 at 09:00 Lisinopril (Zestril) 40 mg BID PO Last administered on 08/10/18at 08:50; Admin Dose 40 MG; Start 08/02/18 at 21:00 Ceftriaxone Sodium 50 ml @ 100 mls/hr Q24H IVPB Last administered on 08/09/18at 15:29; Admin Dose 100 MLS/HR; Start 08/02/18 at 16:00; Stop 08/15/18 at 08:00 Insulin Aspart (Novolog Insulin Pen) NOVOLOG *MODERATE* ALGORITHM WITH MEALS BEDTIME SC ; Start 08/09/18 at 18:05 WENDY WALSH NP Aug 10, 2018 16:01
[2018-08-10] MEDS: CEFTRIAXONE 1 GM/50 ML (PMX) 50 ML IVPB SCH (16:07)
--- NOTE | 2018-08-10 19:18 | PN ---
Date/Time of Note Date/Time of Note DATE: 08/10/18 TIME: 19:17 Assessment/Plan VTE Prophylaxis Risk score (from Ns)>0 risk: 5 SCD applied (from Nsg): Yes Pharmacological prophylaxis: heparin Lines/Catheters IV Catheter Type (from Nrs): Saline Lock Urinary Cath still in place: No Assessment/Plan Problems: (1) Status post below knee amputation of right lower extremity Onset Date: ~ 08/09/2018 Status: Acute Comment: Doing well postop. Physical therapy to evaluate him and also the acute rehabilitation unit. Social work and case management are involved. Antibiotics finished August 16 (2) Diabetes mellitus type 2 in obese Status: Chronic Comment: Adequate glycemic control (3) Hyperlipidemia Status: Chronic Comment: Adequate control Qualifiers: Hyperlipidemia type: pure hypercholesterolemia Qualified Codes: E78.00 - Pure hypercholesterolemia, unspecified (4) Essential hypertension Status: Chronic Comment: Well-controlled Result Diagram: 08/08/18 0445 08/08/18 0445 Results 24hrs Laboratory Tests Test 08/09/18 21:03 08/10/18 08:04 08/10/18 12:10 08/10/18 17:26 Bedside Glucose 109 112 106 101 Subjective 24 Hr Interval Summary Free Text/Dictation Patient reports he is doing well but has a number of questions about the rehabilitation Respiratory: no complaints Cardiovascular: no complaints Gastrointestinal: no complaints Musculoskeletal: no complaints Exam/Review of Systems Exam Vitals Vital Signs Date Temp Pulse Resp B/P (MAP) Pulse Ox O2 O2 Flow FiO2 Time Delivery Rate 08/10/18 98.7 79 18 118/67 94 15:04 (84) 08/09/18 Room Air 14:37 Intake and Output 08/09/18 08/09/18 08/10/18 1515:00 23:00 07:00 IntakeIntake Total 800 ml 50 ml OutputOutput Total 300 ml 800 ml BalanceBalance 500 ml 50 ml -800 ml Constitutional: alert, oriented Neck: supple, non-tender Respiratory: clear to auscultation, normal air movement Cardiovascular: regular rate and rhythm, nl pulses Results Results 24hrs Laboratory Tests Test 08/09/18 21:03 08/10/18 08:04 08/10/18 12:10 08/10/18 17:26 Bedside Glucose 109 112 106 101 Medications Medication Current Medications IV Flush (NS 3 ml) 3 ml PER PROTOCOL IV ; Start 07/29/18 at 20:00 Ondansetron HCl (Zofran Tab) 4 mg Q6H PRN PO NAUSEA/VOMITING Last administered on 07/30/18 05:57; Admin Dose 4 MG; Start 07/29/18 at 20:00 Acetaminophen (Tylenol Tab) 650 mg Q6H PRN PO .PAIN 1-3 OR TEMP Last administered on 07/30/18 20:24; Admin Dose 650 MG; Start 07/29/18 at 20:00 Acetaminophen/ Hydrocodone Bitart ([place] (5/325)) 1 tab Q6H PRN PO .MOD PAIN 4- 6 Last administered on 08/10/18 13:20; Admin Dose 1 TAB; Start 07/29/18 at 20:00 Docusate Sodium (Colace) 100 mg Q12H PRN PO .CONSTIPATION; Start 07/29/18 at 20:00 Sodium Biphosphate/ Sodium Phosphate (Fleet Enema) 133 ml DAILY PRN [place] .CONSTIPATION; Start 07/29/18 at 20:00 Zolpidem Tartrate (Ambien) 5 mg QHS PRN PO .INSOMNIA; Start 07/29/18 at 20:00 Famotidine (Pepcid) 20 mg Q12 PO Last administered on 08/10/18 08:41; Admin Dose 20 MG; Start 07/29/18 at 21:00 Heparin Sodium (Porcine) (Heparin (5000 Units/1ml)) 5,000 unit Q12 SC Last administered on 08/10/18 08:54; Admin Dose 5,000 UNIT; Start 07/29/18 at 21:00 Atorvastatin Calcium (Lipitor) 40 mg QHS PO Last administered on 08/09/18 21:05; Admin Dose 40 MG; Start 07/29/18 at 21:00 Metformin HCl (Glucophage) 850 mg WITH BREAKFAST DINNE PO Last administered on 08/10/18 17:37; Admin Dose 850 MG; Start 07/30/18 at 08:00 Linagliptin (Tradjenta) 5 mg DAILY PO Last administered on 08/10/18 08:42; Admin Dose 5 MG; Start 07/30/18 at 09:00 Diagnostic Test (Pha) (Accu-Chek) 1 ea AC MEALS AND BEDTIME XX Last administered on 6/25/19at 16:45; Admin Dose 1 EA; Start 07/29/18 at 21:00 Diagnostic Test (Pha) (Accu-Chek) 1 ea AC MEALS XX Last administered on 08/10/18at 16:45; Admin Dose 1 EA; Start 07/30/18 at 07:00 Diagnostic Test (Pha) (Accu-Chek) 1 ea 02 XX ; Start 07/30/18 at 02:00 Miscellaneous Information 1 ea NOTE XX ; Start 07/29/18 at 20:30 Glucose (Glutose) 15 gm Q15M PRN PO DECREASED GLUCOSE; Start 07/29/18 at 20:30 Glucose (Glutose) 22.5 gm Q15M PRN PO DECREASED GLUCOSE; Start 07/29/18 at 20:30 Dextrose (D50w Syringe) 25 ml Q15M PRN IV DECREASED GLUCOSE; Start 07/29/18 at 20:30 Dextrose (D50w Syringe) 50 ml Q15M PRN IV DECREASED GLUCOSE; Start 07/29/18 at 20:30 Glucagon (Glucagen) 1 mg Q15M PRN IM DECREASED GLUCOSE; Start 07/29/18 at 20:30 Glucose (Glutose) 15 gm Q15M PRN BUCCAL DECREASED GLUCOSE; Start 07/29/18 at 20:30 Ergocalciferol (Drisdol Liquid (Ped)) 2,000 units AM PO Last administered on 08/10/18at 12:20; Admin Dose 2,000 UNITS; Start 07/30/18 at 09:00 Lisinopril (Zestril) 40 mg BID PO Last administered on 08/10/18at 08:50; Admin Dose 40 MG; Start 08/02/18 at 21:00 Ceftriaxone Sodium 50 ml @ 100 mls/hr Q24H IVPB Last administered on 08/10/18at 16:07; Admin Dose 100 MLS/HR; Start 08/02/18 at 16:00; Stop 08/15/18 at 08:00 Insulin Aspart (Novolog Insulin Pen) NOVOLOG *MODERATE* ALGORITHM WITH MEALS BEDTIME SC ; Start 08/09/18 at 18:05 Multivitamins Therapeutic (Theragran) 1 tab DAILY PO ; Start 08/11/18 at 09:00 Ascorbic Acid (Vitamin C) 500 mg BID PO ; Start 08/10/18 at 21:00 DEE AGUILAR MD Aug 10, 2018 19:18
[2018-08-10 19:58] VITALS: BP 122/66; PULSE 68; RESP 18
[2018-08-10] MEDS: ATORVASTATIN 40 MG TAB PO SCH (20:58)
[2018-08-10] MEDS: ASCORBIC ACID 500 MG TAB PO SCH (21:07)
[2018-08-11] MEDS: ACCU-CHEK XX SCH ×8 (02:00→20:41)
[2018-08-11 02:24] VITALS: BP 111/62; PULSE 59; RESP 18
[2018-08-11] MEDS: HYDROCODONE/APAP (5/325) TAB PO PRN ×3 (06:36→20:34)
[2018-08-11] MEDS: INSULIN ASPART [NOVOLOG] 3 ML PEN SC SCH ×4 (08:00→20:31)
[2018-08-11 09:08] VITALS: BP 121/66; PULSE 69; RESP 12
[2018-08-11] MEDS: ASCORBIC ACID 500 MG TAB PO SCH ×2 (09:34→20:35)
[2018-08-11] MEDS: FAMOTIDINE 20 MG TAB PO SCH ×2 (09:34→20:35)
[2018-08-11] MEDS: LINAGLIPTIN 5 MG TABLET PO SCH (09:34)
[2018-08-11] MEDS: MULTIVITAMINS THERAPEUTIC TAB PO SCH (09:35)
[2018-08-11] MEDS: metFORMIN 850 MG TAB PO SCH ×2 (09:35→17:57)
[2018-08-11] MEDS: LISINOPRIL 20 MG TAB PO SCH ×2 (09:36→20:35)
[2018-08-11] MEDS: HEPARIN 5,000 UNIT/1 ML VIAL SC SCH ×2 (09:41→20:37)
[2018-08-11] MEDS: ERGOCALCIFEROL (8000 UNITS/ML PO SYG) PO SCH (10:14)
--- NOTE | 2018-08-11 12:09 | PN ---
Date/Time of Note Date/Time of Note DATE: 08/11/18 TIME: 12:06 Assessment/Plan Lines/Catheters IV Catheter Type (from Nrsg): Saline Lock Burnett in Place (from Nrsg): No Assessment/Plan Assessment/Plan Doing well s/p R BKA Stump protector at all times Will change dressing Thursday Continue PT - would benefit from acute rehab if eligible - will ask them to evaluate OK for d/c from my standpoint If he goes to rehab I will change the dressing Thursday in the unit, otherwise followup with me in the office Thursday Subjective 24 Hr Interval Summary No pain. Working with PT. Eating well. Exam/Review of Systems Vital Signs Vitals Vital Signs Date Temp Pulse Resp B/P (MAP) Pulse Ox O2 O2 Flow FiO2 Time Delivery Rate 08/11/18 98.2 69 12 121/66 95 09:08 (84) 08/09/18 Room Air 14:37 Intake and Output 08/10/18 08/10/18 08/11/18 1515:00 23:00 07:00 IntakeIntake Total 480 ml 50 ml OutputOutput Total 925 ml 600 ml BalanceBalance -445 ml 50 ml -600 ml Exam Free Text/Dictation R BKA stump - protector in place, no staining Results Result Diagram: 08/08/18 0445 08/08/18 0445 PAUL KNOX MD Aug 11, 2018 12:09
[2018-08-11 14:30] VITALS: BP 119/67; PULSE 80; RESP 16
[2018-08-11] MEDS: CEFTRIAXONE 1 GM/50 ML (PMX) 50 ML IVPB SCH (15:30)
--- NOTE | 2018-08-11 15:59 | CONS ---
Assessment/Plan Assessment/Plan Hospital Course (Demo Recall) Alert, feels good Blood culture and wound cx growing MSSA. Repeat bld cx 08/02 neg Antimicrobials: Rocephin PHYSICAL EXAMINATION: GENERAL: This is an obese, well-developed, middle-aged man who is alert, in no distress. HEENT: Head is atraumatic, normocephalic. Sclerae are anicteric. NECK: Supple. CHEST: Rise symmetrical. Breath sounds clear. HEART: S1, S2. ABDOMEN: Soft. Bowel tones are present. EXTREMITIES: Right lower extremity immobilizer Assessment: 1. Recurrent oxacillin sensitive staph aureus bacteremia secondary to #2 ECHO neg vegetations 2. Right ankle abscess status post I&D at bedside 3. R foot OM/infected hardware s/p BKA 3. Diabetes 4. Right Charcot ankle status post right ankle fusion 5. Obesity Plan: Stable, s/R BKA 08/09/18, will complete abx for bacteremia==> last dose 08/16/18 Consultation Date/Type/Reason Admit Date/Time Jul 29, 2018 at 19:47 Initial Consult Date 07/29/18 Type of Consult id Date/Time of Note DATE: 08/11/18 TIME: 15:59 Exam/Review of Systems Exam Vitals Vital Signs Date Temp Pulse Resp B/P (MAP) Pulse Ox O2 O2 Flow FiO2 Time Delivery Rate 08/11/18 98.2 69 12 121/66 95 09:08 (84) 08/09/18 Room Air 14:37 Intake and Output 08/10/18 08/10/18 08/11/18 1515:00 23:00 07:00 IntakeIntake Total 480 ml 50 ml OutputOutput Total 925 ml 600 ml BalanceBalance -445 ml 50 ml -600 ml Results Result Diagram: 08/08/18 0445 08/08/18 0445 Results 24hrs Laboratory Tests Test 08/10/18 17:26 08/10/18 20:53 08/11/18 08:48 08/11/18 12:27 Bedside Glucose 101 100 124 186 Medications Medication Current Medications IV Flush (NS 3 ml) 3 ml PER PROTOCOL IV ; Start 07/29/18 at 20:00 Ondansetron HCl (Zofran Tab) 4 mg Q6H PRN PO NAUSEA/VOMITING Last administered on 07/30/18at 05:57; Admin Dose 4 MG; Start 07/29/18 at 20:00 Acetaminophen (Tylenol Tab) 650 mg Q6H PRN PO .PAIN 1-3 OR TEMP Last admi nistered on 07/30/18 20:24; Admin Dose 650 MG; Start 07/29/18 at 20:00 Acetaminophen/ Hydrocodone Bitart ([place] (5/325)) 1 tab Q6H PRN PO .MOD PAIN 4- 6 Last administered on 08/11/18 13:18; Admin Dose 1 TAB; Start 07/29/18 at 20:00 Docusate Sodium (Colace) 100 mg Q12H PRN PO .CONSTIPATION; Start 07/29/18 at 20:00 Sodium Biphosphate/ Sodium Phosphate (Fleet Enema) 133 ml DAILY PRN [place] .CONSTIPATION; Start 07/29/18 at 20:00 Zolpidem Tartrate (Ambien) 5 mg QHS PRN PO .INSOMNIA; Start 07/29/18 at 20:00 Famotidine (Pepcid) 20 mg Q12 PO Last administered on 08/11/18 09:34; Admin Dose 20 MG; Start 07/29/18 at 21:00 Heparin Sodium (Porcine) (Heparin (5000 Units/1ml)) 5,000 unit Q12 SC Last a dministered on 08/11/18 09:41; Admin Dose 5,000 UNIT; Start 07/29/18 at 21:00 Atorvastatin Calcium (Lipitor) 40 mg QHS PO Last administered on 08/10/18 20:58; Admin Dose 40 MG; Start 07/29/18 at 21:00 Metformin HCl (Glucophage) 850 mg WITH BREAKFAST DINNE PO Last administered on 08/11/18 09:35; Admin Dose 850 MG; Start 07/30/18 at 08:00 Linagliptin (Tradjenta) 5 mg DAILY PO Last administered on 08/11/18 09:34; Admin Dose 5 MG; Start 07/30/18 at 09:00 Diagnostic Test (Pha) (Accu-Chek) 1 ea AC MEALS AND BEDTIME XX Last administered on 08/10/18 16:45; Admin Dose 1 EA; Start 07/29/18 at 21:00 Diagnostic Test (Pha) (Accu-Chek) 1 ea AC MEALS XX Last administered on 08/10/18at 16:45; Admin Dose 1 EA; Start 07/30/18 at 07:00 Diagnostic Test (Pha) (Accu-Chek) 1 ea 02 XX ; Start 07/30/18 at 02:00 Miscellaneous Information 1 ea NOTE XX ; Start 07/29/18 at 20:30 Glucose (Glutose) 15 gm Q15M PRN PO DECREASED GLUCOSE; Start 07/29/18 at 20:30 Glucose (Glutose) 22.5 gm Q15M PRN PO DECREASED GLUCOSE; Start 07/29/18 at 20:30 Dextrose (D50w Syringe) 25 ml Q15M PRN IV DECREASED GLUCOSE; Start 07/29/18 at 20:30 Dextrose (D50w Syringe) 50 ml Q15M PRN IV DECREASED GLUCOSE; Start 07/29/18 at 20:30 Glucagon (Glucagen) 1 mg Q15M PRN IM DECREASED GLUCOSE; Start 07/29/18 at 20:30 Glucose (Glutose) 15 gm Q15M PRN BUCCAL DECREASED GLUCOSE; Start 07/29/18 at 20:30 Ergocalciferol (Drisdol Liquid (Ped)) 2,000 units AM PO Last administered on 08/11/18at 10:14; Admin Dose 2,000 UNITS; Start 07/30/18 at 09:00 Lisinopril (Zestril) 40 mg BID PO Last administered on 08/11/18at 09:36; Admin Dose 40 MG; Start 08/02/18 at 21:00 Ceftriaxone Sodium 50 ml @ 100 mls/hr Q24H IVPB Last administered on 08/11/18at 15:30; Admin Dose 100 MLS/HR; Start 08/02/18 at 16:00; Stop 08/15/18 at 08:00 Insulin Aspart (Novolog Insulin Pen) NOVOLOG *MODERATE* ALGORITHM WITH MEALS BEDTIME SC Last administered on 08/11/18at 13:15; Admin Dose 4 UNIT; Start 08/09/18 at 18:05 Multivitamins Therapeutic (Theragran) 1 tab DAILY PO Last administered on 08/11/18 09:35; Admin Dose 1 TAB; Start 08/11/18 at 09:00 Ascorbic Acid (Vitamin C) 500 mg BID PO Last administered on 08/11/18at 09:34; Admin Dose 500 MG; Start 08/10/18 at 21:00 WENDY WALSH NP Aug 11, 2018 15:59
--- NOTE | 2018-08-11 18:59 | PN ---
Date/Time of Note Date/Time of Note DATE: 08/11/18 TIME: 18:55 Assessment/Plan VTE Prophylaxis Risk score (from Ns)>0 risk: 4 SCD applied (from Ns): Yes Pharmacological prophylaxis: heparin Lines/Catheters IV Catheter Type (from Nrs): [place] Urinary Cath still in place: No Assessment/Plan Problems: (1) Status post below knee amputation of right lower extremity Onset Date: ~ 08/09/2018 Status: Acute Comment: Working with case management Re: Placement and especially the prosthetics. Will need antibiotics through August 16. As such this is too short of time to justify a PICC line, but will require home health service that actually is comfortable with IVs.Patient reports that he is interested in going home and does not want to go to an ECF. Reports his will be out of town starting on Thursday for 48 hours but his [id number] will be at the house to be of assistance. (2) Diabetes mellitus type 2 in obese Status: Chronic Comment: Adequate diabetic control (3) Hyperlipidemia Status: Chronic Comment: Adequate control Qualifiers: Hyperlipidemia type: pure hypercholesterolemia Qualified Codes: E78.00 - Pure hypercholesterolemia, unspecified (4) Essential hypertension Status: Chronic Comment: Adequate control Result Diagram: 08/08/18 0445 08/08/18 0445 Results 24hrs Laboratory Tests Test 08/10/18 20:53 08/11/18 08:48 08/11/18 12:27 08/11/18 17:47 Bedside Glucose 100 124 186 111 Subjective 24 Hr Interval Summary Free Text/Dictation Patient reports that he is interested in going home and does not want to go to an ECF. Reports his will be out of town starting on Thursday for 48 hours but his [id number] will be at the house to be of assistance. Constitutional: no complaints Respiratory: no complaints Cardiovascular: no complaints Gastrointestinal: no complaints Exam/Review of Systems Exam Vitals Vital Signs Date Temp Pulse Resp B/P (MAP) Pulse Ox O2 O2 Flow FiO2 Time Delivery Rate 08/11/18 98.1 80 16 119/67 96 14:30 (84) 08/09/18 Room Air 14:37 Intake and Output 08/10/18 08/10/18 08/11/18 1515:00 23:00 07:00 IntakeIntake Total 480 ml 50 ml OutputOutput Total 925 ml 600 ml BalanceBalance -445 ml 50 ml -600 ml Constitutional: alert, oriented Neck: supple, non-tender Respiratory: clear to auscultation, normal air movement Cardiovascular: regular rate and rhythm, nl pulses Results Results 24hrs Laboratory Tests Test 08/10/18 20:53 08/11/18 08:48 08/11/18 12:27 08/11/18 17:47 Bedside Glucose 100 124 186 111 Medications Medication Current Medications IV Flush (NS 3 ml) 3 ml PER PROTOCOL IV ; Start 07/29/18 at 20:00 Ondansetron HCl (Zofran Tab) 4 mg Q6H PRN PO NAUSEA/VOMITING Last administered on 07/30/18 05:57; Admin Dose 4 MG; Start 07/29/18 at 20:00 Acetaminophen (Tylenol Tab) 650 mg Q6H PRN PO .PAIN 1-3 OR TEMP Last administered on 07/30/18 20:24; Admin Dose 650 MG; Start 07/29/18 at 20:00 Acetaminophen/ Hydrocodone Bitart ([place] (5/325)) 1 tab Q6H PRN PO .MOD PAIN 4- 6 Last administered on 08/11/18 13:18; Admin Dose 1 TAB; Start 07/29/18 at 20:00 Docusate Sodium (Colace) 100 mg Q12H PRN PO .CONSTIPATION; Start 07/29/18 at 20:00 Sodium Biphosphate/ Sodium Phosphate (Fleet Enema) 133 ml DAILY PRN [place] .CONSTIPATION; Start 07/29/18 at 20:00 Zolpidem Tartrate (Ambien) 5 mg QHS PRN PO .INSOMNIA; Start 07/29/18 at 20:00 Famotidine (Pepcid) 20 mg Q12 PO Last administered on 08/11/18at 09:34; Admin Dose 20 MG; Start 07/29/18 at 21:00 Heparin Sodium (Porcine) (Heparin (5000 Units/1ml)) 5,000 unit Q12 SC Last administered on 08/11/18 09:41; Admin Dose 5,000 UNIT; Start 07/29/18 at 21:00 Atorvastatin Calcium (Lipitor) 40 mg QHS PO Last administered on 08/10/18at 20:58; Admin Dose 40 MG; Start 07/29/18 at 21:00 Metformin HCl (Glucophage) 850 mg WITH BREAKFAST DINNE PO Last administered on 08/11/18 17:57; Admin Dose 850 MG; Start 07/30/18 at 08:00 Linagliptin (Tradjenta) 5 mg DAILY PO Last administered on 08/11/18 09:34; Admin Dose 5 MG; Start 07/30/18 at 09:00 Diagnostic Test (Pha) (Accu-Chek) 1 ea AC MEALS AND BEDTIME XX Last administered on 08/10/18 16:45; Admin Dose 1 EA; Start 07/29/18 at 21:00 Diagnostic Test (Pha) (Accu-Chek) 1 ea AC MEALS XX Last administered on 08/10/18 16:45; Admin Dose 1 EA; Start 07/30/18 at 07:00 Diagnostic Test (Pha) (Accu-Chek) 1 ea 02 XX ; Start 07/30/18 at 02:00 Miscellaneous Information 1 ea NOTE XX ; Start 07/29/18 at 20:30 Glucose (Glutose) 15 gm Q15M PRN PO DECREASED GLUCOSE; Start 07/29/18 at 20:30 Glucose (Glutose) 22.5 gm Q15M PRN PO DECREASED GLUCOSE; Start 07/29/18 at 20:30 Dextrose (D50w Syringe) 25 ml Q15M PRN IV DECREASED GLUCOSE; Start 07/29/18 at 20:30 Dextrose (D50w Syringe) 50 ml Q15M PRN IV DECREASED GLUCOSE; Start 07/29/18 at 20:30 Glucagon (Glucagen) 1 mg Q15M PRN IM DECREASED GLUCOSE; Start 07/29/18 at 20:30 Glucose (Glutose) 15 gm Q15M PRN BUCCAL DECREASED GLUCOSE; Start 07/29/18 at 20:30 Ergocalciferol (Drisdol Liquid (Ped)) 2,000 units AM PO Last administered on 08/11/18at 10:14; Admin Dose 2,000 UNITS; Start 07/30/18 at 09:00 Lisinopril (Zestril) 40 mg BID PO Last administered on 08/11/18 09:36; Admin Dose 40 MG; Start 08/02/18 at 21:00 Ceftriaxone Sodium 50 ml @ 100 mls/hr Q24H IVPB Last administered on 08/11/18at 15:30; Admin Dose 100 MLS/HR; Start 08/02/18 at 16:00; Stop 08/15/18 at 08:00 Insulin Aspart (Novolog Insulin Pen) NOVOLOG *MODERATE* ALGORITHM WITH MEALS BEDTIME SC Last administered on 08/11/18at 13:15; Admin Dose 4 UNIT; Start 08/09/18 at 18:05 Multivitamins Therapeutic (Theragran) 1 tab DAILY PO Last administered on 08/11/18at 09:35; Admin Dose 1 TAB; Start 08/11/18 at 09:00 Ascorbic Acid (Vitamin C) 500 mg BID PO Last administered on 08/11/18at 09:34; Admin Dose 500 MG; Start 08/10/18 at 21:00 DEE AGUILAR MD Aug 11, 2018 18:58
[2018-08-11 19:30] VITALS: BP 130/68; PULSE 75; RESP 17
[2018-08-11] MEDS: ATORVASTATIN 40 MG TAB PO SCH (20:35)
[2018-08-12] MEDS: ACCU-CHEK XX SCH ×5 (01:06→11:30)
[2018-08-12 02:07] VITALS: BP 121/69; PULSE 62; RESP 18
[2018-08-12 08:00] VITALS: BP 129/73; PULSE 65; RESP 18
[2018-08-12] MEDS: INSULIN ASPART [NOVOLOG] 3 ML PEN SC SCH ×2 (08:00→12:00)
[2018-08-12] MEDS: LINAGLIPTIN 5 MG TABLET PO SCH (08:08)
[2018-08-12] MEDS: MULTIVITAMINS THERAPEUTIC TAB PO SCH (08:09)
[2018-08-12] MEDS: ASCORBIC ACID 500 MG TAB PO SCH (08:09)
[2018-08-12] MEDS: HEPARIN 5,000 UNIT/1 ML VIAL SC SCH (08:09)
[2018-08-12] MEDS: metFORMIN 850 MG TAB PO SCH (08:09)
[2018-08-12] MEDS: FAMOTIDINE 20 MG TAB PO SCH (08:09)
[2018-08-12] MEDS: LISINOPRIL 20 MG TAB PO SCH (08:10)
[2018-08-12] MEDS: ERGOCALCIFEROL (8000 UNITS/ML PO SYG) PO SCH (08:12)
--- NOTE | 2018-08-12 13:19 | DS ---
Date/Time of Note Date/Time of Note DATE: 08/12/18 TIME: 13:15 Discharge Summary Admission/Discharge Info Admit Date/Time Jul 29, 2018 at 19:47 Discharge Date/Time August 12, 2018 Discharge Diagnosis Staph aureus sepsis of infected hardware with Charcot joints in the right ankle; diabetes mellitus type 2; diabetic peripheral neuropathy; sepsis syndrome; essential hypertension; hyperlipidemia; Patient Condition: Fair Consults Podiatry-Dr. Lopez; vascular surgery-Dr. Knox; infectious diseases Dr. Mcnamara Procedures MRI scan lower extremity right ; right leg below-knee amputation; Hx of Present Illness 43-year-old gentleman who was admitted roughly 100 days ago to this facility. That time he had an infection at the site of a prior Charcot foot repair with infected hardware. Treated with IV antibiotics via PICC line for a total of 8 weeks. He had been doing relatively well but then had recurrence of signs and symptoms of infection in the last 4 to 5 days which included fever chills sweats swelling warmth pain. Presented to the emergency room where he is found to have sepsis, at the end signs and symptoms at the prior site consistent with recurrent infection. He is admitted to hospital for IV antibiotic therapy and formulation of the definitive treatment plan. Hospital Course Charming 43-year-old male who is exhausted all conservative attempts at treatment for the Charcot joint with infection. Due to the degradation of the bones and the loose bodies it was felt by podiatry and vascular surgery that our best option would be below-knee amputation. Patient was in agreement with this and as such she underwent this successfully. Infectious disease has recommended continued IV antibiotics through August 16. He will after that be allowed time to recover, and then to only undergo prosthesis and orthotics to get him a little right lower extremity walking implement. Home Meds Reported Medications Sitagliptin* (Januvia*) Unknown Strength Tablet, PO DAILY, #30 TAB 04/19/18 Metformin* (Glucophage*) 850 Mg Tablet, 850 MG PO WITH BREAKFAST DINNE, #60 TAB 04/19/18 Lisinopril* (Lisinopril*) 20 Mg Tablet, 20 MG PO DAILY, #30 TAB 04/19/18 Ergocalciferol (Vitamin D2) (VITAMIN D2) 2,000 Unit Tablet, 2000 UNIT PO QAM, TAB 04/19/18 Atorvastatin* (Atorvastatin*) 40 Mg Tablet, 40 MG PO QHS, #30 TAB 04/19/18 Follow-up Plan IV antibiotics at home with home health infusion till August 16; vascular surgery follow-up in roughly 2 to 3 weeks; off work x6 to 12 weeks. Prosthetics orthotics ends 12 weeks; my office in 4 weeks Primary Care Provider Milton Contreras MD Time spent on discharge: > 30 minutes Pending Labs Laboratory Tests Test 08/11/18 17:47 08/11/18 20:31 08/12/18 07:50 08/12/18 12:01 Bedside 111 112 111 124 Glucose mg/dL (70-220) mg/dL (70-220) mg/dL (70-220) mg/dL (70-220) Copies To: CC: PAUL KNOX MD; VALDO MCNAMARA MD; LORI LOPEZ DPAlexa ; MILTON CONTRERAS MD Aug 12, 2018 13:19
--- NOTE | 2018-08-12 13:20 | PDOCDIS ---
Discharge Instructions DIAGNOSIS Discharge Diagnosis Staph aureus sepsis of infected hardware with Charcot joints in the right ankle; diabetes mellitus type 2; diabetic peripheral neuropathy; sepsis syndrome; ess ential hypertension; hyperlipidemia; CONDITION [id number] Patient Condition: [id number] Fair HOME CARE INSTRUCTIONS: [id number] Special Diet: [id number] Diabetic diet ACTIVITY: [id number] Activity Restrictions: [id number] Slowly Increase Activity FOLLOW UP/APPOINTMENTS Follow-up Plan IV antibiotics at home with home health infusion till August 16; vascular surgery follow-up in roughly 2 to 3 weeks; off work x6 to 12 weeks. Prosthetics orthotics ends 12 weeks; my office in 4 weeks SCHOOL/WORK RELEASE May return to School/Work on: Sep 23, 2018 May return to School/Work with: With Restrictions School/Work Release Comment: Off work at least 6 weeks. DEE AGUILAR MD Aug 12, 2018 13:20
[2018-08-12] MEDS ORDERED: LISI-471 PO (13:22)
[2018-08-12 14:00] VITALS: BP 129/74; PULSE 75; RESP 19
--- NOTE | 2018-08-12 14:37 | CONS ---
Assessment/Plan Assessment/Plan Hospital Course (Demo Recall) No acute events, no fevers Blood culture and wound cx growing MSSA. Repeat bld cx 08/02 neg Antimicrobials: Rocephin PHYSICAL EXAMINATION: GENERAL: This is an obese, well-developed, middle-aged man who is alert, in no distress. HEENT: Head is atraumatic, normocephalic. Sclerae are anicteric. NECK: Supple. CHEST: Rise symmetrical. Breath sounds clear. HEART: S1, S2. ABDOMEN: Soft. Bowel tones are present. EXTREMITIES: Right lower extremity immobilizer Assessment: 1. Recurrent oxacillin sensitive staph aureus bacteremia secondary to #2 ECHO neg vegetations 2. Right ankle abscess status post I&D at bedside 3. R foot OM/infected hardware s/p BKA 3. Diabetes 4. Right Charcot ankle status post right ankle fusion 5. Obesity Plan: Stable, s/R BKA 08/09/18, will complete abx for bacteremia==> last dose 08/16/18 Consultation Date/Type/Reason Admit Date/Time Jul 29, 2018 at 19:47 Initial Consult Date 07/29/18 Type of Consult id Date/Time of Note DATE: 08/12/18 TIME: 14:37 Exam/Review of Systems Exam Vitals Vital Signs Date Temp Pulse Resp B/P (MAP) Pulse Ox O2 O2 Flow FiO2 Time Delivery Rate 08/12/18 98.1 65 18 129/73 95 Room Air 08:00 (91) Intake and Output 08/11/18 08/11/18 08/12/18 1515:00 23:00 07:00 IntakeIntake Total 410 ml OutputOutput Total 1550 ml BalanceBalance -1140 ml Results Result Diagram: 08/08/18 0445 08/08/18 0445 Results 24hrs Laboratory Tests Test 08/11/18 17:47 08/11/18 20:31 08/12/18 07:50 08/12/18 12:01 Bedside Glucose 111 112 111 124 Medications Medication Current Medications IV Flush (NS 3 ml) 3 ml PER PROTOCOL IV ; Start 07/29/18 at 20:00 Ondansetron HCl (Zofran Tab) 4 mg Q6H PRN PO NAUSEA/VOMITING Last administered on 07/30/18at 05:57; Admin Dose 4 MG; Start 07/29/18 at 20:00 Acetaminophen (Tylenol Tab) 650 mg Q6H PRN PO .PAIN 1-3 OR TEMP Last administered on 07/30/18 20:24; Admin Dose 650 MG; Start 07/29/18 at 20:00 Acetaminophen/ Hydrocodone Bitart ([place] (5/325)) 1 tab Q6H PRN PO .MOD PAIN 4- 6 Last administered on 08/11/18 20:34; Admin Dose 1 TAB; Start 07/29/18 at 20:00 Docusate Sodium (Colace) 100 mg Q12H PRN PO .CONSTIPATION; Start 07/29/18 at 20:00 Sodium Biphosphate/ Sodium Phosphate (Fleet Enema) 133 ml DAILY PRN [place] .CONSTIPATION; Start 07/29/18 at 20:00 Zolpidem Tartrate (Ambien) 5 mg QHS PRN PO .INSOMNIA; Start 07/29/18 at 20:00 Famotidine (Pepcid) 20 mg Q12 PO Last administered on 08/12/18 08:09; Admin Dose 20 MG; Start 07/29/18 at 21:00 Heparin Sodium (Porcine) (Heparin (5000 Units/1ml)) 5,000 unit Q12 SC Last administered on 08/12/18 08:09; Admin Dose 5,000 UNIT; Start 07/29/18 at 21:00 Atorvastatin Calcium (Lipitor) 40 mg QHS PO Last administered on 08/11/18 20:35; Admin Dose 40 MG; Start 07/29/18 at 21:00 Metformin HCl (Glucophage) 850 mg WITH BREAKFAST DINNE PO Last administered on 08/12/18 08:09; Admin Dose 850 MG; Start 07/30/18 at 08:00 Linagliptin (Tradjenta) 5 mg DAILY PO Last administered on 08/12/18 08:08; Admin Dose 5 MG; Start 07/30/18 at 09:00 Diagnostic Test (Pha) (Accu-Chek) 1 ea AC MEALS AND BEDTIME XX Last adm inistered on 08/10/18 16:45; Admin Dose 1 EA; Start 07/29/18 at 21:00 Diagnostic Test (Pha) (Accu-Chek) 1 ea AC MEALS XX Last administered on 08/10/18 16:45; Admin Dose 1 EA; Start 07/30/18 at 07:00 Diagnostic Test (Pha) (Accu-Chek) 1 ea 02 XX ; Start 07/30/18 at 02:00 Miscellaneous Information 1 ea NOTE XX ; Start 07/29/18 at 20:30 Glucose (Glutose) 15 gm Q15M PRN PO DECREASED GLUCOSE; Start 07/29/18 at 20:30 Glucose (Glutose) 22.5 gm Q15M PRN PO DECREASED GLUCOSE; Start 07/29/18 at 20:30 Dextrose (D50w Syringe) 25 ml Q15M PRN IV DECREASED GLUCOSE; Start 07/29/18 at 20:30 Dextrose (D50w Syringe) 50 ml Q15M PRN IV DECREASED GLUCOSE; Start 07/29/18 at 20:30 Glucagon (Glucagen) 1 mg Q15M PRN IM DECREASED GLUCOSE; Start 07/29/18 at 20:30 Glucose (Glutose) 15 gm Q15M PRN BUCCAL DECREASED GLUCOSE; Start 07/29/18 at 20:30 Ergocalciferol (Drisdol Liquid (Ped)) 2,000 units AM PO Last administered on 08/12/18at 08:12; Admin Dose 2,000 UNITS; Start 07/30/18 at 09:00 Lisinopril (Zestril) 40 mg BID PO Last administered on 08/12/18at 08:10; Admin Dose 40 MG; Start 08/02/18 at 21:00 Ceftriaxone Sodium 50 ml @ 100 mls/hr Q24H IVPB Last administered on 08/11/18at 15:30; Admin Dose 100 MLS/HR; Start 08/02/18 at 16:00; Stop 08/15/18 at 08:00 Insulin Aspart (Novolog Insulin Pen) NOVOLOG *MODERATE* ALGORITHM WITH MEALS BEDTIME SC Last administered on 08/11/18at 13:15; Admin Dose 4 UNIT; Start 08/09/18 at 18:05 Multivitamins Therapeutic (Theragran) 1 tab DAILY PO Last administered on 08/12/18at 08:09; Admin Dose 1 TAB; Start 08/11/18 at 09:00 Ascorbic Acid (Vitamin C) 500 mg BID PO Last administered on 08/12/18at 08:09; Admin Dose 500 MG; Start 08/10/18 at 21:00 WENDY WALSH NP Aug 12, 2018 14:37
[2018-08-12] MEDS: CEFTRIAXONE 1 GM/50 ML (PMX) 50 ML IVPB SCH (15:27)
== END 2018-08-12 16:55 | disposition home health service (06) | DRG 474 ==
LOC: E/R 19:03 → PP2 19:47
PROVIDERS: ADMIT Internal Medicine; ATTEND Internal Medicine
PROC: 0Y9K0ZZ Drainage of Right Ankle Region, Open Approach (ICD-10-PCS; principal; 2018-08-01)
PROC: 0Y6H0Z1 Detachment at Right Lower Leg, High, Open Approach (ICD-10-PCS; 2018-08-09)
DX: T84.622A Infection and inflammatory reaction due to internal fixation device of right tibia, initial encounter (principal); A41.01 Sepsis due to Methicillin susceptible Staphylococcus aureus; M86.9 Osteomyelitis, unspecified; M86.171 Other acute osteomyelitis, right ankle and foot; M86.661 Other chronic osteomyelitis, right tibia and fibula; E11.42 Type 2 diabetes mellitus with diabetic polyneuropathy; E11.610 Type 2 diabetes mellitus with diabetic neuropathic arthropathy; E11.69 Type 2 diabetes mellitus with other specified complication; E66.9 Obesity, unspecified; I10 Essential (primary) hypertension; M25.471 Effusion, right ankle; E78.5 Hyperlipidemia, unspecified; M21.70 Unequal limb length (acquired), unspecified site; M71.071 Abscess of bursa, right ankle and foot; B95.61 Methicillin susceptible Staphylococcus aureus infection as the cause of diseases classified elsewhere; Y84.8 Other medical procedures as the cause of abnormal reaction of the patient, or of later complication, without mention of misadventure at the time of the procedure; Y92.019 Unspecified place in single-family (private) house as the place of occurrence of the external cause; Z68.33 Body mass index [BMI] 33.0-33.9, adult; Z79.4 Long term (current) use of insulin; Z98.1 Arthrodesis status
CPT/HCPCS: 36415; 71045; 73630; 73721; 80053; 80202; 82565; 82962; 83036; 83605; 83735; 84484; 84520; 85025; 85610; 85651; 85730; 87070; 88307; 88311; 93005; 93308; 96374; 97110; 97116; 97162; 97530; J0690; J0696; J0744; J1170; J1644; J1815; J2250; J2405; J2543; J3010; J3370; J7030; J7050; L5400; L5684; L5690; L8400; L8440